=== PATIENT | female | born 1950 | race Caucasian/White ===

== ENCOUNTER 2018-05-22 14:01 | Inpatient (IN) | payer OTHER ==
--- NOTE | 2018-05-22 12:12 | R.PREADM ---
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 ACUTE WELDING MANAGER/DC CAPACITY MANAGER Yolanda Khan REFERRING PHYSICIAN Todd Grant REHAB FACILITY [facility] CLINICAL LIAISON Karen Kerr PHYSICIAN REVIEWER Dr. Leland Monroe M.D. MR# [id number] NAME JYOTI COFFMAN ADDRESS [address] [place] [address] PHONE ZIP [phone] DATE OF 1950 AGE 67 SSN# [id number] GENDER female MARITAL STATUS RACE white ADMIT FROM 02 - [facility] PRE-HOSPITAL LIVING SETTING 01 - Home (private home/apt. board/care, assisted living, half-way, transitional living) HOME TYPE AND DETAILS Type of home: single family house # of levels in the residence: 1 # of steps within the residence: 0 # of steps to enter the residence: 0 PRE-HOSPITAL LIVING WITH Family/Relatives FAMILY SUPPORT Yes PRIMARY FAMILY CONTACT NAME Robert Coffman PRIMARY FAMILY CONTACT PHONE PRIMARY FAMILY CONTACT RELATIONSHIP Spouse PHONE PRIMARY FAMILY CONTACT ON ADM.? no IS PRIMARY FAMILY CONTACT AUTH. REP.? no 1ST EMERGENCY CONTACT Robert Coffman 1ST CONTACT PHONE 1ST CONTACT RELATIONSHIP Spouse PHONE 1ST CONTACT ON ADM. no IS 1ST CONTACT AUTH. REP.? no PHONE 2ND CONTACT ON ADM.? no PATIENT EMPLOYMENT STATUS Retired (for age) PATIENT EMPLOYER No Employer PAYOR INFORMATION: 1ST PAYOR NAME MEDICARE 1ST PAYOR PHONE [phone] 1ST PAYOR INJURY/ILLNESS DUE TO ACCIDENT? No ANOTHER REPUBLICAN RESPONSIBLE? No PRIMARY REHAB/ACUTE DIAGNOSIS: CAD ONSET DATE 04/27/2018 REHAB IMPAIRMENT CATEGORY (VENUS): 14 Cardiac does NOT meet 60% rule PRIMARY DIAGNOSIS-RELATED SURGERIES: ARTERIAL CORONARY BYPASS ON 05/01/2018 COMORBID REHAB/ACUTE DIAGNOSES: - Tier 3 Type 2 diabetes mellitus with diabetic neuropathy, unspecified (E11.40) - N/A ARRHYTHMIA ARTHRITIS ASTHMA ATRIAL FIBRILLATION THYROID CANCER CHF CORONARY ARTERY DISEASE HYPERTENSION INTERVENTIONS: - Arrhythmia Managing VS O2 sats Pacer evaluation - Asthma ABG's Inhalers Medications Nebulizers Respiratory therapy X-Rays - Atrial Fibrillation Anticoagulation Medications VS - Hypertension Fluid management Medications VS RISK FOR COMPLICATIONS: - Arrhythmia Bradycardia CHF Cardiac Arrest Tachycardia - Asthma Hypoxia Metabolic acidosis Worsening of asthma - Atrial Fibrillation CVA Heart failure Limb embolus - Hypertension CVA Hypotension NE TIA SUMMARY OF ACUTE HOSPITALIZATION: Pt. is a 67 yo Right-handed white female. On 04/27/2018 she was admitted to [facility] with diagnosis CAD. Her impairment category is Cardiac 09 - Cardiac Disorders (09). Pre-morbidly, Pt. was independent/mod-I in Communication, Social Cognition, Self-Care, Locomotion, Sp hincter Control, and Transfers Control; and she had good Sphincter Control. Currently, she has deficits of Balance, Locomotion, Endurance, Safety Awareness, Transfers Control, a nd Self-Care. Pt. is now referred to [facility] for acute in-patient rehabilitation in order to maximize patient's functional independence in activities of daily living, strength, ROM, and mobi lity. Patient has realistic goal of being discharged at assistance level 6-Gordo to reside at Home with Fam iris/Relatives. Jyoti Coffman is a 67 year old female that lives in a one ben home. She walks without assistance and independe nt with ADLs. On 04/27/2018, she had Coronary Artery Disease and was admitted to [facility] and treated. She is now medically stable but in need of 24-hour nursing, doctor supervision and oversite participate in 3hours of therapy a day/15 hours per week and receive care with an intensive interdisciplinary approach. PAST MEDICAL HISTORY ARRHYTHMIA ARTHRITIS ASTHMA ATRIAL FIBRILLATION CHF CORONARY ARTERY DISEASE HYPERTENSION THYROID CANCER Type 2 diabetes mellitus with diabetic neuropathy, unspecified (E11.40) PAST SURGICAL HISTORY: BACK SURGERY CARDIAC SURGERY (PACEMAKER IMPLANT) CAESAREAN SECTION GALLBLADDER SURGERY HYSTERECTOMY NECK SURGERY TONSILLECTOMY MEDICATION ALLERGIES: Demerol Iodine and Iodide containing products ENVIRONMENTAL ALLERGIES: Shrimp - Substance Allergies None Known - Other Allergies None Known CODE STATUS: Full code WEIGHT/HEIGHT/BMI: WEIGHT 190 lbs HEIGHT 5' 6" BMI 30.7 DIET: - Diet Type Regular - Diet - Solid Texture Regular - Diet - Liquid Texture Regular - Tube Feed N/A SKIN DIAGRAM: Incision on Right breast; extent - small; stage - NS(Not Stageable). Treatment - Per Physician's Orde rs. REVIEW OF SYSTEMS: - Gen Alert and awake Lying in bed No apparent distress Oriented to: person, time, and place - Vital Signs Temperature: 98.3 F SBP/DBP: 111/57 Pulse: 81 Resp: 18 Vital signs stable, afebrile - CVS RRR VITAL SIGNS Temperature: 98.3 F SBP/DBP: 111/57 Pulse: 81 Resp: 18 Vital signs stable, afebrile CURRENT SPHINCTER CONTROL: Pre-hospital bladder status: continent # of bladder accidents in the last 7 days prior to screenin Pre-hospital bowel status: continent # of bowel accidents in the last 7 days prior to screenin Last Bowel Movement Date: DETAILED CURRENT FUNCTIONAL STATUS: - Bladder accident frequency: Ind - No accidents in the past 7 days - Bowel accident frequency: Ind - No accidents in the past 7 days - Walking score based on distance walked: 3(>=150ft) - Wheelchair score based on distance traveled: 0(N/A) FUNCTIONAL STATUS: - Self-Care A. Eating Ind Ind B. Grooming Ind Ind C. Bathing Ind Martita D. Dressing - Upper Ind Martita E. Dressing - Lower Ind Martita F. Toileting Ind Martita - Sphincter Control G: Bladder control Ind Ind H: Bowel control Ind Ind - Transfers Control I. Bed/Chair/Wheelchair Ind modA J. Toilet Ind modA K. Tub/Shower Ind ADNO - Locomotion L. Walk/Wheelchair (C) Ind Martita L. Walk/Wheelchair (W) Ind Martita M. Stairs Ind ADNO - Communication N. Comprehension (B) Ind Ind O. Expression (B) Ind Ind - Social Cognition P. Social Interaction Ind Ind Q. Problem Solving Ind Ind R. Memory Ind Ind - Endurance Fair - Balance Fair - Safety Awareness Fair CURRENT FUNC. DEFICITS: Balance, Locomotion, Endurance, Safety Awareness, Transfers Control, and Self-Care THERAPY NOTES FROM ACUTE CARE: Attached. SPECIAL NEEDS: - Safety Concerns Skin breakdown precautions needed due to skin breakdown risk PATIENT NEEDS ACTIVE AND ONGOING THERAPEUTIC INTERVENTION OF MULTIPLE THERAPY DISCIPLINES, INCLUDING: - Occupational Therapy Evaluate and Treat. - Physical Therapy Evaluate and Treat. PATIENT NEEDS CLOSE MEDICAL SUPERVISION BY A REHABILITATION PHYSICIAN FOR: Bowel and Bladder Management Coordination of Treatment Team Diabetes Management Medical and Co-Morbidity Management Wound Care DVT Management Pain Management PATIENT REQUIRES 24X7 REHAB NURSING FOR MEDICAL AND FUNCTIONAL MGT. OF THE FOLLOWING DEFICITS: ADL's Ambulation Bowel and Bladder Management Communication Disease Management Medication Management Patient/Family Education Providing Safe Environment Skin Integrity Transfers Pain Management PATIENT REQUIRES INTENSIVE, COORDINATED INTERDISCIPLINARY APPROACH TO REHAB: Arranging Home Equipment/Services Discharge Planning Family Intervention/Training Accounting Policy Consultant/Case Management PATIENT REHAB POTENTIAL: Expected level of measurable improvement will be of a practical value to patient's functional capacit y or adaptations to impairments Has a viable Discharge Plan Medically appropriate; condition is sufficiently stable to participate in intensive rehab program Patient is able and expected to receive 3 hours of individualized therapy daily on at least 5 of ever y 7 days Patient's prognosis for significant practical improvement within a reasonable period of time appears Good DISCHARGE PLAN: - Estimated Length of Stay (days) 10. - Consensus on plan Discharge plan has been discussed with primary caregiver. Patient/Family is in agreement with the gibran n. Primary caregiver is in agreement with the plan. - Patient/Family Goals Return home with assistance. - Potential barriers to discharge Home, to live with Family/Relatives. RECOMMENDED CARE LEVEL: IRF RECOMMENDATION DETAILS: Recommended Admission to Comprehensive Rehabilitation Program to Increase Functional Walker SCREENER'S COMPLETENESS CONFIRMATION: - Screening Confirmation The patient data collection on this preadmission screening form is finished PHYSICIANS REVIEW AND ADMISSION DETERMINATION Admit - Based on my review of the Pre-Admission Screening results, in my medical judgment and experie nce, I concur with the findings and recommend admission to [facility], as this patient requires an IRF level of care. SIGNATURE PANEL: Clinical Liaison - [electronically] signed by Karen Kerr on 05/22/2018 at 11:16 (SCHOOL BUS OPERATOR) Physician Reviewer - [electronically] signed by Dr. Leland Monroe M.D. on 05/22/2018 at 12:11 (SCHOOL BUS OPERATOR )
--- OUTSIDE RECORDS SUMMARY | 2018-05-22 16:03 | XMS REPORT | Clinical Summary ---
:1950 Author Organization [facility] [employer] Address [address] [place] [address] Care Team Providers Name Role Phone Arash Samuel MD Primary Care Provider Allergies Active Allergy Reactions Severity Noted Date Comments Adhesive Rash Low 06/09/2017 Meperidine GI Intolerance 06/09/2017 Iodine Anaphylaxis High 06/09/2017 Shrimp Anaphylaxis High 06/09/2017 Medications Medication Sig Dispensed Refills Start Date End Date Status dapagliflozin-metform Take 1 tablet 0 Active in (XIGDUO XR) by mouth daily. 5-1,000 mg tablet, IR & ER, biphasic 24hr lisinopril Take 5 mg by 0 Active (PRINIVIL,ZESTRIL) 5 mouth daily. mg tablet metoprolol succinate Take 100 mg by 0 Active XL (TOPROL-XL) 100 mg mouth daily. 24 hr tablet ERGOCALCIFEROL, Take by mouth. 0 Active VITAMIN D2, ORAL isosorbide Take 120 mg by 0 Active mononitrate (IMDUR) mouth daily. 120 MG 24 hr tablet MECOBAL/LEVOMEFOLAT Take by mouth. 0 Active CA/B6 PHOS (METANX ORAL) levothyroxine Take 175 mcg by 0 Active (SYNTHROID, LEVOXYL) mouth nightly. 175 mcg tablet ALENDRONATE SODIUM Take by mouth. 0 Active (ALENDRONATE ORAL) methocarbamol Take 1 tablet 40 tablet 3 06/12/2017 Active (ROBAXIN-750) 750 MG every 6 hours tablet as needed for spasms docusate sodium Take 1 capsule 30 capsule 0 06/12/2017 06/27/2017 (COLACE) 100 MG (100 mg total) capsule by mouth 2 (two) times a day for 30 doses. Active Problems Problem Noted Date Pacemaker Irregular heart rate Wears glasses Dental crowns present Never exercises Immunizations up to date Encounters Date Type Specialty Care Team Description 06/12/2017 Anesthesia Event General Surgery Connie Rey, HOME CARE ASSISTANT 06/12/2017 Surgery General Surgery Qamar Lui OF MD Shaheen INTRATHECAL PAIN PUMP 06/12/2017 Hospital Encounter General Surgery Qamar Lui Chronic pain MD Shaheen associated with significant psychosocial dysfunction 06/09/2017 Pre-Admit Testing Pre-Admission Qamar Lui Preop testing Appointment Testing MD Shaheen (Primary Dx) after 05/21/2017 Family History Medical History Relation Name Comments Cancer Brother Heart disease Brother Cancer Father Diabetes Father Emphysema Mother Heart disease Mother Diabetes Sister Relation Name Status Comments Brother Father Mother Sister Alive Social History Tobacco Use Types Packs/Day Years Used Date Never Smoker Smokeless Tobacco: Never Used Alcohol Use Drinks/Week oz/Week Comments Yes occasional Sex Assigned at Date Recorded Not on file Job Start Date Occupation Industry Not on file Not on file Not on file Travel History Travel Start Travel End No recent travel history available. Last Filed Vital Signs Vital Sign Reading Time Taken Blood Pressure 112/65 06/12/2017 12:15 PM TEST CONSULTANT Pulse 60 06/12/2017 12:15 PM TEST CONSULTANT Temperature 36.1 C (96.9 F) 06/12/2017 11:23 AM TEST CONSULTANT Respiratory Rate 14 06/12/2017 12:15 PM TEST CONSULTANT Oxygen Saturation 99% 06/12/2017 12:15 PM TEST CONSULTANT Inhaled Oxygen Concentration - - Weight 68 kg (150 lb) 06/12/2017 7:22 AM TEST CONSULTANT Height 157.5 cm (5' 2") 06/09/2017 3:42 PM TEST CONSULTANT Body Mass Index 27.44 06/12/2017 7:22 AM TEST CONSULTANT Plan of Treatment Health Maintenance Due Date Last Done Comments BREAST CANCER SCREENING 2000 COLON CANCER SCREENING 2000 SHINGLES VACCINES (1 of 2) 2000 PNEUMOCOCCAL POLYSACCHARIDE VACCINE AGE 65 AND OVER 12/22/2015 PNEUMOCOCCAL-13 12/22/2015 INFLUENZA VACCINE 12/27/2017 Procedures Procedure Name Priority Date/Time Associated Comments Diagnosis SURGICAL PATHOLOGY Routine 06/12/2017 11:19 Results for this REQUEST AM TEST CONSULTANT procedure are in the results section. POC GLUCOSE Routine 06/12/2017 10:22 Results for this AM TEST CONSULTANT procedure are in the results section. MT AN ELECTIVE Routine 06/12/2017 9:02 SUPRAGLOTTIC AIRWAY AM TEST CONSULTANT Procedure Note - Ruben Puetne CRNA - 06/12/2017 9:02 AM TEST CONSULTANT Airway Date/Time: 06/12/2017 8:49 AM Performed by: RUBEN PUENTE Authorized by: BONNIE FLETCHER Location: OR Urgency: Elective Difficult Airway: No Anesthesiologist: BONNIE FLETCHER Resident/SCHOOL SUPERVISOR/AA: RUBEN PUENTE Performed by: resident/SCHOOL SUPERVISOR/AA Preoxygenated with 100% O2: Yes C-spine Precautions Maintained Throughout: Yes Mask Ventilation: Not attempted Final Airway Type: Supraglottic airway Final LMA: Classic LMA Size: 3 Number of Attempts at Approach: 1 POC GLUCOSE Routine 06/12/2017 7:32 AM Results for this TEST CONSULTANT procedure are in the results section. MANUAL DIFFERENTIAL Routine 06/09/2017 4:02 PM Results for this TEST CONSULTANT procedure are in the results section. ZZESTIMATED GFR Routine 06/09/2017 4:02 PM Results for this TEST CONSULTANT procedure are in the results section. BASIC METABOLIC PANEL Routine 06/09/2017 4:02 PM Preop testing Results for this TEST CONSULTANT procedure are in the results section. CBC WITH PLATELET AND Routine 06/09/2017 4:02 PM Preop testing Results for this DIFFERENTIAL TEST CONSULTANT procedure are in the results section. after 05/21/2017 Results Surgical pathology request (06/12/2017 11:19 AM TEST CONSULTANT) [facility] DEPARTMENT OF PATHOLOGY AND GENOMIC MEDICINE Surgical pathology report See link below for PDF [facility] DEPARTMENT OF Lab Report PATHOLOGY AND GENOMIC MEDICINE Result status This is Final Report to [facility] DEPARTMENT OF [id number] PATHOLOGY AND GENOMIC MEDICINE Performing Organization Address City/[facility]/Zipcode Phone Number [facility] DEPARTMENT OF PATHOLOGY [id number] [place] [address]. [place] [address] AND GENOMIC MEDICINE POC glucose (06/12/2017 10:22 AM TEST CONSULTANT)Only the most recent of2 resultswithin the time period is included. POC glucose 106 (H) 65 - 99 mg/dL [facility] DEPARTMENT OF PATHOLOGY AND Comment: GENOMIC MEDICINE RN Notified Meter ID: [id number] Tobacco Cutter: Berhane Powers Performing Organization Address City/[facility]/Zipcode Phone Number [facility] DEPARTMENT OF PATHOLOGY [address] [place] [address] AND [place] Estimated GFR (06/09/2017 4:02 PM TEST CONSULTANT) GFR Non Af Amer 63 mL/min/1.73 m2 [facility] DEPARTMENT OF PATHOLOGY AND GENOMIC MEDICINE GFR Af Amer 76 mL/min/1.73 m2 [facility] DEPARTMENT OF Comment: PATHOLOGY AND GENOMIC Chronic kidney disease: <60 mL/min/1.73m2 MEDICINE Kidney failure: <15 mL/min/1.73m2 The estimated GFR is calculated from the IDMS-traceable Modification of Diet in Renal Disease Equation. The accuracy of the calculation is poor when the creatinine is normal. Calculated values >90 mL/min/1.73m2 are not reported. This equation has not been validated in children (<18 years), women, the elderly (>70 years), or ethnic groups other than Caucasians and Americans. Specimen Plasma specimen Performing Organization Address City/[facility] Phone Number [facility] DEPARTMENT OF PATHOLOGY [address] [place] [address] AND [facility] Manual differential (06/09/2017 4:02 PM TEST CONSULTANT) Manual differential PERFORMED [facility] DEPARTMENT OF PATHOLOGY AND GENOMIC MEDICINE Neutrophils 49.0 39.0 - 69.0 % [facility] DEPARTMENT OF PATHOLOGY AND GENOMIC MEDICINE Lymphocytes 44.0 25.0 - 45.0 % [facility] DEPARTMENT OF PATHOLOGY AND GENOMIC MEDICINE Monocytes 5.0 0.0 - 10.0 % [facility] DEPARTMENT OF PATHOLOGY AND GENOMIC MEDICINE Eosinophils 0.0 0.0 - 5.0 % [facility] DEPARTMENT OF PATHOLOGY AND GENOMIC MEDICINE Basophils 2.0 (H) 0.0 - 1.0 % [facility] DEPARTMENT OF PATHOLOGY AND GENOMIC MEDICINE Platelet slide review Charity adequate [facility] DEPARTMENT OF PATHOLOGY AND GENOMIC MEDICINE Performing Organization Address City/State/Zipcode Phone Number [facility] DEPARTMENT PATHOLOGY [address] [place] [address] CBC with platelet and differential (06/09/2017 4:02 PM TEST CONSULTANT) WBC 7.0 4.5 - 11.0 k/uL [facility] DEPARTMENT OF PATHOLOGY AND GENOMIC MEDICINE RBC 3.88 (L) 4.20 - 5.50 m/uL [facility] DEPARTMENT OF PATHOLOGY AND GENOMIC MEDICINE HGB 11.9 (L) 12.0 - 16.0 g/dL [facility] DEPARTMENT OF PATHOLOGY AND GENOMIC MEDICINE HCT 35.6 (L) 37.0 - 47.0 % [facility] DEPARTMENT OF PATHOLOGY AND GENOMIC MEDICINE MCV 91.8 82.0 - 100.0 fL [facility] DEPARTMENT OF PATHOLOGY AND GENOMIC MEDICINE MCH 30.7 27.0 - 34.0 pg [facility] DEPARTMENT OF PATHOLOGY AND GENOMIC MEDICINE MCHC 33.4 31.0 - 37.0 g/dL [facility] DEPARTMENT OF PATHOLOGY AND GENOMIC MEDICINE RDW - SD 41.6 37.0 - 55.0 fL [facility] DEPARTMENT OF PATHOLOGY AND GENOMIC MEDICINE MPV 8.4 6.9 - 11.0 fL [facility] DEPARTMENT OF PATHOLOGY AND GENOMIC MEDICINE Platelet count 302 150 - 400 K/uL [facility] DEPARTMENT OF PATHOLOGY AND GENOMIC MEDICINE Nucleated RBC 0.00 /100 WBC [facility] DEPARTMENT OF PATHOLOGY AND GENOMIC MEDICINE Neutrophils 49.0 39.0 - 69.0 % [facility] DEPARTMENT OF PATHOLOGY AND GENOMIC MEDICINE Lymphocytes 44.0 25.0 - 45.0 % [facility] DEPARTMENT OF PATHOLOGY AND GENOMIC MEDICINE Monocytes 5.0 0.0 - 10.0 % [facility] DEPARTMENT OF PATHOLOGY AND GENOMIC MEDICINE Eosinophils 0.0 0.0 - 5.0 % [facility] DEPARTMENT OF PATHOLOGY AND GENOMIC MEDICINE Basophils 2.0 (H) 0.0 - 1.0 % [facility] DEPARTMENT OF PATHOLOGY AND GENOMIC MEDICINE Specimen Blood Performing Organization Address City/State/Zipcode Phone Number [facility] DEPARTMENT OF PATHOLOGY [address] [place] [address] AND [facility] Basic metabolic panel (06/09/2017 4:02 PM TEST CONSULTANT) Sodium 135 135 - 148 mEq/L [facility] DEPARTMENT OF PATHOLOGY AND GENOMIC MEDICINE Potassium 4.4 3.5 - 5.0 mEq/L [facility] DEPARTMENT OF PATHOLOGY AND GENOMIC MEDICINE Chloride 93 (L) 98 - 112 mEq/L [facility] DEPARTMENT OF PATHOLOGY AND GENOMIC MEDICINE CO2 30 24 - 31 mEq/L [facility] DEPARTMENT OF PATHOLOGY AND GENOMIC MEDICINE Anion gap 12 7 - 15 mEq/L [facility] DEPARTMENT OF Comment: PATHOLOGY AND GENOMIC Starting from August , anion gap calculation MEDICINE no longer incorporates potassium. Please note the change. BUN 17 8 - 23 mg/dL [facility] DEPARTMENT OF PATHOLOGY AND GENOMIC MEDICINE Creatinine 0.9 0.5 - 0.9 mg/dL [facility] DEPARTMENT OF PATHOLOGY AND GENOMIC MEDICINE Glucose 103 (H) 65 - 99 mg/dL [facility] DEPARTMENT OF PATHOLOGY AND GENOMIC MEDICINE Calcium 10.2 8.8 - 10.2 mg/dL [facility] DEPARTMENT OF PATHOLOGY AND GENOMIC MEDICINE Specimen Plasma specimen Performing Organization Address City/State/Zipcode Phone Number [facility] DEPARTMENT OF PATHOLOGY [address] [place] [address] AND GENOMIC MEDICINE after 05/21/2017 Insurance Payer Benefit Plan / Group Subscriber ID Type Phone Address MEDICARE MEDICARE PART A AND B xxxxxxxxxx Medicare [place], [place] [employer] xxxxxxxx Commercial FOR LIFE xxxxxxxxxxx Advance Directives Patient has advance care planning documents on file. For more information, please contact:Chema [id number] [place] [address]
--- OUTSIDE RECORDS SUMMARY | 2018-05-22 16:08 | XMS REPORT ---
:1950 [facility] Address [address] [place], [place] [address]eliazar Moreno [address] [place] [address] Care Team Providers Name Role Phone DELROY RAYA Unavailable Unavailable Problems This patient has no known problems. Allergies, Adverse Reactions, Alerts This patient has no known allergies or adverse reactions. Medications This patient has no known medications. Results Test Description Test Time Test Comments Text Results Atomic Results Result Comments POCT-GLUCOSE METER 2018-05-22 12:48:00 Test Item Value Reference Range Comments POC-GLUCOSE METER (BEAKER) (test 256 mg/dL 70-[address] [facility] [address] [place] [address] ufon=3802) [facility] [address] POCT-GLUCOSE [id number] 08:46:00 Test Item Value Reference Range Comments POC-GLUCOSE METER (BEAKER) 159 mg/dL 70-110 TESTED AT [address] (test kipv=7962) [facility] [address] BASIC METABOLIC [id number] 06:49:00 Test Item Value Reference Range Comments SODIUM (BEAKER) (test 135 meq/L 136-145 tepw=682) POTASSIUM (BEAKER) (test 3.9 meq/L 3.5-5.1 thqt=537) CHLORIDE (BEAKER) (test 94 meq/L 98-107 amiv=773) CO2 (BEAKER) (test 35 meq/L 22-29 bmfc=501) BLOOD UREA NITROGEN 23 mg/dL 7-21 (BEAKER) (test jqzr=812) CREATININE (BEAKER) (test 0.94 mg/dL 0.57-1.25 gadk=129) GLUCOSE RANDOM (BEAKER) 158 mg/dL 70-105 (test azob=726) CALCIUM (BEAKER) (test 9.3 mg/dL 8.4-10.2 aulp=565) EGFR (BEAKER) (test 59 mL/min/1.73 sq m ESTIMATED GFR IS NOT lqjq=6298) ACCURATE CREATININE CLEARANCE IN PREDICTING GLOMERULAR FILTRATION RATE. ESTIMATED GFR IS NOT APPLICABLE FOR DIALYSIS PATIENTS. POCT-GLUCOSE [id number] 21:22:00 Test Item Value Reference Range Comments POC-GLUCOSE METER (BEAKER) 253 mg/dL 70-110 TESTED AT [address] (test lyou=7917) [place] [id number] POCT-GLUCOSE [id number] 16:25:00 Test Item Value Reference Range Comments POC-GLUCOSE METER (BEAKER) 125 mg/dL 70-110 TESTED AT [address] (test gmxz=0721) [place] [address] POCT-GLUCOSE [id number] 12:37:00 Test Item Value Reference Range Comments POC-GLUCOSE METER (BEAKER) 295 mg/dL 70-110 TESTED AT [address] (test mkds=7030) [place] [address] POCT-GLUCOSE [id number] 07:45:00 Test Item Value Reference Range Comments POC-GLUCOSE METER (BEAKER) 169 mg/dL 70-110 TESTED AT [address] (test egzp=4128) [place] [address] BASIC METABOLIC [id number] 05:48:00 Test Item Value Reference Range Comments SODIUM (BEAKER) (test 136 meq/L 136-145 vjgg=317) POTASSIUM (BEAKER) (test 3.8 meq/L 3.5-5.1 bckl=063) CHLORIDE (BEAKER) (test 94 meq/L 98-107 tfga=597) CO2 (BEAKER) (test 32 meq/L 22-29 eagk=910) BLOOD UREA NITROGEN 22 mg/dL 7-21 (BEAKER) (test rfcf=676) CREATININE (BEAKER) (test 0.98 mg/dL 0.57-1.25 lypw=535) GLUCOSE RANDOM (BEAKER) 151 mg/dL 70-105 (test mgqa=438) CALCIUM (BEAKER) (test 9.1 mg/dL 8.4-10.2 mgkb=653) EGFR (BEAKER) (test 57 mL/min/1.73 sq m ESTIMATED GFR IS NOT rrta=6336) ACCURATE CREATININE CLEARANCE IN PREDICTING GLOMERULAR FILTRATION RATE. ESTIMATED GFR IS NOT APPLICABLE FOR DIALYSIS PATIENTS. POCT-GLUCOSE [id number] 21:20:00 Test Item Value Reference Range Comments POC-GLUCOSE METER (BEAKER) 213 mg/dL 70-110 TESTED AT [address] (test fyih=1495) [facility] [address] POCT-GLUCOSE [id number] 17:47:00 Test Item Value Reference Range Comments POC-GLUCOSE METER (BEAKER) 120 mg/dL 70-110 TESTED AT [address] (test qstj=2740) [facility] [address] POCT-GLUCOSE [id number] 11:35:00 Test Item Value Reference Range Comments POC-GLUCOSE METER (BEAKER) 361 mg/dL 70-110 Notified NATALIE MARTINEZ/TESTED AT [facility] (test pcdq=2594) [address] [place] [address] POCT-GLUCOSE [id number] 08:05:00 Test Item Value Reference Range Comments POC-GLUCOSE METER (BEAKER) 280 mg/dL 70-110 TESTED AT [address] (test gstn=2923) [facility] [address] POCT-GLUCOSE [id number] 21:01:00 Test Item Value Reference Range Comments POC-GLUCOSE METER (BEAKER) 273 mg/dL 70-110 TESTED AT [address] (test xpjm=4970) [place] [address] POCT-GLUCOSE [id number] 17:21:00 Test Item Value Reference Range Comments POC-GLUCOSE METER (BEAKER) 248 mg/dL 70-110 TESTED AT [address] (test gwgn=1376) [facility] [address] RAD, CHEST, 1 VIEW, NON [id number] 14:52:00Reason for exam:->previously doneShould this be performed at the bedside?->YesFINAL REPORT HISTORY : previously done. Comparison: 05/18/2018 Comment: Single portable view of the chest was obtained. The cardiac silhouette size is enlarged. There are findings of pulmonary venous congestion. Interstitial prominence may represent interstitial edema. No lyticor blastic abnormalities are seen. There is a tjuyd-bvakfoxo-lcgjb right-sided and small left-sided pleural effusion with some adjacent consolidation that may represent atelectasis. Pneumonitis or aspiration cannot be excluded. The patient is status post sternotomy. Signed: Sarna, Achal MDReport Verified Date/Time: 05/19 14:52:31 Reading Location: [facility] C0[facility] Reading Room POCT-GLUCOSE [id number] 12:28:00 Test Item Value Reference Range Comments POC-GLUCOSE METER (BEAKER) 314 mg/dL 70-[address] [facility] [address] [facility] (test qeqq=3330) [facility] [address] POCT-GLUCOSE [id number] 09:11:00 Test Item Value Reference Range Comments POC-GLUCOSE METER (BEAKER) 267 mg/dL 70-110 TESTED AT [address] (test wmwz=6967) [facility] [address] BASIC METABOLIC [id number] 06:41:00 Test Item Value Reference Range Comments SODIUM (BEAKER) (test 136 meq/L 136-145 cmfv=779) POTASSIUM (BEAKER) (test 4.0 meq/L 3.5-5.1 hprl=668) CHLORIDE (BEAKER) (test 93 meq/L 98-107 xwiv=892) CO2 (BEAKER) (test 31 meq/L 22-29 acix=682) BLOOD UREA NITROGEN 15 mg/dL 7-21 (BEAKER) (test gpfz=402) CREATININE (BEAKER) (test 0.86 mg/dL 0.57-1.25 vhix=552) GLUCOSE RANDOM (BEAKER) 208 mg/dL 70-105 (test pgdh=914) CALCIUM (BEAKER) (test 9.4 mg/dL 8.4-10.2 eljf=394) EGFR (BEAKER) (test 66 mL/min/1.73 sq m ESTIMATED GFR IS NOT rmvs=1288) ACCURATE CREATININE CLEARANCE IN PREDICTING GLOMERULAR FILTRATION RATE. ESTIMATED GFR IS NOT APPLICABLE FOR DIALYSIS PATIENTS. CBC (HEMOGRAM ONLY)2018-05-19 04:33:00 Test Item Value Reference Range Comments WHITE BLOOD CELL COUNT (BEAKER) (test tfqa=095) 7.6 K/ L 3.5-10.5 RED BLOOD CELL COUNT (BEAKER) (test rdqi=212) 3.72 M/ L 3.93-5.22 HEMOGLOBIN (BEAKER) (test pxjc=550) 10.1 GM/DL 11.2-15.7 HEMATOCRIT (BEAKER) (test wpxv=992) 32.5 % 34.1-44.9 MEAN CORPUSCULAR VOLUME (BEAKER) (test zwqm=263) 87.4 fL 79.4-94.8 MEAN CORPUSCULAR HEMOGLOBIN (BEAKER) (test 27.2 pg 25.6-32.2 kxaz=192) MEAN CORPUSCULAR HEMOGLOBIN CONC (BEAKER) (test 31.1 GM/DL 32.2-35.5 aujj=858) RED CELL DISTRIBUTION WIDTH (BEAKER) (test 14.0 % 11.7-14.4 tjze=852) PLATELET COUNT (BEAKER) (test jesz=515) 510 K/CU MM 150-450 MEAN PLATELET VOLUME (BEAKER) (test uhbo=814) 8.4 fL 9.4-12.3 NUCLEATED RED BLOOD CELLS (BEAKER) (test 0 /100 WBC 0-0 tzip=286) POCT-GLUCOSE [id number] 21:31:00 Test Item Value Reference Range Comments POC-GLUCOSE METER (BEAKER) 252 mg/dL 70-110 TESTED AT [address] (test ekgb=6916) [place] [address] POCT-GLUCOSE [id number] 18:44:00 Test Item Value Reference Range Comments POC-GLUCOSE METER (BEAKER) 196 mg/dL 70-110 TESTED AT [address] (test gpdc=6449) [place] [address] POCT-GLUCOSE [id number] 13:26:00 Test Item Value Reference Range Comments POC-GLUCOSE METER (BEAKER) 200 mg/dL 70-110 TESTED AT [address] (test ghmb=0339) [place] [address] POCT-GLUCOSE [id number] 09:32:00 Test Item Value Reference Range Comments POC-GLUCOSE METER (BEAKER) 236 mg/dL 70-110 TESTED AT [address] (test ghsh=5035) [place] [address] RAD, CHEST, 1 VIEW, NON [id number] 09:17:00Reason for exam:->pulmonary congestionShould this be performed at the bedside?->YesFINAL REPORT Portable chest. CLINICAL HISTORY: pulmonary congestion. COMPARISON STUDY: Chest x-ray from yesterday. FINDINGS: The cardiac silhouette is enlarged. The patient is status post sternotomy. The pulmonary parenchyma demonstrates atelectasis or consolidation adjacent to a small right pleural effusion, similar to previous. Some opacity is also seen in the left lung base.. The support lines and tubes are unchanged. No pneumothorax is seen. Degenerative changes are noted.IMPRESSION: No significant change. Signed: Johnie Perez MDReport Verified Date/Time: 05/18/2018 09:17:59 Reading Location: [facility] C013X Ortho Consult Reading Room BASIC METABOLIC [id number] 06: 43:00 Test Item Value Reference Range Comments SODIUM (BEAKER) (test 131 meq/L 136-145 sbuz=305) POTASSIUM (BEAKER) (test 3.9 meq/L 3.5-5.1 cvli=768) CHLORIDE (BEAKER) (test 91 meq/L 98-107 kewy=628) CO2 (BEAKER) (test 33 meq/L 22-29 etdo=242) BLOOD UREA NITROGEN 16 mg/dL 7-21 (BEAKER) (test byfj=361) CREATININE (BEAKER) (test 0.90 mg/dL 0.57-1.25 czsr=385) GLUCOSE RANDOM (BEAKER) 220 mg/dL 70-105 (test zrwi=452) CALCIUM (BEAKER) (test 9.1 mg/dL 8.4-10.2 lqqd=576) EGFR (BEAKER) (test 62 mL/min/1.73 sq m ESTIMATED GFR IS NOT yfqk=0677) ACCURATE CREATININE CLEARANCE IN PREDICTING GLOMERULAR FILTRATION RATE. ESTIMATED GFR IS NOT APPLICABLE FOR DIALYSIS PATIENTS. PROTHROMBIN [id number] 06:40:00 Test Item Value Reference Range Comments PROTIME (BEAKER) (test kpqg=415) 16.1 seconds 11.7-14.7 INR (BEAKER) (test jlxi=691) 1.3 <=5.9 RECOMMENDED COUMADIN/WARFARIN INR THERAPY RANGESSTANDARD DOSE: 2.0 - 3.0 Includes: PROPHYLAXIS forvenous thrombosis, systemic embolization; TREATMENT for venous thrombosis and/or pulmonary embolus.HIGH RISK: Target INR is 2.5-3.5 for patients with mechanical heart valves.CBC (HEMOGRAM ONLY)2018-05-18 06:28:00 Test Item Value Reference Range Comments WHITE BLOOD CELL COUNT (BEAKER) (test bsqh=915) 7.9 K/ L 3.5-10.5 RED BLOOD CELL COUNT (BEAKER) (test xxsg=702) 3.11 M/ L 3.93-5.22 HEMOGLOBIN (BEAKER) (test vcnj=710) 8.4 GM/DL 11.2-15.7 HEMATOCRIT (BEAKER) (test fcbw=266) 27.0 % 34.1-44.9 MEAN CORPUSCULAR VOLUME (BEAKER) (test vnnv=421) 86.8 fL 79.4-94.8 MEAN CORPUSCULAR HEMOGLOBIN (BEAKER) (test 27.0 pg 25.6-32.2 honl=651) MEAN CORPUSCULAR HEMOGLOBIN CONC (BEAKER) (test 31.1 GM/DL 32.2-35.5 gpfl=179) RED CELL DISTRIBUTION WIDTH (BEAKER) (test 14.1 % 11.7-14.4 ecmr=628) PLATELET COUNT (BEAKER) (test imgd=752) 446 K/CU MM 150-450 MEAN PLATELET VOLUME (BEAKER) (test tbdy=266) 8.2 fL 9.4-12.3 NUCLEATED RED BLOOD CELLS (BEAKER) (test 0 /100 WBC 0-0 nrwm=777) POCT-GLUCOSE [id number] 23:23:00 Test Item Value Reference Range Comments POC-GLUCOSE METER (BEAKER) 192 mg/dL 70-110 TESTED AT [address] (test giem=7560) [place] [address] POCT-GLUCOSE [id number] 19:54:00 Test Item Value Reference Range Comments POC-GLUCOSE METER (BEAKER) 290 mg/dL 70-110 TESTED AT [address] (test rgev=7809) [place] [address] POCT-GLUCOSE [id number] 17:32:00 Test Item Value Reference Range Comments POC-GLUCOSE METER (BEAKER) 419 mg/dL 70-110 TESTED AT [address] (test ohuo=6748) [place] [address] POCT-GLUCOSE [id number] 12:25:00 Test Item Value Reference Range Comments POC-GLUCOSE METER (BEAKER) 243 mg/dL 70-110 TESTED AT [place] [id number] [facility] (test qini=7736) [place] [address] RAD, CHEST, 1 VIEW, NON [id number] 10:14:00Reason for exam:->pulmonary congestionShould this be performed at the bedside?->YesFINAL REPORT TECHNIQUE: Frontal chest radiograph dated 05/17/2018. CLINICAL HISTORY: Pulmonary congestion COMPARISON STUDY: Chest radiograph dated 2017 Impression:Left-sided pacemaker is unchanged. There are stable bilateral pleural effusions with associated atelectasis, unchanged. No pneumothorax. Cardiomediastinal silhouette is stable in size. No pulmonary edema. Degenerative changes are seen in the spine. Signed: Lawanda Arriaga MDReport Verified Date/Time: 05/17/2018 10:14:32 Reading Location: [facility] Radiology Reading Room Electronically signed by: LAWANDA ARRIAGA MD on 2017 10:14 AMPOCT-GLUCOSE [id number] 08:19:00 Test Item Value Reference Range Comments POC-GLUCOSE METER (BEAKER) 258 mg/dL 70-110 TESTED AT [address] (test kkqn=4462) [place] [address] BASIC METABOLIC [id number] 06:07:00 Test Item Value Reference Range Comments SODIUM (BEAKER) (test 135 meq/L 136-145 plyh=091) POTASSIUM (BEAKER) (test 3.8 meq/L 3.5-5.1 dhpj=938) CHLORIDE (BEAKER) (test 94 meq/L 98-107 rten=937) CO2 (BEAKER) (test 33 meq/L 22-29 vtug=717) BLOOD UREA NITROGEN 16 mg/dL 7-21 (BEAKER) (test nxhf=761) CREATININE (BEAKER) (test 0.95 mg/dL 0.57-1.25 hxcn=552) GLUCOSE RANDOM (BEAKER) 223 mg/dL 70-105 (test ghca=266) CALCIUM (BEAKER) (test 9.5 mg/dL 8.4-10.2 vdcl=961) EGFR (BEAKER) (test 59 mL/min/1.73 sq m ESTIMATED GFR IS NOT amks=9018) ACCURATE CREATININE CLEARANCE IN PREDICTING GLOMERULAR FILTRATION RATE. ESTIMATED GFR IS NOT APPLICABLE FOR DIALYSIS PATIENTS. PT/[id number] 05:56:00 Test Item Value Reference Range Comments PROTIME (BEAKER) (test wgun=560) 22.7 seconds 11.7-14.7 INR (BEAKER) (test odqf=836) 2.0 <=5.9 PARTIAL THROMBOPLASTIN TIME (BEAKER) (test 37.9 seconds 22.5-36.0 suqi=307) RECOMMENDED COUMADIN/WARFARIN INR THERAPY RANGESSTANDARD DOSE: 2.0 - 3.0 Includes: PROPHYLAXIS forvenous thrombosis, systemic embolization; TREATMENT for venous thrombosis and/or pulmonary embolus.HIGH RISK: Target INR is 2.5-3.5 for patients with mechanical heart valves.CBC (HEMOGRAM ONLY)2018-05-17 05:34:00 Test Item Value Reference Range Comments WHITE BLOOD CELL COUNT (BEAKER) (test eyeo=673) 7.5 K/ L 3.5-10.5 RED BLOOD CELL COUNT (BEAKER) (test bcso=082) 3.33 M/ L 3.93-5.22 HEMOGLOBIN (BEAKER) (test oukq=404) 9.0 GM/DL 11.2-15.7 HEMATOCRIT (BEAKER) (test oxcj=166) 29.0 % 34.1-44.9 MEAN CORPUSCULAR VOLUME (BEAKER) (test srap=312) 87.1 fL 79.4-94.8 MEAN CORPUSCULAR HEMOGLOBIN (BEAKER) (test 27.0 pg 25.6-32.2 hbua=907) MEAN CORPUSCULAR HEMOGLOBIN CONC (BEAKER) (test 31.0 GM/DL 32.2-35.5 tdle=341) RED CELL DISTRIBUTION WIDTH (BEAKER) (test 14.1 % 11.7-14.4 ngel=819) PLATELET COUNT (BEAKER) (test usdh=608) 473 K/CU MM 150-450 MEAN PLATELET VOLUME (BEAKER) (test czll=159) 8.3 fL 9.4-12.3 NUCLEATED RED BLOOD CELLS (BEAKER) (test 0 /100 WBC 0-0 jmos=822) POCT-GLUCOSE [id number] 21:29:00 Test Item Value Reference Range Comments POC-GLUCOSE METER (BEAKER) 219 mg/dL 70-110 TESTED AT [place] [id number] [facility] (test pysw=5263) [facility] [address] POCT-GLUCOSE [id number] 17:56:00 Test Item Value Reference Range Comments POC-GLUCOSE METER (BEAKER) 294 mg/dL 70-110 TESTED AT [address] (test vlry=9247) [facility] [address] POCT-GLUCOSE [id number] 11:37:00 Test Item Value Reference Range Comments POC-GLUCOSE METER (BEAKER) 234 mg/dL 70-110 TESTED AT [address] (test fgje=3942) [facility] [address] POCT-GLUCOSE [id number] 08:56:00 Test Item Value Reference Range Comments POC-GLUCOSE METER (BEAKER) 223 mg/dL 70-110 TESTED AT [address] (test nteo=4210) [facility] [address] RAD, CHEST, 1 VIEW, NON [id number] 07:30:00Reason for exam:->pulmonary congestionShould this be performed at the bedside?->YesFINAL REPORT Portable chest. CLINICAL HISTORY: pulmonary congestion. COMPARISON STUDY: Chest x-ray from yesterday. FINDINGS: The cardiac silhouette is enlarged. Sternotomy wires are seen. The pulmonary parenchyma demonstrates interstitial markings with bibasilar airspace opacities and a small right-sided pleural effusion, similar previous. The support lines and tubes are unchanged. No pneumothorax is seen. Degenerative changes are noted. IMPRESSION: No significant change. Signed: Johnie Perezramona Verified Date/Time: 2017 07:30:05 Reading Location: [facility] [place], operated [facility] Reading Room BASIC METABOLIC [id number] 05:56:00 Test Item Value Reference Range Comments SODIUM (BEAKER) (test 135 meq/L 136-145 qavm=381) POTASSIUM (BEAKER) (test 4.0 meq/L 3.5-5.1 smzx=429) CHLORIDE (BEAKER) (test 94 meq/L 98-107 wbxb=498) CO2 (BEAKER) (test 32 meq/L 22-29 kkjy=764) BLOOD UREA NITROGEN 15 mg/dL 7-21 (BEAKER) (test tswy=742) CREATININE (BEAKER) (test 0.83 mg/dL 0.57-1.25 cqeb=058) GLUCOSE RANDOM (BEAKER) 187 mg/dL 70-105 (test igin=105) CALCIUM (BEAKER) (test 9.4 mg/dL 8.4-10.2 cfok=613) EGFR (BEAKER) (test 69 mL/min/1.73 sq m ESTIMATED GFR IS NOT swxw=2865) ACCURATE CREATININE CLEARANCE IN PREDICTING GLOMERULAR FILTRATION RATE. ESTIMATED GFR IS NOT APPLICABLE FOR DIALYSIS PATIENTS. CBC (HEMOGRAM ONLY)2018-05-16 05:27:00 Test Item Value Reference Range Comments WHITE BLOOD CELL COUNT (BEAKER) (test zomv=748) 7.9 K/ L 3.5-10.5 RED BLOOD CELL COUNT (BEAKER) (test dcgh=855) 3.23 M/ L 3.93-5.22 HEMOGLOBIN (BEAKER) (test dibd=994) 8.8 GM/DL 11.2-15.7 HEMATOCRIT (BEAKER) (test nnky=717) 28.4 % 34.1-44.9 MEAN CORPUSCULAR VOLUME (BEAKER) (test pzgl=991) 87.9 fL 79.4-94.8 MEAN CORPUSCULAR HEMOGLOBIN (BEAKER) (test 27.2 pg 25.6-32.2 eszy=920) MEAN CORPUSCULAR HEMOGLOBIN CONC (BEAKER) (test 31.0 GM/DL 32.2-35.5 jtoz=011) RED CELL DISTRIBUTION WIDTH (BEAKER) (test 14.2 % 11.7-14.4 qkbc=439) PLATELET COUNT (BEAKER) (test hikd=037) 482 K/CU MM 150-450 MEAN PLATELET VOLUME (BEAKER) (test ivyz=966) 8.5 fL 9.4-12.3 NUCLEATED RED BLOOD CELLS (BEAKER) (test 0 /100 WBC 0-0 fvuk=477) POCT-GLUCOSE [id number] 22:23:00 Test Item Value Reference Range Comments POC-GLUCOSE METER (BEAKER) 268 mg/dL 70-110 TESTED AT [address] (test ymdf=2970) [facility] [address] U/S, [id number] 21:30:00Reason for exam:->please quantify size of effusions bilaterallyShould this be performed at the bedside?->YesFINAL REPORT EXAM: U/S, CHEST CLINICAL INDICATION: Quantify bilateral pleural effusions. COMPARISON: None FINDINGS/IMPRESSION: Ultrasound of the chest was obtained. Evaluation of the left chest is limited due to patient's inability to be adequately positioned. There are bilateral pleural effusions, large on the right and moderate on the left with associated compressive atelectasis. Signed: Bhavana Kennedyeport Verified Date/Time: 21:30:25 Reading Location: [facility] C013Y CT Body Reading Room POCT- GLUCOSE [id number] 18:37:00 Test Item Value Reference Range Comments POC-GLUCOSE METER (BEAKER) 232 mg/dL 70-110 TESTED AT [address] (test tpuj=2359) [place] [id number] POCT-GLUCOSE [id number] 12:42:00 Test Item Value Reference Range Comments POC-GLUCOSE METER (BEAKER) 290 mg/dL 70-110 TESTED AT [address] (test qfue=9167) [place] [address] POCT-GLUCOSE [id number] 08:18:00 Test Item Value Reference Range Comments POC-GLUCOSE METER (BEAKER) 266 mg/dL 70-110 TESTED AT [address] (test amee=7230) [facility] [address] RAD, CHEST, 1 VIEW, NON [id number] 07:35:00Reason for exam:->pulmonary congestionShould this be performed at the bedside?->YesFINAL REPORT RAD, CHEST, 1 VIEW, NON DEPT INDICATION: pulmonary congestion COMPARISON: Prior day's exam FINDINGS: Portable frontal view of the chest. IMPRESSION: Support Lines: Stable. Lungs and pleura: Unchanged bilateral layering pleural effusions with airspace opacities inbilateral lower lungs favored to be related to passive atelectasis. No pneumothorax.Heart and mediastinum: Stable contours. Stable surgical changes.Additional findings: None. Signed: Darya Turner Verified Date/Time: 05/15/2018 07:35 :40 Reading Location: [facility] Radiology ReadingRoom [id number] 06:21:00 Test Item Value Reference Range Comments MAGNESIUM (BEAKER) (test 1.5 mg/dL 1.6-2.6 Specimen slightly hemolyzed xqdz=310) BASIC METABOLIC [id number] 06:21:00 Test Item Value Reference Range Comments SODIUM (BEAKER) (test 134 meq/L 136-145 delm=934) POTASSIUM (BEAKER) (test 4.3 meq/L 3.5-5.1 Specimen slightly mwgp=406) hemolyzed CHLORIDE (BEAKER) (test 94 meq/L 98-107 gsxi=032) CO2 (BEAKER) (test 32 meq/L 22-29 uuni=152) BLOOD UREA NITROGEN 17 mg/dL 7-21 (BEAKER) (test brjt=276) CREATININE (BEAKER) (test 0.85 mg/dL 0.57-1.25 Specimen slightly heoi=778) hemolyzed GLUCOSE RANDOM (BEAKER) 259 mg/dL 70-105 (test asno=639) CALCIUM (BEAKER) (test 9.0 mg/dL 8.4-10.2 jpfh=120) EGFR (BEAKER) (test 67 mL/min/1.73 sq m ESTIMATED GFR IS NOT qhpx=6064) ACCURATE CREATININE CLEARANCE IN PREDICTING GLOMERULAR FILTRATION RATE. ESTIMATED GFR IS NOT APPLICABLE FOR DIALYSIS PATIENTS. CBC (HEMOGRAM ONLY)2018-05-15 05:51:00 Test Item Value Reference Range Comments WHITE BLOOD CELL COUNT (BEAKER) (test thmq=880) 8.2 K/ L 3.5-10.5 RED BLOOD CELL COUNT (BEAKER) (test mfzn=055) 3.00 M/ L 3.93-5.22 HEMOGLOBIN (BEAKER) (test gfru=275) 8.2 GM/DL 11.2-15.7 HEMATOCRIT (BEAKER) (test ojts=133) 26.4 % 34.1-44.9 MEAN CORPUSCULAR VOLUME (BEAKER) (test nnse=936) 88.0 fL 79.4-94.8 MEAN CORPUSCULAR HEMOGLOBIN (BEAKER) (test 27.3 pg 25.6-32.2 zdmo=931) MEAN CORPUSCULAR HEMOGLOBIN CONC (BEAKER) (test 31.1 GM/DL 32.2-35.5 ugwl=461) RED CELL DISTRIBUTION WIDTH (BEAKER) (test 14.4 % 11.7-14.4 uaqt=328) PLATELET COUNT (BEAKER) (test xkix=339) 422 K/CU MM 150-450 MEAN PLATELET VOLUME (BEAKER) (test ldej=613) 8.9 fL 9.4-12.3 NUCLEATED RED BLOOD CELLS (BEAKER) (test 0 /100 WBC 0-0 lojj=876) POCT-GLUCOSE [id number] 21:09:00 Test Item Value Reference Range Comments POC-GLUCOSE METER (BEAKER) 236 mg/dL 70-110 TESTED AT [address] (test hfem=7453) [facility] [address] POCT-GLUCOSE [id number] 17:26:00 Test Item Value Reference Range Comments POC-GLUCOSE METER (BEAKER) 342 mg/dL 70-110 Notified NATALIE MARTINEZ/TESTED AT [facility] (test avzo=9147) [address] [place] [id number] POCT-GLUCOSE [id number] 12:43:00 Test Item Value Reference Range Comments POC-GLUCOSE METER (BEAKER) 261 mg/dL 70-110 TESTED AT [address] (test zhhe=1139) [facility] [address] RAD, CHEST, 1 VIEW, NON [id number] 09:14:00Reason for exam:->pulmonary congestionShould this be performed at the bedside?->YesFINAL REPORT INDICATION: pulmonary congestion COMPARISON:May 13 at 9:45 PM TECHNIQUE: Chest radiograph, single view, portable technique. FINDINGS / IMPRESSION: Patient is status post recent coronary artery bypass surgery and atrial appendage closure. Bilateral layering pleural effusions with bibasilar opacities most likely representing related atelectasis. There is no pulmonary venous congestion and the cardiac and mediastinal contours are stable. There is no pneumothorax. 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 Signed: Bent[place], [place] MDReport Verified Date/Time: 05/14/2018 09:14:23 Reading Location: [facility] [id number] Ortho Consult Reading Room POCT-GLUCOSE [id number] 07:47:00 Test Item Value Reference Range Comments POC-GLUCOSE METER (BEAKER) 241 mg/dL 70-[address] [facility] [address] [facility] (test uled=3907) [facility] [address] [id number] 06:01:00 Test Item Value Reference Range Comments MAGNESIUM (BEAKER) (test cgqa=433) 1.4 mg/dL 1.6-2.6 BASIC METABOLIC [id number] 06:01:00 Test Item Value Reference Range Comments SODIUM (BEAKER) (test 134 meq/L 136-145 hdab=594) POTASSIUM (BEAKER) (test 4.1 meq/L 3.5-5.1 azqf=628) CHLORIDE (BEAKER) (test 94 meq/L 98-107 hxfc=636) CO2 (BEAKER) (test 33 meq/L 22-29 ngjz=482) BLOOD UREA NITROGEN 16 mg/dL 7-21 (BEAKER) (test tkvj=847) CREATININE (BEAKER) (test 0.80 mg/dL 0.57-1.25 wosw=900) GLUCOSE RANDOM (BEAKER) 194 mg/dL 70-105 (test qejm=735) CALCIUM (BEAKER) (test 9.3 mg/dL 8.4-10.2 obhc=924) EGFR (BEAKER) (test 72 mL/min/1.73 sq m ESTIMATED GFR IS NOT muaq=1737) ACCURATE CREATININE CLEARANCE IN PREDICTING GLOMERULAR FILTRATION RATE. ESTIMATED GFR IS NOT APPLICABLE FOR DIALYSIS PATIENTS. CBC (HEMOGRAM ONLY)2018-05-14 05:47:00 Test Item Value Reference Range Comments WHITE BLOOD CELL COUNT (BEAKER) (test vgji=674) 10.5 K/ L 3.5-10.5 RED BLOOD CELL COUNT (BEAKER) (test swit=992) 3.32 M/ L 3.93-5.22 HEMOGLOBIN (BEAKER) (test fkel=857) 9.0 GM/DL 11.2-15.7 HEMATOCRIT (BEAKER) (test rjqm=239) 29.2 % 34.1-44.9 MEAN CORPUSCULAR VOLUME (BEAKER) (test umbv=119) 88.0 fL 79.4-94.8 MEAN CORPUSCULAR HEMOGLOBIN (BEAKER) (test 27.1 pg 25.6-32.2 wphc=669) MEAN CORPUSCULAR HEMOGLOBIN CONC (BEAKER) (test 30.8 GM/DL 32.2-35.5 cuqe=408) RED CELL DISTRIBUTION WIDTH (BEAKER) (test 14.1 % 11.7-14.4 gkvc=426) PLATELET COUNT (BEAKER) (test lxpv=556) 408 K/CU MM 150-450 MEAN PLATELET VOLUME (BEAKER) (test clex=318) 8.6 fL 9.4-12.3 NUCLEATED RED BLOOD CELLS (BEAKER) (test 0 /100 WBC 0-0 krme=260) RAD, CHEST, 1 VIEW, NON [id number] 22:25:00Reason for exam:->SOBShould this be performed at the bedside?->YesFINAL REPORT Comparison exam: 05/13/2018 time 7:47 AM Bilateral lower lobe atelectasis and pleural effusions, unchanged. No pneumothorax. Stable cardiomediastinal contours. Signed: Mustapha Stokes Verified Date/Time: 05/13/2018 22:25: 06 Reading Location: [address] Reading Room POCT-GLUCOSE [id number] 21:27:00 Test Item Value Reference Range Comments POC-GLUCOSE METER (BEAKER) 264 mg/dL 70-110 TESTED AT [address] (test adly=3615) [facility] [address] POCT-GLUCOSE [id number] 17:21:00 Test Item Value Reference Range Comments POC-GLUCOSE METER (BEAKER) 307 mg/dL 70-110 TESTED AT [place] [id number] [facility] (test wurx=1225) [facility] [address] POCT-GLUCOSE [id number] 12:11:00 Test Item Value Reference Range Comments POC-GLUCOSE METER (BEAKER) 221 mg/dL 70-110 TESTED AT [address] (test aabl=8815) [facility] [address] RAD, CHEST, 1 VIEW, NON [id number] 09:11:00Reason for exam:->pulmonary congestionShould this be performed at the bedside?->YesFINAL REPORT Chest one view. Clinical history: pulmonary congestion Comparison: 05/12/2018 Discussion: A frontal chest is provided. Cardiomediastinal contours are unchanged. Lines and tubes are in stable position. Hazy opacities in both lower lungs likely reflect a combination of layering effusion and atelectasis/consolidation, without significant interval change. No pneumothorax. Signed: Eliazar Quintanilla Verified Date/Time: 2017 09:11:20 Reading Location: [address] Neuro Reading Room POCT-GLUCOSE [id number] 08:02:00 Test Item Value Reference Range Comments POC-GLUCOSE METER (BEAKER) 186 mg/dL 70-110 TESTED AT [address] (test rnup=0680) [place] [id number] 05:52:00 Test Item Value Reference Range Comments MAGNESIUM (BEAKER) (test ghke=637) 1.7 mg/dL 1.6-2.6 BASIC METABOLIC [id number] 05:52:00 Test Item Value Reference Range Comments SODIUM (BEAKER) (test 133 meq/L 136-145 pbic=467) POTASSIUM (BEAKER) (test 4.2 meq/L 3.5-5.1 okzh=323) CHLORIDE (BEAKER) (test 95 meq/L 98-107 qeuo=935) CO2 (BEAKER) (test 30 meq/L 22-29 zxrl=224) BLOOD UREA NITROGEN 14 mg/dL 7-21 (BEAKER) (test azue=671) CREATININE (BEAKER) (test 0.83 mg/dL 0.57-1.25 ajkx=365) GLUCOSE RANDOM (BEAKER) 151 mg/dL 70-105 (test sjcx=079) CALCIUM (BEAKER) (test 8.9 mg/dL 8.4-10.2 sztr=855) EGFR (BEAKER) (test 69 mL/min/1.73 sq m ESTIMATED GFR IS NOT hnux=7831) ACCURATE CREATININE CLEARANCE IN PREDICTING GLOMERULAR FILTRATION RATE. ESTIMATED GFR IS NOT APPLICABLE FOR DIALYSIS PATIENTS. CBC (HEMOGRAM ONLY)2018-05-13 05:13:00 Test Item Value Reference Range Comments WHITE BLOOD CELL COUNT (BEAKER) (test lfgy=567) 9.7 K/ L 3.5-10.5 RED BLOOD CELL COUNT (BEAKER) (test lemb=242) 3.27 M/ L 3.93-5.22 HEMOGLOBIN (BEAKER) (test wfww=687) 8.8 GM/DL 11.2-15.7 HEMATOCRIT (BEAKER) (test mjmf=075) 28.5 % 34.1-44.9 MEAN CORPUSCULAR VOLUME (BEAKER) (test wiek=884) 87.2 fL 79.4-94.8 MEAN CORPUSCULAR HEMOGLOBIN (BEAKER) (test 26.9 pg 25.6-32.2 ukpv=921) MEAN CORPUSCULAR HEMOGLOBIN CONC (BEAKER) (test 30.9 GM/DL 32.2-35.5 nhej=217) RED CELL DISTRIBUTION WIDTH (BEAKER) (test 14.3 % 11.7-14.4 xaph=835) PLATELET COUNT (BEAKER) (test tnby=421) 318 K/CU MM 150-450 MEAN PLATELET VOLUME (BEAKER) (test yvqr=888) 9.0 fL 9.4-12.3 NUCLEATED RED BLOOD CELLS (BEAKER) (test 0 /100 WBC 0-0 rija=731) POCT-GLUCOSE [id number] 21:50:00 Test Item Value Reference Range Comments POC-GLUCOSE METER (BEAKER) 161 mg/dL 70-110 TESTED AT [address] (test snba=9347) [facility] [address] POCT-GLUCOSE [id number] 17:13:00 Test Item Value Reference Range Comments POC-GLUCOSE METER (BEAKER) 233 mg/dL 70-110 TESTED AT [address] (test uucg=2465) [facility] [address] POCT-GLUCOSE [id number] 12:24:00 Test Item Value Reference Range Comments POC-GLUCOSE METER (BEAKER) 259 mg/dL 70-110 TESTED AT [address] (test lhmw=8910) [facility] [address] RAD, CHEST, 1 VIEW, NON [id number] 10:42:00Reason for exam:->pulmonary congestionShould this be performed at the bedside?->YesFINAL REPORT CHEST ONE VIEW HISTORY: Pulmonary congestion COMPARISON: 2017 FINDINGS: Single portable AP examination of the chest was performed. Small right and minimal left pleural effusions are present, similar to the prior study. Left lung base airspace consolidation has slightly improved, suggestive of improving atelectasis or pneumonia. Since the prior study, the right jugular catheter was removed. No pneumothorax is visualized. Cardiac shadow partially obscured. Left subclavian transvenous cardiac pacing hardware remains in place. Signed: Luciano Valiente MDReport Verified Date/Time: 05/12/2018 10:42:03 Reading Location: [address] Transitional Reading Room POCT-GLUCOSE [id number] 08:24:00 Test Item Value Reference Range Comments POC-GLUCOSE METER (BEAKER) 225 mg/dL 70-110 TESTED AT [address] (test qyyc=8577) [facility] [address] [id number] 05:24:00 Test Item Value Reference Range Comments MAGNESIUM (BEAKER) (test knnb=921) 1.7 mg/dL 1.6-2.6 BASIC METABOLIC [id number] 05:24:00 Test Item Value Reference Range Comments SODIUM (BEAKER) (test 131 meq/L 136-145 yuuv=343) POTASSIUM (BEAKER) (test 4.1 meq/L 3.5-5.1 mdmi=168) CHLORIDE (BEAKER) (test 94 meq/L 98-107 lnic=348) CO2 (BEAKER) (test 30 meq/L 22-29 bvoz=906) BLOOD UREA NITROGEN 14 mg/dL 7-21 (BEAKER) (test ulhs=321) CREATININE (BEAKER) (test 0.76 mg/dL 0.57-1.25 unvo=924) GLUCOSE RANDOM (BEAKER) 191 mg/dL 70-105 (test edif=381) CALCIUM (BEAKER) (test 8.6 mg/dL 8.4-10.2 sryh=061) EGFR (BEAKER) (test 76 mL/min/1.73 sq m ESTIMATED GFR IS NOT vloa=8927) ACCURATE CREATININE CLEARANCE IN PREDICTING GLOMERULAR FILTRATION RATE. ESTIMATED GFR IS NOT APPLICABLE FOR DIALYSIS PATIENTS. CBC (HEMOGRAM ONLY)2018-05-12 04:55:00 Test Item Value Reference Range Comments WHITE BLOOD CELL COUNT (BEAKER) (test vwbs=521) 9.9 K/ L 3.5-10.5 RED BLOOD CELL COUNT (BEAKER) (test xzxd=771) 3.23 M/ L 3.93-5.22 HEMOGLOBIN (BEAKER) (test leys=480) 9.0 GM/DL 11.2-15.7 HEMATOCRIT (BEAKER) (test ijng=903) 28.3 % 34.1-44.9 MEAN CORPUSCULAR VOLUME (BEAKER) (test afgs=581) 87.6 fL 79.4-94.8 MEAN CORPUSCULAR HEMOGLOBIN (BEAKER) (test 27.9 pg 25.6-32.2 njiw=656) MEAN CORPUSCULAR HEMOGLOBIN CONC (BEAKER) (test 31.8 GM/DL 32.2-35.5 malp=636) RED CELL DISTRIBUTION WIDTH (BEAKER) (test 14.1 % 11.7-14.4 finr=771) PLATELET COUNT (BEAKER) (test lqys=411) 276 K/CU MM 150-450 MEAN PLATELET VOLUME (BEAKER) (test obde=621) 9.1 fL 9.4-12.3 NUCLEATED RED BLOOD CELLS (BEAKER) (test 0 /100 WBC 0-0 myrk=000) POCT-GLUCOSE [id number] 22:04:00 Test Item Value Reference Range Comments POC-GLUCOSE METER (BEAKER) 250 mg/dL 70-110 TESTED AT [address] (test rsnm=2434) [facility] [address] POCT-GLUCOSE [id number] 16:56:00 Test Item Value Reference Range Comments POC-GLUCOSE METER (BEAKER) 200 mg/dL 70-110 TESTED AT [address] (test dcag=2592) [facility] [address] [id number] 15:42:00 Test Item Value Reference Range Comments MAGNESIUM (BEAKER) (test sshq=383) 2.0 mg/dL 1.6-2.6 BASIC METABOLIC [id number] 15:42:00 Test Item Value Reference Range Comments SODIUM (BEAKER) (test 133 meq/L 136-145 mjzo=365) POTASSIUM (BEAKER) (test 4.0 meq/L 3.5-5.1 mvoy=519) CHLORIDE (BEAKER) (test 95 meq/L 98-107 zyec=861) CO2 (BEAKER) (test 32 meq/L 22-29 aodg=562) BLOOD UREA NITROGEN 13 mg/dL 7-21 (BEAKER) (test ldeh=491) CREATININE (BEAKER) (test 0.74 mg/dL 0.57-1.25 hemn=789) GLUCOSE RANDOM (BEAKER) 169 mg/dL 70-105 (test qbdh=883) CALCIUM (BEAKER) (test 8.7 mg/dL 8.4-10.2 phwy=284) EGFR (BEAKER) (test 78 mL/min/1.73 sq m ESTIMATED GFR IS NOT pezx=3714) ACCURATE CREATININE CLEARANCE IN PREDICTING GLOMERULAR FILTRATION RATE. ESTIMATED GFR IS NOT APPLICABLE FOR DIALYSIS PATIENTS. POCT-GLUCOSE [id number] 12:10:00 Test Item Value Reference Range Comments POC-GLUCOSE METER (BEAKER) 217 mg/dL 70-[address] [facility] [address] [facility] (test pmra=2785) [facility] [address] POCT-GLUCOSE [id number] 08:10:00 Test Item Value Reference Range Comments POC-GLUCOSE METER (BEAKER) 195 mg/dL 70-[address] [facility] [address] [facility] (test xmmq=4702) [facility] [address] RAD, CHEST, 1 VIEW, NON [id number] 06:58:00Reason for exam:->pulmonary congestionShould this be performed at the bedside?->YesFINAL REPORT RAD, CHEST, 1 VIEW, NON DEPT INDICATION: pulmonary congestion COMPARISON: Prior day's exam FINDINGS: Portable frontal view of the chest. IMPRESSION: Support Lines: Stable. Lungs and pleura: Appearance of the interstitium and airspaces unchanged over multiple prior exams. No pneumothorax.Heart and mediastinum: Stable contours. Stable surgical changes.Additional findings: None. Signed: JR Nasra, Yocasta RANGELeport Verified Date/Time: 05/11/2018 06:58:12 Reading Location: [facility] Radiology Reading Room Electronically signed by: YOCASTA HAMMONDS on 06:58 AMCALCIUM, [id number] 05:03:00 Test Item Value Reference Range Comments CALCIUM IONIZED (BEAKER) (test ihac=252) 1.11 mmol/L 1.12-1.27 PH, BLOOD (BEAKER) (test oots=8823) 7.42 Check serum Ionized Calcium level after 4 hours after IV Calcium replacement.OXYGEN SATURATION, [id number] 05:02:00 Test Item Value Reference Range Comments O2 SATURATION (MEASURED) (BEAKER) (test ftwu=3180) 67.0 % [id number] 04:32:00 Test Item Value Reference Range Comments MAGNESIUM (BEAKER) (test mnwq=570) 1.7 mg/dL 1.6-2.6 BASIC METABOLIC [id number] 04:32:00 Test Item Value Reference Range Comments SODIUM (BEAKER) (test 132 meq/L 136-145 hqhc=654) POTASSIUM (BEAKER) (test 4.1 meq/L 3.5-5.1 qnar=025) CHLORIDE (BEAKER) (test 95 meq/L 98-107 ghju=142) CO2 (BEAKER) (test 29 meq/L 22-29 rjlb=149) BLOOD UREA NITROGEN 13 mg/dL 7-21 (BEAKER) (test tynn=347) CREATININE (BEAKER) (test 0.71 mg/dL 0.57-1.25 mhwb=736) GLUCOSE RANDOM (BEAKER) 179 mg/dL 70-105 (test chxx=949) CALCIUM (BEAKER) (test 8.5 mg/dL 8.4-10.2 leds=691) EGFR (BEAKER) (test 82 mL/min/1.73 sq m ESTIMATED GFR IS NOT yajs=1572) ACCURATE CREATININE CLEARANCE IN PREDICTING GLOMERULAR FILTRATION RATE. ESTIMATED GFR IS NOT APPLICABLE FOR DIALYSIS PATIENTS. CBC (HEMOGRAM ONLY)2018-05-11 04:09:00 Test Item Value Reference Range Comments WHITE BLOOD CELL COUNT (BEAKER) (test itsu=079) 9.9 K/ L 3.5-10.5 RED BLOOD CELL COUNT (BEAKER) (test prsr=054) 3.19 M/ L 3.93-5.22 HEMOGLOBIN (BEAKER) (test vrow=041) 8.8 GM/DL 11.2-15.7 HEMATOCRIT (BEAKER) (test ctdx=019) 27.3 % 34.1-44.9 MEAN CORPUSCULAR VOLUME (BEAKER) (test zqcr=007) 85.6 fL 79.4-94.8 MEAN CORPUSCULAR HEMOGLOBIN (BEAKER) (test 27.6 pg 25.6-32.2 msou=083) MEAN CORPUSCULAR HEMOGLOBIN CONC (BEAKER) (test 32.2 GM/DL 32.2-35.5 rtle=464) RED CELL DISTRIBUTION WIDTH (BEAKER) (test 13.9 % 11.7-14.4 iqwl=088) PLATELET COUNT (BEAKER) (test fhnr=200) 195 K/CU MM 150-450 MEAN PLATELET VOLUME (BEAKER) (test bmnq=272) 9.1 fL 9.4-12.3 NUCLEATED RED BLOOD CELLS (BEAKER) (test 0 /100 WBC 0-0 edja=065) POCT-GLUCOSE [id number] 22:41:00 Test Item Value Reference Range Comments POC-GLUCOSE METER (BEAKER) 222 mg/dL 70-110 TESTED AT [address] (test pzjx=8159) [place] [id number] POCT-GLUCOSE [id number] 18:29:00 Test Item Value Reference Range Comments POC-GLUCOSE METER (BEAKER) 230 mg/dL 70-110 TESTED AT [address] (test bxsw=2913) [place] [address] [id number] 13:26:00 Test Item Value Reference Range Comments MAGNESIUM (BEAKER) (test ipzy=174) 1.9 mg/dL 1.6-2.6 BASIC METABOLIC [id number] 13:26:00 Test Item Value Reference Range Comments SODIUM (BEAKER) (test 131 meq/L 136-145 rvln=625) POTASSIUM (BEAKER) (test 4.2 meq/L 3.5-5.1 cugg=431) CHLORIDE (BEAKER) (test 96 meq/L 98-107 ljsg=077) CO2 (BEAKER) (test 29 meq/L 22-29 bjns=062) BLOOD UREA NITROGEN 13 mg/dL 7-21 (BEAKER) (test qets=877) CREATININE (BEAKER) (test 0.70 mg/dL 0.57-1.25 sroa=539) GLUCOSE RANDOM (BEAKER) 155 mg/dL 70-105 (test tkvl=854) CALCIUM (BEAKER) (test 8.7 mg/dL 8.4-10.2 mdfz=476) EGFR (BEAKER) (test 83 mL/min/1.73 sq m ESTIMATED GFR IS NOT pkqa=5229) ACCURATE CREATININE CLEARANCE IN PREDICTING GLOMERULAR FILTRATION RATE. ESTIMATED GFR IS NOT APPLICABLE FOR DIALYSIS PATIENTS. POCT-GLUCOSE [id number] 12:13:00 Test Item Value Reference Range Comments POC-GLUCOSE METER (BEAKER) 158 mg/dL 70-110 TESTED AT [address] (test xrgu=3228) [place] [address] [id number] 07:50:00 Test Item Value Reference Range Comments PARTIAL THROMBOPLASTIN TIME (BEAKER) (test 91.0 seconds 22.5-36.0 zeoc=437) POCT-GLUCOSE [id number] 07:41:00 Test Item Value Reference Range Comments POC-GLUCOSE METER (BEAKER) 194 mg/dL 70-110 TESTED AT [address] (test mdtx=1768) [place] [id number] RAD, CHEST, 1 VIEW, NON [id number] 07:30:00Reason for exam:->pulmonary congestionShould this be performed at the bedside?->YesFINAL REPORT RAD, CHEST, 1 VIEW, NON DEPT INDICATION: pulmonary congestion COMPARISON: Prior day's exam FINDINGS: Portable frontal view of the chest. IMPRESSION: Support Lines: Right IJ central venous catheter terminates over the superior vena cava. Lungs and pleura: Unchanged airspace and pleural opacities. No pneumothorax.Heart and mediastinum: Stable contours. Stable surgical changes.Additional findings: None. Signed: JR Hammonds Robert MDReport Verified Date/Time: 05/10/2018 07:30:07 Reading Location: [facility] Radiology Reading Room Electronically signedby: YOCASTA HAMMONDS on 05/10/2018 07:30 [id number] 06:41:00 Test Item Value Reference Range Comments MAGNESIUM (BEAKER) (test ecnd=187) 1.7 mg/dL 1.6-2.6 BASIC METABOLIC [id number] 06:41:00 Test Item Value Reference Range Comments SODIUM (BEAKER) (test 130 meq/L 136-145 zyxp=673) POTASSIUM (BEAKER) (test 4.2 meq/L 3.5-5.1 gifi=144) CHLORIDE (BEAKER) (test 94 meq/L 98-107 pymp=136) CO2 (BEAKER) (test 27 meq/L 22-29 vozi=637) BLOOD UREA NITROGEN 14 mg/dL 7-21 (BEAKER) (test vysw=795) CREATININE (BEAKER) (test 0.74 mg/dL 0.57-1.25 qmhs=755) GLUCOSE RANDOM (BEAKER) 175 mg/dL 70-105 (test oghm=973) CALCIUM (BEAKER) (test 8.6 mg/dL 8.4-10.2 fxbk=778) EGFR (BEAKER) (test 78 mL/min/1.73 sq m ESTIMATED GFR IS NOT nbvt=8749) ACCURATE CREATININE CLEARANCE IN PREDICTING GLOMERULAR FILTRATION RATE. ESTIMATED GFR IS NOT APPLICABLE FOR DIALYSIS PATIENTS. OXYGEN SATURATION, [id number] 06:02:00 Test Item Value Reference Range Comments O2 SATURATION (MEASURED) (BEAKER) (test mlxb=7719) 60.4 % CBC (HEMOGRAM ONLY)2018-05-10 05:32:00 Test Item Value Reference Range Comments WHITE BLOOD CELL COUNT (BEAKER) (test hlln=983) 10.2 K/ L 3.5-10.5 RED BLOOD CELL COUNT (BEAKER) (test iodv=396) 3.47 M/ L 3.93-5.22 HEMOGLOBIN (BEAKER) (test sypd=222) 9.7 GM/DL 11.2-15.7 HEMATOCRIT (BEAKER) (test rmoo=268) 29.7 % 34.1-44.9 MEAN CORPUSCULAR VOLUME (BEAKER) (test iyza=845) 85.6 fL 79.4-94.8 MEAN CORPUSCULAR HEMOGLOBIN (BEAKER) (test 28.0 pg 25.6-32.2 kluh=529) MEAN CORPUSCULAR HEMOGLOBIN CONC (BEAKER) (test 32.7 GM/DL 32.2-35.5 czrn=585) RED CELL DISTRIBUTION WIDTH (BEAKER) (test 13.9 % 11.7-14.4 ccke=142) PLATELET COUNT (BEAKER) (test araw=437) 174 K/CU MM 150-450 MEAN PLATELET VOLUME (BEAKER) (test zcux=622) 9.4 fL 9.4-12.3 NUCLEATED RED BLOOD CELLS (BEAKER) (test 0 /100 WBC 0-0 tbxc=076) [id number] 00:01:00 Test Item Value Reference Range Comments PARTIAL THROMBOPLASTIN TIME (BEAKER) (test 77.1 seconds 22.5-36.0 bqpd=136) [id number] 23:47:00 Test Item Value Reference Range Comments POTASSIUM (BEAKER) (test iejh=728) 4.1 meq/L 3.5-5.1 Every 8 hours PRN for Creatinine greater than or equal to 2 mg/dL.CALCIUM, [id number] 23:29:00 Test Item Value Reference Range Comments CALCIUM IONIZED (BEAKER) (test mavb=785) 1.02 mmol/L 1.12-1.27 PH, BLOOD (BEAKER) (test qrzp=6015) 7.44 Check serum Ionized Calcium level after 4 hours after IV Calcium replacement.BLOOD [id number] 23:01:00 Test Item Value Reference Range Comments CULTURE (BEAKER) (test qrxx=7951) No growth in 5 days BLOOD [id number] 23:01:00 Test Item Value Reference Range Comments CULTURE (BEAKER) (test cxgf=2935) No growth in 5 days POCT-GLUCOSE [id number] 22:22:00 Test Item Value Reference Range Comments POC-GLUCOSE METER (BEAKER) 223 mg/dL 70-110 TESTED AT [address] (test jcfa=2436) [facility] [address] POCT-GLUCOSE [id number] 18:07:00 Test Item Value Reference Range Comments POC-GLUCOSE METER (BEAKER) 204 mg/dL 70-110 TESTED AT [address] (test igzg=0849) [facility] [address] BASIC METABOLIC [id number] 15:48:00 Test Item Value Reference Range Comments SODIUM (BEAKER) (test 127 meq/L 136-145 ttmy=767) POTASSIUM (BEAKER) (test 4.2 meq/L 3.5-5.1 xyfh=085) CHLORIDE (BEAKER) (test 94 meq/L 98-107 kiqx=214) CO2 (BEAKER) (test 26 meq/L 22-29 lycl=658) BLOOD UREA NITROGEN 15 mg/dL 7-21 (BEAKER) (test mgsj=434) CREATININE (BEAKER) (test 0.74 mg/dL 0.57-1.25 petu=229) GLUCOSE RANDOM (BEAKER) 192 mg/dL 70-105 (test vpxh=042) CALCIUM (BEAKER) (test 8.2 mg/dL 8.4-10.2 urcy=467) EGFR (BEAKER) (test 78 mL/min/1.73 sq m ESTIMATED GFR IS NOT eawi=0442) ACCURATE CREATININE CLEARANCE IN PREDICTING GLOMERULAR FILTRATION RATE. ESTIMATED GFR IS NOT APPLICABLE FOR DIALYSIS PATIENTS. [id number] 15:40:00 Test Item Value Reference Range Comments PARTIAL THROMBOPLASTIN TIME (BEAKER) (test 79.6 seconds 22.5-36.0 kolh=041) OXYGEN SATURATION, [id number] 15:21:00 Test Item Value Reference Range Comments O2 SATURATION (MEASURED) (BEAKER) (test lqfi=2249) 57.6 % [id number] 12:32:00 Test Item Value Reference Range Comments POTASSIUM (BEAKER) (test pecu=952) 3.9 meq/L 3.5-5.1 Every 8 hours PRN for Creatinine greater than or equal to 2 mg/dL.[id number] 12:32:00 Test Item Value Reference Range Comments MAGNESIUM (BEAKER) (test yzwj=964) 2.0 mg/dL 1.6-2.6 Every 8 hours PRN for Creatinine greater than or equal to 2 mg/dL.POCT-GLUCOSE [id number] 11:48:00 Test Item Value Reference Range Comments POC-GLUCOSE METER (BEAKER) 270 mg/dL 70-[address] [facility] [address] [facility] (test bhvb=0504) [facility] [address] [id number] 08:30:00 Test Item Value Reference Range Comments PARTIAL THROMBOPLASTIN TIME (BEAKER) (test 96.1 seconds 22.5-36.0 rmjl=678) POCT-GLUCOSE [id number] 08:05:00 Test Item Value Reference Range Comments POC-GLUCOSE METER (BEAKER) 236 mg/dL 70-[address] [facility] [address] [facility] (test dwyg=0866) [facility] [address] OXYGEN SATURATION, [id number] 06:26:00 Test Item Value Reference Range Comments O2 SATURATION (MEASURED) (BEAKER) (test lliv=6210) 74.1 % BASIC METABOLIC [id number] 05:40:00 Test Item Value Reference Range Comments SODIUM (BEAKER) (test 127 meq/L 136-145 bewi=860) POTASSIUM (BEAKER) (test 3.8 meq/L 3.5-5.1 ecev=634) CHLORIDE (BEAKER) (test 95 meq/L 98-107 lpcu=001) CO2 (BEAKER) (test 27 meq/L 22-29 xrnw=358) BLOOD UREA NITROGEN 16 mg/dL 7-21 (BEAKER) (test jxle=593) CREATININE (BEAKER) (test 0.74 mg/dL 0.57-1.25 xmjn=468) GLUCOSE RANDOM (BEAKER) 231 mg/dL 70-105 (test qtfz=975) CALCIUM (BEAKER) (test 7.6 mg/dL 8.4-10.2 omgs=247) EGFR (BEAKER) (test 78 mL/min/1.73 sq m ESTIMATED GFR IS NOT ztte=4402) ACCURATE CREATININE CLEARANCE IN PREDICTING GLOMERULAR FILTRATION RATE. ESTIMATED GFR IS NOT APPLICABLE FOR DIALYSIS PATIENTS. [id number] 05:39:00 Test Item Value Reference Range Comments MAGNESIUM (BEAKER) (test ywsx=264) 1.6 mg/dL 1.6-2.6 CBC (HEMOGRAM ONLY)2018-05-09 05:14:00 Test Item Value Reference Range Comments WHITE BLOOD CELL COUNT (BEAKER) (test ppol=474) 9.9 K/ L 3.5-10.5 RED BLOOD CELL COUNT (BEAKER) (test cpql=928) 3.08 M/ L 3.93-5.22 HEMOGLOBIN (BEAKER) (test gvbh=168) 8.5 GM/DL 11.2-15.7 HEMATOCRIT (BEAKER) (test flkx=980) 25.9 % 34.1-44.9 MEAN CORPUSCULAR VOLUME (BEAKER) (test kxko=307) 84.1 fL 79.4-94.8 MEAN CORPUSCULAR HEMOGLOBIN (BEAKER) (test 27.6 pg 25.6-32.2 jzxb=761) MEAN CORPUSCULAR HEMOGLOBIN CONC (BEAKER) (test 32.8 GM/DL 32.2-35.5 xyxi=302) RED CELL DISTRIBUTION WIDTH (BEAKER) (test 13.7 % 11.7-14.4 leig=095) PLATELET COUNT (BEAKER) (test eajg=549) 155 K/CU MM 150-450 MEAN PLATELET VOLUME (BEAKER) (test sejb=040) 9.0 fL 9.4-12.3 NUCLEATED RED BLOOD CELLS (BEAKER) (test 0 /100 WBC 0-0 fgsn=139) RAD, CHEST, 1 VIEW, NON [id number] 04:19:00Reason for exam:->pulmonary congestionShould this be performed at the bedside?->YesFINAL REPORT CLINICAL INDICATION: Pulmonary congestion Comparison: 2017The cardiomediastinal contours are stable. Central pulmonary vascular congestion and bilateral parenchymal and pleural opacities are similar within variation of acquisition technique. There is no pneumothorax. A PA catheter has been retracted or exchanged. The right IJ CVC tip now overlies the SVC. Signed: Jorge Wright MDRepputnam [facility] Verified Date/Time: 05/09/2018 04:19:19 Reading Location : [address] Reading Room [id number] 01:15:00 Test Item Value Reference Range Comments POTASSIUM (BEAKER) (test rema=507) 3.5 meq/L 3.5-5.1 Every 8 hours PRN for Creatinine greater than or equal to 2 mg/dL.[id number] 01:10:00 Test Item Value Reference Range Comments PARTIAL THROMBOPLASTIN TIME (BEAKER) (test 75.0 seconds 22.5-36.0 eaef=886) POCT-GLUCOSE [id number] 21:41:00 Test Item Value Reference Range Comments POC-GLUCOSE METER (BEAKER) 274 mg/dL 70-[address] [facility] [address] [facility] (test blyc=0964) [facility] [address] [id number] 18:19:00 Test Item Value Reference Range Comments PARTIAL THROMBOPLASTIN TIME (BEAKER) (test 59.6 seconds 22.5-36.0 xkpp=466) POCT-GLUCOSE [id number] 18:06:00 Test Item Value Reference Range Comments POC-GLUCOSE METER (BEAKER) 288 mg/dL 70-110 TESTED AT [address] (test tcnb=7200) [facility] [address] OXYGEN SATURATION, [id number] 17:58:00 Test Item Value Reference Range Comments O2 SATURATION (MEASURED) (BEAKER) (test ykcg=1359) 72.5 % [id number] 14:49:00 Test Item Value Reference Range Comments MAGNESIUM (BEAKER) (test 2.2 mg/dL 1.6-2.6 Specimen slightly hemolyzed tytv=934) [id number] 14:49:00 Test Item Value Reference Range Comments POTASSIUM (BEAKER) (test 4.1 meq/L 3.5-5.1 Specimen slightly hemolyzed kpbm=164) BASIC METABOLIC [id number] 14:49:00 Test Item Value Reference Range Comments SODIUM (BEAKER) (test 129 meq/L 136-145 ocnt=346) POTASSIUM (BEAKER) (test 4.1 meq/L 3.5-5.1 Specimen slightly ppvz=799) hemolyzed CHLORIDE (BEAKER) (test 95 meq/L 98-107 nxto=276) CO2 (BEAKER) (test 27 meq/L 22-29 nuyw=278) BLOOD UREA NITROGEN 16 mg/dL 7-21 (BEAKER) (test nzsw=105) CREATININE (BEAKER) (test 0.81 mg/dL 0.57-1.25 Specimen slightly ehkp=264) hemolyzed GLUCOSE RANDOM (BEAKER) 275 mg/dL 70-105 (test oqxf=324) CALCIUM (BEAKER) (test 8.0 mg/dL 8.4-10.2 cmsa=079) EGFR (BEAKER) (test 71 mL/min/1.73 sq m ESTIMATED GFR IS NOT uutt=5070) ACCURATE CREATININE CLEARANCE IN PREDICTING GLOMERULAR FILTRATION RATE. ESTIMATED GFR IS NOT APPLICABLE FOR DIALYSIS PATIENTS. CBC (HEMOGRAM ONLY)2018-05-08 14:28:00 Test Item Value Reference Range Comments WHITE BLOOD CELL COUNT (BEAKER) (test weep=265) 13.4 K/ L 3.5-10.5 RED BLOOD CELL COUNT (BEAKER) (test qbey=602) 3.34 M/ L 3.93-5.22 HEMOGLOBIN (BEAKER) (test focw=722) 9.4 GM/DL 11.2-15.7 HEMATOCRIT (BEAKER) (test dipn=039) 28.9 % 34.1-44.9 MEAN CORPUSCULAR VOLUME (BEAKER) (test akpg=211) 86.5 fL 79.4-94.8 MEAN CORPUSCULAR HEMOGLOBIN (BEAKER) (test 28.1 pg 25.6-32.2 teil=128) MEAN CORPUSCULAR HEMOGLOBIN CONC (BEAKER) (test 32.5 GM/DL 32.2-35.5 tkgu=570) RED CELL DISTRIBUTION WIDTH (BEAKER) (test 14.0 % 11.7-14.4 rfnc=961) PLATELET COUNT (BEAKER) (test agsy=673) 214 K/CU MM 150-450 MEAN PLATELET VOLUME (BEAKER) (test jzyr=284) 9.3 fL 9.4-12.3 NUCLEATED RED BLOOD CELLS (BEAKER) (test 0 /100 WBC 0-0 bnss=484) OXYGEN SATURATION, [id number] 14:18:00 Test Item Value Reference Range Comments O2 SATURATION (MEASURED) (BEAKER) (test osgi=3578) 66.1 % POCT-GLUCOSE [id number] 12:08:00 Test Item Value Reference Range Comments POC-GLUCOSE METER (BEAKER) 268 mg/dL 70-[address] [facility] [address] [facility] (test pyrc=8275) [facility] [address] [id number] 11:29:00 Test Item Value Reference Range Comments PARTIAL THROMBOPLASTIN TIME (BEAKER) (test 46.8 seconds 22.5-36.0 fnxd=856) [id number] 09:37:00 Test Item Value Reference Range Comments POTASSIUM (BEAKER) (test jwfq=243) 3.7 meq/L 3.5-5.1 [id number] 09:37:00 Test Item Value Reference Range Comments MAGNESIUM (BEAKER) (test gnvi=182) 1.9 mg/dL 1.6-2.6 POCT-GLUCOSE [id number] 07:58:00 Test Item Value Reference Range Comments POC-GLUCOSE METER (BEAKER) 186 mg/dL 70-[address] [facility] [address] [facility] (test tdis=8619) [facility] [address] OXYGEN SATURATION, [id number] 04:53:00 Test Item Value Reference Range Comments O2 SATURATION (MEASURED) (BEAKER) (test tglc=7563) 72.4 % BASIC METABOLIC [id number] 04:51:00 Test Item Value Reference Range Comments SODIUM (BEAKER) (test 129 meq/L 136-145 ipqk=857) POTASSIUM (BEAKER) (test 4.0 meq/L 3.5-5.1 wqqy=191) CHLORIDE (BEAKER) (test 97 meq/L 98-107 fnwt=382) CO2 (BEAKER) (test 28 meq/L 22-29 fizt=973) BLOOD UREA NITROGEN 18 mg/dL 7-21 (BEAKER) (test zhse=701) CREATININE (BEAKER) (test 0.76 mg/dL 0.57-1.25 tptj=964) GLUCOSE RANDOM (BEAKER) 169 mg/dL 70-105 (test dwab=442) CALCIUM (BEAKER) (test 7.9 mg/dL 8.4-10.2 mfxv=776) EGFR (BEAKER) (test 76 mL/min/1.73 sq m ESTIMATED GFR IS NOT nmwo=5639) ACCURATE CREATININE CLEARANCE IN PREDICTING GLOMERULAR FILTRATION RATE. ESTIMATED GFR IS NOT APPLICABLE FOR DIALYSIS PATIENTS. [id number] 04:34:00 Test Item Value Reference Range Comments PARTIAL THROMBOPLASTIN TIME (BEAKER) (test 51.1 seconds 22.5-36.0 mfck=391) CBC (HEMOGRAM ONLY)2018-05-08 04:26:00 Test Item Value Reference Range Comments WHITE BLOOD CELL COUNT (BEAKER) (test opfr=346) 11.0 K/ L 3.5-10.5 RED BLOOD CELL COUNT (BEAKER) (test ggxq=997) 2.73 M/ L 3.93-5.22 HEMOGLOBIN (BEAKER) (test avqd=023) 7.4 GM/DL 11.2-15.7 HEMATOCRIT (BEAKER) (test yspp=320) 23.3 % 34.1-44.9 MEAN CORPUSCULAR VOLUME (BEAKER) (test pkyt=048) 85.3 fL 79.4-94.8 MEAN CORPUSCULAR HEMOGLOBIN (BEAKER) (test 27.1 pg 25.6-32.2 prea=831) MEAN CORPUSCULAR HEMOGLOBIN CONC (BEAKER) (test 31.8 GM/DL 32.2-35.5 bsta=098) RED CELL DISTRIBUTION WIDTH (BEAKER) (test 13.7 % 11.7-14.4 oyxk=694) PLATELET COUNT (BEAKER) (test txxc=872) 216 K/CU MM 150-450 MEAN PLATELET VOLUME (BEAKER) (test duqh=615) 9.5 fL 9.4-12.3 NUCLEATED RED BLOOD CELLS (BEAKER) (test 0 /100 WBC 0-0 erxc=308) [id number] 00:34:00 Test Item Value Reference Range Comments POTASSIUM (BEAKER) (test euct=905) 3.3 meq/L 3.5-5.1 [id number] 00:34:00 Test Item Value Reference Range Comments MAGNESIUM (BEAKER) (test wrpl=677) 2.0 mg/dL 1.6-2.6 POCT-GLUCOSE [id number] 21:27:00 Test Item Value Reference Range Comments POC-GLUCOSE METER (BEAKER) 230 mg/dL 70-110 TESTED AT [address] (test jupp=2266) [facility] [address] POCT-GLUCOSE [id number] 21:20:00 Test Item Value Reference Range Comments POC-GLUCOSE METER (BEAKER) 215 mg/dL 70-110 TESTED AT [address] (test kebz=9500) [facility] [address] [id number] 19:38:00 Test Item Value Reference Range Comments PARTIAL THROMBOPLASTIN TIME (BEAKER) (test 32.3 seconds 22.5-36.0 iiej=428) Prior to initiating heparinPLATELET [id number] 19:18:00 Test Item Value Reference Range Comments PLATELET COUNT (BEAKER) (test ejvg=076) 248 K/CU MM 150-450 POCT-GLUCOSE [id number] 19:00:00 Test Item Value Reference Range Comments POC-GLUCOSE METER (BEAKER) 215 mg/dL 70-110 TESTED AT [address] (test agpf=6384) [facility] [address] [id number] 17:13:00 Test Item Value Reference Range Comments MAGNESIUM (BEAKER) (test ujqi=919) 1.7 mg/dL 1.6-2.6 BASIC METABOLIC [id number] 16:16:00 Test Item Value Reference Range Comments SODIUM (BEAKER) (test 131 meq/L 136-145 cqoh=030) POTASSIUM (BEAKER) (test 3.8 meq/L 3.5-5.1 boba=945) CHLORIDE (BEAKER) (test 98 meq/L 98-107 seeq=228) CO2 (BEAKER) (test 25 meq/L 22-29 mkxr=254) BLOOD UREA NITROGEN 21 mg/dL 7-21 (BEAKER) (test wnnj=921) CREATININE (BEAKER) (test 0.85 mg/dL 0.57-1.25 kyym=038) GLUCOSE RANDOM (BEAKER) 217 mg/dL 70-105 (test inor=174) CALCIUM (BEAKER) (test 8.1 mg/dL 8.4-10.2 qoad=173) EGFR (BEAKER) (test 67 mL/min/1.73 sq m ESTIMATED GFR IS NOT nxdy=5401) ACCURATE CREATININE CLEARANCE IN PREDICTING GLOMERULAR FILTRATION RATE. ESTIMATED GFR IS NOT APPLICABLE FOR DIALYSIS PATIENTS. CALCIUM, [id number] 15:46:00 Test Item Value Reference Range Comments CALCIUM IONIZED (BEAKER) (test nciz=234) 1.07 mmol/L 1.12-1.27 PH, BLOOD (BEAKER) (test usrd=3741) 7.43 Check serum Ionized Calcium level after 4 hours after IV Calcium replacement.POCT-GLUCOSE [id number] 12:30:00 Test Item Value Reference Range Comments POC-GLUCOSE METER (BEAKER) 226 mg/dL 70-110 TESTED AT [address] (test elkr=4173) [facility] [address] OXYGEN SATURATION, [id number] 12:07:00 Test Item Value Reference Range Comments O2 SATURATION (MEASURED) (BEAKER) (test tont=5640) 79.0 % CBC W/PLT COUNT & AUTO [id number] 12:07:00 Test Item Value Reference Range Comments WHITE BLOOD CELL COUNT (BEAKER) (test sbzr=127) 11.6 K/ L 3.5-10.5 RED BLOOD CELL COUNT (BEAKER) (test xirk=284) 2.88 M/ L 3.93-5.22 HEMOGLOBIN (BEAKER) (test ltwk=953) 8.0 GM/DL 11.2-15.7 HEMATOCRIT (BEAKER) (test yucx=302) 24.4 % 34.1-44.9 MEAN CORPUSCULAR VOLUME (BEAKER) (test oujv=140) 84.7 fL 79.4-94.8 MEAN CORPUSCULAR HEMOGLOBIN (BEAKER) (test 27.8 pg 25.6-32.2 brix=780) MEAN CORPUSCULAR HEMOGLOBIN CONC (BEAKER) (test 32.8 GM/DL 32.2-35.5 ajel=467) RED CELL DISTRIBUTION WIDTH (BEAKER) (test 13.6 % 11.7-14.4 hbur=851) PLATELET COUNT (BEAKER) (test lefu=129) 210 K/CU MM 150-450 MEAN PLATELET VOLUME (BEAKER) (test qbfn=814) 9.3 fL 9.4-12.3 NUCLEATED RED BLOOD CELLS (BEAKER) (test 0 /100 WBC 0-0 olmu=024) NEUTROPHILS RELATIVE PERCENT (BEAKER) (test 75 % qnhe=984) LYMPHOCYTES RELATIVE PERCENT (BEAKER) (test 7 % tocb=505) MONOCYTES RELATIVE PERCENT (BEAKER) (test 11 % xzfd=891) EOSINOPHILS RELATIVE PERCENT (BEAKER) (test 3 % tmgg=017) BASOPHILS RELATIVE PERCENT (BEAKER) (test 0 % cbkv=879) NEUTROPHILS ABSOLUTE COUNT (BEAKER) (test 8.65 K/ L 1.56-6.13 jeln=604) LYMPHOCYTES ABSOLUTE COUNT (BEAKER) (test 0.84 K/ L 1.18-3.74 sotk=179) MONOCYTES ABSOLUTE COUNT (BEAKER) (test 1.30 K/ L 0.24-0.36 hsyn=175) EOSINOPHILS ABSOLUTE COUNT (BEAKER) (test 0.35 K/ L 0.04-0.36 pfxv=718) BASOPHILS ABSOLUTE COUNT (BEAKER) (test 0.03 K/ L 0.01-0.08 vfyi=237) IMMATURE GRANULOCYTES-RELATIVE PERCENT (BEAKER) 4 % 0-1 (test faom=3046) [id number] 09:36:00 Test Item Value Reference Range Comments POTASSIUM (BEAKER) (test bwrz=944) 4.0 meq/L 3.5-5.1 [id number] 09:36:00 Test Item Value Reference Range Comments MAGNESIUM (BEAKER) (test uujf=003) 2.1 mg/dL 1.6-2.6 POCT-GLUCOSE [id number] 07:42:00 Test Item Value Reference Range Comments POC-GLUCOSE METER (BEAKER) 173 mg/dL 70-[address] [facility] [address] [facility] (test eadu=2282) [facility] [address] BASIC METABOLIC [id number] 05:27:00 Test Item Value Reference Range Comments SODIUM (BEAKER) (test 129 meq/L 136-145 ikom=089) POTASSIUM (BEAKER) (test 4.3 meq/L 3.5-5.1 rvzq=159) CHLORIDE (BEAKER) (test 100 meq/L 98-107 kgid=103) CO2 (BEAKER) (test 23 meq/L 22-29 wlrc=043) BLOOD UREA NITROGEN 24 mg/dL 7-21 (BEAKER) (test tcki=074) CREATININE (BEAKER) (test 0.81 mg/dL 0.57-1.25 cbjr=220) GLUCOSE RANDOM (BEAKER) 177 mg/dL 70-105 (test vmgh=104) CALCIUM (BEAKER) (test 7.8 mg/dL 8.4-10.2 thgt=334) EGFR (BEAKER) (test 71 mL/min/1.73 sq m ESTIMATED GFR IS NOT uagi=8382) ACCURATE CREATININE CLEARANCE IN PREDICTING GLOMERULAR FILTRATION RATE. ESTIMATED GFR IS NOT APPLICABLE FOR DIALYSIS PATIENTS. [id number] 05:24:00 Test Item Value Reference Range Comments MAGNESIUM (BEAKER) (test jhvv=065) 2.4 mg/dL 1.6-2.6 BLOOD GAS, [id number] 05:22:00 Test Item Value Reference Range Comments PH ARTERIAL (BEAKER) (test wczc=057) 7.43 7.35-7.45 PCO2 ARTERIAL (BEAKER) (test yoim=549) 37 mmHg 35-45 PO2 ARTERIAL (BEAKER) (test chig=722) 134 mmHg 80-90 O2 SATURATION ARTERIAL (BEAKER) (test khem=412) 98.7 % 96.0-97.0 HCO3 ARTERIAL (BEAKER) (test qcyb=058) 24 mmol/L 21-29 BASE EXCESS ARTERIAL (BEAKER) (test osiz=663) 0.1 mmol/L -2.0-3.0 PATIENT TEMPERATURE (BEAKER) (test aomt=1999) 37.4 C FIO2 (BEAKER) (test kkra=7511) 44.0 % CALCIUM, [id number] 05:22:00 Test Item Value Reference Range Comments CALCIUM IONIZED (BEAKER) (test nvqi=129) 1.07 mmol/L 1.12-1.27 PH, BLOOD (BEAKER) (test ahlg=6868) 7.44 LACTIC ACID, ARTERIAL, WHOLE [id number] 05:08:00 Test Item Value Reference Range Comments LACTATE BLOOD ARTERIAL (2) (BEAKER) (test 0.6 mmol/L 0.5-2.2 qint=9034) [id number] 01:42:00 Test Item Value Reference Range Comments POTASSIUM (BEAKER) (test anso=250) 3.8 meq/L 3.5-5.1 [id number] 01:42:00 Test Item Value Reference Range Comments MAGNESIUM (BEAKER) (test bxav=510) 1.9 mg/dL 1.6-2.6 CALCIUM, [id number] 01:12:00 Test Item Value Reference Range Comments CALCIUM IONIZED (BEAKER) (test mvxn=709) 1.04 mmol/L 1.12-1.27 PH, BLOOD (BEAKER) (test enqo=1542) 7.45 Check serum Ionized Calcium level after 4 hours after IV Calcium replacement.POCT-GLUCOSE [id number] 21:54:00 Test Item Value Reference Range Comments POC-GLUCOSE METER (BEAKER) 218 mg/dL 70-110 TESTED AT [address] (test ftkr=7608) [place] [address] OXYGEN SATURATION, [id number] 18:05:00 Test Item Value Reference Range Comments O2 SATURATION (MEASURED) (BEAKER) (test lwfj=9309) 51.1 % CALCIUM, [id number] 16:40:00 Test Item Value Reference Range Comments CALCIUM IONIZED (BEAKER) (test jrzo=492) 1.06 mmol/L 1.12-1.27 PH, BLOOD (BEAKER) (test ikod=3611) 7.47 POCT-GLUCOSE [id number] 16:23:00 Test Item Value Reference Range Comments POC-GLUCOSE METER (BEAKER) 159 mg/dL 70-110 TESTED AT [address] (test wwoz=9584) [place] [address] BASIC METABOLIC [id number] 16:22:00 Test Item Value Reference Range Comments SODIUM (BEAKER) (test 131 meq/L 136-145 wnqq=814) POTASSIUM (BEAKER) (test 3.9 meq/L 3.5-5.1 acvw=897) CHLORIDE (BEAKER) (test 100 meq/L 98-107 mwbp=996) CO2 (BEAKER) (test 24 meq/L 22-29 wgvd=814) BLOOD UREA NITROGEN 28 mg/dL 7-21 (BEAKER) (test arav=668) CREATININE (BEAKER) (test 0.88 mg/dL 0.57-1.25 oaal=064) GLUCOSE RANDOM (BEAKER) 161 mg/dL 70-105 (test zzhy=877) CALCIUM (BEAKER) (test 7.9 mg/dL 8.4-10.2 cfex=293) EGFR (BEAKER) (test 64 mL/min/1.73 sq m ESTIMATED GFR IS NOT wodb=4143) ACCURATE CREATININE CLEARANCE IN PREDICTING GLOMERULAR FILTRATION RATE. ESTIMATED GFR IS NOT APPLICABLE FOR DIALYSIS PATIENTS. [id number] 16:20:00 Test Item Value Reference Range Comments MAGNESIUM (BEAKER) (test ievo=470) 2.1 mg/dL 1.6-2.6 POCT-GLUCOSE [id number] 12:04:00 Test Item Value Reference Range Comments POC-GLUCOSE METER (BEAKER) 165 mg/dL 70-110 TESTED AT [address] (test muvy=1594) [place] [address] [id number] 08:53:00 Test Item Value Reference Range Comments POTASSIUM (BEAKER) (test trrp=469) 3.6 meq/L 3.5-5.1 [id number] 08:53:00 Test Item Value Reference Range Comments MAGNESIUM (BEAKER) (test iuwx=260) 1.9 mg/dL 1.6-2.6 OXYGEN SATURATION, [id number] 08:28:00 Test Item Value Reference Range Comments O2 SATURATION (MEASURED) (BEAKER) (test qpzs=0921) 64.5 % For occult hypoperfusionPOCT-GLUCOSE [id number] 08:15:00 Test Item Value Reference Range Comments POC-GLUCOSE METER (BEAKER) 154 mg/dL 70-[address] [facility] [address] [facility] (test hgcd=5176) [facility] [address] CALCIUM, [id number] 05:03:00 Test Item Value Reference Range Comments CALCIUM IONIZED (BEAKER) (test bgto=355) 1.08 mmol/L 1.12-1.27 PH, BLOOD (BEAKER) (test busj=1364) 7.38 BASIC METABOLIC [id number] 04:53:00 Test Item Value Reference Range Comments SODIUM (BEAKER) (test 131 meq/L 136-145 yxmx=188) POTASSIUM (BEAKER) (test 4.2 meq/L 3.5-5.1 gzln=960) CHLORIDE (BEAKER) (test 100 meq/L 98-107 olyd=105) CO2 (BEAKER) (test 24 meq/L 22-29 gwdk=550) BLOOD UREA NITROGEN 31 mg/dL 7-21 (BEAKER) (test yyut=355) CREATININE (BEAKER) (test 0.87 mg/dL 0.57-1.25 qszr=708) GLUCOSE RANDOM (BEAKER) 113 mg/dL 70-105 (test fmdk=973) CALCIUM (BEAKER) (test 8.3 mg/dL 8.4-10.2 suwm=525) EGFR (BEAKER) (test 65 mL/min/1.73 sq m ESTIMATED GFR IS NOT quzz=4988) ACCURATE CREATININE CLEARANCE IN PREDICTING GLOMERULAR FILTRATION RATE. ESTIMATED GFR IS NOT APPLICABLE FOR DIALYSIS PATIENTS. CBC (HEMOGRAM ONLY)2018-05-06 04:10:00 Test Item Value Reference Range Comments WHITE BLOOD CELL COUNT (BEAKER) (test qbvj=344) 10.8 K/ L 3.5-10.5 RED BLOOD CELL COUNT (BEAKER) (test oqpn=297) 3.03 M/ L 3.93-5.22 HEMOGLOBIN (BEAKER) (test hxbv=751) 8.3 GM/DL 11.2-15.7 HEMATOCRIT (BEAKER) (test khhi=327) 26.2 % 34.1-44.9 MEAN CORPUSCULAR VOLUME (BEAKER) (test ktjl=169) 86.5 fL 79.4-94.8 MEAN CORPUSCULAR HEMOGLOBIN (BEAKER) (test 27.4 pg 25.6-32.2 lmcg=388) MEAN CORPUSCULAR HEMOGLOBIN CONC (BEAKER) (test 31.7 GM/DL 32.2-35.5 qyfx=584) RED CELL DISTRIBUTION WIDTH (BEAKER) (test 13.9 % 11.7-14.4 jgna=796) PLATELET COUNT (BEAKER) (test xkwy=650) 190 K/CU MM 150-450 MEAN PLATELET VOLUME (BEAKER) (test izyr=212) 9.7 fL 9.4-12.3 NUCLEATED RED BLOOD CELLS (BEAKER) (test 0 /100 WBC 0-0 upbd=455) [id number] 23:47:00 Test Item Value Reference Range Comments POTASSIUM (BEAKER) (test taaj=517) 3.9 meq/L 3.5-5.1 [id number] 23:47:00 Test Item Value Reference Range Comments MAGNESIUM (BEAKER) (test vpkb=345) 1.9 mg/dL 1.6-2.6 POCT-GLUCOSE [id number] 23:43:00 Test Item Value Reference Range Comments POC-GLUCOSE METER (BEAKER) 215 mg/dL 70-110 TESTED AT [address] (test xllz=4057) [facility] [address] POCT-GLUCOSE [id number] 17:23:00 Test Item Value Reference Range Comments POC-GLUCOSE METER (BEAKER) 200 mg/dL 70-110 TESTED AT [address] (test hmfa=5334) [facility] [address] [id number] 15:30:00 Test Item Value Reference Range Comments MAGNESIUM (BEAKER) (test rdat=912) 1.5 mg/dL 1.6-2.6 BASIC METABOLIC [id number] 15:30:00 Test Item Value Reference Range Comments SODIUM (BEAKER) (test 130 meq/L 136-145 jyoi=605) POTASSIUM (BEAKER) (test 4.1 meq/L 3.5-5.1 bpgo=826) CHLORIDE (BEAKER) (test 101 meq/L 98-107 jlin=498) CO2 (BEAKER) (test 22 meq/L 22-29 msgt=715) BLOOD UREA NITROGEN 34 mg/dL 7-21 (BEAKER) (test mssa=815) CREATININE (BEAKER) (test 0.95 mg/dL 0.57-1.25 pqjv=141) GLUCOSE RANDOM (BEAKER) 208 mg/dL 70-105 (test zlsz=595) CALCIUM (BEAKER) (test 8.1 mg/dL 8.4-10.2 qmdy=288) EGFR (BEAKER) (test 59 mL/min/1.73 sq m ESTIMATED GFR IS NOT panv=7670) ACCURATE CREATININE CLEARANCE IN PREDICTING GLOMERULAR FILTRATION RATE. ESTIMATED GFR IS NOT APPLICABLE FOR DIALYSIS PATIENTS. OXYGEN SATURATION, [id number] 15:29:00 Test Item Value Reference Range Comments O2 SATURATION (MEASURED) (BEAKER) (test gyrf=5929) 59.0 % BLOOD GAS, [id number] 15:27:00 Test Item Value Reference Range Comments PH ARTERIAL (BEAKER) (test fkbw=216) 7.48 7.35-7.45 PCO2 ARTERIAL (BEAKER) (test mzec=818) 34 mmHg 35-45 PO2 ARTERIAL (BEAKER) (test pvff=060) 123 mmHg 80-90 O2 SATURATION ARTERIAL (BEAKER) (test uxaq=161) 98.7 % 96.0-97.0 HCO3 ARTERIAL (BEAKER) (test hhou=262) 25 mmol/L 21-29 BASE EXCESS ARTERIAL (BEAKER) (test gdsb=205) 1.4 mmol/L -2.0-3.0 PATIENT TEMPERATURE (BEAKER) (test cfta=8249) 37.0 C FIO2 (BEAKER) (test ozwt=9335) 100.0 % POCT-GLUCOSE [id number] 11:41:00 Test Item Value Reference Range Comments POC-GLUCOSE METER (BEAKER) 151 mg/dL 70-[address] [facility] [address] [facility] (test dauf=6149) [facility] [address] POCT-GLUCOSE [id number] 08:48:00 Test Item Value Reference Range Comments POC-GLUCOSE METER (BEAKER) 143 mg/dL 70-[address] [facility] [address] [facility] (test ujbi=3245) [facility] [address] CALCIUM, [id number] 04:57:00 Test Item Value Reference Range Comments CALCIUM IONIZED (BEAKER) (test mnvr=489) 1.12 mmol/L 1.12-1.27 PH, BLOOD (BEAKER) (test bwmd=8227) 7.46 OXYGEN SATURATION, [id number] 04:47:00 Test Item Value Reference Range Comments O2 SATURATION (MEASURED) (BEAKER) (test luah=9636) 53.0 % BASIC METABOLIC [id number] 04:21:00 Test Item Value Reference Range Comments SODIUM (BEAKER) (test 132 meq/L 136-145 iyfx=976) POTASSIUM (BEAKER) (test 4.3 meq/L 3.5-5.1 txti=230) CHLORIDE (BEAKER) (test 102 meq/L 98-107 yuwt=938) CO2 (BEAKER) (test 23 meq/L 22-29 lxkp=503) BLOOD UREA NITROGEN 34 mg/dL 7-21 (BEAKER) (test nokv=849) CREATININE (BEAKER) (test 0.86 mg/dL 0.57-1.25 eaae=574) GLUCOSE RANDOM (BEAKER) 127 mg/dL 70-105 (test jewq=527) CALCIUM (BEAKER) (test 8.7 mg/dL 8.4-10.2 dyzc=678) EGFR (BEAKER) (test 66 mL/min/1.73 sq m ESTIMATED GFR IS NOT rxhq=2125) ACCURATE CREATININE CLEARANCE IN PREDICTING GLOMERULAR FILTRATION RATE. ESTIMATED GFR IS NOT APPLICABLE FOR DIALYSIS PATIENTS. BLOOD GAS, [id number] 04:14:00 Test Item Value Reference Range Comments PH ARTERIAL (BEAKER) (test swnf=048) 7.46 7.35-7.45 PCO2 ARTERIAL (BEAKER) (test ltwd=222) 34 mmHg 35-45 PO2 ARTERIAL (BEAKER) (test cosu=826) 115 mmHg 80-90 O2 SATURATION ARTERIAL (BEAKER) (test hcal=850) 98.4 % 96.0-97.0 HCO3 ARTERIAL (BEAKER) (test csii=837) 23 mmol/L 21-29 BASE EXCESS ARTERIAL (BEAKER) (test erlp=045) -0.2 mmol/L -2.0-3.0 PATIENT TEMPERATURE (BEAKER) (test xjcw=5330) 37.2 C FIO2 (BEAKER) (test toxd=4258) 36.0 % CBC (HEMOGRAM ONLY)2018-05-05 03:50:00 Test Item Value Reference Range Comments WHITE BLOOD CELL COUNT (BEAKER) (test bgqv=012) 12.7 K/ L 3.5-10.5 RED BLOOD CELL COUNT (BEAKER) (test neqh=484) 3.11 M/ L 3.93-5.22 HEMOGLOBIN (BEAKER) (test baqg=021) 8.3 GM/DL 11.2-15.7 HEMATOCRIT (BEAKER) (test mffz=985) 26.8 % 34.1-44.9 MEAN CORPUSCULAR VOLUME (BEAKER) (test wyhy=931) 86.2 fL 79.4-94.8 MEAN CORPUSCULAR HEMOGLOBIN (BEAKER) (test 26.7 pg 25.6-32.2 rjyx=258) MEAN CORPUSCULAR HEMOGLOBIN CONC (BEAKER) (test 31.0 GM/DL 32.2-35.5 ewmv=671) RED CELL DISTRIBUTION WIDTH (BEAKER) (test 14.5 % 11.7-14.4 ccim=560) PLATELET COUNT (BEAKER) (test zhyl=334) 151 K/CU MM 150-450 MEAN PLATELET VOLUME (BEAKER) (test onor=821) 9.7 fL 9.4-12.3 NUCLEATED RED BLOOD CELLS (BEAKER) (test 0 /100 WBC 0-0 zbfg=304) POCT-GLUCOSE [id number] 03:44:00 Test Item Value Reference Range Comments POC-GLUCOSE METER (BEAKER) 135 mg/dL 70-[address] [facility] [address] [facility] (test iqzt=0006) [place] [address] RAD, CHEST, 1 VIEW, NON [id number] 03:39:00Reason for exam:->s/p CABGs/p chest tube removal Should this be performed at the bedside?->YesFINAL REPORT CLINICAL INDICATION: Postop Comparison: 05/04/2018 The cardiomediastinal contours are stable. Central pulmonary vascular prominence and bilateral parenchymal and pleural opacities are similar to previous. There is no pneumothorax. Mediastinal drains and a left chesttube have been removed. A right IJ PA catheter remains in place. Signed: Jorge Wright MDReport Verified Date/Time: 05/05/2018 03:39:51 Reading Location: [address] Reading Room Electronically signed by: JORGE WRIGHT M.D. on 03:39 AMPOCT-GLUCOSE [id number] 00:10:00 Test Item Value Reference Range Comments POC-GLUCOSE METER (BEAKER) 194 mg/dL 70-110 TESTED AT [address] (test mzkq=0041) [place] [id number] POCT-GLUCOSE [id number] 22:51:00 Test Item Value Reference Range Comments POC-GLUCOSE METER (BEAKER) 74 mg/dL 70-110 TESTED AT [address] (test pplj=2998) [place] [id number] POCT-GLUCOSE [id number] 19:40:00 Test Item Value Reference Range Comments POC-GLUCOSE METER (BEAKER) 140 mg/dL 70-110 TESTED AT [address] (test cgaj=0557) [place] [address] LACTIC ACID, ARTERIAL, WHOLE [id number] 18:17:00 Test Item Value Reference Range Comments LACTATE BLOOD ARTERIAL (2) (BEAKER) (test 0.8 mmol/L 0.5-2.2 lvql=2186) BLOOD GAS, [id number] 17:57:00 Test Item Value Reference Range Comments PH ARTERIAL (BEAKER) (test fhpk=762) 7.49 7.35-7.45 PCO2 ARTERIAL (BEAKER) (test foqq=417) 33 mmHg 35-45 PO2 ARTERIAL (BEAKER) (test jcym=571) 143 mmHg 80-90 O2 SATURATION ARTERIAL (BEAKER) (test ncqm=978) 99.0 % 96.0-97.0 HCO3 ARTERIAL (BEAKER) (test zsjg=282) 25 mmol/L 21-29 BASE EXCESS ARTERIAL (BEAKER) (test cwqj=542) 1.6 mmol/L -2.0-3.0 PATIENT TEMPERATURE (BEAKER) (test skkl=1676) 36.8 C FIO2 (BEAKER) (test nglg=7156) 30.0 % POCT-GLUCOSE [id number] 16:56:00 Test Item Value Reference Range Comments POC-GLUCOSE METER (BEAKER) 107 mg/dL 70-110 TESTED AT [address] (test xgbp=2891) [place] [id number] POCT-GLUCOSE [id number] 16:49:00 Test Item Value Reference Range Comments POC-GLUCOSE METER (BEAKER) 155 mg/dL 70-110 TESTED AT [address] (test hynn=7719) [place] [id number] POCT-GLUCOSE [id number] 15:45:00 Test Item Value Reference Range Comments POC-GLUCOSE METER (BEAKER) 106 mg/dL 70-110 TESTED AT [address] (test ssne=2703) [facility] [address] OXYGEN SATURATION, [id number] 14:29:00 Test Item Value Reference Range Comments O2 SATURATION (MEASURED) (BEAKER) (test yeaf=3136) 67.3 % URINALYSIS W/ REFLEX URINE [id number] 13:50:00 Test Item Value Reference Range Comments COLOR (BEAKER) (test dras=662) Yellow CLARITY (BEAKER) (test siow=899) Clear SPECIFIC GRAVITY UA (BEAKER) (test qvbs=267) 1.012 1.001-1.035 PH UA (BEAKER) (test txpz=053) 5.0 5.0-8.0 PROTEIN UA (BEAKER) (test jftj=712) Negative Negative GLUCOSE UA (BEAKER) (test rxid=829) Negative Negative KETONES UA (BEAKER) (test vuhq=509) Negative Negative BILIRUBIN UA (BEAKER) (test ybwq=551) Negative Negative BLOOD UA (BEAKER) (test ysoh=499) Negative Negative NITRITE UA (BEAKER) (test lztt=234) Negative Negative LEUKOCYTE ESTERASE UA (BEAKER) (test ruav=164) Negative Negative UROBILINOGEN UA (BEAKER) (test xgfv=789) 0.2 mg/dL 0.2-1.0 RBC UA (BEAKER) (test szxd=033) < /HPF WBC UA (BEAKER) (test lnjg=360) 2 /HPF BACTERIA (BEAKER) (test seid=851) Rare MUCUS (BEAKER) (test ptnb=0343) Rare SQUAMOUS EPITHELIAL (BEAKER) (test svjp=575) 1 /HPF HYALINE CASTS (BEAKER) (test audp=142) 99 /LPF SOURCE(BEAKER) (test umav=2474) POCT-GLUCOSE [id number] 12:23:00 Test Item Value Reference Range Comments POC-GLUCOSE METER (BEAKER) 100 mg/dL 70-110 TESTED AT [address] (test xina=6026) [place] [address] POCT-GLUCOSE [id number] 09:31:00 Test Item Value Reference Range Comments POC-GLUCOSE METER (BEAKER) 111 mg/dL 70-110 TESTED AT [address] (test avpy=2007) [place] [address] HEMOGLOBIN AND [id number] 08:27:00 Test Item Value Reference Range Comments HEMOGLOBIN (BEAKER) (test sfcd=644) 8.7 GM/DL 11.2-15.7 HEMATOCRIT (BEAKER) (test ckci=340) 27.3 % 34.1-44.9 Post transfusionPOCT-GLUCOSE [id number] 08:24:00 Test Item Value Reference Range Comments POC-GLUCOSE METER (BEAKER) 109 mg/dL 70-110 TESTED AT [address] (test ieht=1344) [place] [id number] POCT-GLUCOSE [id number] 07:14:00 Test Item Value Reference Range Comments POC-GLUCOSE METER (BEAKER) 115 mg/dL 70-110 TESTED AT [address] (test yncv=5625) [place] [address] POCT-GLUCOSE [id number] 04:06:00 Test Item Value Reference Range Comments POC-GLUCOSE METER (BEAKER) 189 mg/dL 70-110 TESTED AT [address] (test bxji=6854) [place] [address] RAD, CHEST, 1 VIEW, NON [id number] 03:07:00Reason for exam:->post opShould this be performed at the bedside?->YesFINAL REPORT RAD, CHEST, 1 VIEW, NON DEPT INDICATION: post op COMPARISON: Prior day' s exam FINDINGS: Portable frontal view of the chest. IMPRESSION: Support Lines: The intra-aortic balloon pump is no longer identified on the current examination. Otherwise unchanged support apparatus. Lungs and pleura: Increased heterogeneous airspace opacity in the bilateral bases favored torepresent atelectasis however superimposed pneumonia cannot be excluded in the proper clinical setting. No large pleural effusion. No pneumothorax.Heart and mediastinum: Stable contours. Stable surgical changes.Additional findings: None. Signed: Darya Turner MDReport Verified Date/Time: 05/04/2018 03:07 :12 Reading Location: [address] Transitional Reading Room BASIC METABOLIC [id number] 03:02:00 Test Item Value Reference Range Comments SODIUM (BEAKER) (test 136 meq/L 136-145 smjp=183) POTASSIUM (BEAKER) (test 4.7 meq/L 3.5-5.1 ugxv=741) CHLORIDE (BEAKER) (test 104 meq/L 98-107 svrw=566) CO2 (BEAKER) (test 24 meq/L 22-29 lafh=645) BLOOD UREA NITROGEN 35 mg/dL 7-21 (BEAKER) (test mamj=209) CREATININE (BEAKER) (test 0.84 mg/dL 0.57-1.25 fuww=950) GLUCOSE RANDOM (BEAKER) 150 mg/dL 70-105 (test btnw=762) CALCIUM (BEAKER) (test 9.3 mg/dL 8.4-10.2 euiu=634) EGFR (BEAKER) (test 68 mL/min/1.73 sq m ESTIMATED GFR IS NOT tqzl=7880) ACCURATE CREATININE CLEARANCE IN PREDICTING GLOMERULAR FILTRATION RATE. ESTIMATED GFR IS NOT APPLICABLE FOR DIALYSIS PATIENTS. [id number] 03:02:00 Test Item Value Reference Range Comments MAGNESIUM (BEAKER) (test silh=788) 1.9 mg/dL 1.6-2.6 BLOOD GAS, [id number] 02:51:00 Test Item Value Reference Range Comments PH ARTERIAL (BEAKER) (test ommj=014) 7.50 7.35-7.45 PCO2 ARTERIAL (BEAKER) (test ylfv=774) 34 mmHg 35-45 PO2 ARTERIAL (BEAKER) (test sady=800) 151 mmHg 80-90 O2 SATURATION ARTERIAL (BEAKER) (test cvwg=150) 99.1 % 96.0-97.0 HCO3 ARTERIAL (BEAKER) (test ohkf=609) 26 mmol/L 21-29 BASE EXCESS ARTERIAL (BEAKER) (test ivlb=186) 2.8 mmol/L -2.0-3.0 PATIENT TEMPERATURE (BEAKER) (test cntj=0132) 37.3 C FIO2 (BEAKER) (test fdil=3064) 36.0 % CALCIUM, [id number] 02:51:00 Test Item Value Reference Range Comments CALCIUM IONIZED (BEAKER) (test iwdu=468) 1.18 mmol/L 1.12-1.27 PH, BLOOD (BEAKER) (test kqkl=0136) 7.50 CBC (HEMOGRAM ONLY)2018-05-04 02:48:00 Test Item Value Reference Range Comments WHITE BLOOD CELL COUNT (BEAKER) (test fanj=532) 17.1 K/ L 3.5-10.5 RED BLOOD CELL COUNT (BEAKER) (test gfbe=576) 2.65 M/ L 3.93-5.22 HEMOGLOBIN (BEAKER) (test ovcy=082) 7.3 GM/DL 11.2-15.7 HEMATOCRIT (BEAKER) (test dacs=116) 22.9 % 34.1-44.9 MEAN CORPUSCULAR VOLUME (BEAKER) (test awpo=236) 86.4 fL 79.4-94.8 MEAN CORPUSCULAR HEMOGLOBIN (BEAKER) (test 27.5 pg 25.6-32.2 bqad=023) MEAN CORPUSCULAR HEMOGLOBIN CONC (BEAKER) (test 31.9 GM/DL 32.2-35.5 ltnn=039) RED CELL DISTRIBUTION WIDTH (BEAKER) (test 14.8 % 11.7-14.4 uyju=202) PLATELET COUNT (BEAKER) (test astg=622) 139 K/CU MM 150-450 MEAN PLATELET VOLUME (BEAKER) (test nxnf=355) 9.7 fL 9.4-12.3 NUCLEATED RED BLOOD CELLS (BEAKER) (test 0 /100 WBC 0-0 koso=619) OXYGEN SATURATION, [id number] 02:47:00 Test Item Value Reference Range Comments O2 SATURATION (MEASURED) (BEAKER) (test bwut=1362) 59.0 % POCT-GLUCOSE [id number] 02:40:00 Test Item Value Reference Range Comments POC-GLUCOSE METER (BEAKER) 165 mg/dL 70-110 TESTED AT [address] (test hyfj=7946) [facility] [address] POCT-GLUCOSE [id number] 01:56:00 Test Item Value Reference Range Comments POC-GLUCOSE METER (BEAKER) 96 mg/dL 70-110 TESTED AT [address] (test kwqw=6237) [facility] [address] POCT-GLUCOSE [id number] 23:07:00 Test Item Value Reference Range Comments POC-GLUCOSE METER (BEAKER) 137 mg/dL 70-110 TESTED AT [address] (test kkdz=9042) [facility] [address] POCT-GLUCOSE [id number] 22:07:00 Test Item Value Reference Range Comments POC-GLUCOSE METER (BEAKER) 140 mg/dL 70-110 TESTED AT [address] (test vhlp=9049) [facility] [address] LACTIC ACID, ARTERIAL, WHOLE [id number] 20:23:00 Test Item Value Reference Range Comments LACTATE BLOOD ARTERIAL (2) (BEAKER) (test 1.3 mmol/L 0.5-2.2 bjzy=3883) PROTHROMBIN [id number] 20:22:00 Test Item Value Reference Range Comments PROTIME (BEAKER) (test aeio=197) 15.4 seconds 11.7-14.7 INR (BEAKER) (test lpvi=296) 1.2 <=5.9 RECOMMENDED COUMADIN/WARFARIN INR THERAPY RANGESSTANDARD DOSE: 2.0 - 3.0 Includes: PROPHYLAXIS forvenous thrombosis, systemic embolization; TREATMENT for venous thrombosis and/or pulmonary embolus.HIGH RISK: Target INR is 2.5-3.5 for patients with mechanical heart valves.[id number] 20:22:00 Test Item Value Reference Range Comments FIBRINOGEN LEVEL (BEAKER) (test nbue=419) 576 mg/dl 225-434 [id number] 20:22:00 Test Item Value Reference Range Comments PARTIAL THROMBOPLASTIN TIME (BEAKER) (test 27.8 seconds 22.5-36.0 qvbr=925) [id number] 20:22:00 Test Item Value Reference Range Comments MAGNESIUM (BEAKER) (test bvqg=525) 1.9 mg/dL 1.6-2.6 PLATELET [id number] 20:14:00 Test Item Value Reference Range Comments PLATELET COUNT (BEAKER) (test lyml=338) 177 K/CU MM 150-450 CALCIUM, [id number] 19:59:00 Test Item Value Reference Range Comments CALCIUM IONIZED (BEAKER) (test hhuq=874) 1.20 mmol/L 1.12-1.27 PH, BLOOD (BEAKER) (test pdbo=8816) 7.51 BLOOD GAS, [id number] 19:59:00 Test Item Value Reference Range Comments PH ARTERIAL (BEAKER) (test srvx=073) 7.50 7.35-7.45 PCO2 ARTERIAL (BEAKER) (test wttf=266) 35 mmHg 35-45 PO2 ARTERIAL (BEAKER) (test dauj=332) 143 mmHg 80-90 O2 SATURATION ARTERIAL (BEAKER) (test gemu=310) 99.0 % 96.0-97.0 HCO3 ARTERIAL (BEAKER) (test xxjs=534) 27 mmol/L 21-29 BASE EXCESS ARTERIAL (BEAKER) (test vwmu=695) 3.7 mmol/L -2.0-3.0 PATIENT TEMPERATURE (BEAKER) (test bumh=2758) 37.6 C FIO2 (BEAKER) (test awjv=0101) 36.0 % GLUCOSE-STAT [id number] 19:59:00 Test Item Value Reference Range Comments GLUCOSE RANDOM (BEAKER) (test kohq=529) 126 mg/dL 70-110 SODIUM NA-STAT [id number] 19:59:00 Test Item Value Reference Range Comments SODIUM (BEAKER) (test fols=068) 134 meq/L 135-148 HGB/HCT (H&H) - STAT [id number] 19:59:00 Test Item Value Reference Range Comments HEMOGLOBIN (BEAKER) (test bxtq=012) 8.1 g/dL 12.0-15.0 HEMATOCRIT (BEAKER) (test jwby=210) 24.0 % 36.0-45.0 POTASSIUM-STAT [id number] 19:58:00 Test Item Value Reference Range Comments POTASSIUM (BEAKER) (test dawg=439) 4.2 meq/L 3.6-5.5 POCT-GLUCOSE [id number] 18:22:00 Test Item Value Reference Range Comments POC-GLUCOSE METER (BEAKER) 163 mg/dL 70-110 TESTED AT [address] (test aotw=0619) [facility] [address] POCT-GLUCOSE [id number] 17:57:00 Test Item Value Reference Range Comments POC-GLUCOSE METER (BEAKER) 158 mg/dL 70-110 TESTED AT [address] (test cdcq=2283) [place] [id number] LACTIC ACID, ARTERIAL, WHOLE [id number] 17:41:00 Test Item Value Reference Range Comments LACTATE BLOOD ARTERIAL (2) 1.0 mmol/L 0.5-2.2 Specimen slightly hemolyzed (BEAKER) (test rcfq=9463) OXYGEN SATURATION, [id number] 17:34:00 Test Item Value Reference Range Comments O2 SATURATION (MEASURED) (BEAKER) (test hawe=7304) 65.3 % BLOOD GAS, [id number] 17:29:00 Test Item Value Reference Range Comments PH ARTERIAL (BEAKER) (test cpie=792) 7.50 7.35-7.45 PCO2 ARTERIAL (BEAKER) (test qprf=534) 38 mmHg 35-45 PO2 ARTERIAL (BEAKER) (test idoo=205) 171 mmHg 80-90 O2 SATURATION ARTERIAL (BEAKER) (test rdci=945) 99.3 % 96.0-97.0 HCO3 ARTERIAL (BEAKER) (test upxu=266) 28 mmol/L 21-29 BASE EXCESS ARTERIAL (BEAKER) (test hwzg=213) 4.9 mmol/L -2.0-3.0 PATIENT TEMPERATURE (BEAKER) (test yadb=6831) 37.8 C FIO2 (BEAKER) (test ewyh=0038) 36.0 % POCT-GLUCOSE [id number] 16:55:00 Test Item Value Reference Range Comments POC-GLUCOSE METER (BEAKER) 172 mg/dL 70-110 TESTED AT [address] (test xsgd=7092) [facility] [address] POCT-GLUCOSE [id number] 15:47:00 Test Item Value Reference Range Comments POC-GLUCOSE METER (BEAKER) 197 mg/dL 70-110 TESTED AT [address] (test uxdt=4646) [facility] [address] POCT-GLUCOSE [id number] 12:59:00 Test Item Value Reference Range Comments POC-GLUCOSE METER (BEAKER) 103 mg/dL 70-110 TESTED AT [address] (test xwbc=9854) [facility] [address] HEMOGLOBIN AND [id number] 11:57:00 Test Item Value Reference Range Comments HEMOGLOBIN (BEAKER) (test vmcp=961) 8.0 GM/DL 11.2-15.7 HEMATOCRIT (BEAKER) (test hsmv=124) 25.6 % 34.1-44.9 OXYGEN SATURATION, [id number] 11:16:00 Test Item Value Reference Range Comments O2 SATURATION (MEASURED) (BEAKER) (test jwra=4918) 61.2 % BLOOD GAS, [id number] 11:15:00 Test Item Value Reference Range Comments PH ARTERIAL (BEAKER) (test cqmy=296) 7.49 7.35-7.45 PCO2 ARTERIAL (BEAKER) (test yajh=566) 35 mmHg 35-45 PO2 ARTERIAL (BEAKER) (test gala=829) 116 mmHg 80-90 O2 SATURATION ARTERIAL (BEAKER) (test ecbp=552) 98.5 % 96.0-97.0 HCO3 ARTERIAL (BEAKER) (test lfca=322) 26 mmol/L 21-29 BASE EXCESS ARTERIAL (BEAKER) (test uabi=595) 2.7 mmol/L -2.0-3.0 PATIENT TEMPERATURE (BEAKER) (test jpre=8466) 37.5 C FIO2 (BEAKER) (test bztn=3956) 32.0 % POCT-GLUCOSE [id number] 08:12:00 Test Item Value Reference Range Comments POC-GLUCOSE METER (BEAKER) 157 mg/dL 70-110 TESTED AT [address] (test ivwj=0945) [facility] [address] POCT-GLUCOSE [id number] 06:49:00 Test Item Value Reference Range Comments POC-GLUCOSE METER (BEAKER) 182 mg/dL 70-110 TESTED AT [place] [id number] [facility] (test xkwr=8910) [facility] [address] POCT-GLUCOSE [id number] 04:35:00 Test Item Value Reference Range Comments POC-GLUCOSE METER (BEAKER) 206 mg/dL 70-110 TESTED AT [address] (test nroa=8638) [facility] [address] POCT-GLUCOSE [id number] 04:35:00 Test Item Value Reference Range Comments POC-GLUCOSE METER (BEAKER) 241 mg/dL 70-110 TESTED AT [address] (test twlv=3275) [facility] [address] BLOOD GAS, [id number] 04:05:00 Test Item Value Reference Range Comments PH ARTERIAL (BEAKER) (test cfzm=299) 7.44 7.35-7.45 PCO2 ARTERIAL (BEAKER) (test nvxa=088) 38 mmHg 35-45 PO2 ARTERIAL (BEAKER) (test siih=154) 151 mmHg 80-90 O2 SATURATION ARTERIAL (BEAKER) (test olix=624) 99.0 % 96.0-97.0 HCO3 ARTERIAL (BEAKER) (test rxik=842) 25 mmol/L 21-29 BASE EXCESS ARTERIAL (BEAKER) (test lgdc=574) 1.1 mmol/L -2.0-3.0 PATIENT TEMPERATURE (BEAKER) (test xadc=2956) 36.9 C FIO2 (BEAKER) (test xwpj=2944) 35.0 % [id number] 04:05:00 Test Item Value Reference Range Comments PHOSPHORUS (BEAKER) (test dila=529) 4.9 mg/dL 2.3-4.7 [id number] 04:05:00 Test Item Value Reference Range Comments MAGNESIUM (BEAKER) (test zkeo=099) 1.9 mg/dL 1.6-2.6 BASIC METABOLIC [id number] 04:05:00 Test Item Value Reference Range Comments SODIUM (BEAKER) (test 141 meq/L 136-145 bsiy=574) POTASSIUM (BEAKER) (test 4.2 meq/L 3.5-5.1 sdjl=372) CHLORIDE (BEAKER) (test 107 meq/L 98-107 cjzv=408) CO2 (BEAKER) (test 25 meq/L 22-29 pfgz=336) BLOOD UREA NITROGEN 37 mg/dL 7-21 (BEAKER) (test mnlp=644) CREATININE (BEAKER) (test 1.17 mg/dL 0.57-1.25 ilvs=781) GLUCOSE RANDOM (BEAKER) 215 mg/dL 70-105 (test vjbj=428) CALCIUM (BEAKER) (test 9.8 mg/dL 8.4-10.2 dktv=754) EGFR (BEAKER) (test 46 mL/min/1.73 sq m ESTIMATED GFR IS NOT pawu=2153) ACCURATE CREATININE CLEARANCE IN PREDICTING GLOMERULAR FILTRATION RATE. ESTIMATED GFR IS NOT APPLICABLE FOR DIALYSIS PATIENTS. OXYGEN SATURATION, [id number] 04:04:00 Test Item Value Reference Range Comments O2 SATURATION (MEASURED) (BEAKER) (test iahh=2776) 67.8 % CBC (HEMOGRAM ONLY)2018-05-03 03:44:00 Test Item Value Reference Range Comments WHITE BLOOD CELL COUNT (BEAKER) (test kgwy=277) 14.7 K/ L 3.5-10.5 RED BLOOD CELL COUNT (BEAKER) (test etej=721) 2.89 M/ L 3.93-5.22 HEMOGLOBIN (BEAKER) (test knqu=063) 8.1 GM/DL 11.2-15.7 HEMATOCRIT (BEAKER) (test znpw=953) 24.9 % 34.1-44.9 MEAN CORPUSCULAR VOLUME (BEAKER) (test rddg=758) 86.2 fL 79.4-94.8 MEAN CORPUSCULAR HEMOGLOBIN (BEAKER) (test 28.0 pg 25.6-32.2 ivuu=830) MEAN CORPUSCULAR HEMOGLOBIN CONC (BEAKER) (test 32.5 GM/DL 32.2-35.5 wlci=178) RED CELL DISTRIBUTION WIDTH (BEAKER) (test 14.5 % 11.7-14.4 pcdu=543) PLATELET COUNT (BEAKER) (test ajfj=367) 167 K/CU MM 150-450 MEAN PLATELET VOLUME (BEAKER) (test timc=350) 9.7 fL 9.4-12.3 NUCLEATED RED BLOOD CELLS (BEAKER) (test 0 /100 WBC 0-0 nkap=844) RAD, CHEST, 1 VIEW, NON [id number] 03:36:00Reason for exam:->post opShould this be performed at the bedside?->YesFINAL REPORT RAD, CHEST, 1 VIEW, NON DEPT INDICATION: post op COMPARISON: Prior day' s exam FINDINGS: Portable frontal view of the chest. IMPRESSION: Support Lines: Intra-articular balloon pump superior marker terminates approximately 4 mm below the superior aspect of the aortic knob. Interval extubation and removal of the previously seen enteric tube. Otherwise unchanged support apparatus. Lungs and pleura: Unchanged airspace and pleural opacities. No pneumothorax.Heart andmediastinum: Stable contours. Stable surgical changes.Additional findings: None. Signed: Darya Turner Verified Date/Time: 05/03/2018 03:36:23 Reading Location: [address] Reading Room POCT-GLUCOSE [id number] 02:35:00 Test Item Value Reference Range Comments POC-GLUCOSE METER (BEAKER) 253 mg/dL 70-110 TESTED AT [address] (test wcqr=9163) [facility] [address] POCT-GLUCOSE [id number] 02:08:00 Test Item Value Reference Range Comments POC-GLUCOSE METER (BEAKER) 295 mg/dL 70-110 TESTED AT [address] (test runw=8952) [facility] [address] POCT-GLUCOSE [id number] 00:41:00 Test Item Value Reference Range Comments POC-GLUCOSE METER (BEAKER) 276 mg/dL 70-110 TESTED AT [address] (test ccrl=8901) [facility] [address] POCT-GLUCOSE [id number] 00:41:00 Test Item Value Reference Range Comments POC-GLUCOSE METER (BEAKER) 293 mg/dL 70-110 TESTED AT [address] (test eint=1593) [facility] [address] POCT-GLUCOSE [id number] 00:41:00 Test Item Value Reference Range Comments POC-GLUCOSE METER (BEAKER) 308 mg/dL 70-110 TESTED AT [address] (test nfwz=1587) [facility] [address] POCT-GLUCOSE [id number] 18:02:00 Test Item Value Reference Range Comments POC-GLUCOSE METER (BEAKER) 77 mg/dL 70-110 TESTED AT [address] (test gsoz=5757) [facility] [address] POCT-GLUCOSE [id number] 16:42:00 Test Item Value Reference Range Comments POC-GLUCOSE METER (BEAKER) 144 mg/dL 70-110 TESTED AT [address] (test sqqu=4910) [facility] [address] BASIC METABOLIC [id number] 16:14:00 Test Item Value Reference Range Comments SODIUM (BEAKER) (test 141 meq/L 136-145 bsel=819) POTASSIUM (BEAKER) (test 4.1 meq/L 3.5-5.1 jgum=929) CHLORIDE (BEAKER) (test 108 meq/L 98-107 qskx=466) CO2 (BEAKER) (test 25 meq/L 22-29 aedu=715) BLOOD UREA NITROGEN 34 mg/dL 7-21 (BEAKER) (test lnoj=683) CREATININE (BEAKER) (test 1.18 mg/dL 0.57-1.25 yqwo=980) GLUCOSE RANDOM (BEAKER) 96 mg/dL 70-105 (test ptpr=224) CALCIUM (BEAKER) (test 10.3 mg/dL 8.4-10.2 wgcs=729) EGFR (BEAKER) (test 46 mL/min/1.73 sq m ESTIMATED GFR IS NOT rlrv=7720) ACCURATE CREATININE CLEARANCE IN PREDICTING GLOMERULAR FILTRATION RATE. ESTIMATED GFR IS NOT APPLICABLE FOR DIALYSIS PATIENTS. OXYGEN SATURATION, [id number] 15:55:00 Test Item Value Reference Range Comments O2 SATURATION (MEASURED) (BEAKER) (test qgvv=2378) 65.7 % GLUCOSE-STAT [id number] 15:53:00 Test Item Value Reference Range Comments GLUCOSE RANDOM (BEAKER) (test ieqa=907) 98 mg/dL 70-110 BLOOD GAS, [id number] 15:53:00 Test Item Value Reference Range Comments PH ARTERIAL (BEAKER) (test hlog=039) 7.47 7.35-7.45 PCO2 ARTERIAL (BEAKER) (test fbsa=159) 35 mmHg 35-45 PO2 ARTERIAL (BEAKER) (test hfke=667) 134 mmHg 80-90 O2 SATURATION ARTERIAL (BEAKER) (test iazk=572) 98.8 % 96.0-97.0 HCO3 ARTERIAL (BEAKER) (test fygt=148) 25 mmol/L 21-29 BASE EXCESS ARTERIAL (BEAKER) (test vdjg=773) 1.4 mmol/L -2.0-3.0 PATIENT TEMPERATURE (BEAKER) (test dpdk=8734) 37.5 C FIO2 (BEAKER) (test vicf=2126) 32.0 % POCT-GLUCOSE [id number] 11:43:00 Test Item Value Reference Range Comments POC-GLUCOSE METER (BEAKER) 164 mg/dL 70-[address] [facility] [address] [facility] (test kusy=3988) [facility] [address] [id number] 11:14:00 Test Item Value Reference Range Comments POTASSIUM (BEAKER) (test kuga=012) 4.2 meq/L 3.5-5.1 [id number] 11:14:00 Test Item Value Reference Range Comments MAGNESIUM (BEAKER) (test zgyc=025) 2.3 mg/dL 1.6-2.6 [id number] 11:14:00 Test Item Value Reference Range Comments PHOSPHORUS (BEAKER) (test nvpf=129) 2.9 mg/dL 2.3-4.7 BLOOD GAS, [id number] 09:31:00 Test Item Value Reference Range Comments PH ARTERIAL (BEAKER) (test hvqd=338) 7.43 7.35-7.45 PCO2 ARTERIAL (BEAKER) (test iafu=950) 36 mmHg 35-45 PO2 ARTERIAL (BEAKER) (test rkmx=058) 121 mmHg 80-90 O2 SATURATION ARTERIAL (BEAKER) (test nldf=680) 98.4 % 96.0-97.0 HCO3 ARTERIAL (BEAKER) (test zxsp=912) 23 mmol/L 21-29 BASE EXCESS ARTERIAL (BEAKER) (test tita=613) -1.0 mmol/L -2.0-3.0 PATIENT TEMPERATURE (BEAKER) (test wjqc=2821) 37.5 C FIO2 (BEAKER) (test unnb=7859) 60.0 % CALCIUM, [id number] 09:31:00 Test Item Value Reference Range Comments CALCIUM IONIZED (BEAKER) (test zwrz=203) 1.27 mmol/L 1.12-1.27 PH, BLOOD (BEAKER) (test zctw=2183) 7.43 POCT-GLUCOSE [id number] 08:47:00 Test Item Value Reference Range Comments POC-GLUCOSE METER (BEAKER) 190 mg/dL 70-110 TESTED AT [address] (test eqpw=2455) [place] [address] [id number] 07:05:00 Test Item Value Reference Range Comments MAGNESIUM (BEAKER) (test 2.6 mg/dL 1.6-2.6 Specimen slightly hemolyzed pgjd=193) Every 8 hours PRN for Creatinine greater than or equal to 2 mg/dL.[id number] 07:05:00 Test Item Value Reference Range Comments POTASSIUM (BEAKER) (test 4.2 meq/L 3.5-5.1 Specimen slightly hemolyzed rbpg=110) Every 8 hours PRN for Creatinine greater than or equal to 2 mg/dL.POCT-GLUCOSE [id number] 06:50:00 Test Item Value Reference Range Comments POC-GLUCOSE METER (BEAKER) 200 mg/dL 70-110 TESTED AT [address] (test erog=1945) [place] [address] POCT-GLUCOSE [id number] 06:50:00 Test Item Value Reference Range Comments POC-GLUCOSE METER (BEAKER) 200 mg/dL 70-110 TESTED AT [address] (test aizq=3883) [place] [address] OXYGEN SATURATION, [id number] 05:07:00 Test Item Value Reference Range Comments O2 SATURATION (MEASURED) (BEAKER) (test qbpl=6361) 65.2 % [id number] 04:57:00 Test Item Value Reference Range Comments PHOSPHORUS (BEAKER) (test < mg/dL 2.3-4.7 Specimen slightly hemolyzed wlyk=531) BLOOD GAS, [id number] 04:51:00 Test Item Value Reference Range Comments PH ARTERIAL (BEAKER) (test iamq=221) 7.46 7.35-7.45 PCO2 ARTERIAL (BEAKER) (test ibai=666) 34 mmHg 35-45 PO2 ARTERIAL (BEAKER) (test vfmh=695) 102 mmHg 80-90 O2 SATURATION ARTERIAL (BEAKER) (test auaq=400) 98.0 % 96.0-97.0 HCO3 ARTERIAL (BEAKER) (test aotm=079) 24 mmol/L 21-29 BASE EXCESS ARTERIAL (BEAKER) (test cwpw=000) 0.0 mmol/L -2.0-3.0 PATIENT TEMPERATURE (BEAKER) (test zdlm=7441) 36.6 C FIO2 (BEAKER) (test diwi=1159) 40.0 % [id number] 04:47:00 Test Item Value Reference Range Comments MAGNESIUM (BEAKER) (test 1.9 mg/dL 1.6-2.6 Specimen slightly hemolyzed kzgc=038) BASIC METABOLIC [id number] 04:47:00 Test Item Value Reference Range Comments SODIUM (BEAKER) (test 138 meq/L 136-145 ntec=639) POTASSIUM (BEAKER) (test 3.8 meq/L 3.5-5.1 Specimen slightly mbgz=198) hemolyzed CHLORIDE (BEAKER) (test 106 meq/L 98-107 ctlf=484) CO2 (BEAKER) (test 21 meq/L 22-29 msde=615) BLOOD UREA NITROGEN 31 mg/dL 7-21 (BEAKER) (test vwos=448) CREATININE (BEAKER) (test 1.14 mg/dL 0.57-1.25 Specimen slightly isxx=875) hemolyzed GLUCOSE RANDOM (BEAKER) 174 mg/dL 70-105 (test fyvy=549) CALCIUM (BEAKER) (test 10.5 mg/dL 8.4-10.2 qkjt=626) EGFR (BEAKER) (test 48 mL/min/1.73 sq m ESTIMATED GFR IS NOT ljzj=3121) ACCURATE CREATININE CLEARANCE IN PREDICTING GLOMERULAR FILTRATION RATE. ESTIMATED GFR IS NOT APPLICABLE FOR DIALYSIS PATIENTS. CBC (HEMOGRAM ONLY)2018-05-02 04:27:00 Test Item Value Reference Range Comments WHITE BLOOD CELL COUNT (BEAKER) (test qryw=529) 13.7 K/ L 3.5-10.5 RED BLOOD CELL COUNT (BEAKER) (test yinf=833) 3.16 M/ L 3.93-5.22 HEMOGLOBIN (BEAKER) (test wksr=269) 8.6 GM/DL 11.2-15.7 HEMATOCRIT (BEAKER) (test lceq=337) 26.8 % 34.1-44.9 MEAN CORPUSCULAR VOLUME (BEAKER) (test wtfr=939) 84.8 fL 79.4-94.8 MEAN CORPUSCULAR HEMOGLOBIN (BEAKER) (test 27.2 pg 25.6-32.2 cnyn=023) MEAN CORPUSCULAR HEMOGLOBIN CONC (BEAKER) (test 32.1 GM/DL 32.2-35.5 jywe=491) RED CELL DISTRIBUTION WIDTH (BEAKER) (test 13.5 % 11.7-14.4 lmff=875) PLATELET COUNT (BEAKER) (test fxgy=720) 214 K/CU MM 150-450 MEAN PLATELET VOLUME (BEAKER) (test smxr=736) 9.3 fL 9.4-12.3 NUCLEATED RED BLOOD CELLS (BEAKER) (test 0 /100 WBC 0-0 tksv=660) RAD, CHEST, 1 VIEW, NON [id number] 04:07:00Reason for exam:->post opShould this be performed at the bedside?->YesFINAL REPORT RAD, CHEST, 1 VIEW, NON DEPT INDICATION: post op COMPARISON: Prior day' s exam FINDINGS: Portable frontal view of the chest. IMPRESSION: Support Lines: Intrinsic balloon pump superior marker lies approximately 1.3 cm above the level of the shilpa. Interval advancement of the enteric tube with tip overlying the gastric fundus and proximal sidehole at the GE junction, recommend advancing. Otherwise unchanged support apparatus. Lungs and pleura: Unchanged airspace and pleural opacities. No pneumothorax.Heart and mediastinum : Stable contours. Stable surgical changes.Additional findings: None. Signed: Darya Turner Verified Date/Time: 05/02/2018 04:07:23 Reading Location: [facility] Neuro Reading Room [id number] 03:12:00 Test Item Value Reference Range Comments PHOSPHORUS (BEAKER) (test < mg/dL 2.3-4.7 Specimen slightly hemolyzed mpyv=198) HGB/HCT (H&H) - STAT [id number] 02:16:00 Test Item Value Reference Range Comments HEMOGLOBIN (BEAKER) (test ebbd=808) 9.5 g/dL 12.0-15.0 HEMATOCRIT (BEAKER) (test vqda=723) 28.0 % 36.0-45.0 [id number] 01:17:00 Test Item Value Reference Range Comments PHOSPHORUS (BEAKER) (test 0.9 mg/dL 2.3-4.7 Specimen slightly hemolyzed vvzx=870) [id number] 01:00:00 Test Item Value Reference Range Comments MAGNESIUM (BEAKER) (test 1.3 mg/dL 1.6-2.6 Specimen slightly hemolyzed lhyh=981) BASIC METABOLIC [id number] 01:00:00 Test Item Value Reference Range Comments SODIUM (BEAKER) (test 140 meq/L 136-145 xqcf=708) POTASSIUM (BEAKER) (test 3.1 meq/L 3.5-5.1 Specimen slightly owve=167) hemolyzed CHLORIDE (BEAKER) (test 106 meq/L 98-107 ltao=597) CO2 (BEAKER) (test 24 meq/L 22-29 dgei=462) BLOOD UREA NITROGEN 30 mg/dL 7-21 (BEAKER) (test lvvt=253) CREATININE (BEAKER) (test 1.01 mg/dL 0.57-1.25 Specimen slightly zwhf=282) hemolyzed GLUCOSE RANDOM (BEAKER) 144 mg/dL 70-105 (test yoeh=429) CALCIUM (BEAKER) (test 10.6 mg/dL 8.4-10.2 xorx=362) EGFR (BEAKER) (test 55 mL/min/1.73 sq m ESTIMATED GFR IS NOT mttm=7945) ACCURATE CREATININE CLEARANCE IN PREDICTING GLOMERULAR FILTRATION RATE. ESTIMATED GFR IS NOT APPLICABLE FOR DIALYSIS PATIENTS. LACTIC ACID, ARTERIAL, WHOLE [id number] 00:52:00 Test Item Value Reference Range Comments LACTATE BLOOD ARTERIAL (2) 5.3 mmol/L 0.5-2.2 Specimen slightly hemolyzed (BEAKER) (test apka=7349) [id number] 00:51:00 Test Item Value Reference Range Comments FIBRINOGEN LEVEL (BEAKER) (test bpqm=118) 320 mg/dl 225-434 [id number] 00:51:00 Test Item Value Reference Range Comments PARTIAL THROMBOPLASTIN TIME (BEAKER) (test 35.0 seconds 22.5-36.0 jhhs=092) PROTHROMBIN [id number] 00:50:00 Test Item Value Reference Range Comments PROTIME (BEAKER) (test obxa=207) 16.7 seconds 11.7-14.7 INR (BEAKER) (test tycf=971) 1.4 <=5.9 RECOMMENDED COUMADIN/WARFARIN INR THERAPY RANGESSTANDARD DOSE: 2.0 - 3.0 Includes: PROPHYLAXIS forvenous thrombosis, systemic embolization; TREATMENT for venous thrombosis and/or pulmonary embolus.HIGH RISK: Target INR is 2.5-3.5 for patients with mechanical heart valves.RAD, CHEST, 1 VIEW, NON [id number] 00:38:00Reason for exam:->post opShould this be performed at the bedside?- >YesFINAL REPORT EXAMINATION: AP PORTABLE CHEST RADIOGRAPH CLINICAL INDICATION: Intubation, central line placement. IMPRESSION: Compared with 04/30/2018. The patient is status post interval cardiothoracic surgery with midline sternotomy and chest tube placement. The tip of the endotracheal tube projects approximately 2.5 cm superior to the shilpa. The tip of the nasogastric tube is likely in the distal esophagus although the distal tip is poorly visualized. The tip of the Sarepta-Ganzcatheter projects along the expected course of the pulmonary trunk. The radiopaque marker for the balloon pump projects near the level the aortic arch. The heart is enlarged as before. Subtle streaky opacities are noted in the perihilar regions and along the heart borders. Atelectasis is favored. Sequela from small volume aspiration cannot be excluded. No definite evidence of pulmonary edema. Query a small left-sided pleural effusion. Subtle crescentic radiolucency is noted along the left hilar region which may reflect partially aerated lung, small volume pneumomediastinum or a small pneumothorax. Short-term imaging surveillance recommended. An appropriately positioned gastric band projects overthe left upper abdomen. Note : A dedicated abdominal radiograph could be performed for further characterization of the nasogastric tube tip location. Signed: Jeremiah Rutledge MDReport Verified Date/Time: 05/02/2018 00:38:45 Reading Location: [address] Reading Room HEMOGLOBIN AND [id number] 00:34:00 Test Item Value Reference Range Comments HEMOGLOBIN (BEAKER) (test ztby=696) 9.2 GM/DL 11.2-15.7 HEMATOCRIT (BEAKER) (test ywzp=979) 28.5 % 34.1-44.9 PLATELET [id number] 00:34:00 Test Item Value Reference Range Comments PLATELET COUNT (BEAKER) (test bygb=518) 190 K/CU MM 150-450 THROMBOELASTOGRAPH (TEG)2018-05-02 00:30:00 Test Item Value Reference Range Comments TEG ACTIVATED CLOTTING TIME (BEAKER) (test 4.8 minutes 4.0-7.0 jwxa=9602) TEG FIBRINOGEN ACTIVITY (BEAKER) (test 73.9 degrees 61.0-73.0 hmqy=0382) TEG PLT. AGGREGATION (BEAKER) (test mdbx=8802) 50.8 MM 55.0-65.0 TEG FIBRINOLYSIS (BEAKER) (test mytw=6898) 32.2 % 0.0-5.0 TGH ACTIVATED CLOTTING TIME (BEAKER) (test 4.5 minutes 4.0-7.0 plgf=6688) TGH FIBRINOGEN ACTIVITY (BEAKER) (test 76.8 degrees 61.0-73.0 mtmq=8380) TGH PLT. AGGREGATION (BEAKER) (test rupe=2454) 62.2 MM 55.0-65.0 TGH FIBRINOLYSIS (BEAKER) (test wwta=7610) 0.4 % 0.0-5.0 PROTHROMBIN TIME/[id number] 23:56:00 Test Item Value Reference Range Comments PROTIME (BEAKER) (test gddg=175) 17.5 seconds 11.7-14.7 INR (BEAKER) (test zywz=637) 1.4 <=5.9 RECOMMENDED COUMADIN/WARFARIN INR THERAPY RANGESSTANDARD DOSE: 2.0 - 3.0 Includes: PROPHYLAXIS forvenous thrombosis, systemic embolization; TREATMENT for venous thrombosis and/or pulmonary embolus.HIGH RISK: Target INR is 2.5-3.5 for patients with mechanical heart valves.[id number] 23:56:00 Test Item Value Reference Range Comments FIBRINOGEN LEVEL (BEAKER) (test yqdj=871) 301 mg/dl 225-434 [id number] 23:56:00 Test Item Value Reference Range Comments PARTIAL THROMBOPLASTIN TIME (BEAKER) (test 32.7 seconds 22.5-36.0 gwlk=985) CBC W/PLT COUNT & AUTO [id number] 23:50:00 Test Item Value Reference Range Comments WHITE BLOOD CELL COUNT (BEAKER) (test wcau=396) 12.8 K/ L 3.5-10.5 RED BLOOD CELL COUNT (BEAKER) (test xkzf=369) 3.33 M/ L 3.93-5.22 HEMOGLOBIN (BEAKER) (test netb=890) 9.1 GM/DL 11.2-15.7 HEMATOCRIT (BEAKER) (test pojr=966) 28.7 % 34.1-44.9 MEAN CORPUSCULAR VOLUME (BEAKER) (test mtjy=754) 86.2 fL 79.4-94.8 MEAN CORPUSCULAR HEMOGLOBIN (BEAKER) (test 27.3 pg 25.6-32.2 bxmg=450) MEAN CORPUSCULAR HEMOGLOBIN CONC (BEAKER) (test 31.7 GM/DL 32.2-35.5 ctpj=364) RED CELL DISTRIBUTION WIDTH (BEAKER) (test 13.7 % 11.7-14.4 wmjw=580) PLATELET COUNT (BEAKER) (test hnxh=740) 207 K/CU MM 150-450 MEAN PLATELET VOLUME (BEAKER) (test zybr=717) 8.9 fL 9.4-12.3 NUCLEATED RED BLOOD CELLS (BEAKER) (test 0 /100 WBC 0-0 swiy=533) NEUTROPHILS RELATIVE PERCENT (BEAKER) (test 83 % vewz=046) LYMPHOCYTES RELATIVE PERCENT (BEAKER) (test 7 % kltk=444) MONOCYTES RELATIVE PERCENT (BEAKER) (test 9 % agcm=390) EOSINOPHILS RELATIVE PERCENT (BEAKER) (test 0 % ydmw=381) BASOPHILS RELATIVE PERCENT (BEAKER) (test 0 % rrmj=540) NEUTROPHILS ABSOLUTE COUNT (BEAKER) (test 10.62 K/ L 1.56-6.13 avbh=277) LYMPHOCYTES ABSOLUTE COUNT (BEAKER) (test 0.92 K/ L 1.18-3.74 mjkm=339) MONOCYTES ABSOLUTE COUNT (BEAKER) (test 1.14 K/ L 0.24-0.36 eqzk=880) EOSINOPHILS ABSOLUTE COUNT (BEAKER) (test 0.02 K/ L 0.04-0.36 vrlz=907) BASOPHILS ABSOLUTE COUNT (BEAKER) (test 0.01 K/ L 0.01-0.08 mqat=962) IMMATURE GRANULOCYTES-RELATIVE PERCENT (BEAKER) 1 % 0-1 (test ronq=6946) HGB/HCT (H&H) - STAT [id number] 23:44:00 Test Item Value Reference Range Comments HEMOGLOBIN (BEAKER) (test twdd=572) 9.2 g/dL 12.0-15.0 HEMATOCRIT (BEAKER) (test mqae=298) 27.0 % 36.0-45.0 POTASSIUM-STAT [id number] 23:44:00 Test Item Value Reference Range Comments POTASSIUM (BEAKER) (test ltcq=726) 3.2 meq/L 3.6-5.5 BLOOD GAS, [id number] 23:44:00 Test Item Value Reference Range Comments PH ARTERIAL (BEAKER) (test pwna=945) 7.42 7.35-7.45 PCO2 ARTERIAL (BEAKER) (test fmee=228) 38 mmHg 35-45 PO2 ARTERIAL (BEAKER) (test qwmo=322) 230 mmHg 80-90 O2 SATURATION ARTERIAL (BEAKER) (test aytz=578) 99.5 % 96.0-97.0 HCO3 ARTERIAL (BEAKER) (test syuo=332) 24 mmol/L 21-29 BASE EXCESS ARTERIAL (BEAKER) (test ttaf=617) -0.6 mmol/L -2.0-3.0 PATIENT TEMPERATURE (BEAKER) (test dahe=8424) 36.1 C FIO2 (BEAKER) (test yzyk=1431) 60.0 % CALCIUM, [id number] 23:43:00 Test Item Value Reference Range Comments CALCIUM IONIZED (BEAKER) (test ovxz=724) 1.20 mmol/L 1.12-1.27 PH, BLOOD (BEAKER) (test shfg=9319) 7.40 OXYGEN SATURATION, [id number] 23:40:00 Test Item Value Reference Range Comments [facility] (test ehap=1458) 75.1 % [id number] 22:23:00 Test Item Value Reference Range Comments ACTIVATED CLOTTING TIME 103 sec TESTED AT [address] [facility] (test akvz=088) [place] [id number] 22:23:00 Test Item Value Reference Range Comments ACTIVATED CLOTTING TIME 483 sec TESTED AT [address] [facility] (test djor=972) [place] [id number] 22:23:00 Test Item Value Reference Range Comments ACTIVATED CLOTTING TIME 466 sec TESTED AT [address] [facility] (test igss=345) [place] [address] [id number] 22:23:00 Test Item Value Reference Range Comments ACTIVATED CLOTTING TIME 422 sec TESTED AT [address] [facility] (test giov=594) [place] [id number] 22:23:00 Test Item Value Reference Range Comments ACTIVATED CLOTTING TIME 516 sec TESTED AT [address] [facility] (test qsag=784) [place] [id number] 22:23:00 Test Item Value Reference Range Comments ACTIVATED CLOTTING TIME 510 sec TESTED AT [address] [facility] (test zbkp=025) [place] [address] [id number] 22:23:00 Test Item Value Reference Range Comments ACTIVATED CLOTTING TIME 455 sec TESTED AT [address] ([facility] (test qgjp=136) [place] [id number] 22:23:00 Test Item Value Reference Range Comments ACTIVATED CLOTTING TIME 532 sec TESTED AT [address] [facility] (test wylh=649) [place] [id number] 22:23:00 Test Item Value Reference Range Comments ACTIVATED CLOTTING TIME 538 sec TESTED AT [address] [facility] (test ovfc=775) [place] [address] [id number] 22:23:00 Test Item Value Reference Range Comments ACTIVATED CLOTTING TIME [address] [facility] [address] (BEAKER) (test msha=368) [place] [id number] 22:23:00 Test Item Value Reference Range Comments ACTIVATED CLOTTING TIME [address] [facility] [address] (BEAKER) (test fcut=152) [place] [address] [id number] 22:23:00 Test Item Value Reference Range Comments ACTIVATED CLOTTING TIME 378 sec TESTED AT [place] [address] [address] (BEAKER) (test bobq=243) [place] [address] SODIUM NA-STAT [id number] 22:20:00 Test Item Value Reference Range Comments SODIUM (BEAKER) (test qqhp=812) 136 meq/L 135-148 CALCIUM, [id number] 22:20:00 Test Item Value Reference Range Comments CALCIUM IONIZED (BEAKER) (test kqxl=035) 1.07 mmol/L 1.12-1.27 PH, BLOOD (BEAKER) (test olol=0733) 7.40 BLOOD GAS, [id number] 22:20:00 Test Item Value Reference Range Comments PH ARTERIAL (BEAKER) (test maoe=115) 7.42 7.35-7.45 PCO2 ARTERIAL (BEAKER) (test aqyt=607) 42 mmHg 35-45 PO2 ARTERIAL (BEAKER) (test rmlm=507) 370 mmHg 80-90 O2 SATURATION ARTERIAL (BEAKER) (test wqmm=829) 99.8 % 96.0-97.0 HCO3 ARTERIAL (BEAKER) (test ektw=160) 27 mmol/L 21-29 BASE EXCESS ARTERIAL (BEAKER) (test xzyb=709) 1.5 mmol/L -2.0-3.0 PATIENT TEMPERATURE (BEAKER) (test cjyl=2833) 36.0 C FIO2 (BEAKER) (test vlrh=9083) 100.0 % POTASSIUM-STAT [id number] 22:20:00 Test Item Value Reference Range Comments POTASSIUM (BEAKER) (test zqzl=598) 2.8 meq/L 3.6-5.5 GLUCOSE-STAT [id number] 22:20:00 Test Item Value Reference Range Comments GLUCOSE RANDOM (BEAKER) (test cmuc=811) 173 mg/dL 70-110 HGB/HCT (H&H) - STAT [id number] 22:20:00 Test Item Value Reference Range Comments HEMOGLOBIN (BEAKER) (test dkfw=569) 8.3 g/dL 12.0-15.0 HEMATOCRIT (BEAKER) (test dray=953) 24.0 % 36.0-45.0 THROMBOELASTOGRAPH (TEG)[id number] 22:16:00 Test Item Value Reference Range Comments TEG ACTIVATED CLOTTING TIME (BEAKER) (test 3.8 minutes 4.0-7.0 bdoi=1590) TEG FIBRINOGEN ACTIVITY (BEAKER) (test 73.4 degrees 61.0-73.0 jalk=4183) TEG PLT. AGGREGATION (BEAKER) (test sefl=0001) 49.9 MM 55.0-65.0 TGH ACTIVATED CLOTTING TIME (BEAKER) (test 4.0 minutes 4.0-7.0 jxwf=6379) TGH FIBRINOGEN ACTIVITY (BEAKER) (test 71.3 degrees 61.0-73.0 yhyp=9107) TGH PLT. AGGREGATION (BEAKER) (test ikui=7729) 53.0 MM 55.0-65.0 [id number] 21:54:00 Test Item Value Reference Range Comments PARTIAL THROMBOPLASTIN TIME (BEAKER) (test 37.7 seconds 22.5-36.0 lofo=862) PROTHROMBIN [id number] 21:53:00 Test Item Value Reference Range Comments PROTIME (BEAKER) (test lrrn=685) 23.4 seconds 11.7-14.7 INR (BEAKER) (test ynuj=226) 2.1 <=5.9 RECOMMENDED COUMADIN/WARFARIN INR THERAPY RANGESSTANDARD DOSE: 2.0 - 3.0 Includes: PROPHYLAXIS forvenous thrombosis, systemic embolization; TREATMENT for venous thrombosis and/or pulmonary embolus.HIGH RISK: Target INR is 2.5-3.5 for patients with mechanical heart valves.[id number] 21:53:00 Test Item Value Reference Range Comments FIBRINOGEN LEVEL (BEAKER) (test knzm=146) 218 mg/dl 225-434 PLATELET [id number] 21:48:00 Test Item Value Reference Range Comments PLATELET COUNT (BEAKER) (test 141 K/CU MM 150-450 No clot. No clump jsga=378) CALCIUM, [id number] 21:46:00 Test Item Value Reference Range Comments CALCIUM IONIZED (BEAKER) (test ddjc=558) 1.38 mmol/L 1.12-1.27 PH, BLOOD (BEAKER) (test rucj=2361) 7.43 BLOOD GAS, [id number] 21:46:00 Test Item Value Reference Range Comments PH ARTERIAL (BEAKER) (test sqjd=380) 7.43 7.35-7.45 PCO2 ARTERIAL (BEAKER) (test wnkj=861) 41 mmHg 35-45 PO2 ARTERIAL (BEAKER) (test wyid=964) 415 mmHg 80-90 O2 SATURATION ARTERIAL (BEAKER) (test jocj=617) 99.8 % 96.0-97.0 HCO3 ARTERIAL (BEAKER) (test ckfo=017) 26 mmol/L 21-29 BASE EXCESS ARTERIAL (BEAKER) (test rpto=824) 1.4 mmol/L -2.0-3.0 PATIENT TEMPERATURE (BEAKER) (test aafy=9891) 36.1 C FIO2 (BEAKER) (test uvjt=8640) 100.0 % SODIUM NA-STAT [id number] 21:46:00 Test Item Value Reference Range Comments SODIUM (BEAKER) (test lrbw=199) 134 meq/L 135-148 POTASSIUM-STAT [id number] 21:46:00 Test Item Value Reference Range Comments POTASSIUM (BEAKER) (test iptt=539) 3.1 meq/L 3.6-5.5 GLUCOSE-STAT [id number] 21:46:00 Test Item Value Reference Range Comments GLUCOSE RANDOM (BEAKER) (test gouv=288) 196 mg/dL 70-110 HGB/HCT (H&H) - STAT [id number] 21:46:00 Test Item Value Reference Range Comments HEMOGLOBIN (BEAKER) (test vxrd=304) 8.7 g/dL 12.0-15.0 HEMATOCRIT (BEAKER) (test tcfl=475) 26.0 % 36.0-45.0 BLOOD GAS, [id number] 21:16:00 Test Item Value Reference Range Comments PH ARTERIAL (BEAKER) (test afmj=644) 7.43 7.35-7.45 PCO2 ARTERIAL (BEAKER) (test uaju=529) 42 mmHg 35-45 PO2 ARTERIAL (BEAKER) (test rzsl=480) 316 mmHg 80-90 O2 SATURATION ARTERIAL (BEAKER) (test houd=957) 99.7 % 96.0-97.0 HCO3 ARTERIAL (BEAKER) (test zxvu=307) 27 mmol/L 21-29 BASE EXCESS ARTERIAL (BEAKER) (test lvkf=565) 2.4 mmol/L -2.0-3.0 PATIENT TEMPERATURE (BEAKER) (test dojm=7647) 36.4 C FIO2 (BEAKER) (test guod=3656) 75.0 % POTASSIUM-STAT [id number] 21:16:00 Test Item Value Reference Range Comments POTASSIUM (BEAKER) (test zxxy=777) 3.4 meq/L 3.6-5.5 GLUCOSE-STAT [id number] 21:16:00 Test Item Value Reference Range Comments GLUCOSE RANDOM (BEAKER) (test mxfq=249) 228 mg/dL 70-110 HGB/HCT (H&H) - STAT [id number] 21:16:00 Test Item Value Reference Range Comments HEMOGLOBIN (BEAKER) (test zaux=138) 8.8 g/dL 12.0-15.0 HEMATOCRIT (BEAKER) (test ujyp=822) 26.0 % 36.0-45.0 SODIUM NA-STAT [id number] 21:08:00 Test Item Value Reference Range Comments SODIUM (BEAKER) (test jfdu=936) 135 meq/L 135-148 BLOOD GAS, [id number] 20:40:00 Test Item Value Reference Range Comments PH ARTERIAL (BEAKER) (test snca=237) 7.41 7.35-7.45 PCO2 ARTERIAL (BEAKER) (test iebo=378) 45 mmHg 35-45 PO2 ARTERIAL (BEAKER) (test jfkf=369) 323 mmHg 80-90 O2 SATURATION ARTERIAL (BEAKER) (test xgli=501) 99.7 % 96.0-97.0 HCO3 ARTERIAL (BEAKER) (test mjod=031) 28 mmol/L 21-29 BASE EXCESS ARTERIAL (BEAKER) (test avcg=329) 2.5 mmol/L -2.0-3.0 PATIENT TEMPERATURE (BEAKER) (test znkp=3426) 37.0 C FIO2 (BEAKER) (test ogob=8342) 75.0 % SODIUM NA-STAT [id number] 20:40:00 Test Item Value Reference Range Comments SODIUM (BEAKER) (test ktut=973) 132 meq/L 135-148 GLUCOSE-STAT [id number] 20:40:00 Test Item Value Reference Range Comments GLUCOSE RANDOM (BEAKER) (test auod=737) 246 mg/dL 70-110 HGB/HCT (H&H) - STAT [id number] 20:40:00 Test Item Value Reference Range Comments HEMOGLOBIN (BEAKER) (test qbbh=554) 8.6 g/dL 12.0-15.0 HEMATOCRIT (BEAKER) (test natq=666) 25.0 % 36.0-45.0 POTASSIUM-STAT [id number] 20:39:00 Test Item Value Reference Range Comments POTASSIUM (BEAKER) (test krcj=369) 3.6 meq/L 3.6-5.5 POTASSIUM-STAT [id number] 20:03:00 Test Item Value Reference Range Comments POTASSIUM (BEAKER) (test toer=872) 4.2 meq/L 3.6-5.5 BLOOD GAS, [id number] 20:03:00 Test Item Value Reference Range Comments PH ARTERIAL (BEAKER) (test sxrh=713) 7.38 7.35-7.45 PCO2 ARTERIAL (BEAKER) (test vtrj=854) 50 mmHg 35-45 PO2 ARTERIAL (BEAKER) (test bwyy=112) 295 mmHg 80-90 O2 SATURATION ARTERIAL (BEAKER) (test fxxh=152) 99.7 % 96.0-97.0 HCO3 ARTERIAL (BEAKER) (test ddtr=522) 29 mmol/L 21-29 BASE EXCESS ARTERIAL (BEAKER) (test pxky=688) 2.7 mmol/L -2.0-3.0 PATIENT TEMPERATURE (BEAKER) (test pkgy=9602) 36.6 C FIO2 (BEAKER) (test ttvi=8674) 70.0 % SODIUM NA-STAT [id number] 20:03:00 Test Item Value Reference Range Comments SODIUM (BEAKER) (test vxhs=570) 133 meq/L 135-148 GLUCOSE-STAT [id number] 20:03:00 Test Item Value Reference Range Comments GLUCOSE RANDOM (BEAKER) (test lzxr=660) 290 mg/dL 70-110 HGB/HCT (H&H) - STAT [id number] 20:03:00 Test Item Value Reference Range Comments HEMOGLOBIN (BEAKER) (test bqkl=212) 8.5 g/dL 12.0-15.0 HEMATOCRIT (BEAKER) (test kpbj=906) 25.0 % 36.0-45.0 BLOOD GAS, [id number] 19:39:00 Test Item Value Reference Range Comments PH ARTERIAL (BEAKER) (test xwto=333) 7.48 7.35-7.45 PCO2 ARTERIAL (BEAKER) (test osnm=288) 37 mmHg 35-45 PO2 ARTERIAL (BEAKER) (test ettg=230) 358 mmHg 80-90 O2 SATURATION ARTERIAL (BEAKER) (test cefp=839) 99.8 % 96.0-97.0 HCO3 ARTERIAL (BEAKER) (test wybi=086) 28 mmol/L 21-29 BASE EXCESS ARTERIAL (BEAKER) (test cauu=194) 3.1 mmol/L -2.0-3.0 PATIENT TEMPERATURE (BEAKER) (test xesc=2401) 31.5 C FIO2 (BEAKER) (test brvw=6205) 70.0 % SODIUM NA-STAT [id number] 19:39:00 Test Item Value Reference Range Comments SODIUM (BEAKER) (test rbpg=944) 133 meq/L 135-148 GLUCOSE-STAT [id number] 19:39:00 Test Item Value Reference Range Comments GLUCOSE RANDOM (BEAKER) (test adjz=410) 286 mg/dL 70-110 HGB/HCT (H&H) - STAT [id number] 19:39:00 Test Item Value Reference Range Comments HEMOGLOBIN (BEAKER) (test wfxb=005) 8.2 g/dL 12.0-15.0 HEMATOCRIT (BEAKER) (test soxx=596) 24.0 % 36.0-45.0 POTASSIUM-STAT [id number] 19:37:00 Test Item Value Reference Range Comments POTASSIUM (BEAKER) (test fvad=715) 3.8 meq/L 3.6-5.5 BLOOD GAS, [id number] 19:06:00 Test Item Value Reference Range Comments PH ARTERIAL (BEAKER) (test jchk=674) 7.38 7.35-7.45 PCO2 ARTERIAL (BEAKER) (test aqem=915) 48 mmHg 35-45 PO2 ARTERIAL (BEAKER) (test sbsg=296) 328 mmHg 80-90 O2 SATURATION ARTERIAL (BEAKER) (test irsr=301) 99.7 % 96.0-97.0 HCO3 ARTERIAL (BEAKER) (test jdrg=455) 30 mmol/L 21-29 BASE EXCESS ARTERIAL (BEAKER) (test kifu=059) 2.5 mmol/L -2.0-3.0 PATIENT TEMPERATURE (BEAKER) (test czhp=5913) 30.0 C FIO2 (BEAKER) (test hzag=3623) 60.0 % SODIUM NA-STAT [id number] 19:06:00 Test Item Value Reference Range Comments SODIUM (BEAKER) (test awmd=269) 134 meq/L 135-148 GLUCOSE-STAT [id number] 19:06:00 Test Item Value Reference Range Comments GLUCOSE RANDOM (BEAKER) (test evtv=819) 299 mg/dL 70-110 HGB/HCT (H&H) - STAT [id number] 19:06:00 Test Item Value Reference Range Comments HEMOGLOBIN (BEAKER) (test nafx=459) 8.2 g/dL 12.0-15.0 HEMATOCRIT (BEAKER) (test lcui=694) 24.0 % 36.0-45.0 POTASSIUM-STAT [id number] 19:05:00 Test Item Value Reference Range Comments POTASSIUM (BEAKER) (test ivrx=975) 3.6 meq/L 3.6-5.5 BLOOD GAS, [id number] 18:35:00 Test Item Value Reference Range Comments PH ARTERIAL (BEAKER) (test qxfi=639) 7.43 7.35-7.45 PCO2 ARTERIAL (BEAKER) (test uiqe=686) 42 mmHg 35-45 PO2 ARTERIAL (BEAKER) (test pmvc=684) 390 mmHg 80-90 O2 SATURATION ARTERIAL (BEAKER) (test vgjj=281) 99.8 % 96.0-97.0 HCO3 ARTERIAL (BEAKER) (test frvi=459) 30 mmol/L 21-29 BASE EXCESS ARTERIAL (BEAKER) (test vnjz=190) 3.4 mmol/L -2.0-3.0 PATIENT TEMPERATURE (BEAKER) (test bngz=1017) 29.9 C FIO2 (BEAKER) (test tlmp=7406) 65.0 % SODIUM NA-STAT [id number] 18:35:00 Test Item Value Reference Range Comments SODIUM (BEAKER) (test ltpq=619) 134 meq/L 135-148 GLUCOSE-STAT [id number] 18:35:00 Test Item Value Reference Range Comments GLUCOSE RANDOM (BEAKER) (test wfcj=612) 313 mg/dL 70-110 HGB/HCT (H&H) - STAT [id number] 18:35:00 Test Item Value Reference Range Comments HEMOGLOBIN (BEAKER) (test yfso=249) 7.5 g/dL 12.0-15.0 HEMATOCRIT (BEAKER) (test kdaf=962) 22.0 % 36.0-45.0 POTASSIUM-STAT [id number] 18:34:00 Test Item Value Reference Range Comments POTASSIUM (BEAKER) (test gxlv=207) 3.8 meq/L 3.6-5.5 POTASSIUM-STAT [id number] 18:09:00 Test Item Value Reference Range Comments POTASSIUM (BEAKER) (test getu=963) 4.1 meq/L 3.6-5.5 BLOOD GAS, [id number] 18:09:00 Test Item Value Reference Range Comments PH ARTERIAL (BEAKER) (test agij=675) 7.40 7.35-7.45 PCO2 ARTERIAL (BEAKER) (test skdv=269) 46 mmHg 35-45 PO2 ARTERIAL (BEAKER) (test igip=646) 323 mmHg 80-90 O2 SATURATION ARTERIAL (BEAKER) (test zwuy=672) 99.7 % 96.0-97.0 HCO3 ARTERIAL (BEAKER) (test izdu=783) 30 mmol/L 21-29 BASE EXCESS ARTERIAL (BEAKER) (test sfgp=975) 2.7 mmol/L -2.0-3.0 PATIENT TEMPERATURE (BEAKER) (test uxvc=8808) 30.2 C FIO2 (BEAKER) (test cira=7052) 65.0 % SODIUM NA-STAT [id number] 18:09:00 Test Item Value Reference Range Comments SODIUM (BEAKER) (test cqvx=420) 134 meq/L 135-148 GLUCOSE-STAT [id number] 18:09:00 Test Item Value Reference Range Comments GLUCOSE RANDOM (BEAKER) (test uchw=908) 305 mg/dL 70-110 HGB/HCT (H&H) - STAT [id number] 18:09:00 Test Item Value Reference Range Comments HEMOGLOBIN (BEAKER) (test efew=875) 7.5 g/dL 12.0-15.0 HEMATOCRIT (BEAKER) (test deoc=651) 22.0 % 36.0-45.0 BLOOD GAS, [id number] 17:37:00 Test Item Value Reference Range Comments PH ARTERIAL (BEAKER) (test obeo=191) 7.43 7.35-7.45 PCO2 ARTERIAL (BEAKER) (test xcfh=319) 39 mmHg 35-45 PO2 ARTERIAL (BEAKER) (test lpkx=626) 302 mmHg 80-90 O2 SATURATION ARTERIAL (BEAKER) (test aiin=820) 99.7 % 96.0-97.0 HCO3 ARTERIAL (BEAKER) (test vsqx=133) 27 mmol/L 21-29 BASE EXCESS ARTERIAL (BEAKER) (test rsxp=627) 1.1 mmol/L -2.0-3.0 PATIENT TEMPERATURE (BEAKER) (test oekn=1538) 29.9 C FIO2 (BEAKER) (test havj=8384) 60.0 % SODIUM NA-STAT [id number] 17:37:00 Test Item Value Reference Range Comments SODIUM (BEAKER) (test aheb=497) 134 meq/L 135-148 GLUCOSE-STAT [id number] 17:37:00 Test Item Value Reference Range Comments GLUCOSE RANDOM (BEAKER) (test jvvr=166) 282 mg/dL 70-110 HGB/HCT (H&H) - STAT [id number] 17:37:00 Test Item Value Reference Range Comments HEMOGLOBIN (BEAKER) (test czhn=958) 7.0 g/dL 12.0-15.0 HEMATOCRIT (BEAKER) (test iafz=892) 21.0 % 36.0-45.0 POTASSIUM-STAT [id number] 17:36:00 Test Item Value Reference Range Comments POTASSIUM (BEAKER) (test wdza=104) 3.8 meq/L 3.6-5.5 SODIUM NA-STAT [id number] 17:04:00 Test Item Value Reference Range Comments SODIUM (BEAKER) (test drdh=035) 135 meq/L 135-148 POTASSIUM-STAT [id number] 17:04:00 Test Item Value Reference Range Comments POTASSIUM (BEAKER) (test uxpr=011) 4.0 meq/L 3.6-5.5 BLOOD GAS, [id number] 17:04:00 Test Item Value Reference Range Comments PH ARTERIAL (BEAKER) (test iajj=212) 7.47 7.35-7.45 PCO2 ARTERIAL (BEAKER) (test wmxz=864) 37 mmHg 35-45 PO2 ARTERIAL (BEAKER) (test aapu=146) 315 mmHg 80-90 O2 SATURATION ARTERIAL (BEAKER) (test zouk=133) 99.7 % 96.0-97.0 HCO3 ARTERIAL (BEAKER) (test dwtc=181) 28 mmol/L 21-29 BASE EXCESS ARTERIAL (BEAKER) (test pmqq=817) 2.3 mmol/L -2.0-3.0 PATIENT TEMPERATURE (BEAKER) (test gtzh=7959) 30.3 C FIO2 (BEAKER) (test xgxl=2421) 60.0 % GLUCOSE-STAT [id number] 17:04:00 Test Item Value Reference Range Comments GLUCOSE RANDOM (BEAKER) (test atiu=206) 282 mg/dL 70-110 HGB/HCT (H&H) - STAT [id number] 17:04:00 Test Item Value Reference Range Comments HEMOGLOBIN (BEAKER) (test uynu=192) 7.8 g/dL 12.0-15.0 HEMATOCRIT (BEAKER) (test zaqj=640) 23.0 % 36.0-45.0 BLOOD GAS, [id number] 16:38:00 Test Item Value Reference Range Comments PH ARTERIAL (BEAKER) (test yegx=291) 7.47 7.35-7.45 PCO2 ARTERIAL (BEAKER) (test gspc=190) 36 mmHg 35-45 PO2 ARTERIAL (BEAKER) (test bwms=894) 420 mmHg 80-90 O2 SATURATION ARTERIAL (BEAKER) (test cdyq=561) 99.9 % 96.0-97.0 HCO3 ARTERIAL (BEAKER) (test qncp=606) 26 mmol/L 21-29 BASE EXCESS ARTERIAL (BEAKER) (test nejx=468) 1.9 mmol/L -2.0-3.0 PATIENT TEMPERATURE (BEAKER) (test yfez=4468) 35.3 C FIO2 (BEAKER) (test dmic=9081) 80.0 % SODIUM NA-STAT [id number] 16:38:00 Test Item Value Reference Range Comments SODIUM (BEAKER) (test fdwo=924) 134 meq/L 135-148 POTASSIUM-STAT [id number] 16:38:00 Test Item Value Reference Range Comments POTASSIUM (BEAKER) (test vrzc=812) 3.1 meq/L 3.6-5.5 GLUCOSE-STAT [id number] 16:38:00 Test Item Value Reference Range Comments GLUCOSE RANDOM (BEAKER) (test tlwr=405) 225 mg/dL 70-110 HGB/HCT (H&H) - STAT [id number] 16:38:00 Test Item Value Reference Range Comments HEMOGLOBIN (BEAKER) (test kkwf=669) 8.5 g/dL 12.0-15.0 HEMATOCRIT (BEAKER) (test rryb=711) 25.0 % 36.0-45.0 [id number] 15:56:00 Test Item Value Reference Range Comments ACTIVATED CLOTTING TIME [address] [facility] [address] [facility] (BEAKER) (test rqau=771) [facility] [address] BLOOD GAS, [id number] 15:05:00 Test Item Value Reference Range Comments PH ARTERIAL (BEAKER) (test sjuq=752) 7.52 7.35-7.45 PCO2 ARTERIAL (BEAKER) (test ggyg=117) 35 mmHg 35-45 PO2 ARTERIAL (BEAKER) (test zxws=959) 348 mmHg 80-90 O2 SATURATION ARTERIAL (BEAKER) (test qjna=111) 99.8 % 96.0-97.0 HCO3 ARTERIAL (BEAKER) (test dmwu=262) 28 mmol/L 21-29 BASE EXCESS ARTERIAL (BEAKER) (test leij=857) 4.6 mmol/L -2.0-3.0 PATIENT TEMPERATURE (BEAKER) (test kaxv=9094) 36.1 C FIO2 (BEAKER) (test ifxt=0506) 100.0 % HGB/HCT (H&H) - STAT [id number] 14:43:00 Test Item Value Reference Range Comments HEMOGLOBIN (BEAKER) (test orvf=001) 10.7 g/dL 12.0-15.0 HEMATOCRIT (BEAKER) (test cjmw=045) 31.0 % 36.0-45.0 SODIUM NA-STAT [id number] 14:42:00 Test Item Value Reference Range Comments SODIUM (BEAKER) (test ogae=960) 135 meq/L 135-148 POTASSIUM-STAT [id number] 14:42:00 Test Item Value Reference Range Comments POTASSIUM (BEAKER) (test xbbj=862) 3.5 meq/L 3.6-5.5 BLOOD GAS, [id number] 14:42:00 Test Item Value Reference Range Comments PH ARTERIAL (BEAKER) (test zjrf=630) 7.51 7.35-7.45 PCO2 ARTERIAL (BEAKER) (test gmis=791) 34 mmHg 35-45 PO2 ARTERIAL (BEAKER) (test gyqi=669) 344 mmHg 80-90 O2 SATURATION ARTERIAL (BEAKER) (test fxwx=930) 99.8 % 96.0-97.0 HCO3 ARTERIAL (BEAKER) (test sozy=838) 27 mmol/L 21-29 BASE EXCESS ARTERIAL (BEAKER) (test axpf=509) 3.6 mmol/L -2.0-3.0 PATIENT TEMPERATURE (BEAKER) (test tarm=9908) 35.5 C FIO2 (BEAKER) (test xkzz=0470) 100.0 % GLUCOSE-STAT [id number] 14:42:00 Test Item Value Reference Range Comments GLUCOSE RANDOM (BEAKER) (test rytx=185) 158 mg/dL 70-110 PLATELET AGGREGATION: FUNCTION [id number] 09:37:00 Test Item Value Reference Range Comments WEAK ADP RESULT(BEAKER) (test 89 % 60-91 lzps=6099) PLATELET FUNCTION SCREEN 60-100% indicates normal INTERP (BEAKER) (test platelet function wbxd=3697) [id number] (BEAKER) Sofia Muñiz MD (test pnje=1022) (electronic signature) PLATELET COUNT AGG (BEAKER) 407 K/CU MM 150-450 (test okif=0933) Platelet Function Screen results may be falsely low with platelet counts<100, 000/cu mm.[id number] 06:25:00 Test Item Value Reference Range Comments PARTIAL THROMBOPLASTIN TIME (BEAKER) (test 98.4 seconds 22.5-36.0 bery=662) BASIC METABOLIC [id number] 06:23:00 Test Item Value Reference Range Comments SODIUM (BEAKER) (test 138 meq/L 136-145 fscf=644) POTASSIUM (BEAKER) (test 3.9 meq/L 3.5-5.1 ardh=132) CHLORIDE (BEAKER) (test 99 meq/L 98-107 nlyj=092) CO2 (BEAKER) (test 30 meq/L 22-29 winm=232) BLOOD UREA NITROGEN 33 mg/dL 7-21 (BEAKER) (test uvrk=983) CREATININE (BEAKER) (test 1.22 mg/dL 0.57-1.25 dqms=819) GLUCOSE RANDOM (BEAKER) 191 mg/dL 70-105 (test qstc=331) CALCIUM (BEAKER) (test 10.1 mg/dL 8.4-10.2 sssl=155) EGFR (BEAKER) (test 44 mL/min/1.73 sq m ESTIMATED GFR IS NOT gvip=3620) ACCURATE CREATININE CLEARANCE IN PREDICTING GLOMERULAR FILTRATION RATE. ESTIMATED GFR IS NOT APPLICABLE FOR DIALYSIS PATIENTS. CBC W/PLT COUNT & AUTO [id number] 05:44:00 Test Item Value Reference Range Comments WHITE BLOOD CELL COUNT (BEAKER) (test aekf=001) 6.6 K/ L 3.5-10.5 RED BLOOD CELL COUNT (BEAKER) (test jctu=272) 4.18 M/ L 3.93-5.22 HEMOGLOBIN (BEAKER) (test fusl=010) 11.0 GM/DL 11.2-15.7 HEMATOCRIT (BEAKER) (test mlri=663) 36.0 % 34.1-44.9 MEAN CORPUSCULAR VOLUME (BEAKER) (test aozp=716) 86.1 fL 79.4-94.8 MEAN CORPUSCULAR HEMOGLOBIN (BEAKER) (test 26.3 pg 25.6-32.2 ylrd=486) MEAN CORPUSCULAR HEMOGLOBIN CONC (BEAKER) (test 30.6 GM/DL 32.2-35.5 pulr=264) RED CELL DISTRIBUTION WIDTH (BEAKER) (test 14.1 % 11.7-14.4 lvfc=620) PLATELET COUNT (BEAKER) (test rdqd=484) 389 K/CU MM 150-450 MEAN PLATELET VOLUME (BEAKER) (test mwte=342) 8.9 fL 9.4-12.3 NUCLEATED RED BLOOD CELLS (BEAKER) (test 0 /100 WBC 0-0 ftyh=433) NEUTROPHILS RELATIVE PERCENT (BEAKER) (test 48 % eszw=205) LYMPHOCYTES RELATIVE PERCENT (BEAKER) (test 34 % ivwz=314) MONOCYTES RELATIVE PERCENT (BEAKER) (test 12 % jscr=481) EOSINOPHILS RELATIVE PERCENT (BEAKER) (test 5 % yjdo=747) BASOPHILS RELATIVE PERCENT (BEAKER) (test 1 % feyo=209) NEUTROPHILS ABSOLUTE COUNT (BEAKER) (test 3.14 K/ L 1.56-6.13 yfib=939) LYMPHOCYTES ABSOLUTE COUNT (BEAKER) (test 2.21 K/ L 1.18-3.74 ratx=905) MONOCYTES ABSOLUTE COUNT (BEAKER) (test 0.77 K/ L 0.24-0.36 tumn=088) EOSINOPHILS ABSOLUTE COUNT (BEAKER) (test 0.32 K/ L 0.04-0.36 fmcn=267) BASOPHILS ABSOLUTE COUNT (BEAKER) (test 0.04 K/ L 0.01-0.08 bkqy=147) IMMATURE GRANULOCYTES-RELATIVE PERCENT (BEAKER) 1 % 0-1 (test wfac=6170) [id number] 23:10:00 Test Item Value Reference Range Comments PARTIAL THROMBOPLASTIN TIME (BEAKER) (test 81.8 seconds 22.5-36.0 nstn=036) POCT-GLUCOSE [id number] 19:46:00 Test Item Value Reference Range Comments POC-GLUCOSE METER (BEAKER) 280 mg/dL 70-110 TESTED AT [address] (test zktx=2590) [facility] [address] POCT-GLUCOSE [id number] 18:43:00 Test Item Value Reference Range Comments POC-GLUCOSE METER (BEAKER) 200 mg/dL 70-110 TESTED AT [address] (test euna=0744) [facility] [address] PLATELET AGGREGATION: FUNCTION [id number] 18:12:00 Test Item Value Reference Range Comments WEAK ADP RESULT(BEAKER) (test 56 % 60-91 khpk=5379) PLATELET FUNCTION SCREEN 50-59% indicates mild platelet INTERP (BEAKER) (test dysfunction tyiu=3255) [id number] Sofia Muñiz MD (BEAKER) (test jdvy=9383) (electronic signature) PLATELET COUNT AGG (BEAKER) 324 K/CU MM 150-450 (test eglr=2053) Platelet Function Screen results may be falsely low with platelet counts<100, 000/cu mm.RAD, CHEST, 1 VIEW, NON [id number] 16:59:00Reason for exam:-> preop screenShould this be performed at the bedside?->YesFINAL REPORT TECHNIQUE: Single view of the chest. COMPARISON: None FINDINGS:The cardiac silhouette is within normal limits. Left-sided pacing device noted. Lungs are clear. No acute skeletal abnormality. Soft tissues appear unremarkable. IMPRESSION: No acute cardiopulmonary disease. Signed: Fredrick Alarcon MDReport Verified Date/Time: 04/30/2018 16:59:09 Reading Location: [facility] Radiology Reading Room [id number] 15:14:00 Test Item Value Reference Range Comments PARTIAL THROMBOPLASTIN TIME (BEAKER) (test 61.5 seconds 22.5-36.0 oucs=652) PROTHROMBIN TIME/[id number] 15:13:00 Test Item Value Reference Range Comments PROTIME (BEAKER) (test ueho=144) 14.9 seconds 11.7-14.7 INR (BEAKER) (test enpx=964) 1.2 <=5.9 RECOMMENDED COUMADIN/WARFARIN INR THERAPY RANGESSTANDARD DOSE: 2.0 - 3.0 Includes: PROPHYLAXIS forvenous thrombosis, systemic embolization; TREATMENT for venous thrombosis and/or pulmonary embolus.HIGH RISK: Target INR is 2.5-3.5 for patients with mechanical heart valves.POCT-GLUCOSE [id number] 12:27:00 Test Item Value Reference Range Comments POC-GLUCOSE METER (BEAKER) 162 mg/dL 70-[address] [facility] [address] [facility] (test hift=0727) [facility] [address] [id number] 08:34:00 Test Item Value Reference Range Comments PARTIAL THROMBOPLASTIN TIME (BEAKER) (test 63.8 seconds 22.5-36.0 doxy=268) POCT-GLUCOSE [id number] 08:04:00 Test Item Value Reference Range Comments POC-GLUCOSE METER (BEAKER) 189 mg/dL 70-[address] [facility] [address] [facility] (test ywlc=2360) [facility] [address] [id number] 06:34:00 Test Item Value Reference Range Comments PARTIAL THROMBOPLASTIN TIME (BEAKER) (test 122.6 seconds 22.5-36.0 jxjm=879) BASIC METABOLIC [id number] 06:23:00 Test Item Value Reference Range Comments SODIUM (BEAKER) (test 136 meq/L 136-145 wlbz=995) POTASSIUM (BEAKER) (test 4.0 meq/L 3.5-5.1 zffd=248) CHLORIDE (BEAKER) (test 101 meq/L 98-107 fmkj=831) CO2 (BEAKER) (test 28 meq/L 22-29 hzbp=465) BLOOD UREA NITROGEN 30 mg/dL 7-21 (BEAKER) (test zwns=104) CREATININE (BEAKER) (test 1.14 mg/dL 0.57-1.25 zakk=267) GLUCOSE RANDOM (BEAKER) 166 mg/dL 70-105 (test yfca=096) CALCIUM (BEAKER) (test 9.4 mg/dL 8.4-10.2 jgfu=912) EGFR (BEAKER) (test 48 mL/min/1.73 sq m ESTIMATED GFR IS NOT ryir=7990) ACCURATE CREATININE CLEARANCE IN PREDICTING GLOMERULAR FILTRATION RATE. ESTIMATED GFR IS NOT APPLICABLE FOR DIALYSIS PATIENTS. CBC W/PLT COUNT & AUTO [id number] 05:53:00 Test Item Value Reference Range Comments WHITE BLOOD CELL COUNT (BEAKER) (test uokg=542) 6.9 K/ L 3.5-10.5 RED BLOOD CELL COUNT (BEAKER) (test jbet=820) 4.30 M/ L 3.93-5.22 HEMOGLOBIN (BEAKER) (test gqqx=477) 11.4 GM/DL 11.2-15.7 HEMATOCRIT (BEAKER) (test byzx=168) 37.3 % 34.1-44.9 MEAN CORPUSCULAR VOLUME (BEAKER) (test dpqd=864) 86.7 fL 79.4-94.8 MEAN CORPUSCULAR HEMOGLOBIN (BEAKER) (test 26.5 pg 25.6-32.2 jpaw=876) MEAN CORPUSCULAR HEMOGLOBIN CONC (BEAKER) (test 30.6 GM/DL 32.2-35.5 bftq=658) RED CELL DISTRIBUTION WIDTH (BEAKER) (test 14.1 % 11.7-14.4 pqqs=330) PLATELET COUNT (BEAKER) (test szcy=691) 339 K/CU MM 150-450 MEAN PLATELET VOLUME (BEAKER) (test qrxs=306) 9.5 fL 9.4-12.3 NUCLEATED RED BLOOD CELLS (BEAKER) (test 0 /100 WBC 0-0 augp=264) NEUTROPHILS RELATIVE PERCENT (BEAKER) (test 50 % syvc=321) LYMPHOCYTES RELATIVE PERCENT (BEAKER) (test 31 % tuzg=213) MONOCYTES RELATIVE PERCENT (BEAKER) (test 12 % lroi=113) EOSINOPHILS RELATIVE PERCENT (BEAKER) (test 5 % daet=505) BASOPHILS RELATIVE PERCENT (BEAKER) (test 1 % ngvg=173) NEUTROPHILS ABSOLUTE COUNT (BEAKER) (test 3.42 K/ L 1.56-6.13 sazs=372) LYMPHOCYTES ABSOLUTE COUNT (BEAKER) (test 2.16 K/ L 1.18-3.74 foeb=931) MONOCYTES ABSOLUTE COUNT (BEAKER) (test 0.84 K/ L 0.24-0.36 gsnu=009) EOSINOPHILS ABSOLUTE COUNT (BEAKER) (test 0.34 K/ L 0.04-0.36 nnwe=611) BASOPHILS ABSOLUTE COUNT (BEAKER) (test 0.06 K/ L 0.01-0.08 ourz=890) IMMATURE GRANULOCYTES-RELATIVE PERCENT (BEAKER) 1 % 0-1 (test tozt=9456) [id number] 23:41:00 Test Item Value Reference Range Comments PARTIAL THROMBOPLASTIN TIME (BEAKER) (test 51.6 seconds 22.5-36.0 qhql=827) POCT-GLUCOSE [id number] 20:36:00 Test Item Value Reference Range Comments POC-GLUCOSE METER (BEAKER) 249 mg/dL 70-110 TESTED AT [address] (test mwef=5518) [facility] [address] POCT-GLUCOSE [id number] 17:48:00 Test Item Value Reference Range Comments POC-GLUCOSE METER (BEAKER) 120 mg/dL 70-110 TESTED AT [address] (test rcxw=5956) [place] [address] [id number] 14:56:00 Test Item Value Reference Range Comments PARTIAL THROMBOPLASTIN TIME (BEAKER) (test 71.5 seconds 22.5-36.0 wlrc=420) POCT-GLUCOSE [id number] 12:43:00 Test Item Value Reference Range Comments POC-GLUCOSE METER (BEAKER) 247 mg/dL 70-110 TESTED AT [address] (test xeoi=9014) [place] [id number] POCT-GLUCOSE [id number] 08:02:00 Test Item Value Reference Range Comments POC-GLUCOSE METER (BEAKER) 132 mg/dL 70-110 TESTED AT [address] (test tomj=5565) [place] [address] [id number] 08:00:00 Test Item Value Reference Range Comments PARTIAL THROMBOPLASTIN TIME (BEAKER) (test 94.1 seconds 22.5-36.0 hykl=119) BASIC METABOLIC [id number] 07:11:00 Test Item Value Reference Range Comments SODIUM (BEAKER) (test 133 meq/L 136-145 yjyg=782) POTASSIUM (BEAKER) (test 5.0 meq/L 3.5-5.1 cnhl=636) CHLORIDE (BEAKER) (test 100 meq/L 98-107 oynl=580) CO2 (BEAKER) (test 25 meq/L 22-29 zbln=801) BLOOD UREA NITROGEN 39 mg/dL 7-21 (BEAKER) (test lqnk=085) CREATININE (BEAKER) (test 1.31 mg/dL 0.57-1.25 ntzt=053) GLUCOSE RANDOM (BEAKER) 195 mg/dL 70-105 (test wcgc=324) CALCIUM (BEAKER) (test 9.1 mg/dL 8.4-10.2 xaht=440) EGFR (BEAKER) (test 40 mL/min/1.73 sq m ESTIMATED GFR IS NOT kgww=0354) ACCURATE CREATININE CLEARANCE IN PREDICTING GLOMERULAR FILTRATION RATE. ESTIMATED GFR IS NOT APPLICABLE FOR DIALYSIS PATIENTS. [id number] 05:51:00 Test Item Value Reference Range Comments PARTIAL THROMBOPLASTIN TIME (BEAKER) (test 136.1 seconds 22.5-36.0 bltk=907) CBC W/PLT COUNT & AUTO [id number] 05:23:00 Test Item Value Reference Range Comments WHITE BLOOD CELL COUNT (BEAKER) (test chjs=005) 7.5 K/ L 3.5-10.5 RED BLOOD CELL COUNT (BEAKER) (test cbse=151) 4.01 M/ L 3.93-5.22 HEMOGLOBIN (BEAKER) (test mnqt=217) 10.7 GM/DL 11.2-15.7 HEMATOCRIT (BEAKER) (test yqzi=708) 34.7 % 34.1-44.9 MEAN CORPUSCULAR VOLUME (BEAKER) (test dwaq=461) 86.5 fL 79.4-94.8 MEAN CORPUSCULAR HEMOGLOBIN (BEAKER) (test 26.7 pg 25.6-32.2 sowd=678) MEAN CORPUSCULAR HEMOGLOBIN CONC (BEAKER) (test 30.8 GM/DL 32.2-35.5 rlna=825) RED CELL DISTRIBUTION WIDTH (BEAKER) (test 13.9 % 11.7-14.4 bbad=887) PLATELET COUNT (BEAKER) (test zdmk=338) 338 K/CU MM 150-450 MEAN PLATELET VOLUME (BEAKER) (test doaq=483) 9.1 fL 9.4-12.3 NUCLEATED RED BLOOD CELLS (BEAKER) (test 0 /100 WBC 0-0 huud=776) NEUTROPHILS RELATIVE PERCENT (BEAKER) (test 49 % xxgl=279) LYMPHOCYTES RELATIVE PERCENT (BEAKER) (test 37 % wxoh=408) MONOCYTES RELATIVE PERCENT (BEAKER) (test 10 % vgoa=253) EOSINOPHILS RELATIVE PERCENT (BEAKER) (test 4 % gdcv=735) BASOPHILS RELATIVE PERCENT (BEAKER) (test 1 % rmnw=854) NEUTROPHILS ABSOLUTE COUNT (BEAKER) (test 3.68 K/ L 1.56-6.13 vvcm=526) LYMPHOCYTES ABSOLUTE COUNT (BEAKER) (test 2.75 K/ L 1.18-3.74 wyrz=404) MONOCYTES ABSOLUTE COUNT (BEAKER) (test 0.73 K/ L 0.24-0.36 tevb=689) EOSINOPHILS ABSOLUTE COUNT (BEAKER) (test 0.28 K/ L 0.04-0.36 ekog=547) BASOPHILS ABSOLUTE COUNT (BEAKER) (test 0.06 K/ L 0.01-0.08 bzey=767) IMMATURE GRANULOCYTES-RELATIVE PERCENT (BEAKER) 1 % 0-1 (test mhea=2013) POCT-GLUCOSE [id number] 22:28:00 Test Item Value Reference Range Comments POC-GLUCOSE METER (BEAKER) 365 mg/dL 70-110 TESTED AT [address] (test xefa=1902) [place] [address] [id number] 22:13:00 Test Item Value Reference Range Comments PARTIAL THROMBOPLASTIN TIME (BEAKER) (test 103.5 seconds 22.5-36.0 anbq=009) POCT-GLUCOSE [id number] 18:21:00 Test Item Value Reference Range Comments POC-GLUCOSE METER (BEAKER) 220 mg/dL 70-110 TESTED AT [address] (test oubw=6995) [place] [address] [id number] 15:44:00 Test Item Value Reference Range Comments PARTIAL THROMBOPLASTIN TIME (BEAKER) (test 88.2 seconds 22.5-36.0 ejjs=681) POCT-GLUCOSE [id number] 12:24:00 Test Item Value Reference Range Comments POC-GLUCOSE METER (BEAKER) 268 mg/dL 70-110 TESTED AT [address] (test iwro=2159) [place] [address] [id number] 09:04:00 Test Item Value Reference Range Comments PARTIAL THROMBOPLASTIN TIME (BEAKER) (test 54.0 seconds 22.5-36.0 zylw=136) HEMOGLOBIN [id number] 08:56:00 Test Item Value Reference Range Comments HEMOGLOBIN A1C (BEAKER) (test ztlk=248) 9.6 % 4.3-6.1 LIPID [id number] 08:38:00 Test Item Value Reference Range Comments TRIGLYCERIDES (BEAKER) (test cxhq=162) 121 mg/dL CHOLESTEROL (BEAKER) (test gckb=146) 154 mg/dL HDL CHOLESTEROL (BEAKER) (test mgpf=488) 46 mg/dL LDL CHOLESTEROL CALCULATED (BEAKER) (test 84 mg/dL czar=263) Triglyceride Reference Range: Low Risk <150 Borderline 150- 199 High Risk 200-499 Very High Risk >=500Cholesterol Reference Range: Low Risk <200 Borderline 200-239 High Risk > 240HDL Cholesterol Reference Range: Low Risk >=60 High Risk <40LDL Cholesterol Reference Range: Optimal <100 Near Optimal 100-129 Borderline 130-159 High 160-189 Very High >=190BASIC METABOLIC [id number] 08:38:00 Test Item Value Reference Range Comments SODIUM (BEAKER) (test 132 meq/L 136-145 zsbd=233) POTASSIUM (BEAKER) (test 4.9 meq/L 3.5-5.1 myxy=026) CHLORIDE (BEAKER) (test 97 meq/L 98-107 zlxt=892) CO2 (BEAKER) (test 22 meq/L 22-29 rsol=910) BLOOD UREA NITROGEN 37 mg/dL 7-21 (BEAKER) (test tyvr=006) CREATININE (BEAKER) (test 1.42 mg/dL 0.57-1.25 jaqz=174) GLUCOSE RANDOM (BEAKER) 294 mg/dL 70-105 (test kvht=881) CALCIUM (BEAKER) (test 9.7 mg/dL 8.4-10.2 wnxl=811) EGFR (BEAKER) (test 37 mL/min/1.73 sq m ESTIMATED GFR IS NOT pnbf=4625) ACCURATE CREATININE CLEARANCE IN PREDICTING GLOMERULAR FILTRATION RATE. ESTIMATED GFR IS NOT APPLICABLE FOR DIALYSIS PATIENTS. POCT-GLUCOSE [id number] 08:01:00 Test Item Value Reference Range Comments POC-GLUCOSE METER (BEAKER) 262 mg/dL 70-[address] [facility] [address] [facility] (test yywz=1011) [facility] [address] TSH/FREE T4 IF [id number] 02:08:00 Test Item Value Reference Range Comments THYROID STIMULATING HORMONE (BEAKER) (test 0.36 uIU/mL 0.35-4.94 pxwg=503) [id number] 01:24:00 Test Item Value Reference Range Comments PARTIAL THROMBOPLASTIN TIME (BEAKER) (test 44.0 seconds 22.5-36.0 pzdk=330) CBC W/PLT COUNT & AUTO [id number] 01:14:00 Test Item Value Reference Range Comments WHITE BLOOD CELL COUNT (BEAKER) (test rdtk=715) 8.0 K/ L 3.5-10.5 RED BLOOD CELL COUNT (BEAKER) (test mase=280) 4.14 M/ L 3.93-5.22 HEMOGLOBIN (BEAKER) (test bkxa=944) 11.4 GM/DL 11.2-15.7 HEMATOCRIT (BEAKER) (test pbdj=083) 36.2 % 34.1-44.9 MEAN CORPUSCULAR VOLUME (BEAKER) (test lokn=056) 87.4 fL 79.4-94.8 MEAN CORPUSCULAR HEMOGLOBIN (BEAKER) (test 27.5 pg 25.6-32.2 hwfw=630) MEAN CORPUSCULAR HEMOGLOBIN CONC (BEAKER) (test 31.5 GM/DL 32.2-35.5 wvyh=041) RED CELL DISTRIBUTION WIDTH (BEAKER) (test 13.8 % 11.7-14.4 psdv=377) PLATELET COUNT (BEAKER) (test tlbk=932) 389 K/CU MM 150-450 MEAN PLATELET VOLUME (BEAKER) (test sxcg=085) 9.2 fL 9.4-12.3 NUCLEATED RED BLOOD CELLS (BEAKER) (test 0 /100 WBC 0-0 uhjy=241) NEUTROPHILS RELATIVE PERCENT (BEAKER) (test 71 % osww=371) LYMPHOCYTES RELATIVE PERCENT (BEAKER) (test 19 % bzfn=369) MONOCYTES RELATIVE PERCENT (BEAKER) (test 8 % ohxq=840) EOSINOPHILS RELATIVE PERCENT (BEAKER) (test 0 % cppl=177) BASOPHILS RELATIVE PERCENT (BEAKER) (test 0 % xjcp=811) NEUTROPHILS ABSOLUTE COUNT (BEAKER) (test 5.66 K/ L 1.56-6.13 odxa=934) LYMPHOCYTES ABSOLUTE COUNT (BEAKER) (test 1.54 K/ L 1.18-3.74 oikp=810) MONOCYTES ABSOLUTE COUNT (BEAKER) (test 0.64 K/ L 0.24-0.36 jwao=465) EOSINOPHILS ABSOLUTE COUNT (BEAKER) (test 0.02 K/ L 0.04-0.36 jaqz=893) BASOPHILS ABSOLUTE COUNT (BEAKER) (test 0.03 K/ L 0.01-0.08 kgki=566) IMMATURE GRANULOCYTES-RELATIVE PERCENT (BEAKER) 1 % 0-1 (test trrz=3904) POCT-GLUCOSE [id number] 21:10:00 Test Item Value Reference Range Comments POC-GLUCOSE METER (BEAKER) 349 mg/dL 70-110 TESTED AT [place] [address] [address] (test boit=8673) [facility] [address] [id number] 18:34:00 Test Item Value Reference Range Comments PROTIME (BEAKER) (test qysc=764) 15.1 seconds 11.7-14.7 INR (BEAKER) (test llat=818) 1.2 <=5.9 PARTIAL THROMBOPLASTIN TIME (BEAKER) (test 28.9 seconds 22.5-36.0 lyww=291) RECOMMENDED COUMADIN/WARFARIN INR THERAPY RANGESSTANDARD DOSE: 2.0 - 3.0 Includes: PROPHYLAXIS forvenous thrombosis, systemic embolization; TREATMENT for venous thrombosis and/or pulmonary embolus.HIGH RISK: Target INR is 2.5-3.5 for patients with mechanical heart valves.POCT-GLUCOSE [id number] 18:23:00 Test Item Value Reference Range Comments POC-GLUCOSE METER (BEAKER) 360 mg/dL 70-110 Notified NATALIE MARTINEZ/TESTED AT [facility] (test oqok=2744) [address] [facility] [address] TROPONIN [id number] 17:30:00 Test Item Value Reference Range Comments TROPONIN I (BEAKER) (test alff=110) 0.05 ng/mL 0.00-0.03 BASIC METABOLIC [id number] 17:24:00 Test Item Value Reference Range Comments SODIUM (BEAKER) (test 133 meq/L 136-145 utre=697) POTASSIUM (BEAKER) (test 5.1 meq/L 3.5-5.1 Specimen slightly okmy=298) hemolyzed CHLORIDE (BEAKER) (test 98 meq/L 98-107 kjdr=167) CO2 (BEAKER) (test 22 meq/L 22-29 igce=149) BLOOD UREA NITROGEN 36 mg/dL 7-21 (BEAKER) (test quxj=784) CREATININE (BEAKER) (test 1.40 mg/dL 0.57-1.25 Specimen slightly lyzr=444) hemolyzed GLUCOSE RANDOM (BEAKER) 386 mg/dL 70-105 (test shak=067) CALCIUM (BEAKER) (test 10.1 mg/dL 8.4-10.2 djqo=119) EGFR (BEAKER) (test 38 mL/min/1.73 sq m ESTIMATED GFR IS NOT fdad=2925) ACCURATE CREATININE CLEARANCE IN PREDICTING GLOMERULAR FILTRATION RATE. ESTIMATED GFR IS NOT APPLICABLE FOR DIALYSIS PATIENTS. HEPATIC FUNCTION [id number] 17:24:00 Test Item Value Reference Range Comments TOTAL PROTEIN (BEAKER) (test 7.9 gm/dL 6.0-8.3 Specimen slightly hemolyzed ndfi=814) ALBUMIN (BEAKER) (test 4.6 g/dL 3.5-5.0 Specimen slightly hemolyzed mkgj=5547) BILIRUBIN TOTAL (BEAKER) (test 1.1 mg/dL 0.2-1.2 Specimen slightly hemolyzed szup=549) BILIRUBIN DIRECT (BEAKER) (test 0.4 mg/dL 0.1-0.5 Specimen slightly hemolyzed xzmy=843) ALKALINE PHOSPHATASE (BEAKER) 92 U/L 40-150 (test chpw=223) AST (SGOT) (BEAKER) (test 51 U/L 5-34 Specimen slightly hemolyzed qena=243) ALT (SGPT) (BEAKER) (test 45 U/L 6-55 Specimen slightly hemolyzed iqts=575) CBC W/PLT COUNT & AUTO [id number] 17:12:00 Test Item Value Reference Range Comments WHITE BLOOD CELL COUNT (BEAKER) (test phqc=418) 6.2 K/ L 3.5-10.5 RED BLOOD CELL COUNT (BEAKER) (test fcno=737) 4.88 M/ L 3.93-5.22 HEMOGLOBIN (BEAKER) (test tkzr=316) 12.9 GM/DL 11.2-15.7 HEMATOCRIT (BEAKER) (test yqfp=462) 42.5 % 34.1-44.9 MEAN CORPUSCULAR VOLUME (BEAKER) (test esbn=818) 87.1 fL 79.4-94.8 MEAN CORPUSCULAR HEMOGLOBIN (BEAKER) (test 26.4 pg 25.6-32.2 mzeh=479) MEAN CORPUSCULAR HEMOGLOBIN CONC (BEAKER) (test 30.4 GM/DL 32.2-35.5 yevf=942) RED CELL DISTRIBUTION WIDTH (BEAKER) (test 13.7 % 11.7-14.4 skzy=064) PLATELET COUNT (BEAKER) (test fmcb=409) 398 K/CU MM 150-450 MEAN PLATELET VOLUME (BEAKER) (test zmhl=587) 9.2 fL 9.4-12.3 NUCLEATED RED BLOOD CELLS (BEAKER) (test 0 /100 WBC 0-0 yvfp=108) NEUTROPHILS RELATIVE PERCENT (BEAKER) (test 83 % homo=454) LYMPHOCYTES RELATIVE PERCENT (BEAKER) (test 14 % bcjf=162) MONOCYTES RELATIVE PERCENT (BEAKER) (test 2 % vheh=892) EOSINOPHILS RELATIVE PERCENT (BEAKER) (test 0 % lrkn=461) BASOPHILS RELATIVE PERCENT (BEAKER) (test 0 % frhf=752) NEUTROPHILS ABSOLUTE COUNT (BEAKER) (test 5.07 K/ L 1.56-6.13 lmwp=257) LYMPHOCYTES ABSOLUTE COUNT (BEAKER) (test 0.88 K/ L 1.18-3.74 xjgl=548) MONOCYTES ABSOLUTE COUNT (BEAKER) (test 0.11 K/ L 0.24-0.36 jfhk=198) EOSINOPHILS ABSOLUTE COUNT (BEAKER) (test 0.02 K/ L 0.04-0.36 midr=488) BASOPHILS ABSOLUTE COUNT (BEAKER) (test 0.02 K/ L 0.01-0.08 qesz=362) IMMATURE GRANULOCYTES-RELATIVE PERCENT (BEAKER) 1 % 0-1 (test owbi=7965)
[2018-05-22] MEDS ORDERED: POLYETHYL GLY 3350 17 GM/DOSE PO PRN (16:28)
[2018-05-22] MEDS ORDERED: ROPINIROLE HCL 0.25 MG TAB PO PRN (16:28)
[2018-05-22] MEDS ORDERED: D50W 25 GM/50 ML SYRINGE IV PRN (16:28)
[2018-05-22] MEDS ORDERED: GLUCAGON 1 MG/VIAL IM PRN (16:28)
[2018-05-22] MEDS: INSULIN -REGULAR HUMAN 50 UNIT/0.5 ML ML SQ SCH ×2 (17:00→20:21)
[2018-05-22] MEDS: IPRATROPIUM BROM 0.5MG/2.5ML NEB SCH (20:00)
[2018-05-22 20:10] LABS: Urine Appearance HAZY; Urine Color YELLOW
[2018-05-22 20:11] LABS: Urine Bacteria <20 /HPF (<20); Urine Bilirubin NEGATIVE (NEG); Urine Blood TRACE (NEG); Urine Culture Reflex Order REFLEXED; Urine Glucose NEGATIVE (NEG); Urine Protein NEGATIVE (NEG); Urine RBC <5 /HPF (NONE SEEN); Urine pH 7.5 (5.0-7.0)
[2018-05-22] MEDS: MONTELUKAST 10 MG TAB PO SCH (20:31)
[2018-05-22] MEDS: GABAPENTIN 100 MG CAP PO SCH (20:31)
[2018-05-22] MEDS: INSULIN GLARGINE 100 UNITS/ML SQ SCH (20:31)
[2018-05-22 20:34] VITALS: BMI 29.0
[2018-05-22] MEDS: ATORVASTATIN 40 MG TAB PO SCH (20:35)
[2018-05-22] MEDS: LOSARTAN POTASSIUM 50 MG TABLET PO SCH (20:35)
[2018-05-22] MEDS: LORAZEPAM 0.5 MG TABLET PO PRN (20:45)
[2018-05-22] MEDS ORDERED: ROPINIROLE HCL 0.25 MG TAB PO SCH (21:00)
[2018-05-22] MEDS ORDERED: SENOSIDES 8.6 MG TAB PO SCH (21:00)
[2018-05-22] MEDS ORDERED: DOCUSATE NA/SENNA CONC 1 TAB PO SCH (21:00)
[2018-05-22] MEDS: RIVAROXABAN 15 MG TABLET PO SCH (21:06)
[2018-05-22] MEDS: TORSEMIDE 20 MG TAB PO SCH (21:06)
[2018-05-22] MEDS: ZOLPIDEM TARTRATE 10 MG TABLET PO SCH (22:04)
[2018-05-23] MEDS: IPRATROPIUM BROM 0.5MG/2.5ML NEB SCH ×4 (02:00→20:14)
--- NOTE | 2018-05-23 02:03 | FAST ---
SHIFT START DATE/TIME: 05/22/2018 19:00 (CORRECTIONAL SUPERVISING COOK) SHIFT END DATE/TIME: 05/23/2018 07:00 (CORRECTIONAL SUPERVISING COOK) NAME JYOTI COFFMAN DATE OF : 1950 DATE OF ADMISSION: 05/22/2018 16:02 (CORRECTIONAL SUPERVISING COOK) PHONE: AGE: 67 SSN# [id number] GENDER: Female ENCOUNTER PHYSICIAN: Dr. Leland Monroe M.D. ADMISSION DIAGNOSIS: - Cardiac 09 - Cardiac Disorders () CAD. EATING: Activity did not occur on this shift EATING - SCORE: 0-UNK GROOMING: Activity did not occur on this shift GROOMING - SCORE: 0-UNK BATHING: Activity did not occur on this shift BATHING - SCORE: 0-UNK DRESSING - UPPER BODY: Patient is not dressing in public clothing ARTICLES SCORE Total number of steps: 0 DRESSING - UPPER BODY - SCORE: 0-UNK DRESSING - LOWER BODY: Patient is not dressing in public clothing ARTICLES SCORE Total number of steps: 0 DRESSING - LOWER BODY - SCORE: 0-UNK TOILETING: TOILETING - STEP 1: Does the patient require the assistance of a person or device, or need extra time with toileting? Yes . TOILETING - STEP 2: Does the patient require the assistance of a helper? Yes. TOILETING - STEP 3: How much assistance does the patient require from the helper? Hands-on assistance from the helper TOILETING - STEP 4: Of the 3 tasks: 1) Adjusting clothing prior to use, 2) Cleansing of perineal area, 3) Adjusting clot michaela after use; How many tasks does the patient perform WITHOUT assistance of the helper? Two tasks TOILETING - SCORE: 3-MOD BLADDER MANAGEMENT: BLADDER MANAGEMENT - STEP 1: Does the patient control the bladder completely and intentionally without equipment or devices or med ications, and is always continent? No. BLADDER MANAGEMENT - STEP 2: Does the patient require the assistance of a helper? Yes. BLADDER MANAGEMENT - STEP 3: How much assistance does the patient require from the helper? Only supervision, stand-by, cuing, or c oaxing BLADDER MANAGEMENT - SCORE: 5-SUP BOWEL MANAGEMENT: Activity did not occur on this shift BOWEL MANAGEMENT - SCORE: 7-IND TRANSFERS: BED, CHAIR, WHEELCHAIR: TRANSFERS: BED, CHAIR, WHEELCHAIR - STEP 1: Does the patient require assistance of a person or device, or need extra time with bed, chair, or whe elchair transfers? Yes. TRANSFERS: BED, CHAIR, WHEELCHAIR - STEP 2: Does the patient require the assistance of a helper? Yes. TRANSFERS: BED, CHAIR, WHEELCHAIR - STEP 3: How much assistance does the patient require from the helper? Lifting of the legs TRANSFERS: BED, CHAIR, WHEELCHAIR - STEP 4: How many legs does the patient require the helper to lift? both legs TRANSFERS: BED, CHAIR, WHEELCHAIR - SCORE: 3-MOD TRANSFERS: TOILET: TRANSFERS: TOILET - STEP 1: Does the patient require the assistance of a person or device, or need extra time with toilet transfe rs? Yes. TRANSFERS: TOILET - STEP 2: Does the patient require the assistance of a helper? Yes. TRANSFERS: TOILET - STEP 3: How much assistance does the patient require from the helper? Patient performs half or more of the tr ansferring tasks TRANSFERS: TOILET - STEP 4: Does the patient need only incidental help such as contact guard or steadying during toilet transfer? Yes. TRANSFERS: TOILET - SCORE: 4-MIN TRANSFERS: SHOWER: Activity did not occur on this shift TRANSFERS: SHOWER - SCORE: 0-UNK TRANSFERS: TUB: Activity did not occur on this shift TRANSFERS: TUB - SCORE: 0-UNK LOCOMOTION: WALK: Activity did not occur on this shift LOCOMOTION: WALK - SCORE: 0-UNK LOCOMOTION: WHEELCHAIR: Activity did not occur on this shift LOCOMOTION: WHEELCHAIR - SCORE: 0-UNK COMPREHENSION: COMPREHENSION: TYPE: Both COMPREHENSION - STEP 1: Does the patient require help from a person or device, or need extra time to understand complex and a bstract ideas (such as current events, finances, discharge planning, medical issues, relationships, e tc)? No. COMPREHENSION - STEP 2: Does the patient need extra time, require an assistive device (such as glasses for visual comprehensi on or a hearing aid for auditory comprehension) or does s/he have mild difficulty understanding compl ex and abstract information? Yes. COMPREHENSION - SCORE: 6-HARDY EXPRESSION EXPRESSION: TYPE: Both EXPRESSION - STEP 1: Does the patient require help from a person or device, or need extra time expressing complex and abst ract ideas (such as current events, finances, discharge planning, medical issues, relationships, etc) ? No. EXPRESSION - STEP 2: Does the patient need extra time, require an assistive device (such as augmentive communication syste m or a communication board), OR does s/he have mild difficulty expressing complex and abstract ideas (including mild dysarthria or mild word-find problems)? No. EXPRESSION - SCORE: 7-IND SOCIAL INTERACTION: SOCIAL INTERACTION - STEP 1: Does the patient require a helper to interact with others in social and therapeutic situations? No. SOCIAL INTERACTION - STEP 2: Does the patient need extra time in social situations, OR does s/he interact with staff, other patien ts, and family members ONLY in structured environments, OR does s/he require medication for social in teraction? Yes, patient requires medication for social interaction SOCIAL INTERACTION - SCORE: 6-HARDY PROBLEM SOLVING: PROBLEM SOLVING - STEP 1: Does the patient need help from a person or device, or need extra time to solve complex problems such as managing a checking account or confronting interpersonal problems? Yes. PROBLEM SOLVING - STEP 2: Does the patient solve basic routine problems half or more of the time? Yes. PROBLEM SOLVING - STEP 3: How often does the patient need help to solve basic routine problems? 10%-24% of the time PROBLEM SOLVING - SCORE: 4-MIN MEMORY: MEMORY - STEP 1: Does the patient need help from a person or device, or need extra time to remember frequently encount ered people, daily routines, and executing requests? No. MEMORY - STEP 2: Does the patient have slight difficulty recognizing frequently encountered people, daily routines, or executing requests without the need for repetition or using self-initiated or environmental cues to remember? Yes. MEMORY - SCORE: 6-HARDY SIGNATURE PANEL: The following modified sections: Eating - Score, Grooming - Score, Dressing - Upper Body - Score, Mario ssing - Lower Body - Score, Toileting - Score, Bladder Management - Score, Bowel Management - Score, Transfers: Bed, Chair, Wheelchair - Score, Transfers: Toilet - Score, Transfers: Shower - Score, Kent sfers: Tub - Score, Locomotion: Walk - Score, Locomotion: Wheelchair - Score, Comprehension - Score, Expression - Score, Social Interaction - Score, Problem Solving - Score, Memory - Score were [electro nically] signed by Andreea Snell CNA on MonMay 23 2018 01:47:54 GMT-0600 (Central Standard Time)
[2018-05-23 06:54] LABS: Absolute Lymphocytes (CBC) 1.8 K/uL (0.7-4.9); Absolute Monocytes 0.9 K/uL (0.1-1.3); Absolute Neutrophil 3.4 K/uL (1.8-8.0); Basophils % 1.2 % (0-1.3); Eosinophils % 15.3 % (0-4.4); Hematocrit 28.1 % (36.0-45.0); MPV 6.1 fL (7.6-11.3); Monocytes % 12.1 % (3.3-12.3); RBC Red Blood Cell Count 3.42 M/uL (3.86-4.86)
[2018-05-23] MEDS: TRAMADOL HCL 50 MG TAB PO PRN (07:09)
[2018-05-23 07:10] LABS: Albumin 3.1 g/dL (3.4-5.0); Magnesium 1.7 mg/dL (1.8-2.4); Potassium 4.6 mmol/L (3.5-5.1); Prealbumin 15.1 mg/dL (20-40)
[2018-05-23] MEDS: INSULIN -REGULAR HUMAN 50 UNIT/0.5 ML ML SQ SCH ×4 (07:30→20:26)
[2018-05-23] MEDS ORDERED: HOME MED 1 EA UNK PO SCH (08:00)
[2018-05-23 08:14] LABS: Blood Morphology Comment NOT SEEN (NOT SEEN); Platelet Estimate ADEQ
[2018-05-23] MEDS: TORSEMIDE 20 MG TAB PO SCH ×2 (08:29→16:53)
[2018-05-23] MEDS: LEVOTHYROXINE SOD 0.1 MG TAB PO SCH (08:29)
[2018-05-23] MEDS: AMIODARONE HCL 200 MG TAB PO SCH (08:30)
[2018-05-23] MEDS: RIVAROXABAN 15 MG TABLET PO SCH ×2 (08:30→19:19)
[2018-05-23] MEDS: METOPROLOL XL 25 MG TAB PO SCH (08:30)
[2018-05-23] MEDS: GABAPENTIN 100 MG CAP PO SCH ×2 (08:30→19:18)
[2018-05-23] MEDS: INSULIN GLARGINE 100 UNITS/ML SQ SCH ×2 (08:31→20:32)
--- NOTE | 2018-05-23 10:25 | P.RH.PN ---
Estimated Length of Stay: 14 Expected Discharge Date: 06/05/18 Discharge Disposition Plan: Home Family Support: Yes Half-Way Goal: Mobility, Transfers, Self Care Vital Signs: Last Vital Signs Temp 97 F 05/23/18 06:55 Pulse 77 05/23/18 08:30 Resp 16 05/23/18 06:55 BP 120/60 05/23/18 08:30 Pulse Ox 100 05/22/18 20:34 Laboratory: Laboratory Last Values WBC 7.3 K/uL (4.3-10.9) 05/23/18 06:27 RBC 3.42 M/uL (3.86-4.86) L 05/23/18 06:27 Hgb 9.4 g/dL (12.0-15.0) L 05/23/18 06:27 Hct 28.1 % (36.0-45.0) L 05/23/18 06:27 MCV 82.3 fL (80-100) 05/23/18 06:27 MCH 27.4 pg (27.0-35.0) 05/23/18 06:27 MCHC 33.2 g/dL (32.0-36.0) 05/23/18 06:27 RDW 15.0 % (12.1-15.2) 05/23/18 06:27 Plt Count 503 K/uL (152-406) H 05/23/18 06:27 MPV 6.1 fL (7.6-11.3) L 05/23/18 06:27 Neutrophils % 46.4 % (41.7-73.7) 05/23/18 06:27 Lymphocytes % 25.0 % (15.3-44.8) 05/23/18 06:27 Monocytes % 12.1 % (3.3-12.3) 05/23/18 06:27 Eosinophils % 15.3 % (0-4.4) H 05/23/18 06:27 Basophils % 1.2 % (0-1.3) 05/23/18 06:27 Absolute Neutrophils 3.4 K/uL (1.8-8.0) 05/23/18 06:27 Segmented Neutrophils 48 % (40-80) 05/23/18 06:27 Absolute Lymphocytes 1.8 K/uL (0.7-4.9) 05/23/18 06:27 Lymphocytes 26 % (15-42) 05/23/18 06: Monocytes 9 % (0-10) 05/23/18 06: Absolute Monocytes 0.9 K/uL (0.1-1.3) 05/23/18 06:27 Eosinophils 16 % (0-3) H 05/23/18 06: Absolute Eosinophils 1.1 K/uL (0-0.5) H 05/23/18 06: Absolute Basophils 0.1 K/uL (0-0.5) 05/23/18 06: Atypical Lymphocytes 1 05/23/18 06:27 Morphology Comment Not seen (NOT SEEN) 05/23/18 06: Sodium 138 mmol/L (136-145) 05/23/18 06: Potassium 4.6 mmol/L (3.5-5.1) 05/23/18 06: Chloride 99 mmol/L (98-107) 05/23/18 06: Carbon Dioxide 34 mmol/L (21-32) H 05/23/18 06:27 BUN 21 mg/dL (7-18) H 05/23/18 06:27 Creatinine 1.00 mg/dL (0.55-1.3) 05/23/18 06:27 Estimated GFR 55 mL/min (=/>90) L 05/23/18 06:27 Glucose 98 mg/dL (74-106) 05/23/18 06:27 POC Glucose 93 mg/dl (65-120) 05/23/18 07:07 Calcium 9.2 mg/dL (8.5-10.1) 05/23/18 06: Magnesium 1.7 mg/dL (1.8-2.4) L 05/23/18 06:27 Albumin 3.1 g/dL (3.4-5.0) L 05/23/18 06:27 Prealbumin 15.1 mg/dL (20-40) L 05/23/18 06:27 Urine Color Yellow 05/22/18 17:50 Urine Appearance Hazy 05/22/18 17:50 Urine pH 7.5 (5.0-7.0) H 05/22/18 17:50 Ur Specific [place] 1.010 (1.005-1.030) 05/22/18 17:50 Urine Ketones Negative (NEG) 05/22/18 17:50 Urine Blood Trace (NEG) H 05/22/18 17:50 Urine Nitrite Negative (NEG) 05/22/18 17:50 Urine Bilirubin Negative (NEG) 05/22/18 17:50 Urine Urobilinogen 1.0 mg/dL (0.2-1.0) 05/22/18 17:50 Ur Leukocyte Esterase 1+ (NEG) H 05/22/18 17:50 Urine RBC <5 /HPF (NONE SEEN) 05/22/18 17:50 Urine WBC 5-10 /HPF (<5) H 05/22/18 17:50 Ur Squamous Epith Cells 5-10 /HPF (NONE SEEN) H 05/22/18 17:50 Urine Bacteria <20 /HPF (<20) 05/22/18 17:50 Urine Culture Reflexed Reflexed 05/22/18 17:50 Urine Glucose Negative (NEG) 05/22/18 17:50 Urine Total Protein Negative (NEG) 05/22/18 17:50 Weight: 158 lb 7 oz Wound Present: Yes Closed Surgical Incision Present: Yes Negative Pressure Wound Therapy Present: No Physician Update: Labs have been reviewed. Her Mg is low at 1.7 she is on mag oxide. Her Hgb is low at 10. She is on hemocyte plus. She has life vest following 3-vessel bypass and respiratory failure with now resolving fluid in the chest cavity. She did well with occupational therapy but is debilitated due to prolonged hospitalization. She requires moderate assistance. She walked 170' to 250' with contact guard assistance. She fatigues easily but has poor upper body strength. She has good family support. 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 Please see the Rehabilitation Signature page for all necessary signatures.
--- NOTE | 2018-05-23 10:28 | FAST ---
SHIFT START DATE/TIME: 05/23/2018 07:00 (TONAL REGULATOR) SHIFT END DATE/TIME: 05/23/2018 19:00 (TONAL REGULATOR) NAME JYOTI COFFMAN DATE OF : 1950 DATE OF ADMISSION: 05/22/2018 16:02 (TONAL REGULATOR) PHONE: AGE: 67 SSN# [id number] GENDER: Female ENCOUNTER PHYSICIAN: Dr. Leland Monroe M.D. ADMISSION DIAGNOSIS: - Cardiac 09 - Cardiac Disorders () CAD. EATING: EATING - STEP 1: Does the patient require the assistance of a person or device, or need extra time when eating? Yes. EATING - STEP 2: Does the patient require the assistance of a helper? Yes. EATING - STEP 3: Does the patient perform half or more of the eating tasks? Yes. EATING - STEP 4: Does the patient need only supervision, cuing, coaxing OR help to apply an orthosis OR help to cut fo od, open containers, pour liquids, or butter bread? Yes. EATING - SCORE: 5-SUP GROOMING: Activity did not occur on this shift GROOMING - SCORE: 0-UNK GROOMING - COMMENTS: Up to shower with therapist BATHING: Activity did not occur on this shift BATHING - SCORE: 0-UNK DRESSING - UPPER BODY: Activity did not occur on this shift ARTICLES SCORE Total number of steps: 0 DRESSING - UPPER BODY - SCORE: 0-UNK DRESSING - UPPER BODY - COMMENTS: Up to shower with therapist DRESSING - LOWER BODY: Activity did not occur on this shift ARTICLES SCORE Total number of steps: 0 DRESSING - LOWER BODY - SCORE: 0-UNK DRESSING - LOWER BODY - COMMENTS: Up to shower with therapist TOILETING: TOILETING - STEP 1: Does the patient require the assistance of a person or device, or need extra time with toileting? Yes . TOILETING - STEP 2: Does the patient require the assistance of a helper? Yes. TOILETING - STEP 3: How much assistance does the patient require from the helper? Only supervision TOILETING - SCORE: 5-SUP BLADDER MANAGEMENT: BLADDER MANAGEMENT - STEP 1: Does the patient control the bladder completely and intentionally without equipment or devices or med ications, and is always continent? No. BLADDER MANAGEMENT - STEP 2: Does the patient require the assistance of a helper? Yes. BLADDER MANAGEMENT - STEP 3: How much assistance does the patient require from the helper? Only supervision, stand-by, cuing, or c oaxing BLADDER MANAGEMENT - SCORE: 5-SUP BLADDER MANAGEMENT - FREQUENCY OF ACCIDENTS: BLADDER MANAGEMENT(FA) - STEP 1: How many accidents has the patient had during the current shift? 0 BOWEL MANAGEMENT: Activity did not occur on this shift BOWEL MANAGEMENT - SCORE: 7-IND BOWEL MANAGEMENT - FREQUENCY OF ACCIDENTS: BOWEL MANAGEMENT(FA) - STEP 1: How many accidents has the patient had during the current shift? 0 TRANSFERS: BED, CHAIR, WHEELCHAIR: TRANSFERS: BED, CHAIR, WHEELCHAIR - STEP 1: Does the patient require assistance of a person or device, or need extra time with bed, chair, or whe elchair transfers? Yes. TRANSFERS: BED, CHAIR, WHEELCHAIR - STEP 2: Does the patient require the assistance of a helper? Yes. TRANSFERS: BED, CHAIR, WHEELCHAIR - STEP 3: How much assistance does the patient require from the helper? Lifting of the legs TRANSFERS: BED, CHAIR, WHEELCHAIR - STEP 4: How many legs does the patient require the helper to lift? both legs TRANSFERS: BED, CHAIR, WHEELCHAIR - SCORE: 3-MOD TRANSFERS: TOILET: TRANSFERS: TOILET - STEP 1: Does the patient require the assistance of a person or device, or need extra time with toilet transfe rs? Yes. TRANSFERS: TOILET - STEP 2: Does the patient require the assistance of a helper? No. Patient only requires an assistive device guzman ch as a grab bar or special seat, OR s/he takes more than reasonable time to perform toilet transfers , OR there is a safety concern when s/he performs toilet transfers. TRANSFERS: TOILET - SCORE: 6-HARDY TRANSFERS: SHOWER: Activity did not occur on this shift TRANSFERS: SHOWER - SCORE: 0-UNK TRANSFERS: TUB: Activity did not occur on this shift TRANSFERS: TUB - SCORE: 0-UNK LOCOMOTION: WALK: Activity did not occur on this shift LOCOMOTION: WALK - SCORE: 0-UNK LOCOMOTION: WHEELCHAIR: Activity did not occur on this shift LOCOMOTION: WHEELCHAIR - SCORE: 0-UNK COMPREHENSION: COMPREHENSION: TYPE: Both COMPREHENSION - STEP 1: Does the patient require help from a person or device, or need extra time to understand complex and a bstract ideas (such as current events, finances, discharge planning, medical issues, relationships, e tc)? No. COMPREHENSION - STEP 2: Does the patient need extra time, require an assistive device (such as glasses for visual comprehensi on or a hearing aid for auditory comprehension) or does s/he have mild difficulty understanding compl ex and abstract information? Yes. COMPREHENSION - SCORE: 6-HARDY EXPRESSION EXPRESSION: TYPE: Both EXPRESSION - STEP 1: Does the patient require help from a person or device, or need extra time expressing complex and abst ract ideas (such as current events, finances, discharge planning, medical issues, relationships, etc) ? Yes. EXPRESSION - STEP 2: Does the patient require help to express basic necessities or ideas (such as hunger, thirst, sleep, s afety, daily schedule, room location, or discomfort) half or more of the time? No. EXPRESSION - STEP 3: How often does the patient need help to express directions and conversation about basic needs? Less t caicedo 10% of the time EXPRESSION - SCORE: 5-SUP SOCIAL INTERACTION: SOCIAL INTERACTION - STEP 1: Does the patient require a helper to interact with others in social and therapeutic situations? No. SOCIAL INTERACTION - STEP 2: Does the patient need extra time in social situations, OR does s/he interact with staff, other patien ts, and family members ONLY in structured environments, OR does s/he require medication for social in teraction? Yes, patient needs extra time SOCIAL INTERACTION - SCORE: 6-HARDY PROBLEM SOLVING: PROBLEM SOLVING - STEP 1: Does the patient need help from a person or device, or need extra time to solve complex problems such as managing a checking account or confronting interpersonal problems? No. PROBLEM SOLVING - STEP 2: Does the patient require extra time to make decisions or solve problems, OR does s/he have slight dif ficulty reading, initiating, or self-correcting in unfamiliar situations? Yes, patient needs extra ti me. PROBLEM SOLVING - SCORE: 6-HARDY MEMORY: MEMORY - STEP 1: Does the patient need help from a person or device, or need extra time to remember frequently encount ered people, daily routines, and executing requests? No. MEMORY - STEP 2: Does the patient have slight difficulty recognizing frequently encountered people, daily routines, or executing requests without the need for repetition or using self-initiated or environmental cues to remember? Yes. MEMORY - SCORE: 6-HARDY SIGNATURE PANEL: The following modified sections: Eating - Score, Grooming - Score, Grooming - Comments:, Bathing - Sc ore, Dressing - Upper Body - Score, Dressing - Upper Body - Comments:, Dressing - Lower Body - Score, Dressing - Lower Body - Comments:, Toileting - Score, Bladder Management - Score, Bowel Management - Score, Transfers: Bed, Chair, Wheelchair - Score, Transfers: Toilet - Score, Transfers: Shower - Sco re, Transfers: Tub - Score, Locomotion: Walk - Score, Locomotion: Wheelchair - Score, Comprehension - Score, Expression - Score, Social Interaction - Score, Problem Solving - Score, Memory - Score were [electronically] signed by Carlee Chavez C.N.A. on MonMay 23 2018 10:28:08 [facility]-0600 (Central Standar d Time)
--- NOTE | 2018-05-23 15:03 | RAD REPORT ---
EXAM DESCRIPTION: RAD - Chest Single View - 05/23/2018 2:56 pm CLINICAL HISTORY: Pleural effusion Chest pain. COMPARISON: No comparisons FINDINGS: Portable technique limits examination quality. Bilateral pleural effusions are present, small to moderate in size and mildly larger on the right. Pichardo zy opacities in both lung bases likely represent atelectasis. The heart is mildly enlarged in size wi th changes of a prior CABG noted. Dual lead pacer device is also noted. No displaced fractures.
--- NOTE | 2018-05-23 16:38 | FAST ---
ENCOUNTER DATE AND TIME: 05/23/2018 08:00 (SPIRAL RUNNER) NAME JYOTI COFFMAN DATE OF : 1950 DATE OF ADMISSION: 05/22/2018 16:02 (SPIRAL RUNNER) PHONE: AGE: 67 SSN# [id number] GENDER: Female ENCOUNTER PHYSICIAN: Dr. Leland Monroe M.D. ADMISSION DIAGNOSIS: - Cardiac 09 - Cardiac Disorders (09) CAD. EATING: Activity did not occur on this shift EATING - SCORE: 0-UNK GROOMING: Activity did not occur on this shift GROOMING - SCORE: 0-UNK BATHING: Activity did not occur on this shift BATHING - SCORE: 0-UNK DRESSING - UPPER BODY: Activity did not occur on this shift Patient is not dressing in public clothing ARTICLES SCORE Total number of steps: 0 DRESSING - UPPER BODY - SCORE: 0-UNK DRESSING - LOWER BODY: Activity did not occur on this shift Patient is not dressing in public clothing ARTICLES SCORE Total number of steps: 0 DRESSING - LOWER BODY - SCORE: 0-UNK TOILETING: Activity did not occur on this shift TOILETING - SCORE: 0-UNK BLADDER MANAGEMENT: Activity did not occur on this shift BLADDER MANAGEMENT - SCORE: 7-IND BOWEL MANAGEMENT: Activity did not occur on this shift BOWEL MANAGEMENT - SCORE: 7-IND TRANSFERS: BED, CHAIR, WHEELCHAIR: TRANSFERS: BED, CHAIR, WHEELCHAIR - STEP 1: Does the patient require assistance of a person or device, or need extra time with bed, chair, or whe elchair transfers? Yes. TRANSFERS: BED, CHAIR, WHEELCHAIR - STEP 2: Does the patient require the assistance of a helper? Yes. TRANSFERS: BED, CHAIR, WHEELCHAIR - STEP 3: How much assistance does the patient require from the helper? Lifting of the patient TRANSFERS: BED, CHAIR, WHEELCHAIR - STEP 4: Does the helper lift the patient ONLY up? ONLY down? Up AND Down? Up AND Down. TRANSFERS: BED, CHAIR, WHEELCHAIR - SCORE: 2-MAX TRANSFERS: TOILET: Activity did not occur on this shift TRANSFERS: TOILET - SCORE: 0-UNK TRANSFERS: SHOWER: Activity did not occur on this shift TRANSFERS: SHOWER - SCORE: 0-UNK TRANSFERS: TUB: Activity did not occur on this shift TRANSFERS: TUB - SCORE: 0-UNK LOCOMOTION: WALK: LOCOMOTION: WALK - STEP 1: Does the patient need help from a person or device, or need extra time to walk 150 feet? Yes. LOCOMOTION: WALK - STEP 2: How much assistance does the patient require to walk a minimum of 150 feet? Only incidental help such as contact guarding or steadying LOCOMOTION: WALK - SCORE: 4-MIN LOCOMOTION: WHEELCHAIR: Activity did not occur on this shift LOCOMOTION: WHEELCHAIR - SCORE: 0-UNK LOCOMOTION: STAIRS: Activity did not occur on this shift LOCOMOTION: STAIRS - SCORE: 0-UNK COMPREHENSION: COMPREHENSION - SCORE: 0-UNK EXPRESSION EXPRESSION - SCORE: 0-UNK SOCIAL INTERACTION: SOCIAL INTERACTION - SCORE: 0-UNK PROBLEM SOLVING: PROBLEM SOLVING - SCORE: 0-UNK MEMORY: MEMORY - SCORE: 0-UNK SIGNATURE PANEL: The following modified sections: Transfers: Bed, Chair, Wheelchair - Score, Transfers: Toilet - Score , Locomotion: Walk - Score, Locomotion: Wheelchair - Score, Locomotion: Stairs - Score were [electron cynthia] signed by Rhett Serrano PT on MonMay 23 2018 16:37:56 T-0600 (Central Standard Time)
[2018-05-23] MEDS: ROPINIROLE HCL 0.25 MG TAB PO SCH (16:53)
--- NOTE | 2018-05-23 17:07 | R.HP ---
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 board/care, assisted living, long-term, transitional living) PRE-HOSPITAL LIVING WITH Family/Relatives ENCOUNTER PHYSICIAN: Dr. Leland Monroe M.D. REFERRING DOCTOR: mag Grant DATE OF ADMISSION: 05/22/2018 16:02 (SOFTWARE IMPLEMENTATION SPECIALIST) REFERRING FACILITY [facility] HOME TYPE AND DETAILS: Type of home: single family house # of levels in the residence: 1 # of steps within the residence: 0 # of steps to enter the residence: 0 ADMISSION DIAGNOSIS: CAD ONSET DATE: 04/27/2018 PRIMARY DIAGNOSIS-RELATED SURGERIES: ARTERIAL CORONARY BYPASS ON 05/01/2018 SECONDARY/COMORBID DIAGNOSES (TIERED): - Non-Tiered Type 2 diabetes mellitus with diabetic neuropathy, unspecified (E11.40) - N/A ARRHYTHMIA ARTHRITIS ASTHMA ATRIAL FIBRILLATION THYROID CANCER CHF CORONARY ARTERY DISEASE HYPERTENSION HISTORY OF PRESENT ILLNESS (HPI): Pt. is a 67 yo Right-handed white female. On 04/27/2018 she was admitted to [facility] with diagnosis CAD. Her impairment category is Cardiac 09 - Cardiac Disorders (09). Pre-morbidly, Pt. was independent/mod-I in Communication, Social Cognition, Self-Care, Locomotion, Sp hincter Control, and Transfers Control; and she had good Sphincter Control. Currently, she has deficits of Balance, Locomotion, Endurance, Safety Awareness, Transfers Control, a nd Self-Care. Pt. is now referred to [facility] for acute in-patient rehabilitation in order to maximize patient's functional independence in activities of daily living, strength, ROM, and mobi lity. Patient has realistic goal of being discharged at assistance level 6-Gordo to reside at Home with Fam iris/Relatives. Jyoti Vaughn is a 67 year old female that lives in a one ben home. She walks without assistance and independe nt with ADLs. On 04/27/2018, she had Coronary Artery Disease and was admitted to [facility] and treated. She is now medically stable but in need of 24-hour nursing, doctor supervision and oversite participate in 3hours of therapy a day/15 hours per week and receive care with an intensive interdisciplinary approach. MEDICATION ALLERGIES: Demerol Iodine and Iodide containing products ENVIRONMENTAL ALLERGIES: Shrimp - Substance Allergies None Known - Other Allergies None Known PAST MEDICAL HISTORY: ARRHYTHMIA ARTHRITIS ASTHMA ATRIAL FIBRILLATION CHF CORONARY ARTERY DISEASE HYPERTENSION THYROID CANCER Type 2 diabetes mellitus with diabetic neuropathy, unspecified (E11.40) PAST SURGICAL HISTORY: BACK SURGERY CARDIAC SURGERY (PACEMAKER IMPLANT) CAESAREAN SECTION GALLBLADDER SURGERY HYSTERECTOMY NECK SURGERY TONSILLECTOMY FAMILY HISTORY: Family history is not contributory. SOCIAL HISTORY: - Home Living Family/Relatives REVIEW OF SYSTEMS: - Gen No Chills Fatigue No Fever - Eyes No Double Vision No itchiness - ENMT No Difficulty Swallowing - CVS Chest Discomfort No Chest Pain Fatigue No Weight Gain - Resp No Cough No Shortness of Breath - GI Continent No Abdominal Pain No Constipation No Diarrhea - Continent No Kidney Pain No Painful Urination No Urinary Urgency - MSK No Joint Pain Muscle Cramps Stiffness - Skin No Itching No Rash No Suspicious Lesions - Neuro No Coordination Difficulty No Difficulty with Concentration No Memory Loss No Seizures Weakness - Psych No Anxiety No Depression No HIV Exposure No Persistent Infections No Seasonal Allergies - Endo No Cold/Heat Intolerance No Excessive Hunger No Excessive Thirst No Excessive Urination PHYSICAL EXAM - Gen Alert and awake Lying in bed No apparent distress Oriented to: person, time, and place - Skin No breakdown No abnormalities - Eyes No abnormalities - ENMT No abnormalities - Neck No abnormalities - CVS RRR - Chest Mildly decreased breath sounds bilaterally. - Resp Bilateral congestion. - Abd +bowel sounds - GI Soft Deferred - No abnormalities - Ext Mild to moderate edema in both lower extremities. - MSK 4+/5 weakness in both lower extremities. - Neuro No focal deficits - Psych No abnormalities VITAL SIGNS Temperature: 98.3 F SBP/DBP: 111/57 Pulse: 81 Resp: 18 STUDIES / LAB RESULTS: - Chest X-ray Bilateral pleural effusions present status post CABG. Incentive spirometry is being used. NURSING: - Shower allowing shower - Lab Results blood Sugar Check ACHS ACTIVITIES OOB only with supervision FUNCTIONAL STATUS: - Self-Care A. Eating Ind Ind B. Grooming Ind Ind C. Bathing Ind Martita D. Dressing - Upper Ind Martita E. Dressing - Lower Ind Martita F. Toileting Ind Martita - Sphincter Control G: Bladder control Ind Ind H: Bowel control Ind Ind - Transfers Control I. Bed/Chair/Wheelchair Ind modA J. Toilet Ind modA K. Tub/Shower Ind ADNO - Locomotion L. Walk/Wheelchair (C) Ind Martita L. Walk/Wheelchair (W) Ind Martita M. Stairs Ind ADNO - Communication N. Comprehension (B) Ind Ind O. Expression (B) Ind Ind - Social Cognition P. Social Interaction Ind Ind Q. Problem Solving Ind Ind R. Memory Ind Ind - Endurance Fair - Balance Fair - Safety Awareness Fair CURRENT FUNC. DEFICITS: Balance, Locomotion, Endurance, Safety Awareness, Transfers Control, and Self-Care ASSESSMENT: Pt. is a 67 yo Right-handed white female.On 04/27/2018 she was admitted to [facility] with diagnosis CAD.Her impairment category is Cardiac 09 - Cardiac Disorders (09).Pre-morbidly, Pt. was independent/mod-I in Communication, Social Cognition, Self-Care, Locomotion, Sphincter Contro l, and Transfers Control; and she had good Sphincter Control.Currently, she has deficits of Balance, Locomotion, Endurance, Safety Awareness, Transfers Control, and Self-Care.Pt. is now referred to [facility] for acute in-patient rehabilitation in order to maximize patient's func tional independence in activities of daily living, strength, ROM, and mobility.- Rehab Goal Patient has realistic goal of being discharged at assistance level 6-Gordo to reside at Home with Fam iris/Relatives. Jyoti Vaughn is a 67 year old female that lives in a one ben home. She walks without assistance and independe nt with ADLs. On 04/27/2018, she had Coronary Artery Disease and was admitted to [facility] and treated. She is now medically stable but in need of 24-hour nursing, doctor supervision and oversite participate in 3hours of therapy a day/15 hours per week and receive care with an intensive interdisciplinary approach.REHAB PLAN: - Physical Therapy Gait dysfunction - to improve, our physical therapists will perform initial evaluation of pt's status upon admission and devise an individualized program for Gait Training, and Wheel Chair mobility Inability to transfer - to improve, our physical therapists will perform initial evaluation of pt's s tatus upon admission and devise an individualized program for Bed mobility Need for home safety evaluation - to improve, our physical therapists will perform initial evaluation of pt's status upon admission and devise an individualized program for Home Evaluation Need in caregiver upon discharge - to improve, our physical therapists will perform initial evaluatio n of pt's status upon admission and devise an individualized program for Caregiver Training New precaution - to improve, our physical therapists will perform initial evaluation of pt's status u pedro admission and devise an individualized program for Patient precaution education Edema - to improve, our physical therapists will perform initial evaluation of pt's status upon admi ssion and devise an individualized program for Elevation Training, and Lymphedema Therapy Poor balance - to improve, our physical therapists will perform initial evaluation of pt's status upo n admission and devise an individualized program for Balance Training Poor endurance - to improve, our physical therapists will perform initial evaluation of pt's status u pedro admission and devise an individualized program for Endurance Training Weakness - to improve, our physical therapists will perform initial evaluation of pt's status upon ad mission and devise an individualized program for Aquatic Therapy, Neuromuscular Reeducation, and Stre ngthening Achieving independence - to improve, our physical therapists will perform initial evaluation of pt's status upon admission and devise an individualized program for Community Reintegration Activities - Occupational Therapy ADL deficits - to improve, our occupation therapists will perform initial evaluation of pt's status u pedro admission and devise an individualized program for Bathing, Bed mobility, Community Reintegration , Cooking, Dressing, Eating, Fine Motor Skills, Grooming, Homemaking, Kitchen Mobility, Laundry, Josselyn ent Education, Safety Awareness, Splinting - Positioning, Transfers(Toilet, Tub, Shower), and Wheel C hair Management Need for auto care center manager - to improve, our occupation therapists will perform initial evaluation of pt's s tatus upon admission and devise an individualized program for Caregiver Training Weakness - to improve, our occupation therapists will perform initial evaluation of pt's status upon admission and devise an individualized program for Aquatic Therapy, Balance, Endurance, UE ROM, and U E strengthening MEDICAL PLAN: - Diet Type Start Regular - Diet - Liquid Texture Start Regular - Tube Feed Start N/A - Lab Results blood Sugar Check ACHS - Diet - Solid Texture Regular - Shower shower DISCHARGE PLAN: - Estimated Length of Stay (days) 10. - Consensus on plan Discharge plan has been discussed with primary caregiver. Patient/Family is in agreement with the gibran n. Primary caregiver is in agreement with the plan. - Patient/Family Goals Return home with assistance. - Potential barriers to discharge Home, to live with Family/Relatives. 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
--- NOTE | 2018-05-23 17:08 | PAPE ---
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 Leland Monroe M.D. ADMISSION DIAGNOSIS: CAD ONSET DATE 04/27/2018 SECONDARY/COMORBID DIAGNOSES TIERED: - Non-Tiered Type 2 diabetes mellitus with diabetic neuropathy, unspecified (E11.40) - N/A ARRHYTHMIA ARTHRITIS ASTHMA ATRIAL FIBRILLATION THYROID CANCER CHF CORONARY ARTERY DISEASE HYPERTENSION POST-ADMISSION FUNCTIONAL/MEDICAL STATUS: - Bladder Same accident frequency: Ind - No accidents in the past 7 days - Bowel Same accident frequency: Ind - No accidents in the past 7 days - Walking Same score based on distance walked: 3(>=150ft) - Wheelchair Same score based on distance traveled: 0(N/A) STATUS CHANGE EVALUATION: No change in Functional or Medical Status is identified compared with Pre-Admission screening. PATIENT NEEDS CLOSE MEDICAL SUPERVISION BY A REHABILITATION PHYSICIAN FOR: Bowel and Bladder Management Coordination of Treatment Team Diabetes Management Medical and Co-Morbidity Management Wound Care DVT Management Pain Management PATIENT REQUIRES 24X7 REHAB NURSING FOR MEDICAL AND FUNCTIONAL MGT. OF THE FOLLOWING DEFICITS: ADL's Ambulation Bowel and Bladder Management Communication Disease Management Medication Management Patient/Family Education Providing Safe Environment Skin Integrity Transfers Pain Management PATIENT REQUIRES INTENSIVE, COORDINATED INTERDISCIPLINARY APPROACH TO REHAB: Arranging Home Equipment/Services Discharge Planning Family Intervention/Training Software Systems Analyst/Case Management LIST OF IDENTIFIED AND POTENTIAL PROBLEMS: Alteration in leisure activities Bladder, Incontinence Blood Pressure, Hypertension/hypotension Issues Bowel, Incontinence Diabetes, Hyperglycemia/hypoglycemia Issues Fluid volume overload related to Congestive Heart Failure (CHF) Infection, Actual or Potential Mobility Impaired Pain, Alteration in Comfort Self Care Deficit Skin Integrity, Actual or Potential Urinary Tract Infection (UTI), Actual or Potential RISK FOR COMPLICATIONS - Arrhythmia Bradycardia. CHF. Cardiac Arrest. Tachycardia. - Asthma Hypoxia. Metabolic acidosis. Worsening of asthma. - Atrial Fibrillation CVA. Heart failure. Limb embolus. - Hypertension CVA. Hypotension. ID. TIA. INTERVENTIONS - Arrhythmia Managing VS. O2 sats. Pacer evaluation. - Asthma ABG's. Inhalers. Medications. Nebulizers. Respiratory therapy. X-Rays. - Atrial Fibrillation Anticoagulation. Medications. VS. - Hypertension PATIENT COULD BE AT RISK FOR COMPLICATIONS FROM ADVERSE MEDICAL CONDITIONS DUE TO HIS/HER COMORBIDITI ES AND THE RIGORS OF THE INTENSIVE REHABILLITATION PROGRAM. METHODS OR INTERVENTIONS TO AVOID COMPLIC ATIONS INCLUDE: - Deep Vein Thrombosis (DVT) Prophylaxis therapy for prevention . Sequential Compression Device (SCD). TE D Hose. - Bleeding Assess lab values and manage abnormalities. Nursing to teach precautions for anti-coagulation therapy . Wound to be assessed every shift. - Infection Clinical staff to assess and manage the signs and symptoms of infection including fever, redness, war mth, etc. - Urinary Tract Infection - Falls Patient will be evaluated for Fall Precautions and will be placed on Fall Precautions as indicated pe r protocol. - Skin Breakdown Nursing will assess skin daily using assessment tool and will place on Skin Breakdown Precautions as indicated per protocol. - Pain Clinical staff may employ non-medication methods such as massage, distraction, decrease stimulus, etc . as needed. Clinical staff will assess patient's pain level every shift per protocol to assess and e nsure pain management effectiveness. Medications will be given and the pain level re-assessed. PRELIMINARY PLAN OF CARE: - Physical Therapy Patient needs Physical Therapy for a daily minimum of 1.5 hours at least 5 out of 7 days, to improve: Mobility, Strengthening, Transfers, Stretching, ROM, Endurance, Ability to manage stairs, Gait, and Balance. - Rehabilitation Nursing Patient requires 24x7 Rehabilitation Nursing for: Pain Issues, Identifying and preventing risk factor s, Monitoring and reporting current medical conditions, Assisting with ambulation and transfer, Kyle ting with all ADL-s, Teaching patients about disease process and medications, Family teaching, Provid ing safe environment, Bowel and Bladder Issues, Skin Integrity, and Medication Management. Patient needs Software Systems Analyst and/or Case Management for: Discharge Planning, Arranging Home Equipmen t or Services, and Family Interventions. - Dietary and Nutrition Services Patient needs Dietary and Nutrition Services for: Adequate Nutrition, Nutritional Supplements, and Nu tritional Education. - Occupational Therapy Patient needs Occupational Therapy for a daily minimum of 1.5 hours at least 5 out of 7 days, to impr ove Activities of Daily Living, including: Eating, Grooming, Bathing, Dressing, Toileting, Toilet Tra nsfers, Community Reintegration, Higher functional activities, Adaptive Equipment, Splinting, Househo ld Tasks, and Other activities as determined. POTENTIAL FUNCTIONAL GOALS FOR PATIENT TO ACHIEVE BY DISCHARGE: - Safety Precaution Patient will remain free from falls or injury at time of discharge. - Bed Mobility Patient will perform bed mobility at 4-Martita level of assistance. - Transfers Patient will complete transfers from bed to chair at 4-Martita level of assistance. - Mobility Patient will ambulate 150 ft with 4-Martita level of assistance with RW. PATIENT REHAB POTENTIAL Expected level of measurable improvement will be of a practical value to patient's functional capacit y or adaptations to impairments Has a viable Discharge Plan Medically appropriate; condition is sufficiently stable to participate in intensive rehab program Patient is able and expected to receive 3 hours of individualized therapy daily on at least 5 of ever y 7 days Patient's prognosis for significant practical improvement within a reasonable period of time appears Good DISCHARGE PLAN: - Estimated Length of Stay (days) 10. - Consensus on plan Discharge plan has been discussed with primary caregiver. Patient/Family is in agreement with the gibran n. Primary caregiver is in agreement with the plan. - Patient/Family Goals Return home with assistance. - Potential barriers to discharge Home, to live with Family/Relatives. CONCLUSION ON REHABILITATION NECESSITY: I have evaluated patient's pre-admission functional status and, comparing it to the patient's post-ad mission functional status now, I conclude that the pre-admission assessment was accurate. Patient's c ondition on admission supports the medical necessity of admission to IRF. It is safe to proceed with patient's therapy program. 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
[2018-05-23] MEDS: MAGNESIUM OXIDE 400 MG TAB PO SCH (19:18)
[2018-05-23] MEDS: DOCUSATE NA/SENNA CONC 1 TAB PO SCH (19:18)
[2018-05-23] MEDS: ZOLPIDEM TARTRATE 10 MG TABLET PO SCH (19:19)
[2018-05-23] MEDS: LOSARTAN POTASSIUM 50 MG TABLET PO SCH (20:12)
[2018-05-23] MEDS: GLUCERNA SHAKE 237 ML CAN PO SCH (20:25)
[2018-05-23] MEDS: MONTELUKAST 10 MG TAB PO SCH (20:26)
[2018-05-23] MEDS: ATORVASTATIN 40 MG TAB PO SCH (20:26)
[2018-05-23] MEDS: PROMOD 30 ML DOSE PO SCH (20:26)
[2018-05-23] MEDS: LORAZEPAM 0.5 MG TABLET PO PRN (22:10)
--- NOTE | 2018-05-24 01:05 | FAST ---
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 Leland Monroe M.D. ADMISSION DIAGNOSIS: - Cardiac 09 - Cardiac Disorders () CAD. EATING: Activity did not occur on this shift EATING - SCORE: 0-UNK GROOMING: Activity did not occur on this shift GROOMING - SCORE: 0-UNK BATHING: Activity did not occur on this shift BATHING - SCORE: 0-UNK DRESSING - UPPER BODY: Patient is not dressing in public clothing ARTICLES SCORE Total number of steps: 0 DRESSING - UPPER BODY - SCORE: 0-UNK DRESSING - LOWER BODY: Patient is not dressing in public clothing ARTICLES SCORE Total number of steps: 0 DRESSING - LOWER BODY - SCORE: 0-UNK TOILETING: TOILETING - STEP 1: Does the patient require the assistance of a person or device, or need extra time with toileting? Yes . TOILETING - STEP 2: Does the patient require the assistance of a helper? Yes. TOILETING - STEP 3: How much assistance does the patient require from the helper? Hands-on assistance from the helper TOILETING - STEP 4: Of the 3 tasks: 1) Adjusting clothing prior to use, 2) Cleansing of perineal area, 3) Adjusting clot michaela after use; How many tasks does the patient perform WITHOUT assistance of the helper? Three tasks with steadying assistance from the helper TOILETING - SCORE: 4-MIN BLADDER MANAGEMENT: BLADDER MANAGEMENT - STEP 1: Does the patient control the bladder completely and intentionally without equipment or devices or med ications, and is always continent? No. BLADDER MANAGEMENT - STEP 2: Does the patient require the assistance of a helper? Yes. BLADDER MANAGEMENT - STEP 3: How much assistance does the patient require from the helper? Only supervision, stand-by, cuing, or c oaxing BLADDER MANAGEMENT - SCORE: 5-SUP BOWEL MANAGEMENT: Activity did not occur on this shift BOWEL MANAGEMENT - SCORE: 7-IND TRANSFERS: BED, CHAIR, WHEELCHAIR: TRANSFERS: BED, CHAIR, WHEELCHAIR - STEP 1: Does the patient require assistance of a person or device, or need extra time with bed, chair, or whe elchair transfers? Yes. TRANSFERS: BED, CHAIR, WHEELCHAIR - STEP 2: Does the patient require the assistance of a helper? Yes. TRANSFERS: BED, CHAIR, WHEELCHAIR - STEP 3: How much assistance does the patient require from the helper? Steadying/guiding assistance TRANSFERS: BED, CHAIR, WHEELCHAIR - SCORE: 4-MIN TRANSFERS: TOILET: TRANSFERS: TOILET - STEP 1: Does the patient require the assistance of a person or device, or need extra time with toilet transfe rs? Yes. TRANSFERS: TOILET - STEP 2: Does the patient require the assistance of a helper? Yes. TRANSFERS: TOILET - STEP 3: How much assistance does the patient require from the helper? Only supervision, cuing, coaxing, OR he lp to set out transfer equipment or to lock brakes and/or lift foot rests TRANSFERS: TOILET - SCORE: 5-SUP TRANSFERS: SHOWER: Activity did not occur on this shift TRANSFERS: SHOWER - SCORE: 0-UNK TRANSFERS: TUB: Activity did not occur on this shift TRANSFERS: TUB - SCORE: 0-UNK LOCOMOTION: WALK: Activity did not occur on this shift LOCOMOTION: WALK - SCORE: 0-UNK LOCOMOTION: WHEELCHAIR: Activity did not occur on this shift LOCOMOTION: WHEELCHAIR - SCORE: 0-UNK COMPREHENSION: COMPREHENSION: TYPE: Both COMPREHENSION - STEP 1: Does the patient require help from a person or device, or need extra time to understand complex and a bstract ideas (such as current events, finances, discharge planning, medical issues, relationships, e tc)? No. COMPREHENSION - STEP 2: Does the patient need extra time, require an assistive device (such as glasses for visual comprehensi on or a hearing aid for auditory comprehension) or does s/he have mild difficulty understanding compl ex and abstract information? Yes. COMPREHENSION - SCORE: 6-HARDY EXPRESSION EXPRESSION: TYPE: Both EXPRESSION - STEP 1: Does the patient require help from a person or device, or need extra time expressing complex and abst ract ideas (such as current events, finances, discharge planning, medical issues, relationships, etc) ? No. EXPRESSION - STEP 2: Does the patient need extra time, require an assistive device (such as augmentive communication syste m or a communication board), OR does s/he have mild difficulty expressing complex and abstract ideas (including mild dysarthria or mild word-find problems)? No. EXPRESSION - SCORE: 7-IND SOCIAL INTERACTION: SOCIAL INTERACTION - STEP 1: Does the patient require a helper to interact with others in social and therapeutic situations? No. SOCIAL INTERACTION - STEP 2: Does the patient need extra time in social situations, OR does s/he interact with staff, other patien ts, and family members ONLY in structured environments, OR does s/he require medication for social in teraction? Yes, patient needs extra time SOCIAL INTERACTION - SCORE: 6-HARDY PROBLEM SOLVING: PROBLEM SOLVING - STEP 1: Does the patient need help from a person or device, or need extra time to solve complex problems such as managing a checking account or confronting interpersonal problems? No. PROBLEM SOLVING - STEP 2: Does the patient require extra time to make decisions or solve problems, OR does s/he have slight dif ficulty reading, initiating, or self-correcting in unfamiliar situations? Yes, patient needs extra ti me. PROBLEM SOLVING - SCORE: 6-HARDY MEMORY: MEMORY - STEP 1: Does the patient need help from a person or device, or need extra time to remember frequently encount ered people, daily routines, and executing requests? No. MEMORY - STEP 2: Does the patient have slight difficulty recognizing frequently encountered people, daily routines, or executing requests without the need for repetition or using self-initiated or environmental cues to remember? Yes. MEMORY - SCORE: 6-HARDY SIGNATURE PANEL: The following modified sections: Eating - Score, Grooming - Score, Dressing - Upper Body - Score, Mario ssing - Lower Body - Score, Toileting - Score, Bladder Management - Score, Bowel Management - Score, Transfers: Bed, Chair, Wheelchair - Score, Transfers: Toilet - Score, Transfers: Shower - Score, Kent sfers: Tub - Score, Locomotion: Walk - Score, Locomotion: Wheelchair - Score, Comprehension - Score, Expression - Score, Social Interaction - Score, Problem Solving - Score, Memory - Score were [electro nically] signed by Andreea Snell CNA on MonMay 24 2018 01:04:42 GMT-0600 (Central Standard Time)
[2018-05-24] MEDS: IPRATROPIUM BROM 0.5MG/2.5ML NEB SCH ×4 (02:37→19:39)
[2018-05-24] MEDS: PANTOPRAZOLE 40MG TABLET PO SCH (06:30)
[2018-05-24] MEDS: LEVOTHYROXINE SOD 0.1 MG TAB PO SCH (06:30)
[2018-05-24] MEDS: INSULIN -REGULAR HUMAN 50 UNIT/0.5 ML ML SQ SCH ×4 (06:46→20:27)
[2018-05-24] MEDS: MEDIHONEY 44 ML TOPICAL TUBE TOP SCH (07:11)
[2018-05-24] MEDS: TRADJENTA 5 MG PO SCH (07:12)
[2018-05-24] MEDS: RIVAROXABAN 15 MG TABLET PO SCH ×2 (07:30→19:09)
[2018-05-24] MEDS: METOPROLOL XL 25 MG TAB PO SCH (07:30)
[2018-05-24] MEDS: DOCUSATE NA/SENNA CONC 1 TAB PO SCH ×2 (07:30→19:10)
[2018-05-24] MEDS: FERROUS SULFATE 325 MG TAB PO SCH (07:30)
[2018-05-24] MEDS: FE SULF/FA/VIT B COMP & C TAB PO SCH (07:30)
[2018-05-24] MEDS: GABAPENTIN 100 MG CAP PO SCH ×2 (07:30→19:09)
[2018-05-24] MEDS: MAGNESIUM OXIDE 400 MG TAB PO SCH ×2 (07:30→19:10)
[2018-05-24] MEDS: PROMOD 30 ML DOSE PO SCH ×2 (07:31→19:09)
[2018-05-24] MEDS: GLUCERNA SHAKE 237 ML CAN PO SCH ×2 (07:32→19:09)
[2018-05-24] MEDS: AMIODARONE HCL 200 MG TAB PO SCH (07:32)
[2018-05-24] MEDS: INSULIN GLARGINE 100 UNITS/ML SQ SCH ×2 (07:33→20:14)
[2018-05-24] MEDS: HYDROCODONE/APAP 5/325 MG TAB PO PRN (07:56)
[2018-05-24] MEDS: TORSEMIDE 20 MG TAB PO SCH ×2 (09:00→17:00)
--- NOTE | 2018-05-24 11:53 | FAST ---
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 Leland Monroe M.D. ADMISSION DIAGNOSIS: - Cardiac 09 - Cardiac Disorders () CAD. EATING: EATING - STEP 1: Does the patient require the assistance of a person or device, or need extra time when eating? No. EATING - SCORE: 7-IND GROOMING: Comb/brush hair Oral care Wash, rinse, and dry face Wash, rinse, and dry hands GROOMING - STEP 1: Does the patient require the assistance of a person or device, or need extra time when grooming? No. GROOMING - SCORE: 7-IND BATHING: Abdomen Buttocks Chest Left arm Left lower leg and foot Left upper leg Perineal area Right arm Right lower leg and foot Right upper leg BATHING - STEP 1: Does the patient require the assistance of a person or device, or need extra time when bathing? Yes. BATHING - STEP 2: Does the patient require the assistance of a helper? Yes. BATHING - STEP 3: How much assistance does the patient require from the helper? More than just incidental help BATHING - STEP 4: What percent of the body parts did the patient bathe WITHOUT the helper? Half or more of the body par ts BATHING - SCORE: 3-MOD DRESSING - UPPER BODY: Bra (three steps) T-shirt/pullover shirt (four steps) ARTICLES SCORE Total number of steps: 7 DRESSING - UPPER BODY - STEP 1: Does the patient require help from a person or device, or need extra time when dressing above the tomas st? Yes. DRESSING - UPPER BODY - STEP 2: Does the patient require the assistance of a helper? Yes. DRESSING - UPPER BODY - STEP 3: Does the helper touch the patient while dressing? Yes. DRESSING - UPPER BODY - STEP 4: How many of the total steps does the patient complete on his/her own? 1 DRESSING - UPPER BODY - STEP 5: Does Patient require total assistance for dressing above the waist such as the helper holding clothin g and performing basically all the activities? No. DRESSING - UPPER BODY - SCORE: 2-MAX DRESSING - LOWER BODY: Elastic waist pants (three steps) Slip-on shoe - Left foot (one step) Slip-on shoe - Right foot (one step) Sock - Left foot (one step) Sock - Right foot (one step) Underwear (three steps) ARTICLES SCORE Total number of steps: 10 DRESSING - LOWER BODY - STEP 1: Does the patient require help from a person or device, or need extra time when dressing below the tomas st? Yes. DRESSING - LOWER BODY - STEP 2: Does the patient require the assistance of a helper? Yes. DRESSING - LOWER BODY - STEP 3: Does the helper touch the patient while dressing? Yes. DRESSING - LOWER BODY - STEP 4: How many of the total steps does the patient complete on his/her own? 0 DRESSING - LOWER BODY - STEP 5: Does patient require total assistance for dressing below the waist such as the helper holding clothin g and performing basically all the activities? Yes. DRESSING - LOWER BODY - SCORE: 1-DEP TOILETING: Activity did not occur on this shift TOILETING - SCORE: 0-UNK BLADDER MANAGEMENT: Activity did not occur on this shift BLADDER MANAGEMENT - SCORE: 7-IND BOWEL MANAGEMENT: Activity did not occur on this shift BOWEL MANAGEMENT - SCORE: 7-IND TRANSFERS: BED, CHAIR, WHEELCHAIR: Activity did not occur on this shift TRANSFERS: BED, CHAIR, WHEELCHAIR - SCORE: 0-UNK TRANSFERS: TOILET: Activity did not occur on this shift TRANSFERS: TOILET - SCORE: 0-UNK TRANSFERS: SHOWER: TRANSFERS: SHOWER - STEP 1: Does the patient require the assistance of a person or device, or need extra time with shower transfe rs? Yes. TRANSFERS: SHOWER - STEP 2: Does the patient require the assistance of a helper? Yes. TRANSFERS: SHOWER - STEP 3: How much assistance does the patient require from the helper? More than incidental help TRANSFERS: SHOWER - STEP 4: How much more help does the patient require from the helper? Lifting the patient up AND down from the wheelchair onto the shower chair TRANSFERS: SHOWER - SCORE: 2-MAX TRANSFERS: TUB: Activity did not occur on this shift TRANSFERS: TUB - SCORE: 0-UNK LOCOMOTION: WALK: Activity did not occur on this shift LOCOMOTION: WALK - SCORE: 0-UNK LOCOMOTION: WHEELCHAIR: Activity did not occur on this shift LOCOMOTION: WHEELCHAIR - SCORE: 0-UNK LOCOMOTION: STAIRS: Activity did not occur on this shift LOCOMOTION: STAIRS - SCORE: 0-UNK COMPREHENSION: COMPREHENSION: TYPE: Both COMPREHENSION - STEP 1: Does the patient require help from a person or device, or need extra time to understand complex and a bstract ideas (such as current events, finances, discharge planning, medical issues, relationships, e tc)? No. COMPREHENSION - STEP 2: Does the patient need extra time, require an assistive device (such as glasses for visual comprehensi on or a hearing aid for auditory comprehension) or does s/he have mild difficulty understanding compl ex and abstract information? No. COMPREHENSION - SCORE: 7-IND EXPRESSION EXPRESSION: TYPE: Both EXPRESSION - STEP 1: Does the patient require help from a person or device, or need extra time expressing complex and abst ract ideas (such as current events, finances, discharge planning, medical issues, relationships, etc) ? No. EXPRESSION - STEP 2: Does the patient need extra time, require an assistive device (such as augmentive communication syste m or a communication board), OR does s/he have mild difficulty expressing complex and abstract ideas (including mild dysarthria or mild word-find problems)? No. EXPRESSION - SCORE: 7-IND SOCIAL INTERACTION: SOCIAL INTERACTION - STEP 1: Does the patient require a helper to interact with others in social and therapeutic situations? No. SOCIAL INTERACTION - STEP 2: Does the patient need extra time in social situations, OR does s/he interact with staff, other patien ts, and family members ONLY in structured environments, OR does s/he require medication for social in teraction? No. SOCIAL INTERACTION - SCORE: 7-IND PROBLEM SOLVING: PROBLEM SOLVING - STEP 1: Does the patient need help from a person or device, or need extra time to solve complex problems such as managing a checking account or confronting interpersonal problems? No. PROBLEM SOLVING - STEP 2: Does the patient require extra time to make decisions or solve problems, OR does s/he have slight dif ficulty reading, initiating, or self-correcting in unfamiliar situations? No. PROBLEM SOLVING - SCORE: 7-IND MEMORY: MEMORY - STEP 1: Does the patient need help from a person or device, or need extra time to remember frequently encount ered people, daily routines, and executing requests? No. MEMORY - STEP 2: Does the patient have slight difficulty recognizing frequently encountered people, daily routines, or executing requests without the need for repetition or using self-initiated or environmental cues to remember? No. MEMORY - SCORE: 7-IND SIGNATURE PANEL: The following modified sections: Eating - Score, Grooming - Score, Bathing - Score, Dressing - Upper Body - Score, Dressing - Lower Body - Score, Toileting - Score, Transfers: Bed, Chair, Wheelchair - S core, Transfers: Toilet - Score, Transfers: Tub - Score, Transfers: Shower - Score, Comprehension - S core, Expression - Score, Social Interaction - Score, Problem Solving - Score, Memory - Score were [e lectronically] signed by Anna Mcgregor OT on MonMay 24 2018 11:52:07 T-0600 (Central Standard T marin)
--- NOTE | 2018-05-24 15:16 | FAST ---
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 eLland Monroe M.D. ADMISSION DIAGNOSIS: - Cardiac 09 - Cardiac Disorders () CAD. EATING: EATING - STEP 1: Does the patient require the assistance of a person or device, or need extra time when eating? Yes. EATING - STEP 2: Does the patient require the assistance of a helper? No, patient only requires an assistive device, O R s/he takes more than reasonable time to eat, OR there is a safety concern, OR s/he requires modifie d food consistency EATING - SCORE: 6-HARDY GROOMING: Comb/brush hair Wash, rinse, and dry face Wash, rinse, and dry hands GROOMING - STEP 1: Does the patient require the assistance of a person or device, or need extra time when grooming? Yes. GROOMING - STEP 2: Does the patient require the assistance of a helper? No. The patient only requires an assistive devic e, OR takes more than reasonable time to groom, OR there is a concern for safety as the patient groom s GROOMING - SCORE: 6-HARDY BATHING: Activity did not occur on this shift BATHING - SCORE: 0-UNK DRESSING - UPPER BODY: Activity did not occur on this shift ARTICLES SCORE Total number of steps: 0 DRESSING - UPPER BODY - SCORE: 0-UNK DRESSING - LOWER BODY: Activity did not occur on this shift ARTICLES SCORE Total number of steps: 0 DRESSING - LOWER BODY - SCORE: 0-UNK TOILETING: TOILETING - STEP 1: Does the patient require the assistance of a person or device, or need extra time with toileting? Yes . TOILETING - STEP 2: Does the patient require the assistance of a helper? Yes. TOILETING - STEP 3: How much assistance does the patient require from the helper? Only supervision TOILETING - SCORE: 5-SUP BLADDER MANAGEMENT: BLADDER MANAGEMENT - STEP 1: Does the patient control the bladder completely and intentionally without equipment or devices or med ications, and is always continent? Yes. BLADDER MANAGEMENT - SCORE: 7-IND BLADDER MANAGEMENT - FREQUENCY OF ACCIDENTS: BLADDER MANAGEMENT(FA) - STEP 1: How many accidents has the patient had during the current shift? 0 BOWEL MANAGEMENT: BOWEL MANAGEMENT - STEP 1: Does the patient control bowels completely and intentionally without equipment devices or medications AND is always continent? No. BOWEL MANAGEMENT - STEP 2: Does the patient require the assistance of a helper? No, patient requires medication for control such as stool softeners, suppositories, laxatives, enemas, or OTC medications BOWEL MANAGEMENT - SCORE: 6-HARDY BOWEL MANAGEMENT - FREQUENCY OF ACCIDENTS: BOWEL MANAGEMENT(FA) - STEP 1: How many accidents has the patient had during the current shift? 0 TRANSFERS: BED, CHAIR, WHEELCHAIR: TRANSFERS: BED, CHAIR, WHEELCHAIR - STEP 1: Does the patient require assistance of a person or device, or need extra time with bed, chair, or whe elchair transfers? Yes. TRANSFERS: BED, CHAIR, WHEELCHAIR - STEP 2: Does the patient require the assistance of a helper? Yes. TRANSFERS: BED, CHAIR, WHEELCHAIR - STEP 3: How much assistance does the patient require from the helper? Lifting of the legs TRANSFERS: BED, CHAIR, WHEELCHAIR - STEP 4: How many legs does the patient require the helper to lift? both legs TRANSFERS: BED, CHAIR, WHEELCHAIR - SCORE: 3-MOD TRANSFERS: TOILET: TRANSFERS: TOILET - STEP 1: Does the patient require the assistance of a person or device, or need extra time with toilet transfe rs? Yes. TRANSFERS: TOILET - STEP 2: Does the patient require the assistance of a helper? No. Patient only requires an assistive device guzman ch as a grab bar or special seat, OR s/he takes more than reasonable time to perform toilet transfers , OR there is a safety concern when s/he performs toilet transfers. TRANSFERS: TOILET - SCORE: 6-HARDY TRANSFERS: SHOWER: Activity did not occur on this shift TRANSFERS: SHOWER - SCORE: 0-UNK TRANSFERS: TUB: Activity did not occur on this shift TRANSFERS: TUB - SCORE: 0-UNK LOCOMOTION: WALK: Activity did not occur on this shift LOCOMOTION: WALK - SCORE: 0-UNK LOCOMOTION: WHEELCHAIR: Activity did not occur on this shift LOCOMOTION: WHEELCHAIR - SCORE: 0-UNK COMPREHENSION: COMPREHENSION: TYPE: Both COMPREHENSION - STEP 1: Does the patient require help from a person or device, or need extra time to understand complex and a bstract ideas (such as current events, finances, discharge planning, medical issues, relationships, e tc)? No. COMPREHENSION - STEP 2: Does the patient need extra time, require an assistive device (such as glasses for visual comprehensi on or a hearing aid for auditory comprehension) or does s/he have mild difficulty understanding compl ex and abstract information? Yes. COMPREHENSION - SCORE: 6-HARDY EXPRESSION EXPRESSION: TYPE: Both EXPRESSION - STEP 1: Does the patient require help from a person or device, or need extra time expressing complex and abst ract ideas (such as current events, finances, discharge planning, medical issues, relationships, etc) ? Yes. EXPRESSION - STEP 2: Does the patient require help to express basic necessities or ideas (such as hunger, thirst, sleep, s afety, daily schedule, room location, or discomfort) half or more of the time? No. EXPRESSION - STEP 3: How often does the patient need help to express directions and conversation about basic needs? Less t caicedo 10% of the time EXPRESSION - SCORE: 5-SUP SOCIAL INTERACTION: SOCIAL INTERACTION - STEP 1: Does the patient require a helper to interact with others in social and therapeutic situations? No. SOCIAL INTERACTION - STEP 2: Does the patient need extra time in social situations, OR does s/he interact with staff, other patien ts, and family members ONLY in structured environments, OR does s/he require medication for social in teraction? Yes, patient needs extra time SOCIAL INTERACTION - SCORE: 6-HARDY PROBLEM SOLVING: PROBLEM SOLVING - STEP 1: Does the patient need help from a person or device, or need extra time to solve complex problems such as managing a checking account or confronting interpersonal problems? No. PROBLEM SOLVING - STEP 2: Does the patient require extra time to make decisions or solve problems, OR does s/he have slight dif ficulty reading, initiating, or self-correcting in unfamiliar situations? Yes, patient needs extra ti me. PROBLEM SOLVING - SCORE: 6-HARDY MEMORY: MEMORY - STEP 1: Does the patient need help from a person or device, or need extra time to remember frequently encount ered people, daily routines, and executing requests? No. MEMORY - STEP 2: Does the patient have slight difficulty recognizing frequently encountered people, daily routines, or executing requests without the need for repetition or using self-initiated or environmental cues to remember? Yes. MEMORY - SCORE: 6-HARDY SIGNATURE PANEL: The following modified sections: Eating - Score, Grooming - Score, Bathing - Score, Dressing - Upper Body - Score, Dressing - Lower Body - Score, Toileting - Score, Bladder Management - Score, Bowel Man agement - Score, Transfers: Bed, Chair, Wheelchair - Score, Transfers: Toilet - Score, Transfers: Janine wer - Score, Transfers: Tub - Score, Locomotion: Walk - Score, Locomotion: Wheelchair - Score, Compre hension - Score, Expression - Score, Social Interaction - Score, Problem Solving - Score, Memory - Sc ore were [electronically] signed by Carlee Chavez C.N.A. on MonMay 24 2018 15:15:22 GMT-0600 (Centra l Standard Time)
--- NOTE | 2018-05-24 15:26 | FAST ---
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 Leland Monroe M.D. ADMISSION DIAGNOSIS: - Cardiac 09 - Cardiac Disorders (09) CAD. EATING: Activity did not occur on this shift EATING - SCORE: 0-UNK GROOMING: Activity did not occur on this shift GROOMING - SCORE: 0-UNK BATHING: Activity did not occur on this shift BATHING - SCORE: 0-UNK DRESSING - UPPER BODY: Activity did not occur on this shift Patient is not dressing in public clothing ARTICLES SCORE Total number of steps: 0 DRESSING - UPPER BODY - SCORE: 0-UNK DRESSING - LOWER BODY: Activity did not occur on this shift Patient is not dressing in public clothing ARTICLES SCORE Total number of steps: 0 DRESSING - LOWER BODY - SCORE: 0-UNK TOILETING: Activity did not occur on this shift TOILETING - SCORE: 0-UNK BLADDER MANAGEMENT: Activity did not occur on this shift BLADDER MANAGEMENT - SCORE: 7-IND BOWEL MANAGEMENT: Activity did not occur on this shift BOWEL MANAGEMENT - SCORE: 7-IND TRANSFERS: BED, CHAIR, WHEELCHAIR: TRANSFERS: BED, CHAIR, WHEELCHAIR - STEP 1: Does the patient require assistance of a person or device, or need extra time with bed, chair, or whe elchair transfers? Yes. TRANSFERS: BED, CHAIR, WHEELCHAIR - STEP 2: Does the patient require the assistance of a helper? Yes. TRANSFERS: BED, CHAIR, WHEELCHAIR - STEP 3: How much assistance does the patient require from the helper? Lifting of the patient TRANSFERS: BED, CHAIR, WHEELCHAIR - STEP 4: Does the helper lift the patient ONLY up? ONLY down? Up AND Down? ONLY up. TRANSFERS: BED, CHAIR, WHEELCHAIR - SCORE: 3-MOD TRANSFERS: TOILET: Activity did not occur on this shift TRANSFERS: TOILET - SCORE: 0-UNK TRANSFERS: SHOWER: Activity did not occur on this shift TRANSFERS: SHOWER - SCORE: 0-UNK TRANSFERS: TUB: Activity did not occur on this shift TRANSFERS: TUB - SCORE: 0-UNK LOCOMOTION: WALK: LOCOMOTION: WALK - STEP 1: Does the patient need help from a person or device, or need extra time to walk 150 feet? Yes. LOCOMOTION: WALK - STEP 2: How much assistance does the patient require to walk a minimum of 150 feet? Only incidental help such as contact guarding or steadying LOCOMOTION: WALK - SCORE: 4-MIN LOCOMOTION: WHEELCHAIR: Activity did not occur on this shift LOCOMOTION: WHEELCHAIR - SCORE: 0-UNK LOCOMOTION: STAIRS: LOCOMOTION: STAIRS - STEP 1: Does the patient need help to go up and down 12 to 14 stairs? Yes. LOCOMOTION: STAIRS - STEP 2: How much assistance does the patient need from the helper to go a minimum of 12 to 14 stairs? Only guzman pervision, cuing, or coaxing LOCOMOTION: STAIRS - SCORE: 5-SUP COMPREHENSION: COMPREHENSION - SCORE: 0-UNK EXPRESSION EXPRESSION - SCORE: 0-UNK SOCIAL INTERACTION: SOCIAL INTERACTION - SCORE: 0-UNK PROBLEM SOLVING: PROBLEM SOLVING - SCORE: 0-UNK MEMORY: MEMORY - SCORE: 0-UNK SIGNATURE PANEL: The following modified sections: Transfers: Bed, Chair, Wheelchair - Score, Transfers: Toilet - Score , Locomotion: Walk - Score, Locomotion: Wheelchair - Score, Locomotion: Stairs - Score were [electron cynthia] signed by Rhett Serrano PT on MonMay 24 2018 15:25:23 GMT-0600 (Central Standard Time)
[2018-05-24] MEDS: ROPINIROLE HCL 0.25 MG TAB PO SCH (17:06)
[2018-05-24] MEDS: ZOLPIDEM TARTRATE 10 MG TABLET PO SCH (19:10)
[2018-05-24] MEDS: ATORVASTATIN 40 MG TAB PO SCH (20:14)
[2018-05-24] MEDS: LORAZEPAM 0.5 MG TABLET PO PRN (20:14)
[2018-05-24] MEDS: MONTELUKAST 10 MG TAB PO SCH (20:14)
[2018-05-24] MEDS: LOSARTAN POTASSIUM 50 MG TABLET PO SCH (20:15)
[2018-05-25] MEDS: HYDROCODONE/APAP 5/325 MG TAB PO PRN ×2 (00:46→07:56)
--- NOTE | 2018-05-25 01:20 | FAST ---
SHIFT START DATE/TIME: 05/24/2018 19:00 (PRODUCTION SUPERINTENDENT) SHIFT END DATE/TIME: 05/25/2018 07:00 (PRODUCTION SUPERINTENDENT) NAME JYOTI COFFMAN DATE OF : 1950 DATE OF ADMISSION: 05/22/2018 16:02 (PRODUCTION SUPERINTENDENT) PHONE: AGE: 67 SSN# [id number] GENDER: Female ENCOUNTER PHYSICIAN: Dr. Leland Monroe M.D. ADMISSION DIAGNOSIS: - Cardiac 09 - Cardiac Disorders () CAD. EATING: Activity did not occur on this shift EATING - SCORE: 0-UNK GROOMING: Activity did not occur on this shift GROOMING - SCORE: 0-UNK BATHING: Activity did not occur on this shift BATHING - SCORE: 0-UNK DRESSING - UPPER BODY: Patient is not dressing in public clothing ARTICLES SCORE Total number of steps: 0 DRESSING - UPPER BODY - SCORE: 0-UNK DRESSING - LOWER BODY: Patient is not dressing in public clothing ARTICLES SCORE Total number of steps: 0 DRESSING - LOWER BODY - SCORE: 0-UNK TOILETING: TOILETING - STEP 1: Does the patient require the assistance of a person or device, or need extra time with toileting? Yes . TOILETING - STEP 2: Does the patient require the assistance of a helper? Yes. TOILETING - STEP 3: How much assistance does the patient require from the helper? Only supervision TOILETING - SCORE: 5-SUP BLADDER MANAGEMENT: BLADDER MANAGEMENT - STEP 1: Does the patient control the bladder completely and intentionally without equipment or devices or med ications, and is always continent? No. BLADDER MANAGEMENT - STEP 2: Does the patient require the assistance of a helper? No, patient only requires extra time BLADDER MANAGEMENT - SCORE: 6-HARDY BOWEL MANAGEMENT: Activity did not occur on this shift BOWEL MANAGEMENT - SCORE: 7-IND TRANSFERS: BED, CHAIR, WHEELCHAIR: TRANSFERS: BED, CHAIR, WHEELCHAIR - STEP 1: Does the patient require assistance of a person or device, or need extra time with bed, chair, or whe elchair transfers? Yes. TRANSFERS: BED, CHAIR, WHEELCHAIR - STEP 2: Does the patient require the assistance of a helper? Yes. TRANSFERS: BED, CHAIR, WHEELCHAIR - STEP 3: How much assistance does the patient require from the helper? Steadying/guiding assistance TRANSFERS: BED, CHAIR, WHEELCHAIR - SCORE: 4-MIN TRANSFERS: TOILET: TRANSFERS: TOILET - STEP 1: Does the patient require the assistance of a person or device, or need extra time with toilet transfe rs? Yes. TRANSFERS: TOILET - STEP 2: Does the patient require the assistance of a helper? Yes. TRANSFERS: TOILET - STEP 3: How much assistance does the patient require from the helper? Only supervision, cuing, coaxing, OR he lp to set out transfer equipment or to lock brakes and/or lift foot rests TRANSFERS: TOILET - SCORE: 5-SUP TRANSFERS: SHOWER: Activity did not occur on this shift TRANSFERS: SHOWER - SCORE: 0-UNK TRANSFERS: TUB: Activity did not occur on this shift TRANSFERS: TUB - SCORE: 0-UNK LOCOMOTION: WALK: Activity did not occur on this shift LOCOMOTION: WALK - SCORE: 0-UNK LOCOMOTION: WHEELCHAIR: Activity did not occur on this shift LOCOMOTION: WHEELCHAIR - SCORE: 0-UNK COMPREHENSION: COMPREHENSION: TYPE: Both COMPREHENSION - STEP 1: Does the patient require help from a person or device, or need extra time to understand complex and a bstract ideas (such as current events, finances, discharge planning, medical issues, relationships, e tc)? No. COMPREHENSION - STEP 2: Does the patient need extra time, require an assistive device (such as glasses for visual comprehensi on or a hearing aid for auditory comprehension) or does s/he have mild difficulty understanding compl ex and abstract information? Yes. COMPREHENSION - SCORE: 6-HARDY EXPRESSION EXPRESSION: TYPE: Both EXPRESSION - STEP 1: Does the patient require help from a person or device, or need extra time expressing complex and abst ract ideas (such as current events, finances, discharge planning, medical issues, relationships, etc) ? No. EXPRESSION - STEP 2: Does the patient need extra time, require an assistive device (such as augmentive communication syste m or a communication board), OR does s/he have mild difficulty expressing complex and abstract ideas (including mild dysarthria or mild word-find problems)? No. EXPRESSION - SCORE: 7-IND SOCIAL INTERACTION: SOCIAL INTERACTION - STEP 1: Does the patient require a helper to interact with others in social and therapeutic situations? No. SOCIAL INTERACTION - STEP 2: Does the patient need extra time in social situations, OR does s/he interact with staff, other patien ts, and family members ONLY in structured environments, OR does s/he require medication for social in teraction? Yes, patient needs extra time SOCIAL INTERACTION - SCORE: 6-HARDY PROBLEM SOLVING: PROBLEM SOLVING - STEP 1: Does the patient need help from a person or device, or need extra time to solve complex problems such as managing a checking account or confronting interpersonal problems? No. PROBLEM SOLVING - STEP 2: Does the patient require extra time to make decisions or solve problems, OR does s/he have slight dif ficulty reading, initiating, or self-correcting in unfamiliar situations? Yes, patient needs extra ti me. PROBLEM SOLVING - SCORE: 6-HARDY MEMORY: MEMORY - STEP 1: Does the patient need help from a person or device, or need extra time to remember frequently encount ered people, daily routines, and executing requests? No. MEMORY - STEP 2: Does the patient have slight difficulty recognizing frequently encountered people, daily routines, or executing requests without the need for repetition or using self-initiated or environmental cues to remember? Yes. MEMORY - SCORE: 6-HARDY SIGNATURE PANEL: The following modified sections: Eating - Score, Grooming - Score, Dressing - Upper Body - Score, Mario ssing - Lower Body - Score, Toileting - Score, Bladder Management - Score, Bowel Management - Score, Transfers: Bed, Chair, Wheelchair - Score, Transfers: Toilet - Score, Transfers: Shower - Score, Kent sfers: Tub - Score, Locomotion: Walk - Score, Locomotion: Wheelchair - Score, Comprehension - Score, Expression - Score, Social Interaction - Score, Problem Solving - Score, Memory - Score were [electro nically] signed by Andreea Snell CNA on MonMay 25 2018 01:12:21 GMT-0600 (Central Standard Time)
[2018-05-25] MEDS: IPRATROPIUM BROM 0.5MG/2.5ML NEB SCH ×4 (02:00→20:00)
[2018-05-25] MEDS: PANTOPRAZOLE 40MG TABLET PO SCH (06:45)
[2018-05-25] MEDS: LEVOTHYROXINE SOD 0.1 MG TAB PO SCH (06:46)
[2018-05-25] MEDS: INSULIN -REGULAR HUMAN 50 UNIT/0.5 ML ML SQ SCH ×4 (07:22→20:29)
[2018-05-25] MEDS: MEDIHONEY 44 ML TOPICAL TUBE TOP SCH (07:22)
[2018-05-25] MEDS: GABAPENTIN 100 MG CAP PO SCH ×2 (07:24→20:24)
[2018-05-25] MEDS: AMIODARONE HCL 200 MG TAB PO SCH (07:24)
[2018-05-25] MEDS: FE SULF/FA/VIT B COMP & C TAB PO SCH (07:24)
[2018-05-25] MEDS: RIVAROXABAN 15 MG TABLET PO SCH ×2 (07:24→20:25)
[2018-05-25] MEDS: MAGNESIUM OXIDE 400 MG TAB PO SCH ×2 (07:24→20:25)
[2018-05-25] MEDS: DOCUSATE NA/SENNA CONC 1 TAB PO SCH ×2 (07:24→20:24)
[2018-05-25] MEDS: FERROUS SULFATE 325 MG TAB PO SCH (07:24)
[2018-05-25] MEDS: INSULIN GLARGINE 100 UNITS/ML SQ SCH ×2 (07:25→20:25)
[2018-05-25] MEDS: TRADJENTA 5 MG PO SCH (07:25)
[2018-05-25] MEDS: PROMOD 30 ML DOSE PO SCH ×2 (07:26→20:28)
[2018-05-25] MEDS: METOPROLOL XL 25 MG TAB PO SCH (07:26)
[2018-05-25] MEDS: GLUCERNA SHAKE 237 ML CAN PO SCH ×2 (07:26→20:27)
[2018-05-25] MEDS: TORSEMIDE 20 MG TAB PO SCH ×2 (08:06→16:46)
[2018-05-25 10:30] LABS: Urine Appearance CLEAR; Urine Bilirubin NEGATIVE (NEG); Urine Blood NEGATIVE (NEG); Urine Color YELLOW; Urine Glucose NEGATIVE (NEG); Urine Protein NEGATIVE (NEG); Urine Urobilinogen 0.2 mg/dL (0.2-1.0)
[2018-05-25 11:17] LABS: Urine Microscopic Reflex ORDER UMIC
[2018-05-25 11:40] LABS: Urine Bacteria <20 /HPF (<20); Urine Culture Reflex Order NOT NEEDED; Urine RBC <5 /HPF (NONE SEEN)
--- NOTE | 2018-05-25 13:28 | FAST ---
SHIFT START DATE/TIME: 05/25/2018 07:00 (CERTIFIED FAMILY MEDIATOR) SHIFT END DATE/TIME: 05/25/2018 19:00 (CERTIFIED FAMILY MEDIATOR) NAME JYOTI COFFMAN DATE OF : 1950 DATE OF ADMISSION: 05/22/2018 16:02 (CERTIFIED FAMILY MEDIATOR) PHONE: AGE: 67 SSN# [id number] GENDER: Female ENCOUNTER PHYSICIAN: Dr. Leland Monroe M.D. ADMISSION DIAGNOSIS: - Cardiac 09 - Cardiac Disorders () CAD. EATING: EATING - STEP 1: Does the patient require the assistance of a person or device, or need extra time when eating? Yes. EATING - STEP 2: Does the patient require the assistance of a helper? No, patient only requires an assistive device, O R s/he takes more than reasonable time to eat, OR there is a safety concern, OR s/he requires modifie d food consistency EATING - SCORE: 6-HARDY GROOMING: Comb/brush hair Oral care Wash, rinse, and dry face Wash, rinse, and dry hands GROOMING - STEP 1: Does the patient require the assistance of a person or device, or need extra time when grooming? Yes. GROOMING - STEP 2: Does the patient require the assistance of a helper? No. The patient only requires an assistive devic e, OR takes more than reasonable time to groom, OR there is a concern for safety as the patient groom s GROOMING - SCORE: 6-HARDY BATHING: Activity did not occur on this shift BATHING - SCORE: 0-UNK DRESSING - UPPER BODY: T-shirt/pullover shirt (four steps) ARTICLES SCORE Total number of steps: 4 DRESSING - UPPER BODY - STEP 1: Does the patient require help from a person or device, or need extra time when dressing above the tomas st? Yes. DRESSING - UPPER BODY - STEP 2: Does the patient require the assistance of a helper? Yes. DRESSING - UPPER BODY - STEP 3: Does the helper touch the patient while dressing? No. DRESSING - UPPER BODY - SCORE: 5-SUP DRESSING - LOWER BODY: Elastic waist pants (three steps) Slip-on shoe - Left foot (one step) Slip-on shoe - Right foot (one step) Underwear (three steps) ARTICLES SCORE Total number of steps: 8 DRESSING - LOWER BODY - STEP 1: Does the patient require help from a person or device, or need extra time when dressing below the tomas st? Yes. DRESSING - LOWER BODY - STEP 2: Does the patient require the assistance of a helper? Yes. DRESSING - LOWER BODY - STEP 3: Does the helper touch the patient while dressing? No. DRESSING - LOWER BODY - SCORE: 5-SUP TOILETING: TOILETING - STEP 1: Does the patient require the assistance of a person or device, or need extra time with toileting? Yes . TOILETING - STEP 2: Does the patient require the assistance of a helper? Yes. TOILETING - STEP 3: How much assistance does the patient require from the helper? Only supervision TOILETING - SCORE: 5-SUP BLADDER MANAGEMENT: BLADDER MANAGEMENT - STEP 1: Does the patient control the bladder completely and intentionally without equipment or devices or med ications, and is always continent? Yes. BLADDER MANAGEMENT - SCORE: 7-IND BLADDER MANAGEMENT - FREQUENCY OF ACCIDENTS: BLADDER MANAGEMENT(FA) - STEP 1: How many accidents has the patient had during the current shift? 0 BOWEL MANAGEMENT: Activity did not occur on this shift BOWEL MANAGEMENT - SCORE: 7-IND BOWEL MANAGEMENT - FREQUENCY OF ACCIDENTS: BOWEL MANAGEMENT(FA) - STEP 1: How many accidents has the patient had during the current shift? 0 TRANSFERS: BED, CHAIR, WHEELCHAIR: TRANSFERS: BED, CHAIR, WHEELCHAIR - STEP 1: Does the patient require assistance of a person or device, or need extra time with bed, chair, or whe elchair transfers? Yes. TRANSFERS: BED, CHAIR, WHEELCHAIR - STEP 2: Does the patient require the assistance of a helper? Yes. TRANSFERS: BED, CHAIR, WHEELCHAIR - STEP 3: How much assistance does the patient require from the helper? Steadying/guiding assistance TRANSFERS: BED, CHAIR, WHEELCHAIR - SCORE: 4-MIN TRANSFERS: TOILET: TRANSFERS: TOILET - STEP 1: Does the patient require the assistance of a person or device, or need extra time with toilet transfe rs? Yes. TRANSFERS: TOILET - STEP 2: Does the patient require the assistance of a helper? No. Patient only requires an assistive device guzman ch as a grab bar or special seat, OR s/he takes more than reasonable time to perform toilet transfers , OR there is a safety concern when s/he performs toilet transfers. TRANSFERS: TOILET - SCORE: 6-HARDY TRANSFERS: SHOWER: Activity did not occur on this shift TRANSFERS: SHOWER - SCORE: 0-UNK TRANSFERS: TUB: Activity did not occur on this shift TRANSFERS: TUB - SCORE: 0-UNK LOCOMOTION: WALK: Activity did not occur on this shift LOCOMOTION: WALK - SCORE: 0-UNK LOCOMOTION: WHEELCHAIR: Activity did not occur on this shift LOCOMOTION: WHEELCHAIR - SCORE: 0-UNK COMPREHENSION: COMPREHENSION: TYPE: Both COMPREHENSION - STEP 1: Does the patient require help from a person or device, or need extra time to understand complex and a bstract ideas (such as current events, finances, discharge planning, medical issues, relationships, e tc)? No. COMPREHENSION - STEP 2: Does the patient need extra time, require an assistive device (such as glasses for visual comprehensi on or a hearing aid for auditory comprehension) or does s/he have mild difficulty understanding compl ex and abstract information? Yes. COMPREHENSION - SCORE: 6-HARDY EXPRESSION EXPRESSION: TYPE: Both EXPRESSION - STEP 1: Does the patient require help from a person or device, or need extra time expressing complex and abst ract ideas (such as current events, finances, discharge planning, medical issues, relationships, etc) ? Yes. EXPRESSION - STEP 2: Does the patient require help to express basic necessities or ideas (such as hunger, thirst, sleep, s afety, daily schedule, room location, or discomfort) half or more of the time? No. EXPRESSION - STEP 3: How often does the patient need help to express directions and conversation about basic needs? Less t caicedo 10% of the time EXPRESSION - SCORE: 5-SUP SOCIAL INTERACTION: SOCIAL INTERACTION - STEP 1: Does the patient require a helper to interact with others in social and therapeutic situations? No. SOCIAL INTERACTION - STEP 2: Does the patient need extra time in social situations, OR does s/he interact with staff, other patien ts, and family members ONLY in structured environments, OR does s/he require medication for social in teraction? Yes, patient needs extra time SOCIAL INTERACTION - SCORE: 6-HARDY PROBLEM SOLVING: PROBLEM SOLVING - STEP 1: Does the patient need help from a person or device, or need extra time to solve complex problems such as managing a checking account or confronting interpersonal problems? No. PROBLEM SOLVING - STEP 2: Does the patient require extra time to make decisions or solve problems, OR does s/he have slight dif ficulty reading, initiating, or self-correcting in unfamiliar situations? Yes, patient needs extra ti me. PROBLEM SOLVING - SCORE: 6-HARDY MEMORY: MEMORY - STEP 1: Does the patient need help from a person or device, or need extra time to remember frequently encount ered people, daily routines, and executing requests? No. MEMORY - STEP 2: Does the patient have slight difficulty recognizing frequently encountered people, daily routines, or executing requests without the need for repetition or using self-initiated or environmental cues to remember? Yes. MEMORY - SCORE: 6-HARDY SIGNATURE PANEL: The following modified sections: Eating - Score, Grooming - Score, Bathing - Score, Dressing - Upper Body - Score, Dressing - Lower Body - Score, Toileting - Score, Bladder Management - Score, Bowel Man agement - Score, Transfers: Bed, Chair, Wheelchair - Score, Transfers: Toilet - Score, Transfers: Janine wer - Score, Transfers: Tub - Score, Locomotion: Walk - Score, Locomotion: Wheelchair - Score, Compre hension - Score, Expression - Score, Social Interaction - Score, Problem Solving - Score, Memory - Sc ore were [electronically] signed by Carlee Chavez C.N.A. on MonMay 25 2018 13:27:06 GMT-0600 (Centra l Standard Time)
[2018-05-25] MEDS: ROPINIROLE HCL 0.25 MG TAB PO SCH (17:01)
--- NOTE | 2018-05-25 18:27 | R.PN ---
ENCOUNTER DATE AND TIME: 05/25/2018 18:23 (SALES COORDINATOR) NAME JYOTI COFFMAN DATE OF : 1950 DATE OF ADMISSION: 05/22/2018 16:02 (SALES COORDINATOR) CADCHI COMPLAINT: Cardiac debility SUBJECTIVE: Pt denied any Shortness of Breath. Pt denied any depression. Labs have been reviewed and are stable. Making good progress with physical and occupational therapy. She reports insomnia since her C-PAP was not reinstated post hospitalization. Will restart C-PAP for obstructive sleep apnea. VITAL SIGNS Temperature: 98.3 F SBP/DBP: 111/57 Pulse: 81 Resp: 18 MEDICATION ALLERGIES: Demerol Iodine and Iodide containing products ENVIRONMENTAL ALLERGIES: Shrimp - Substance Allergies None Known - Other Allergies None Known NURSING: - Shower allowing shower - Lab Results blood Sugar Check ACHS ACTIVITIES OOB only with supervision THERAPIES: - Occupational Therapy Evaluate and Treat. - Physical Therapy Evaluate and Treat. PHYSICAL EXAM - Gen Alert and awake Lying in bed No apparent distress Oriented to: person, time, and place - Skin No breakdown No abnormalities - Eyes No abnormalities - ENMT No abnormalities - Neck No abnormalities - CVS RRR - Chest Mildly decreased breath sounds bilaterally. - Resp Bilateral congestion. - Abd +bowel sounds - GI Soft Deferred - No abnormalities - Ext Mild to moderate edema in both lower extremities. - MSK 4+/5 weakness in both lower extremities. 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 Incentive spirometry is being used. ASSESSMENT: Pt. is a 67 yo Right-handed white female.On 04/27/2018 she was admitted to [facility] with diagnosis CAD.Her impairment category is Cardiac 09 - Cardiac Disorders (09).Pre-morbidly, Pt. was independent/mod-I in Communication, Social Cognition, Self-Care, Locomotion, Sphincter Contro l, and Transfers Control; and she had good Sphincter Control.Currently, she has deficits of Balance, Locomotion, Endurance, Safety Awareness, Transfers Control, and Self-Care.Pt. is now referred to [facility] for acute in-patient rehabilitation in order to maximize patient's func tional independence in activities of daily living, strength, ROM, and mobility.- Rehab Goal Patient has realistic goal of being discharged at assistance level 6-Gordo to reside at Home with Fam iris/Relatives. MDM/PLAN: - Physical Therapy Gait dysfunction - to improve, our physical therapists will perform initial evaluation of pt's statu s upon admission and devise an individualized program for Gait Training, and Wheel Chair mobility Inability to transfer - to improve, our physical therapists will perform initial evaluation of pt's status upon admission and devise an individualized program for Bed mobility Need for home safety evaluation - to improve, our physical therapists will perform initial evaluatio n of pt's status upon admission and devise an individualized program for Home Evaluation Need in caregiver upon discharge - to improve, our physical therapists will perform initial evaluati on of pt's status upon admission and devise an individualized program for Caregiver Training Edema - to improve, our physical therapists will perform initial evaluation of pt's status upon admis karli and devise an individualized program for Elevation Training, and Lymphedema Therapy New precaution - to improve, our physical therapists will perform initial evaluation of pt's status upon admission and devise an individualized program for Patient precaution education Poor balance - to improve, our physical therapists will perform initial evaluation of pt's status up on admission and devise an individualized program for Balance Training Poor endurance - to improve, our physical therapists will perform initial evaluation of pt's status upon admission and devise an individualized program for Endurance Training Weakness - to improve, our physical therapists will perform initial evaluation of pt's status upon a dmission and devise an individualized program for Aquatic Therapy, Neuromuscular Reeducation, and Str engthening Achieving independence - to improve, our physical therapists will perform initial evaluation of pt's status upon admission and devise an individualized program for Community Reintegration Activities - Occupational Therapy ADL deficits - to improve, our occupation therapists will perform initial evaluation of pt's status upon admission and devise an individualized program for Bathing, Bed mobility, Community Reintegratio n, Cooking, Dressing, Eating, Fine Motor Skills, Grooming, Homemaking, Kitchen Mobility, Laundry, Pat ient Education, Safety Awareness, Splinting - Positioning, Transfers(Toilet, Tub, Shower), and Wheel Chair Management Need for critical care physician assistant - to improve, our occupation therapists will perform initial evaluation of pt's status upon admission and devise an individualized program for Caregiver Training Weakness - to improve, our occupation therapists will perform initial evaluation of pt's status upon admission and devise an individualized program for Aquatic Therapy, Balance, Endurance, UE ROM, and UE strengthening - Diet Type Continue Regular - Diet - Liquid Texture Continue Regular - Tube Feed Continue N/A - Lab Results blood Sugar Check ACHS - Diet - Solid Texture Continue Regular - Shower allowing shower FUNCTIONAL STATUS: UPDATED AT WEEKLY TEAM CONFERENCE - Bladder Same accident frequency: 7-Ind - No accidents in the past 7 days - Bowel Same accident frequency: 7-Ind - No accidents in the past 7 days - Walking Same score based on distance walked: 3(>=150ft) - Wheelchair Same score based on distance traveled: 0(N/A) FUNCTIONAL STATUS: - Self-Care A. Eating Ind B. Grooming Ind C. Bathing Martita D. Dressing - Upper Martita E. Dressing - Lower Martita F. Toileting Martita - Sphincter Control G: Bladder control Ind H: Bowel control Ind - Transfers Control I. Bed/Chair/Wheelchair modA J. Toilet modA K. Tub/Shower ADNO - Locomotion L. Walk/Wheelchair (C) Martita L. Walk/Wheelchair (W) Martita M. Stairs ADNO - Communication N. Comprehension (B) Ind O. Expression (B) Ind - Social Cognition P. Social Interaction Ind Q. Problem Solving Ind R. Memory Ind - Endurance Fair - Balance Fair - Safety Awareness Fair CURRENT FUNC. DEFICITS: Balance, Locomotion, Endurance, Safety Awareness, Transfers Control, and Self-Care SIGNATURE PANEL: ([facility])
[2018-05-25] MEDS: MONTELUKAST 10 MG TAB PO SCH (20:24)
[2018-05-25] MEDS: CRANBERRY FRUIT EXTRACT 200 MG CAP PO SCH (20:24)
[2018-05-25] MEDS: ATORVASTATIN 40 MG TAB PO SCH (20:25)
[2018-05-25] MEDS: LOSARTAN POTASSIUM 50 MG TABLET PO SCH (20:25)
[2018-05-25] MEDS: ZOLPIDEM TARTRATE 10 MG TABLET PO SCH (20:29)
[2018-05-26] MEDS: IPRATROPIUM BROM 0.5MG/2.5ML NEB SCH ×4 (02:00→19:40)
[2018-05-26] MEDS: PANTOPRAZOLE 40MG TABLET PO SCH (05:07)
[2018-05-26] MEDS: LEVOTHYROXINE SOD 0.1 MG TAB PO SCH (05:08)
[2018-05-26] MEDS: INSULIN -REGULAR HUMAN 50 UNIT/0.5 ML ML SQ SCH ×4 (07:30→20:58)
[2018-05-26] MEDS: GLUCERNA SHAKE 237 ML CAN PO SCH ×2 (08:00→20:56)
[2018-05-26] MEDS: MEDIHONEY 44 ML TOPICAL TUBE TOP SCH (08:55)
[2018-05-26] MEDS: FE SULF/FA/VIT B COMP & C TAB PO SCH (08:56)
[2018-05-26] MEDS: GABAPENTIN 100 MG CAP PO SCH ×2 (08:56→20:58)
[2018-05-26] MEDS: FERROUS SULFATE 325 MG TAB PO SCH (08:56)
[2018-05-26] MEDS: TORSEMIDE 20 MG TAB PO SCH ×2 (08:56→17:12)
[2018-05-26] MEDS: MAGNESIUM OXIDE 400 MG TAB PO SCH ×2 (08:56→20:55)
[2018-05-26] MEDS: CRANBERRY FRUIT EXTRACT 200 MG CAP PO SCH ×2 (08:56→20:55)
[2018-05-26] MEDS: DOCUSATE NA/SENNA CONC 1 TAB PO SCH ×2 (08:56→20:56)
[2018-05-26] MEDS: AMIODARONE HCL 200 MG TAB PO SCH (08:57)
[2018-05-26] MEDS: RIVAROXABAN 15 MG TABLET PO SCH ×2 (08:57→20:55)
[2018-05-26] MEDS: TRADJENTA 5 MG PO SCH (09:01)
[2018-05-26] MEDS: INSULIN GLARGINE 100 UNITS/ML SQ SCH ×2 (09:02→20:57)
[2018-05-26] MEDS: PROMOD 30 ML DOSE PO SCH ×2 (09:03→20:00)
[2018-05-26] MEDS: METOPROLOL XL 25 MG TAB PO SCH (10:52)
--- NOTE | 2018-05-26 13:35 | FAST ---
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 Leland Monroe M.D. ADMISSION DIAGNOSIS: - Cardiac 09 - Cardiac Disorders () CAD. EATING: EATING - STEP 1: Does the patient require the assistance of a person or device, or need extra time when eating? Yes. EATING - STEP 2: Does the patient require the assistance of a helper? No, patient only requires an assistive device, O R s/he takes more than reasonable time to eat, OR there is a safety concern, OR s/he requires modifie d food consistency EATING - SCORE: 6-HARDY GROOMING: Comb/brush hair Oral care GROOMING - STEP 1: Does the patient require the assistance of a person or device, or need extra time when grooming? Yes. GROOMING - STEP 2: Does the patient require the assistance of a helper? No. The patient only requires an assistive devic e, OR takes more than reasonable time to groom, OR there is a concern for safety as the patient groom s GROOMING - SCORE: 6-HARDY BATHING: Activity did not occur on this shift BATHING - SCORE: 0-UNK DRESSING - UPPER BODY: Activity did not occur on this shift ARTICLES SCORE Total number of steps: 0 DRESSING - UPPER BODY - SCORE: 0-UNK DRESSING - LOWER BODY: Activity did not occur on this shift ARTICLES SCORE Total number of steps: 0 DRESSING - LOWER BODY - SCORE: 0-UNK TOILETING: TOILETING - STEP 1: Does the patient require the assistance of a person or device, or need extra time with toileting? Yes . TOILETING - STEP 2: Does the patient require the assistance of a helper? Yes. TOILETING - STEP 3: How much assistance does the patient require from the helper? Only supervision TOILETING - SCORE: 5-SUP BLADDER MANAGEMENT: BLADDER MANAGEMENT - STEP 1: Does the patient control the bladder completely and intentionally without equipment or devices or med ications, and is always continent? Yes. BLADDER MANAGEMENT - SCORE: 7-IND BOWEL MANAGEMENT: Activity did not occur on this shift BOWEL MANAGEMENT - SCORE: 7-IND TRANSFERS: BED, CHAIR, WHEELCHAIR: TRANSFERS: BED, CHAIR, WHEELCHAIR - STEP 1: Does the patient require assistance of a person or device, or need extra time with bed, chair, or whe elchair transfers? Yes. TRANSFERS: BED, CHAIR, WHEELCHAIR - STEP 2: Does the patient require the assistance of a helper? Yes. TRANSFERS: BED, CHAIR, WHEELCHAIR - STEP 3: How much assistance does the patient require from the helper? Only supervision TRANSFERS: BED, CHAIR, WHEELCHAIR - SCORE: 5-SUP TRANSFERS: TOILET: TRANSFERS: TOILET - STEP 1: Does the patient require the assistance of a person or device, or need extra time with toilet transfe rs? Yes. TRANSFERS: TOILET - STEP 2: Does the patient require the assistance of a helper? Yes. TRANSFERS: TOILET - STEP 3: How much assistance does the patient require from the helper? Only supervision, cuing, coaxing, OR he lp to set out transfer equipment or to lock brakes and/or lift foot rests TRANSFERS: TOILET - SCORE: 5-SUP TRANSFERS: SHOWER: Activity did not occur on this shift TRANSFERS: SHOWER - SCORE: 0-UNK TRANSFERS: TUB: Activity did not occur on this shift TRANSFERS: TUB - SCORE: 0-UNK LOCOMOTION: WALK: Activity did not occur on this shift LOCOMOTION: WALK - SCORE: 0-UNK LOCOMOTION: WHEELCHAIR: Activity did not occur on this shift LOCOMOTION: WHEELCHAIR - SCORE: 0-UNK COMPREHENSION: COMPREHENSION: TYPE: Both COMPREHENSION - STEP 1: Does the patient require help from a person or device, or need extra time to understand complex and a bstract ideas (such as current events, finances, discharge planning, medical issues, relationships, e tc)? No. COMPREHENSION - STEP 2: Does the patient need extra time, require an assistive device (such as glasses for visual comprehensi on or a hearing aid for auditory comprehension) or does s/he have mild difficulty understanding compl ex and abstract information? Yes. COMPREHENSION - SCORE: 6-HARDY EXPRESSION EXPRESSION: TYPE: Both EXPRESSION - STEP 1: Does the patient require help from a person or device, or need extra time expressing complex and abst ract ideas (such as current events, finances, discharge planning, medical issues, relationships, etc) ? No. EXPRESSION - STEP 2: Does the patient need extra time, require an assistive device (such as augmentive communication syste m or a communication board), OR does s/he have mild difficulty expressing complex and abstract ideas (including mild dysarthria or mild word-find problems)? Yes. EXPRESSION - SCORE: 6-HARDY SOCIAL INTERACTION: SOCIAL INTERACTION - STEP 1: Does the patient require a helper to interact with others in social and therapeutic situations? No. SOCIAL INTERACTION - STEP 2: Does the patient need extra time in social situations, OR does s/he interact with staff, other patien ts, and family members ONLY in structured environments, OR does s/he require medication for social in teraction? Yes, patient needs extra time SOCIAL INTERACTION - SCORE: 6-HARDY PROBLEM SOLVING: PROBLEM SOLVING - STEP 1: Does the patient need help from a person or device, or need extra time to solve complex problems such as managing a checking account or confronting interpersonal problems? No. PROBLEM SOLVING - STEP 2: Does the patient require extra time to make decisions or solve problems, OR does s/he have slight dif ficulty reading, initiating, or self-correcting in unfamiliar situations? Yes, patient needs extra ti me. PROBLEM SOLVING - SCORE: 6-HARDY MEMORY: MEMORY - STEP 1: Does the patient need help from a person or device, or need extra time to remember frequently encount ered people, daily routines, and executing requests? No. MEMORY - STEP 2: Does the patient have slight difficulty recognizing frequently encountered people, daily routines, or executing requests without the need for repetition or using self-initiated or environmental cues to remember? Yes. MEMORY - SCORE: 6-HARDY SIGNATURE PANEL: The following modified sections: Eating - Score, Grooming - Score, Bathing - Score, Dressing - Upper Body - Score, Dressing - Lower Body - Score, Toileting - Score, Bladder Management - Score, Bowel Man agement - Score, Transfers: Bed, Chair, Wheelchair - Score, Transfers: Toilet - Score, Transfers: Janine wer - Score, Transfers: Tub - Score, Locomotion: Walk - Score, Locomotion: Wheelchair - Score, Compre hension - Score, Expression - Score, Social Interaction - Score, Problem Solving - Score, Memory - Sc ore were [electronically] signed by Mohsen Perez on Sat May 26 2018 13:34:53 GMT-0600 (Central Standard Time)
--- NOTE | 2018-05-26 16:05 | FAST ---
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 Leland Monroe M.D. ADMISSION DIAGNOSIS: - Cardiac 09 - Cardiac Disorders () CAD. EATING: Activity did not occur on this shift EATING - SCORE: 0-UNK GROOMING: Comb/brush hair Wash, rinse, and dry hands GROOMING - STEP 1: Does the patient require the assistance of a person or device, or need extra time when grooming? No. GROOMING - SCORE: 7-IND BATHING: Activity did not occur on this shift BATHING - SCORE: 0-UNK DRESSING - UPPER BODY: T-shirt/pullover shirt (four steps) ARTICLES SCORE Total number of steps: 4 DRESSING - UPPER BODY - STEP 1: Does the patient require help from a person or device, or need extra time when dressing above the tomas st? Yes. DRESSING - UPPER BODY - STEP 2: Does the patient require the assistance of a helper? Yes. DRESSING - UPPER BODY - STEP 3: Does the helper touch the patient while dressing? Yes. DRESSING - UPPER BODY - STEP 4: How many of the total steps does the patient complete on his/her own? 3 DRESSING - UPPER BODY - SCORE: 4-MIN DRESSING - LOWER BODY: Elastic waist pants (three steps) Sock - Left foot (one step) Sock - Right foot (one step) ARTICLES SCORE Total number of steps: 5 DRESSING - LOWER BODY - STEP 1: Does the patient require help from a person or device, or need extra time when dressing below the tomas st? Yes. DRESSING - LOWER BODY - STEP 2: Does the patient require the assistance of a helper? Yes. DRESSING - LOWER BODY - STEP 3: Does the helper touch the patient while dressing? Yes. DRESSING - LOWER BODY - STEP 4: How many of the total steps does the patient complete on his/her own? 4 DRESSING - LOWER BODY - SCORE: 4-MIN TOILETING: TOILETING - STEP 1: Does the patient require the assistance of a person or device, or need extra time with toileting? Yes . TOILETING - STEP 2: Does the patient require the assistance of a helper? Yes. TOILETING - STEP 3: How much assistance does the patient require from the helper? Hands-on assistance from the helper TOILETING - STEP 4: Of the 3 tasks: 1) Adjusting clothing prior to use, 2) Cleansing of perineal area, 3) Adjusting clot michaela after use; How many tasks does the patient perform WITHOUT assistance of the helper? Two tasks TOILETING - SCORE: 3-MOD BLADDER MANAGEMENT: Activity did not occur on this shift BLADDER MANAGEMENT - SCORE: 7-IND BOWEL MANAGEMENT: Activity did not occur on this shift BOWEL MANAGEMENT - SCORE: 7-IND TRANSFERS: BED, CHAIR, WHEELCHAIR: Activity did not occur on this shift TRANSFERS: BED, CHAIR, WHEELCHAIR - SCORE: 0-UNK TRANSFERS: TOILET: TRANSFERS: TOILET - STEP 1: Does the patient require the assistance of a person or device, or need extra time with toilet transfe rs? Yes. TRANSFERS: TOILET - STEP 2: Does the patient require the assistance of a helper? Yes. TRANSFERS: TOILET - STEP 3: How much assistance does the patient require from the helper? Patient performs half or more of the tr ansferring tasks TRANSFERS: TOILET - STEP 4: Does the patient need only incidental help such as contact guard or steadying during toilet transfer? Yes. TRANSFERS: TOILET - SCORE: 4-MIN TRANSFERS: SHOWER: Activity did not occur on this shift TRANSFERS: SHOWER - SCORE: 0-UNK TRANSFERS: TUB: Activity did not occur on this shift TRANSFERS: TUB - SCORE: 0-UNK LOCOMOTION: WALK: Activity did not occur on this shift LOCOMOTION: WALK - SCORE: 0-UNK LOCOMOTION: WHEELCHAIR: Activity did not occur on this shift LOCOMOTION: WHEELCHAIR - SCORE: 0-UNK LOCOMOTION: STAIRS: Activity did not occur on this shift LOCOMOTION: STAIRS - SCORE: 0-UNK COMPREHENSION: COMPREHENSION: TYPE: Both COMPREHENSION - STEP 1: Does the patient require help from a person or device, or need extra time to understand complex and a bstract ideas (such as current events, finances, discharge planning, medical issues, relationships, e tc)? No. COMPREHENSION - STEP 2: Does the patient need extra time, require an assistive device (such as glasses for visual comprehensi on or a hearing aid for auditory comprehension) or does s/he have mild difficulty understanding compl ex and abstract information? Yes. COMPREHENSION - SCORE: 6-HARDY EXPRESSION EXPRESSION: TYPE: Vocal EXPRESSION - STEP 1: Does the patient require help from a person or device, or need extra time expressing complex and abst ract ideas (such as current events, finances, discharge planning, medical issues, relationships, etc) ? No. EXPRESSION - STEP 2: Does the patient need extra time, require an assistive device (such as augmentive communication syste m or a communication board), OR does s/he have mild difficulty expressing complex and abstract ideas (including mild dysarthria or mild word-find problems)? No. EXPRESSION - SCORE: 7-IND SOCIAL INTERACTION: SOCIAL INTERACTION - STEP 1: Does the patient require a helper to interact with others in social and therapeutic situations? No. SOCIAL INTERACTION - STEP 2: Does the patient need extra time in social situations, OR does s/he interact with staff, other patien ts, and family members ONLY in structured environments, OR does s/he require medication for social in teraction? No. SOCIAL INTERACTION - SCORE: 7-IND PROBLEM SOLVING: PROBLEM SOLVING - STEP 1: Does the patient need help from a person or device, or need extra time to solve complex problems such as managing a checking account or confronting interpersonal problems? No. PROBLEM SOLVING - STEP 2: Does the patient require extra time to make decisions or solve problems, OR does s/he have slight dif ficulty reading, initiating, or self-correcting in unfamiliar situations? No. PROBLEM SOLVING - SCORE: 7-IND MEMORY: MEMORY - STEP 1: Does the patient need help from a person or device, or need extra time to remember frequently encount ered people, daily routines, and executing requests? No. MEMORY - STEP 2: Does the patient have slight difficulty recognizing frequently encountered people, daily routines, or executing requests without the need for repetition or using self-initiated or environmental cues to remember? Yes. MEMORY - SCORE: 6-HARDY SIGNATURE PANEL: The following modified sections: Eating - Score, Grooming - Score, Bathing - Score, Dressing - Upper Body - Score, Dressing - Lower Body - Score, Toileting - Score, Transfers: Bed, Chair, Wheelchair - S core, Transfers: Toilet - Score, Transfers: Shower - Score, Transfers: Tub - Score, Comprehension - S core, Expression - Score, Social Interaction - Score, Problem Solving - Score, Memory - Score were [e lectronically] signed by Mary Gandhi OT on Sat May 26 2018 16:04:56 GMT-0600 ([place])
[2018-05-26] MEDS: ROPINIROLE HCL 0.25 MG TAB PO SCH (17:12)
[2018-05-26] MEDS: MONTELUKAST 10 MG TAB PO SCH (20:55)
[2018-05-26] MEDS: ATORVASTATIN 40 MG TAB PO SCH (20:55)
[2018-05-26] MEDS: ZOLPIDEM TARTRATE 10 MG TABLET PO SCH (20:56)
[2018-05-26] MEDS: LOSARTAN POTASSIUM 50 MG TABLET PO SCH (20:56)
[2018-05-27] MEDS: LORAZEPAM 0.5 MG TABLET PO PRN ×2 (01:40→22:52)
[2018-05-27] MEDS: IPRATROPIUM BROM 0.5MG/2.5ML NEB SCH ×4 (01:57→20:33)
[2018-05-27] MEDS: LEVOTHYROXINE SOD 0.1 MG TAB PO SCH (05:02)
[2018-05-27] MEDS: PANTOPRAZOLE 40MG TABLET PO SCH (05:02)
[2018-05-27] MEDS: INSULIN -REGULAR HUMAN 50 UNIT/0.5 ML ML SQ SCH ×4 (07:30→20:21)
[2018-05-27] MEDS: PROMOD 30 ML DOSE PO SCH ×2 (08:00→20:00)
[2018-05-27] MEDS: GLUCERNA SHAKE 237 ML CAN PO SCH ×2 (08:00→20:19)
[2018-05-27] MEDS: AMIODARONE HCL 200 MG TAB PO SCH (08:44)
[2018-05-27] MEDS: DOCUSATE NA/SENNA CONC 1 TAB PO SCH ×2 (08:44→20:18)
[2018-05-27] MEDS: FE SULF/FA/VIT B COMP & C TAB PO SCH (08:44)
[2018-05-27] MEDS: TRADJENTA 5 MG PO SCH (08:44)
[2018-05-27] MEDS: MAGNESIUM OXIDE 400 MG TAB PO SCH ×2 (08:45→20:18)
[2018-05-27] MEDS: FERROUS SULFATE 325 MG TAB PO SCH (08:45)
[2018-05-27] MEDS: TORSEMIDE 20 MG TAB PO SCH ×2 (08:45→16:39)
[2018-05-27] MEDS: RIVAROXABAN 15 MG TABLET PO SCH ×2 (08:45→20:19)
[2018-05-27] MEDS: CRANBERRY FRUIT EXTRACT 200 MG CAP PO SCH ×2 (08:45→20:18)
[2018-05-27] MEDS: GABAPENTIN 100 MG CAP PO SCH ×2 (08:45→20:18)
[2018-05-27] MEDS: METOPROLOL XL 25 MG TAB PO SCH (08:45)
[2018-05-27] MEDS: INSULIN GLARGINE 100 UNITS/ML SQ SCH ×2 (08:46→20:19)
[2018-05-27] MEDS: MEDIHONEY 44 ML TOPICAL TUBE TOP SCH (08:46)
--- NOTE | 2018-05-27 11:31 | FAST ---
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 Leland Monroe M.D. ADMISSION DIAGNOSIS: - Cardiac 09 - Cardiac Disorders () CAD. EATING: EATING - STEP 1: Does the patient require the assistance of a person or device, or need extra time when eating? Yes. EATING - STEP 2: Does the patient require the assistance of a helper? No, patient only requires an assistive device, O R s/he takes more than reasonable time to eat, OR there is a safety concern, OR s/he requires modifie d food consistency EATING - SCORE: 6-HARDY GROOMING: Comb/brush hair Oral care GROOMING - STEP 1: Does the patient require the assistance of a person or device, or need extra time when grooming? Yes. GROOMING - STEP 2: Does the patient require the assistance of a helper? No. The patient only requires an assistive devic e, OR takes more than reasonable time to groom, OR there is a concern for safety as the patient groom s GROOMING - SCORE: 6-HARDY BATHING: Activity did not occur on this shift BATHING - SCORE: 0-UNK DRESSING - UPPER BODY: Patient is not dressing in public clothing ARTICLES SCORE Total number of steps: 0 DRESSING - UPPER BODY - SCORE: 0-UNK DRESSING - LOWER BODY: Patient is not dressing in public clothing ARTICLES SCORE Total number of steps: 0 DRESSING - LOWER BODY - SCORE: 0-UNK TOILETING: TOILETING - STEP 1: Does the patient require the assistance of a person or device, or need extra time with toileting? Yes . TOILETING - STEP 2: Does the patient require the assistance of a helper? Yes. TOILETING - STEP 3: How much assistance does the patient require from the helper? Only supervision TOILETING - SCORE: 5-SUP BLADDER MANAGEMENT: BLADDER MANAGEMENT - STEP 1: Does the patient control the bladder completely and intentionally without equipment or devices or med ications, and is always continent? Yes. BLADDER MANAGEMENT - SCORE: 7-IND BOWEL MANAGEMENT: BOWEL MANAGEMENT - STEP 1: Does the patient control bowels completely and intentionally without equipment devices or medications AND is always continent? No. BOWEL MANAGEMENT - STEP 2: Does the patient require the assistance of a helper? No, patient requires medication for control such as stool softeners, suppositories, laxatives, enemas, or OTC medications BOWEL MANAGEMENT - SCORE: 6-HARDY TRANSFERS: BED, CHAIR, WHEELCHAIR: TRANSFERS: BED, CHAIR, WHEELCHAIR - STEP 1: Does the patient require assistance of a person or device, or need extra time with bed, chair, or whe elchair transfers? Yes. TRANSFERS: BED, CHAIR, WHEELCHAIR - STEP 2: Does the patient require the assistance of a helper? Yes. TRANSFERS: BED, CHAIR, WHEELCHAIR - STEP 3: How much assistance does the patient require from the helper? Steadying/guiding assistance TRANSFERS: BED, CHAIR, WHEELCHAIR - SCORE: 4-MIN TRANSFERS: TOILET: TRANSFERS: TOILET - STEP 1: Does the patient require the assistance of a person or device, or need extra time with toilet transfe rs? Yes. TRANSFERS: TOILET - STEP 2: Does the patient require the assistance of a helper? Yes. TRANSFERS: TOILET - STEP 3: How much assistance does the patient require from the helper? Patient performs half or more of the tr ansferring tasks TRANSFERS: TOILET - STEP 4: Does the patient need only incidental help such as contact guard or steadying during toilet transfer? Yes. TRANSFERS: TOILET - SCORE: 4-MIN TRANSFERS: SHOWER: Activity did not occur on this shift TRANSFERS: SHOWER - SCORE: 0-UNK TRANSFERS: TUB: Activity did not occur on this shift TRANSFERS: TUB - SCORE: 0-UNK LOCOMOTION: WALK: Activity did not occur on this shift LOCOMOTION: WALK - SCORE: 0-UNK LOCOMOTION: WHEELCHAIR: Activity did not occur on this shift LOCOMOTION: WHEELCHAIR - SCORE: 0-UNK COMPREHENSION: COMPREHENSION: TYPE: Both COMPREHENSION - STEP 1: Does the patient require help from a person or device, or need extra time to understand complex and a bstract ideas (such as current events, finances, discharge planning, medical issues, relationships, e tc)? No. COMPREHENSION - STEP 2: Does the patient need extra time, require an assistive device (such as glasses for visual comprehensi on or a hearing aid for auditory comprehension) or does s/he have mild difficulty understanding compl ex and abstract information? Yes. COMPREHENSION - SCORE: 6-HARDY EXPRESSION EXPRESSION: TYPE: Both EXPRESSION - STEP 1: Does the patient require help from a person or device, or need extra time expressing complex and abst ract ideas (such as current events, finances, discharge planning, medical issues, relationships, etc) ? No. EXPRESSION - STEP 2: Does the patient need extra time, require an assistive device (such as augmentive communication syste m or a communication board), OR does s/he have mild difficulty expressing complex and abstract ideas (including mild dysarthria or mild word-find problems)? Yes. EXPRESSION - SCORE: 6-HARDY SOCIAL INTERACTION: SOCIAL INTERACTION - STEP 1: Does the patient require a helper to interact with others in social and therapeutic situations? No. SOCIAL INTERACTION - STEP 2: Does the patient need extra time in social situations, OR does s/he interact with staff, other patien ts, and family members ONLY in structured environments, OR does s/he require medication for social in teraction? Yes, patient needs extra time SOCIAL INTERACTION - SCORE: 6-HARDY PROBLEM SOLVING: PROBLEM SOLVING - STEP 1: Does the patient need help from a person or device, or need extra time to solve complex problems such as managing a checking account or confronting interpersonal problems? No. PROBLEM SOLVING - STEP 2: Does the patient require extra time to make decisions or solve problems, OR does s/he have slight dif ficulty reading, initiating, or self-correcting in unfamiliar situations? Yes, patient needs extra ti me. PROBLEM SOLVING - SCORE: 6-HARDY MEMORY: MEMORY - STEP 1: Does the patient need help from a person or device, or need extra time to remember frequently encount ered people, daily routines, and executing requests? No. MEMORY - STEP 2: Does the patient have slight difficulty recognizing frequently encountered people, daily routines, or executing requests without the need for repetition or using self-initiated or environmental cues to remember? Yes. MEMORY - SCORE: 6-HARDY SIGNATURE PANEL: The following modified sections: Eating - Score, Grooming - Score, Bathing - Score, Dressing - Upper Body - Score, Dressing - Lower Body - Score, Toileting - Score, Bladder Management - Score, Bowel Man agement - Score, Transfers: Bed, Chair, Wheelchair - Score, Transfers: Toilet - Score, Transfers: Janine wer - Score, Transfers: Tub - Score, Locomotion: Walk - Score, Locomotion: Wheelchair - Score, Compre hension - Score, Expression - Score, Social Interaction - Score, Problem Solving - Score, Memory - Sc ore were [electronically] signed by Mohsen Perez on MonMay 27 2018 11:29:55 GMT-0600 (Central Standard Time)
[2018-05-27] MEDS ORDERED: D50W 25 GM/50 ML SYRINGE IV PRN (11:46)
[2018-05-27] MEDS ORDERED: GLUCAGON 1 MG/VIAL IM PRN (11:46)
[2018-05-27] MEDS: BENZONATATE 100 MG CAP PO PRN ×2 (16:38→23:25)
[2018-05-27] MEDS: ROPINIROLE HCL 0.25 MG TAB PO SCH (16:39)
[2018-05-27] MEDS: ZOLPIDEM TARTRATE 10 MG TABLET PO SCH (20:17)
[2018-05-27] MEDS: MONTELUKAST 10 MG TAB PO SCH (20:18)
[2018-05-27] MEDS: ATORVASTATIN 40 MG TAB PO SCH (20:19)
[2018-05-27] MEDS: LOSARTAN POTASSIUM 50 MG TABLET PO SCH (20:21)
[2018-05-28] MEDS: IPRATROPIUM BROM 0.5MG/2.5ML NEB SCH ×4 (02:00→19:15)
[2018-05-28 06:10] LABS: Absolute Lymphocytes (CBC) 2.1 K/uL (0.7-4.9); Absolute Monocytes 1.1 K/uL (0.1-1.3); Absolute Neutrophil 3.8 K/uL (1.8-8.0); Eosinophils % 10.5 % (0-4.4); Hematocrit 26.2 % (36.0-45.0); Lymphocytes % 27.2 % (15.3-44.8); MPV 6.4 fL (7.6-11.3); Monocytes % 13.3 % (3.3-12.3); RBC Red Blood Cell Count 3.19 M/uL (3.86-4.86)
[2018-05-28 06:25] LABS: Potassium 4.2 mmol/L (3.5-5.1)
[2018-05-28] MEDS: LEVOTHYROXINE SOD 0.1 MG TAB PO SCH (06:43)
[2018-05-28] MEDS: PANTOPRAZOLE 40MG TABLET PO SCH (06:43)
[2018-05-28] MEDS: INSULIN -REGULAR HUMAN 50 UNIT/0.5 ML ML SQ SCH ×4 (07:30→21:00)
[2018-05-28] MEDS: AMIODARONE HCL 200 MG TAB PO SCH (08:07)
[2018-05-28] MEDS: TRADJENTA 5 MG PO SCH (08:07)
[2018-05-28] MEDS: FE SULF/FA/VIT B COMP & C TAB PO SCH (08:08)
[2018-05-28] MEDS: GABAPENTIN 100 MG CAP PO SCH ×2 (08:09→20:19)
[2018-05-28] MEDS: TORSEMIDE 20 MG TAB PO SCH ×2 (08:09→16:57)
[2018-05-28] MEDS: DOCUSATE NA/SENNA CONC 1 TAB PO SCH ×2 (08:09→20:19)
[2018-05-28] MEDS: RIVAROXABAN 15 MG TABLET PO SCH ×2 (08:09→20:19)
[2018-05-28] MEDS: MAGNESIUM OXIDE 400 MG TAB PO SCH ×2 (08:11→20:19)
[2018-05-28] MEDS: MEDIHONEY 44 ML TOPICAL TUBE TOP SCH (08:11)
[2018-05-28] MEDS: CRANBERRY FRUIT EXTRACT 200 MG CAP PO SCH ×2 (08:11→20:19)
[2018-05-28] MEDS: INSULIN GLARGINE 100 UNITS/ML SQ SCH ×2 (08:40→21:00)
[2018-05-28] MEDS: PROMOD 30 ML DOSE PO SCH ×2 (08:41→20:00)
[2018-05-28] MEDS: TRAMADOL HCL 50 MG TAB PO PRN (08:47)
--- NOTE | 2018-05-28 09:00 | FAST ---
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 Leland Monroe M.D. ADMISSION DIAGNOSIS: - Cardiac 09 - Cardiac Disorders () CAD. EATING: EATING - STEP 1: Does the patient require the assistance of a person or device, or need extra time when eating? No. EATING - SCORE: 7-IND GROOMING: GROOMING - STEP 1: Does the patient require the assistance of a person or device, or need extra time when grooming? No. GROOMING - SCORE: 7-IND BATHING: Abdomen Buttocks Chest Left arm Left lower leg and foot Left upper leg Perineal area Right arm Right lower leg and foot Right upper leg BATHING - STEP 1: Does the patient require the assistance of a person or device, or need extra time when bathing? Yes. BATHING - STEP 2: Does the patient require the assistance of a helper? Yes. BATHING - STEP 3: How much assistance does the patient require from the helper? Only incidental help such as placement of a wash cloth in his/her hand a few times as s/he bathes OR help to bathe just one or two areas of the body BATHING - SCORE: 4-MIN DRESSING - UPPER BODY: T-shirt/pullover shirt (four steps) ARTICLES SCORE Total number of steps: 4 DRESSING - UPPER BODY - STEP 1: Does the patient require help from a person or device, or need extra time when dressing above the tomas st? Yes. DRESSING - UPPER BODY - STEP 2: Does the patient require the assistance of a helper? Yes. DRESSING - UPPER BODY - STEP 3: Does the helper touch the patient while dressing? No. DRESSING - UPPER BODY - SCORE: 5-SUP DRESSING - LOWER BODY: Elastic waist pants (three steps) Sock - Left foot (one step) Sock - Right foot (one step) Underwear (three steps) ARTICLES SCORE Total number of steps: 8 DRESSING - LOWER BODY - STEP 1: Does the patient require help from a person or device, or need extra time when dressing below the tomas st? Yes. DRESSING - LOWER BODY - STEP 2: Does the patient require the assistance of a helper? Yes. DRESSING - LOWER BODY - STEP 3: Does the helper touch the patient while dressing? Yes. DRESSING - LOWER BODY - STEP 4: How many of the total steps does the patient complete on his/her own? 8 DRESSING - LOWER BODY - SCORE: 4-MIN TOILETING: Activity did not occur on this shift TOILETING - SCORE: 0-UNK BLADDER MANAGEMENT: Activity did not occur on this shift BLADDER MANAGEMENT - SCORE: 7-IND BOWEL MANAGEMENT: Activity did not occur on this shift BOWEL MANAGEMENT - SCORE: 7-IND TRANSFERS: BED, CHAIR, WHEELCHAIR: Activity did not occur on this shift TRANSFERS: BED, CHAIR, WHEELCHAIR - SCORE: 0-UNK TRANSFERS: TOILET: Activity did not occur on this shift TRANSFERS: TOILET - SCORE: 0-UNK TRANSFERS: SHOWER: TRANSFERS: SHOWER - STEP 1: Does the patient require the assistance of a person or device, or need extra time with shower transfe rs? Yes. TRANSFERS: SHOWER - STEP 2: Does the patient require the assistance of a helper? Yes. TRANSFERS: SHOWER - STEP 3: How much assistance does the patient require from the helper? Only incidental help such as contact gu arding or steadying during shower transfers, or help to lift one leg into the shower TRANSFERS: SHOWER - SCORE: 4-MIN TRANSFERS: TUB: Activity did not occur on this shift TRANSFERS: TUB - SCORE: 0-UNK LOCOMOTION: WALK: Activity did not occur on this shift LOCOMOTION: WALK - SCORE: 0-UNK LOCOMOTION: WHEELCHAIR: Activity did not occur on this shift LOCOMOTION: WHEELCHAIR - SCORE: 0-UNK LOCOMOTION: STAIRS: Activity did not occur on this shift LOCOMOTION: STAIRS - SCORE: 0-UNK COMPREHENSION: COMPREHENSION: TYPE: Both COMPREHENSION - STEP 1: Does the patient require help from a person or device, or need extra time to understand complex and a bstract ideas (such as current events, finances, discharge planning, medical issues, relationships, e tc)? No. COMPREHENSION - STEP 2: Does the patient need extra time, require an assistive device (such as glasses for visual comprehensi on or a hearing aid for auditory comprehension) or does s/he have mild difficulty understanding compl ex and abstract information? No. COMPREHENSION - SCORE: 7-IND EXPRESSION EXPRESSION: TYPE: Both EXPRESSION - STEP 1: Does the patient require help from a person or device, or need extra time expressing complex and abst ract ideas (such as current events, finances, discharge planning, medical issues, relationships, etc) ? No. EXPRESSION - STEP 2: Does the patient need extra time, require an assistive device (such as augmentive communication syste m or a communication board), OR does s/he have mild difficulty expressing complex and abstract ideas (including mild dysarthria or mild word-find problems)? No. EXPRESSION - SCORE: 7-IND SOCIAL INTERACTION: SOCIAL INTERACTION - STEP 1: Does the patient require a helper to interact with others in social and therapeutic situations? No. SOCIAL INTERACTION - STEP 2: Does the patient need extra time in social situations, OR does s/he interact with staff, other patien ts, and family members ONLY in structured environments, OR does s/he require medication for social in teraction? No. SOCIAL INTERACTION - SCORE: 7-IND PROBLEM SOLVING: PROBLEM SOLVING - STEP 1: Does the patient need help from a person or device, or need extra time to solve complex problems such as managing a checking account or confronting interpersonal problems? No. PROBLEM SOLVING - STEP 2: Does the patient require extra time to make decisions or solve problems, OR does s/he have slight dif ficulty reading, initiating, or self-correcting in unfamiliar situations? No. PROBLEM SOLVING - SCORE: 7-IND MEMORY: MEMORY - STEP 1: Does the patient need help from a person or device, or need extra time to remember frequently encount ered people, daily routines, and executing requests? No. MEMORY - STEP 2: Does the patient have slight difficulty recognizing frequently encountered people, daily routines, or executing requests without the need for repetition or using self-initiated or environmental cues to remember? No. MEMORY - SCORE: 7-IND SIGNATURE PANEL: The following modified sections: Eating - Score, Grooming - Score, Bathing - Score, Dressing - Upper Body - Score, Dressing - Lower Body - Score, Toileting - Score, Transfers: Bed, Chair, Wheelchair - S core, Transfers: Toilet - Score, Transfers: Tub - Score, Transfers: Shower - Score, Comprehension - S core, Expression - Score, Social Interaction - Score, Problem Solving - Score, Memory - Score were [e lectronically] signed by Anna Mcgregor OT on MonMay 28 2018 08:52:07 GMT-0600 (Central Standard T marin)
[2018-05-28] MEDS: METOPROLOL XL 25 MG TAB PO SCH (10:37)
--- NOTE | 2018-05-28 10:41 | RAD REPORT ---
EXAM DESCRIPTION: RAD - Chest Single View - 05/28/2018 7:15 am CLINICAL HISTORY: sob Chest pain. COMPARISON: Chest Single View dated 05/23/2018 FINDINGS: Portable technique limits examination quality. Mild bilateral pleural and parenchymal opacities in the bases are again noted, unchanged. Mild inters titial pulmonary edema is again seen, stable. The heart is mildly enlarged in size with changes of pr ior CABG noted. Dual lead pacer device is present. No displaced fractures. IMPRESSION: Stable chest since 05/23/2018.
[2018-05-28] MEDS: BENZONATATE 100 MG CAP PO PRN ×2 (12:09→21:47)
[2018-05-28] MEDS: FERROUS SULFATE 325 MG TAB PO SCH (12:09)
[2018-05-28] MEDS: GLUCERNA SHAKE 237 ML CAN PO SCH ×2 (12:10→20:00)
--- NOTE | 2018-05-28 14:32 | FAST ---
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 Leland Monroe M.D. ADMISSION DIAGNOSIS: - Cardiac 09 - Cardiac Disorders (09) CAD. EATING: Activity did not occur on this shift EATING - SCORE: 0-UNK GROOMING: Activity did not occur on this shift GROOMING - SCORE: 0-UNK BATHING: Activity did not occur on this shift BATHING - SCORE: 0-UNK DRESSING - UPPER BODY: Activity did not occur on this shift Patient is not dressing in public clothing ARTICLES SCORE Total number of steps: 0 DRESSING - UPPER BODY - SCORE: 0-UNK DRESSING - LOWER BODY: Activity did not occur on this shift Patient is not dressing in public clothing ARTICLES SCORE Total number of steps: 0 DRESSING - LOWER BODY - SCORE: 0-UNK TOILETING: Activity did not occur on this shift TOILETING - SCORE: 0-UNK BLADDER MANAGEMENT: Activity did not occur on this shift BLADDER MANAGEMENT - SCORE: 7-IND BOWEL MANAGEMENT: Activity did not occur on this shift BOWEL MANAGEMENT - SCORE: 7-IND TRANSFERS: BED, CHAIR, WHEELCHAIR: TRANSFERS: BED, CHAIR, WHEELCHAIR - STEP 1: Does the patient require assistance of a person or device, or need extra time with bed, chair, or whe elchair transfers? Yes. TRANSFERS: BED, CHAIR, WHEELCHAIR - STEP 2: Does the patient require the assistance of a helper? Yes. TRANSFERS: BED, CHAIR, WHEELCHAIR - STEP 3: How much assistance does the patient require from the helper? Only supervision TRANSFERS: BED, CHAIR, WHEELCHAIR - SCORE: 5-SUP TRANSFERS: TOILET: Activity did not occur on this shift TRANSFERS: TOILET - SCORE: 0-UNK TRANSFERS: SHOWER: Activity did not occur on this shift TRANSFERS: SHOWER - SCORE: 0-UNK TRANSFERS: TUB: Activity did not occur on this shift TRANSFERS: TUB - SCORE: 0-UNK LOCOMOTION: WALK: LOCOMOTION: WALK - STEP 1: Does the patient need help from a person or device, or need extra time to walk 150 feet? Yes. LOCOMOTION: WALK - STEP 2: How much assistance does the patient require to walk a minimum of 150 feet? Only supervision, cuing, or coaxing LOCOMOTION: WALK - SCORE: 5-SUP LOCOMOTION: WHEELCHAIR: Activity did not occur on this shift LOCOMOTION: WHEELCHAIR - SCORE: 0-UNK LOCOMOTION: STAIRS: Activity did not occur on this shift LOCOMOTION: STAIRS - SCORE: 0-UNK COMPREHENSION: COMPREHENSION - SCORE: 0-UNK EXPRESSION EXPRESSION - SCORE: 0-UNK SOCIAL INTERACTION: SOCIAL INTERACTION - SCORE: 0-UNK PROBLEM SOLVING: PROBLEM SOLVING - SCORE: 0-UNK MEMORY: MEMORY - SCORE: 0-UNK SIGNATURE PANEL: The following modified sections: Transfers: Bed, Chair, Wheelchair - Score, Transfers: Toilet - Score , Locomotion: Walk - Score, Locomotion: Wheelchair - Score, Locomotion: Stairs - Score were [electron cynthia] signed by Rhett Serrano PT on MonMay 28 2018 14:32:26 GMT-0600 (Central Standard Time)
[2018-05-28] MEDS: ROPINIROLE HCL 0.25 MG TAB PO SCH (16:57)
[2018-05-28] MEDS: ATORVASTATIN 40 MG TAB PO SCH (20:19)
[2018-05-28] MEDS: MONTELUKAST 10 MG TAB PO SCH (20:19)
[2018-05-28] MEDS: ZOLPIDEM TARTRATE 10 MG TABLET PO SCH (20:20)
[2018-05-28] MEDS: LOSARTAN POTASSIUM 50 MG TABLET PO SCH (20:34)
[2018-05-28] MEDS: LORAZEPAM 0.5 MG TABLET PO PRN (23:52)
--- NOTE | 2018-05-29 01:06 | FAST ---
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 Leland Monroe M.D. ADMISSION DIAGNOSIS: - Cardiac 09 - Cardiac Disorders () CAD. EATING: Activity did not occur on this shift EATING - SCORE: 0-UNK GROOMING: Activity did not occur on this shift GROOMING - SCORE: 0-UNK BATHING: Activity did not occur on this shift BATHING - SCORE: 0-UNK DRESSING - UPPER BODY: Patient is not dressing in public clothing ARTICLES SCORE Total number of steps: 0 DRESSING - UPPER BODY - SCORE: 0-UNK DRESSING - LOWER BODY: Patient is not dressing in public clothing ARTICLES SCORE Total number of steps: 0 DRESSING - LOWER BODY - SCORE: 0-UNK TOILETING: TOILETING - STEP 1: Does the patient require the assistance of a person or device, or need extra time with toileting? Yes . TOILETING - STEP 2: Does the patient require the assistance of a helper? Yes. TOILETING - STEP 3: How much assistance does the patient require from the helper? Only supervision TOILETING - SCORE: 5-SUP BLADDER MANAGEMENT: BLADDER MANAGEMENT - STEP 1: Does the patient control the bladder completely and intentionally without equipment or devices or med ications, and is always continent? Yes. BLADDER MANAGEMENT - SCORE: 7-IND BOWEL MANAGEMENT: Activity did not occur on this shift BOWEL MANAGEMENT - SCORE: 7-IND TRANSFERS: BED, CHAIR, WHEELCHAIR: TRANSFERS: BED, CHAIR, WHEELCHAIR - STEP 1: Does the patient require assistance of a person or device, or need extra time with bed, chair, or whe elchair transfers? Yes. TRANSFERS: BED, CHAIR, WHEELCHAIR - STEP 2: Does the patient require the assistance of a helper? Yes. TRANSFERS: BED, CHAIR, WHEELCHAIR - STEP 3: How much assistance does the patient require from the helper? Steadying/guiding assistance TRANSFERS: BED, CHAIR, WHEELCHAIR - SCORE: 4-MIN TRANSFERS: TOILET: TRANSFERS: TOILET - STEP 1: Does the patient require the assistance of a person or device, or need extra time with toilet transfe rs? Yes. TRANSFERS: TOILET - STEP 2: Does the patient require the assistance of a helper? Yes. TRANSFERS: TOILET - STEP 3: How much assistance does the patient require from the helper? Only supervision, cuing, coaxing, OR he lp to set out transfer equipment or to lock brakes and/or lift foot rests TRANSFERS: TOILET - SCORE: 5-SUP TRANSFERS: SHOWER: Activity did not occur on this shift TRANSFERS: SHOWER - SCORE: 0-UNK TRANSFERS: TUB: Activity did not occur on this shift TRANSFERS: TUB - SCORE: 0-UNK LOCOMOTION: WALK: Activity did not occur on this shift LOCOMOTION: WALK - SCORE: 0-UNK LOCOMOTION: WHEELCHAIR: Activity did not occur on this shift LOCOMOTION: WHEELCHAIR - SCORE: 0-UNK COMPREHENSION: COMPREHENSION: TYPE: Both COMPREHENSION - STEP 1: Does the patient require help from a person or device, or need extra time to understand complex and a bstract ideas (such as current events, finances, discharge planning, medical issues, relationships, e tc)? No. COMPREHENSION - STEP 2: Does the patient need extra time, require an assistive device (such as glasses for visual comprehensi on or a hearing aid for auditory comprehension) or does s/he have mild difficulty understanding compl ex and abstract information? Yes. COMPREHENSION - SCORE: 6-HARDY EXPRESSION EXPRESSION: TYPE: Both EXPRESSION - STEP 1: Does the patient require help from a person or device, or need extra time expressing complex and abst ract ideas (such as current events, finances, discharge planning, medical issues, relationships, etc) ? No. EXPRESSION - STEP 2: Does the patient need extra time, require an assistive device (such as augmentive communication syste m or a communication board), OR does s/he have mild difficulty expressing complex and abstract ideas (including mild dysarthria or mild word-find problems)? No. EXPRESSION - SCORE: 7-IND SOCIAL INTERACTION: SOCIAL INTERACTION - STEP 1: Does the patient require a helper to interact with others in social and therapeutic situations? No. SOCIAL INTERACTION - STEP 2: Does the patient need extra time in social situations, OR does s/he interact with staff, other patien ts, and family members ONLY in structured environments, OR does s/he require medication for social in teraction? Yes, patient requires medication for social interaction SOCIAL INTERACTION - SCORE: 6-HARDY PROBLEM SOLVING: PROBLEM SOLVING - STEP 1: Does the patient need help from a person or device, or need extra time to solve complex problems such as managing a checking account or confronting interpersonal problems? No. PROBLEM SOLVING - STEP 2: Does the patient require extra time to make decisions or solve problems, OR does s/he have slight dif ficulty reading, initiating, or self-correcting in unfamiliar situations? Yes, patient needs extra ti me. PROBLEM SOLVING - SCORE: 6-HARDY MEMORY: MEMORY - STEP 1: Does the patient need help from a person or device, or need extra time to remember frequently encount ered people, daily routines, and executing requests? No. MEMORY - STEP 2: Does the patient have slight difficulty recognizing frequently encountered people, daily routines, or executing requests without the need for repetition or using self-initiated or environmental cues to remember? Yes. MEMORY - SCORE: 6-HARDY SIGNATURE PANEL: The following modified sections: Eating - Score, Grooming - Score, Dressing - Upper Body - Score, Mario ssing - Lower Body - Score, Toileting - Score, Bladder Management - Score, Bowel Management - Score, Transfers: Bed, Chair, Wheelchair - Score, Transfers: Toilet - Score, Transfers: Shower - Score, [place] sfers: Tub - Score, Locomotion: Walk - Score, Locomotion: Wheelchair - Score, Comprehension - Score, Expression - Score, Social Interaction - Score, Problem Solving - Score, Memory - Score were [electro nically] signed by Andreea Snell CNA on MonMay 29 2018 01:05:05 GMT-0600 (Central Standard Time)
[2018-05-29] MEDS: IPRATROPIUM BROM 0.5MG/2.5ML NEB SCH ×4 (02:00→19:09)
[2018-05-29] MEDS: HYDROCODONE/APAP 5/325 MG TAB PO PRN ×2 (03:36→12:12)
[2018-05-29] MEDS: PANTOPRAZOLE 40MG TABLET PO SCH (05:35)
[2018-05-29] MEDS: LEVOTHYROXINE SOD 0.1 MG TAB PO SCH (05:35)
[2018-05-29] MEDS: INSULIN -REGULAR HUMAN 50 UNIT/0.5 ML ML SQ SCH ×4 (07:30→20:15)
[2018-05-29] MEDS: PROMOD 30 ML DOSE PO SCH ×2 (08:00→20:00)
[2018-05-29] MEDS: TRADJENTA 5 MG PO SCH (08:10)
[2018-05-29] MEDS: CRANBERRY FRUIT EXTRACT 200 MG CAP PO SCH ×2 (08:11→20:12)
[2018-05-29] MEDS: DOCUSATE NA/SENNA CONC 1 TAB PO SCH ×2 (08:11→20:12)
[2018-05-29] MEDS: RIVAROXABAN 15 MG TABLET PO SCH ×2 (08:12→20:12)
[2018-05-29] MEDS: GABAPENTIN 100 MG CAP PO SCH ×2 (08:12→20:12)
[2018-05-29] MEDS: MAGNESIUM OXIDE 400 MG TAB PO SCH ×2 (08:12→20:12)
[2018-05-29] MEDS: TRAMADOL HCL 50 MG TAB PO PRN (08:13)
[2018-05-29] MEDS: INSULIN GLARGINE 100 UNITS/ML SQ SCH ×2 (08:16→20:14)
[2018-05-29] MEDS: TORSEMIDE 20 MG TAB PO SCH ×2 (09:30→17:06)
[2018-05-29] MEDS: BENZONATATE 100 MG CAP PO PRN ×2 (09:33→21:30)
[2018-05-29] MEDS ORDERED: ZOLPIDEM TARTRATE 10 MG TABLET PO PRN (10:20)
[2018-05-29] MEDS: METOPROLOL XL 25 MG TAB PO SCH (12:12)
[2018-05-29] MEDS: MEDIHONEY 44 ML TOPICAL TUBE TOP SCH (12:13)
[2018-05-29] MEDS: GLUCERNA SHAKE 237 ML CAN PO SCH ×2 (12:14→20:12)
[2018-05-29] MEDS: AMIODARONE HCL 200 MG TAB PO SCH (12:17)
[2018-05-29] MEDS: FE SULF/FA/VIT B COMP & C TAB PO SCH (12:17)
[2018-05-29] MEDS: FERROUS SULFATE 325 MG TAB PO SCH (12:17)
--- NOTE | 2018-05-29 14:37 | FAST ---
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 Leland Monroe M.D. ADMISSION DIAGNOSIS: - Cardiac 09 - Cardiac Disorders () CAD. EATING: EATING - STEP 1: Does the patient require the assistance of a person or device, or need extra time when eating? Yes. EATING - STEP 2: Does the patient require the assistance of a helper? No, patient only requires an assistive device, O R s/he takes more than reasonable time to eat, OR there is a safety concern, OR s/he requires modifie d food consistency EATING - SCORE: 6-HARDY GROOMING: Comb/brush hair Oral care Wash, rinse, and dry face Wash, rinse, and dry hands GROOMING - STEP 1: Does the patient require the assistance of a person or device, or need extra time when grooming? Yes. GROOMING - STEP 2: Does the patient require the assistance of a helper? No. The patient only requires an assistive devic e, OR takes more than reasonable time to groom, OR there is a concern for safety as the patient groom s GROOMING - SCORE: 6-HARDY BATHING: Activity did not occur on this shift BATHING - SCORE: 0-UNK DRESSING - UPPER BODY: T-shirt/pullover shirt (four steps) ARTICLES SCORE Total number of steps: 4 DRESSING - UPPER BODY - STEP 1: Does the patient require help from a person or device, or need extra time when dressing above the tomas st? Yes. DRESSING - UPPER BODY - STEP 2: Does the patient require the assistance of a helper? Yes. DRESSING - UPPER BODY - STEP 3: Does the helper touch the patient while dressing? No. DRESSING - UPPER BODY - SCORE: 5-SUP DRESSING - LOWER BODY: Elastic waist pants (three steps) Slip-on shoe - Left foot (one step) Slip-on shoe - Right foot (one step) ARTICLES SCORE Total number of steps: 5 DRESSING - LOWER BODY - STEP 1: Does the patient require help from a person or device, or need extra time when dressing below the tomas st? Yes. DRESSING - LOWER BODY - STEP 2: Does the patient require the assistance of a helper? Yes. DRESSING - LOWER BODY - STEP 3: Does the helper touch the patient while dressing? No. DRESSING - LOWER BODY - SCORE: 5-SUP TOILETING: TOILETING - STEP 1: Does the patient require the assistance of a person or device, or need extra time with toileting? Yes . TOILETING - STEP 2: Does the patient require the assistance of a helper? Yes. TOILETING - STEP 3: How much assistance does the patient require from the helper? Only supervision TOILETING - SCORE: 5-SUP BLADDER MANAGEMENT: BLADDER MANAGEMENT - STEP 1: Does the patient control the bladder completely and intentionally without equipment or devices or med ications, and is always continent? No. BLADDER MANAGEMENT - STEP 2: Does the patient require the assistance of a helper? Yes. BLADDER MANAGEMENT - STEP 3: How much assistance does the patient require from the helper? Only supervision, stand-by, cuing, or c oaxing BLADDER MANAGEMENT - SCORE: 5-SUP BLADDER MANAGEMENT - FREQUENCY OF ACCIDENTS: BLADDER MANAGEMENT(FA) - STEP 1: How many accidents has the patient had during the current shift? 0 BOWEL MANAGEMENT: Activity did not occur on this shift BOWEL MANAGEMENT - SCORE: 7-IND BOWEL MANAGEMENT - FREQUENCY OF ACCIDENTS: BOWEL MANAGEMENT(FA) - STEP 1: How many accidents has the patient had during the current shift? 0 TRANSFERS: BED, CHAIR, WHEELCHAIR: TRANSFERS: BED, CHAIR, WHEELCHAIR - STEP 1: Does the patient require assistance of a person or device, or need extra time with bed, chair, or whe elchair transfers? Yes. TRANSFERS: BED, CHAIR, WHEELCHAIR - STEP 2: Does the patient require the assistance of a helper? Yes. TRANSFERS: BED, CHAIR, WHEELCHAIR - STEP 3: How much assistance does the patient require from the helper? Steadying/guiding assistance TRANSFERS: BED, CHAIR, WHEELCHAIR - SCORE: 4-MIN TRANSFERS: TOILET: TRANSFERS: TOILET - STEP 1: Does the patient require the assistance of a person or device, or need extra time with toilet transfe rs? Yes. TRANSFERS: TOILET - STEP 2: Does the patient require the assistance of a helper? Yes. TRANSFERS: TOILET - STEP 3: How much assistance does the patient require from the helper? Only supervision, cuing, coaxing, OR he lp to set out transfer equipment or to lock brakes and/or lift foot rests TRANSFERS: TOILET - SCORE: 5-SUP TRANSFERS: SHOWER: Activity did not occur on this shift TRANSFERS: SHOWER - SCORE: 0-UNK TRANSFERS: TUB: Activity did not occur on this shift TRANSFERS: TUB - SCORE: 0-UNK LOCOMOTION: WALK: Activity did not occur on this shift LOCOMOTION: WALK - SCORE: 0-UNK LOCOMOTION: WHEELCHAIR: Activity did not occur on this shift LOCOMOTION: WHEELCHAIR - SCORE: 0-UNK COMPREHENSION: COMPREHENSION: TYPE: Both COMPREHENSION - STEP 1: Does the patient require help from a person or device, or need extra time to understand complex and a bstract ideas (such as current events, finances, discharge planning, medical issues, relationships, e tc)? No. COMPREHENSION - STEP 2: Does the patient need extra time, require an assistive device (such as glasses for visual comprehensi on or a hearing aid for auditory comprehension) or does s/he have mild difficulty understanding compl ex and abstract information? Yes. COMPREHENSION - SCORE: 6-HARDY EXPRESSION EXPRESSION: TYPE: Both EXPRESSION - STEP 1: Does the patient require help from a person or device, or need extra time expressing complex and abst ract ideas (such as current events, finances, discharge planning, medical issues, relationships, etc) ? No. EXPRESSION - STEP 2: Does the patient need extra time, require an assistive device (such as augmentive communication syste m or a communication board), OR does s/he have mild difficulty expressing complex and abstract ideas (including mild dysarthria or mild word-find problems)? Yes. EXPRESSION - SCORE: 6-HARDY SOCIAL INTERACTION: SOCIAL INTERACTION - STEP 1: Does the patient require a helper to interact with others in social and therapeutic situations? No. SOCIAL INTERACTION - STEP 2: Does the patient need extra time in social situations, OR does s/he interact with staff, other patien ts, and family members ONLY in structured environments, OR does s/he require medication for social in teraction? Yes, patient needs extra time SOCIAL INTERACTION - SCORE: 6-HARDY PROBLEM SOLVING: PROBLEM SOLVING - STEP 1: Does the patient need help from a person or device, or need extra time to solve complex problems such as managing a checking account or confronting interpersonal problems? No. PROBLEM SOLVING - STEP 2: Does the patient require extra time to make decisions or solve problems, OR does s/he have slight dif ficulty reading, initiating, or self-correcting in unfamiliar situations? Yes, patient needs extra ti me. PROBLEM SOLVING - SCORE: 6-HARDY MEMORY: MEMORY - STEP 1: Does the patient need help from a person or device, or need extra time to remember frequently encount ered people, daily routines, and executing requests? No. MEMORY - STEP 2: Does the patient have slight difficulty recognizing frequently encountered people, daily routines, or executing requests without the need for repetition or using self-initiated or environmental cues to remember? Yes. MEMORY - SCORE: 6-HARDY SIGNATURE PANEL: The following modified sections: Eating - Score, Grooming - Score, Bathing - Score, Dressing - Upper Body - Score, Dressing - Lower Body - Score, Toileting - Score, Bladder Management - Score, Bowel Man agement - Score, Transfers: Bed, Chair, Wheelchair - Score, Transfers: Toilet - Score, Transfers: Janine wer - Score, Transfers: Tub - Score, Locomotion: Walk - Score, Locomotion: Wheelchair - Score, Compre hension - Score, Expression - Score, Social Interaction - Score, Problem Solving - Score, Memory - Sc ore were [electronically] signed by Carlee Chavez C.N.A. on MonMay 29 2018 14:35:42 GMT-0600 (Cent[facility] Standard Time)
[2018-05-29] MEDS: ROPINIROLE HCL 0.25 MG TAB PO SCH (17:06)
[2018-05-29] MEDS: ATORVASTATIN 40 MG TAB PO SCH (20:12)
[2018-05-29] MEDS: MONTELUKAST 10 MG TAB PO SCH (20:12)
[2018-05-29] MEDS: LOSARTAN POTASSIUM 50 MG TABLET PO SCH (20:13)
[2018-05-29] MEDS: TRAZODONE 50 MG TABLET PO PRN (21:32)
[2018-05-30] MEDS: IPRATROPIUM BROM 0.5MG/2.5ML NEB SCH ×4 (02:00→19:38)
--- NOTE | 2018-05-30 02:32 | FAST ---
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 Leland Monroe M.D. ADMISSION DIAGNOSIS: - Cardiac 09 - Cardiac Disorders (09) CAD. EATING: Activity did not occur on this shift EATING - SCORE: 0-UNK GROOMING: Activity did not occur on this shift GROOMING - SCORE: 0-UNK BATHING: Activity did not occur on this shift BATHING - SCORE: 0-UNK DRESSING - UPPER BODY: Patient is not dressing in public clothing ARTICLES SCORE Total number of steps: 0 DRESSING - UPPER BODY - SCORE: 0-UNK DRESSING - LOWER BODY: Patient is not dressing in public clothing ARTICLES SCORE Total number of steps: 0 DRESSING - LOWER BODY - SCORE: 0-UNK TOILETING: TOILETING - STEP 1: Does the patient require the assistance of a person or device, or need extra time with toileting? Yes . TOILETING - STEP 2: Does the patient require the assistance of a helper? Yes. TOILETING - STEP 3: How much assistance does the patient require from the helper? Hands-on assistance from the helper TOILETING - STEP 4: Of the 3 tasks: 1) Adjusting clothing prior to use, 2) Cleansing of perineal area, 3) Adjusting clot michaela after use; How many tasks does the patient perform WITHOUT assistance of the helper? Three tasks with steadying assistance from the helper TOILETING - SCORE: 4-MIN BLADDER MANAGEMENT: BLADDER MANAGEMENT - STEP 1: Does the patient control the bladder completely and intentionally without equipment or devices or med ications, and is always continent? No. BLADDER MANAGEMENT - STEP 2: Does the patient require the assistance of a helper? No, patient only requires extra time BLADDER MANAGEMENT - SCORE: 6-HARDY BOWEL MANAGEMENT: Activity did not occur on this shift BOWEL MANAGEMENT - SCORE: 7-IND TRANSFERS: BED, CHAIR, WHEELCHAIR: TRANSFERS: BED, CHAIR, WHEELCHAIR - STEP 1: Does the patient require assistance of a person or device, or need extra time with bed, chair, or whe elchair transfers? Yes. TRANSFERS: BED, CHAIR, WHEELCHAIR - STEP 2: Does the patient require the assistance of a helper? Yes. TRANSFERS: BED, CHAIR, WHEELCHAIR - STEP 3: How much assistance does the patient require from the helper? Steadying/guiding assistance TRANSFERS: BED, CHAIR, WHEELCHAIR - SCORE: 4-MIN TRANSFERS: TOILET: TRANSFERS: TOILET - STEP 1: Does the patient require the assistance of a person or device, or need extra time with toilet transfe rs? Yes. TRANSFERS: TOILET - STEP 2: Does the patient require the assistance of a helper? Yes. TRANSFERS: TOILET - STEP 3: How much assistance does the patient require from the helper? Only supervision, cuing, coaxing, OR he lp to set out transfer equipment or to lock brakes and/or lift foot rests TRANSFERS: TOILET - SCORE: 5-SUP TRANSFERS: SHOWER: Activity did not occur on this shift TRANSFERS: SHOWER - SCORE: 0-UNK TRANSFERS: TUB: Activity did not occur on this shift TRANSFERS: TUB - SCORE: 0-UNK LOCOMOTION: WALK: Activity did not occur on this shift LOCOMOTION: WALK - SCORE: 0-UNK LOCOMOTION: WHEELCHAIR: Activity did not occur on this shift LOCOMOTION: WHEELCHAIR - SCORE: 0-UNK COMPREHENSION: COMPREHENSION: TYPE: Both COMPREHENSION - STEP 1: Does the patient require help from a person or device, or need extra time to understand complex and a bstract ideas (such as current events, finances, discharge planning, medical issues, relationships, e tc)? No. COMPREHENSION - STEP 2: Does the patient need extra time, require an assistive device (such as glasses for visual comprehensi on or a hearing aid for auditory comprehension) or does s/he have mild difficulty understanding compl ex and abstract information? Yes. COMPREHENSION - SCORE: 6-HARDY EXPRESSION EXPRESSION: TYPE: Both EXPRESSION - STEP 1: Does the patient require help from a person or device, or need extra time expressing complex and abst ract ideas (such as current events, finances, discharge planning, medical issues, relationships, etc) ? No. EXPRESSION - STEP 2: Does the patient need extra time, require an assistive device (such as augmentive communication syste m or a communication board), OR does s/he have mild difficulty expressing complex and abstract ideas (including mild dysarthria or mild word-find problems)? Yes. EXPRESSION - SCORE: 6-HARDY SOCIAL INTERACTION: SOCIAL INTERACTION - STEP 1: Does the patient require a helper to interact with others in social and therapeutic situations? No. SOCIAL INTERACTION - STEP 2: Does the patient need extra time in social situations, OR does s/he interact with staff, other patien ts, and family members ONLY in structured environments, OR does s/he require medication for social in teraction? Yes, patient requires medication for social interaction SOCIAL INTERACTION - SCORE: 6-HARDY PROBLEM SOLVING: PROBLEM SOLVING - STEP 1: Does the patient need help from a person or device, or need extra time to solve complex problems such as managing a checking account or confronting interpersonal problems? No. PROBLEM SOLVING - STEP 2: Does the patient require extra time to make decisions or solve problems, OR does s/he have slight dif ficulty reading, initiating, or self-correcting in unfamiliar situations? Yes, patient needs extra ti me. PROBLEM SOLVING - SCORE: 6-HARDY MEMORY: MEMORY - STEP 1: Does the patient need help from a person or device, or need extra time to remember frequently encount ered people, daily routines, and executing requests? No. MEMORY - STEP 2: Does the patient have slight difficulty recognizing frequently encountered people, daily routines, or executing requests without the need for repetition or using self-initiated or environmental cues to remember? Yes. MEMORY - SCORE: 6-HARDY SIGNATURE PANEL: The following modified sections: Eating - Score, Grooming - Score, Dressing - Upper Body - Score, Mario ssing - Lower Body - Score, Toileting - Score, Bladder Management - Score, Bowel Management - Score, Transfers: Bed, Chair, Wheelchair - Score, Transfers: Toilet - Score, Transfers: Shower - Score, Kent sfers: Tub - Score, Locomotion: Walk - Score, Locomotion: Wheelchair - Score, Comprehension - Score, Expression - Score, Social Interaction - Score, Problem Solving - Score, Memory - Score were [electro nically] signed by Andreea Snell CNA on MonMay 30 2018 02:28:16 GMT-0600 (Central Standard Time)
[2018-05-30] MEDS: PANTOPRAZOLE 40MG TABLET PO SCH (05:21)
[2018-05-30] MEDS: LEVOTHYROXINE SOD 0.1 MG TAB PO SCH (05:21)
[2018-05-30] MEDS: BENZONATATE 100 MG CAP PO PRN ×2 (06:25→21:43)
[2018-05-30] MEDS: HYDROCODONE/APAP 5/325 MG TAB PO PRN (06:31)
[2018-05-30] MEDS: INSULIN -REGULAR HUMAN 50 UNIT/0.5 ML ML SQ SCH ×4 (07:30→21:00)
[2018-05-30] MEDS: INSULIN GLARGINE 100 UNITS/ML SQ SCH ×2 (07:37→21:00)
[2018-05-30] MEDS: PROMOD 30 ML DOSE PO SCH ×2 (08:00→20:00)
[2018-05-30] MEDS: METOPROLOL XL 25 MG TAB PO SCH (08:00)
[2018-05-30] MEDS: CRANBERRY FRUIT EXTRACT 200 MG CAP PO SCH ×2 (08:18→21:44)
[2018-05-30] MEDS: DOCUSATE NA/SENNA CONC 1 TAB PO SCH ×2 (08:18→21:43)
[2018-05-30] MEDS: TRADJENTA 5 MG PO SCH (08:18)
[2018-05-30] MEDS: RIVAROXABAN 15 MG TABLET PO SCH ×2 (08:18→21:50)
[2018-05-30] MEDS: MAGNESIUM OXIDE 400 MG TAB PO SCH ×2 (08:18→21:44)
[2018-05-30] MEDS: GABAPENTIN 100 MG CAP PO SCH ×2 (08:18→21:44)
[2018-05-30] MEDS: GLUCERNA SHAKE 237 ML CAN PO SCH ×2 (08:19→22:11)
[2018-05-30] MEDS: TORSEMIDE 20 MG TAB PO SCH ×2 (08:19→17:00)
[2018-05-30] MEDS: MEDIHONEY 44 ML TOPICAL TUBE TOP SCH (08:32)
[2018-05-30] MEDS: FE SULF/FA/VIT B COMP & C TAB PO SCH (11:50)
[2018-05-30] MEDS: AMIODARONE HCL 200 MG TAB PO SCH (11:50)
[2018-05-30] MEDS: FERROUS SULFATE 325 MG TAB PO SCH (11:50)
--- NOTE | 2018-05-30 14:39 | FAST ---
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 Leland Monroe M.D. ADMISSION DIAGNOSIS: - Cardiac 09 - Cardiac Disorders () CAD. EATING: EATING - STEP 1: Does the patient require the assistance of a person or device, or need extra time when eating? Yes. EATING - STEP 2: Does the patient require the assistance of a helper? No, patient only requires an assistive device, O R s/he takes more than reasonable time to eat, OR there is a safety concern, OR s/he requires modifie d food consistency EATING - SCORE: 6-HARDY GROOMING: Comb/brush hair Oral care GROOMING - STEP 1: Does the patient require the assistance of a person or device, or need extra time when grooming? Yes. GROOMING - STEP 2: Does the patient require the assistance of a helper? No. The patient only requires an assistive devic e, OR takes more than reasonable time to groom, OR there is a concern for safety as the patient groom s GROOMING - SCORE: 6-HARDY BATHING: Activity did not occur on this shift BATHING - SCORE: 0-UNK DRESSING - UPPER BODY: Bra (three steps) T-shirt/pullover shirt (four steps) ARTICLES SCORE Total number of steps: 7 DRESSING - UPPER BODY - STEP 1: Does the patient require help from a person or device, or need extra time when dressing above the tomas st? Yes. DRESSING - UPPER BODY - STEP 2: Does the patient require the assistance of a helper? Yes. DRESSING - UPPER BODY - STEP 3: Does the helper touch the patient while dressing? No. DRESSING - UPPER BODY - SCORE: 5-SUP DRESSING - LOWER BODY: ARTICLES SCORE Total number of steps: 3 DRESSING - LOWER BODY - STEP 1: Does the patient require help from a person or device, or need extra time when dressing below the tomas st? Yes. DRESSING - LOWER BODY - STEP 2: Does the patient require the assistance of a helper? Yes. DRESSING - LOWER BODY - STEP 3: Does the helper touch the patient while dressing? Yes. DRESSING - LOWER BODY - STEP 4: How many of the total steps does the patient complete on his/her own? 3 DRESSING - LOWER BODY - SCORE: 4-MIN TOILETING: TOILETING - STEP 1: Does the patient require the assistance of a person or device, or need extra time with toileting? Yes . TOILETING - STEP 2: Does the patient require the assistance of a helper? Yes. TOILETING - STEP 3: How much assistance does the patient require from the helper? Only supervision TOILETING - SCORE: 5-SUP BLADDER MANAGEMENT: BLADDER MANAGEMENT - STEP 1: Does the patient control the bladder completely and intentionally without equipment or devices or med ications, and is always continent? Yes. BLADDER MANAGEMENT - SCORE: 7-IND BOWEL MANAGEMENT: BOWEL MANAGEMENT - STEP 1: Does the patient control bowels completely and intentionally without equipment devices or medications AND is always continent? Yes. BOWEL MANAGEMENT - SCORE: 7-IND TRANSFERS: BED, CHAIR, WHEELCHAIR: TRANSFERS: BED, CHAIR, WHEELCHAIR - STEP 1: Does the patient require assistance of a person or device, or need extra time with bed, chair, or whe elchair transfers? Yes. TRANSFERS: BED, CHAIR, WHEELCHAIR - STEP 2: Does the patient require the assistance of a helper? Yes. TRANSFERS: BED, CHAIR, WHEELCHAIR - STEP 3: How much assistance does the patient require from the helper? Only supervision TRANSFERS: BED, CHAIR, WHEELCHAIR - SCORE: 5-SUP TRANSFERS: TOILET: TRANSFERS: TOILET - STEP 1: Does the patient require the assistance of a person or device, or need extra time with toilet transfe rs? Yes. TRANSFERS: TOILET - STEP 2: Does the patient require the assistance of a helper? Yes. TRANSFERS: TOILET - STEP 3: How much assistance does the patient require from the helper? Only supervision, cuing, coaxing, OR he lp to set out transfer equipment or to lock brakes and/or lift foot rests TRANSFERS: TOILET - SCORE: 5-SUP TRANSFERS: SHOWER: Activity did not occur on this shift TRANSFERS: SHOWER - SCORE: 0-UNK TRANSFERS: TUB: Activity did not occur on this shift TRANSFERS: TUB - SCORE: 0-UNK LOCOMOTION: WALK: Activity did not occur on this shift LOCOMOTION: WALK - SCORE: 0-UNK LOCOMOTION: WHEELCHAIR: Activity did not occur on this shift LOCOMOTION: WHEELCHAIR - SCORE: 0-UNK COMPREHENSION: COMPREHENSION: TYPE: Both COMPREHENSION - STEP 1: Does the patient require help from a person or device, or need extra time to understand complex and a bstract ideas (such as current events, finances, discharge planning, medical issues, relationships, e tc)? No. COMPREHENSION - STEP 2: Does the patient need extra time, require an assistive device (such as glasses for visual comprehensi on or a hearing aid for auditory comprehension) or does s/he have mild difficulty understanding compl ex and abstract information? Yes. COMPREHENSION - SCORE: 6-HARDY EXPRESSION EXPRESSION: TYPE: Both EXPRESSION - STEP 1: Does the patient require help from a person or device, or need extra time expressing complex and abst ract ideas (such as current events, finances, discharge planning, medical issues, relationships, etc) ? No. EXPRESSION - STEP 2: Does the patient need extra time, require an assistive device (such as augmentive communication syste m or a communication board), OR does s/he have mild difficulty expressing complex and abstract ideas (including mild dysarthria or mild word-find problems)? No. EXPRESSION - SCORE: 7-IND SOCIAL INTERACTION: SOCIAL INTERACTION - STEP 1: Does the patient require a helper to interact with others in social and therapeutic situations? No. SOCIAL INTERACTION - STEP 2: Does the patient need extra time in social situations, OR does s/he interact with staff, other patien ts, and family members ONLY in structured environments, OR does s/he require medication for social in teraction? No. SOCIAL INTERACTION - SCORE: 7-IND PROBLEM SOLVING: PROBLEM SOLVING - STEP 1: Does the patient need help from a person or device, or need extra time to solve complex problems such as managing a checking account or confronting interpersonal problems? No. PROBLEM SOLVING - STEP 2: Does the patient require extra time to make decisions or solve problems, OR does s/he have slight dif ficulty reading, initiating, or self-correcting in unfamiliar situations? Yes, patient needs extra ti me. PROBLEM SOLVING - SCORE: 6-HARDY MEMORY: MEMORY - STEP 1: Does the patient need help from a person or device, or need extra time to remember frequently encount ered people, daily routines, and executing requests? No. MEMORY - STEP 2: Does the patient have slight difficulty recognizing frequently encountered people, daily routines, or executing requests without the need for repetition or using self-initiated or environmental cues to remember? Yes. MEMORY - SCORE: 6-HARDY SIGNATURE PANEL: The following modified sections: Eating - Score, Grooming - Score, Bathing - Score, Dressing - Upper Body - Score, Dressing - Lower Body - Score, Toileting - Score, Bladder Management - Score, Bowel Man agement - Score, Transfers: Bed, Chair, Wheelchair - Score, Transfers: Toilet - Score, Transfers: Janine wer - Score, Transfers: Tub - Score, Locomotion: Walk - Score, Locomotion: Wheelchair - Score, Compre hension - Score, Expression - Score, Social Interaction - Score, Problem Solving - Score, Memory - Sc ore were [electronically] signed by Mohsen Perez on MonMay 30 2018 14:38:02 GMT-0600 (Central Standard Time)
--- NOTE | 2018-05-30 15:25 | FAST ---
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 Leland Monroe M.D. ADMISSION DIAGNOSIS: - Cardiac 09 - Cardiac Disorders (09) CAD. EATING: Activity did not occur on this shift EATING - SCORE: 0-UNK GROOMING: Activity did not occur on this shift GROOMING - SCORE: 0-UNK BATHING: Activity did not occur on this shift BATHING - SCORE: 0-UNK DRESSING - UPPER BODY: Activity did not occur on this shift Patient is not dressing in public clothing ARTICLES SCORE Total number of steps: 0 DRESSING - UPPER BODY - SCORE: 0-UNK DRESSING - LOWER BODY: Activity did not occur on this shift Patient is not dressing in public clothing ARTICLES SCORE Total number of steps: 0 DRESSING - LOWER BODY - SCORE: 0-UNK TOILETING: Activity did not occur on this shift TOILETING - SCORE: 0-UNK BLADDER MANAGEMENT: Activity did not occur on this shift BLADDER MANAGEMENT - SCORE: 7-IND BOWEL MANAGEMENT: Activity did not occur on this shift BOWEL MANAGEMENT - SCORE: 7-IND TRANSFERS: BED, CHAIR, WHEELCHAIR: TRANSFERS: BED, CHAIR, WHEELCHAIR - STEP 1: Does the patient require assistance of a person or device, or need extra time with bed, chair, or whe elchair transfers? Yes. TRANSFERS: BED, CHAIR, WHEELCHAIR - STEP 2: Does the patient require the assistance of a helper? Yes. TRANSFERS: BED, CHAIR, WHEELCHAIR - STEP 3: How much assistance does the patient require from the helper? Only supervision TRANSFERS: BED, CHAIR, WHEELCHAIR - SCORE: 5-SUP TRANSFERS: TOILET: Activity did not occur on this shift TRANSFERS: TOILET - SCORE: 0-UNK TRANSFERS: SHOWER: Activity did not occur on this shift TRANSFERS: SHOWER - SCORE: 0-UNK TRANSFERS: TUB: Activity did not occur on this shift TRANSFERS: TUB - SCORE: 0-UNK LOCOMOTION: WALK: LOCOMOTION: WALK - STEP 1: Does the patient need help from a person or device, or need extra time to walk 150 feet? Yes. LOCOMOTION: WALK - STEP 2: How much assistance does the patient require to walk a minimum of 150 feet? Only supervision, cuing, or coaxing LOCOMOTION: WALK - SCORE: 5-SUP LOCOMOTION: WHEELCHAIR: LOCOMOTION: WHEELCHAIR - STEP 1: Does the patient need help to go 150 feet in a wheelchair? Yes. LOCOMOTION: WHEELCHAIR - STEP 2: How much assistance does the patient need from the helper? Only supervision, cuing, or coaxing LOCOMOTION: WHEELCHAIR - SCORE: 5-SUP LOCOMOTION: STAIRS: Activity did not occur on this shift LOCOMOTION: STAIRS - SCORE: 0-UNK COMPREHENSION: COMPREHENSION - SCORE: 0-UNK EXPRESSION EXPRESSION - SCORE: 0-UNK SOCIAL INTERACTION: SOCIAL INTERACTION - SCORE: 0-UNK PROBLEM SOLVING: PROBLEM SOLVING - SCORE: 0-UNK MEMORY: MEMORY - SCORE: 0-UNK SIGNATURE PANEL: The following modified sections: Transfers: Bed, Chair, Wheelchair - Score, Transfers: Toilet - Score , Locomotion: Walk - Score, Locomotion: Wheelchair - Score, Locomotion: Stairs - Score were [electron cynthia] signed by Jer Phelan PTA on MonMay 30 2018 15:24:45 GMT-0600 (Central Standard Time)
[2018-05-30] MEDS: ROPINIROLE HCL 0.25 MG TAB PO SCH (17:41)
--- NOTE | 2018-05-30 18:02 | R.PN ---
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 Pt denied any depression. Labs have been reviewed and are stable. Making good progress with physical and occupational therapy. She reports insomnia since her C-PAP was not reinstated post hospitalization. Will restart C-PAP for obstructive sleep apnea. Ambulated 500' with standby assistance using a rolling walker. Mildly low Hgb of 8.8. Glucose 83-214. VITAL SIGNS Temperature: 98.3 F SBP/DBP: 109/64 Pulse: 88 Resp: 18 MEDICATION ALLERGIES: Demerol Iodine and Iodide containing products ENVIRONMENTAL ALLERGIES: Shrimp - Substance Allergies None Known - Other Allergies None Known NURSING: - Shower allowing shower - Lab Results blood Sugar Check ACHS ACTIVITIES OOB only with supervision THERAPIES: - Occupational Therapy Evaluate and Treat. - Physical Therapy Evaluate and Treat. PHYSICAL EXAM - Gen Alert and awake Lying in bed No apparent distress Oriented to: person, time, and place - Skin No breakdown No abnormalities - Eyes No abnormalities - ENMT No abnormalities - Neck No abnormalities - CVS RRR - Chest Mildly decreased breath sounds bilaterally. - Resp Bilateral congestion. - Abd +bowel sounds - GI Soft Deferred - No abnormalities - Ext Mild to moderate edema in both lower extremities. - MSK 4+/5 weakness in both lower extremities. 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 Incentive spirometry is being used. ASSESSMENT: Pt. is a 67 yo Right-handed white female.On 04/27/2018 she was admitted to [facility] [place] with diagnosis CAD.Her impairment category is Cardiac 09 - Cardiac Disorders (09).Pre-morbidly, Pt. was independent/mod-I in Communication, Social Cognition, Self-Care, Locomotion, Sphincter Contro l, and Transfers Control; and she had good Sphincter Control.Currently, she has deficits of Balance, Locomotion, Endurance, Safety Awareness, Transfers Control, and Self-Care.Pt. is now [facility] to [facility] for acute in-patient rehabilitation in order to maximize patient's func tional independence in activities of daily living, strength, ROM, and mobility.- Rehab Goal Patient has realistic goal of being discharged at assistance level 6-Gordo to reside at Home with Fam iris/Relatives. MDM/PLAN: - Physical Therapy Gait dysfunction - to improve, our physical therapists will perform initial evaluation of pt's statu s upon admission and devise an individualized program for Gait Training, and Wheel Chair mobility Inability to transfer - to improve, our physical therapists will perform initial evaluation of pt's status upon admission and devise an individualized program for Bed mobility Need for home safety evaluation - to improve, our physical therapists will perform initial evaluatio n of pt's status upon admission and devise an individualized program for Home Evaluation Need in caregiver upon discharge - to improve, our physical therapists will perform initial evaluati on of pt's status upon admission and devise an individualized program for Caregiver Training Edema - to improve, our physical therapists will perform initial evaluation of pt's status upon admi ssion and devise an individualized program for Elevation Training, and Lymphedema Therapy New precaution - to improve, our physical therapists will perform initial evaluation of pt's status upon admission and devise an individualized program for Patient precaution education Poor balance - to improve, our physical therapists will perform initial evaluation of pt's status up on admission and devise an individualized program for Balance Training Poor endurance - to improve, our physical therapists will perform initial evaluation of pt's status upon admission and devise an individualized program for Endurance Training Weakness - to improve, our physical therapists will perform initial evaluation of pt's status upon a dmission and devise an individualized program for Aquatic Therapy, Neuromuscular Reeducation, and Str engthening Achieving independence - to improve, our physical therapists will perform initial evaluation of pt's status upon admission and devise an individualized program for Community Reintegration Activities - Occupational Therapy ADL deficits - to improve, our occupation therapists will perform initial evaluation of pt's status upon admission and devise an individualized program for Bathing, Bed mobility, Community Reintegratio n, Cooking, Dressing, Eating, Fine Motor Skills, Grooming, Homemaking, Kitchen Mobility, Laundry, Pat ient Education, Safety Awareness, Splinting - Positioning, Transfers(Toilet, Tub, Shower), and Wheel Chair Management Need for wound care physician - to improve, our occupation therapists will perform initial evaluation of pt's status upon admission and devise an individualized program for Caregiver Training Weakness - to improve, our occupation therapists will perform initial evaluation of pt's status upon admission and devise an individualized program for Aquatic Therapy, Balance, Endurance, UE ROM, and UE strengthening - Diet Type Continue Regular - Diet - Liquid Texture Continue Regular - Tube Feed Continue N/A - Lab Results blood Sugar Check ACHS - Diet - Solid Texture Continue Regular - Shower allowing shower FUNCTIONAL STATUS: UPDATED AT WEEKLY TEAM CONFERENCE - Bladder Same accident frequency: 7-Ind - No accidents in the past 7 days - Bowel Same accident frequency: 7-Ind - No accidents in the past 7 days - Walking Same score based on distance walked: 3(>=150ft) - Wheelchair Same score based on distance traveled: 0(N/A) FUNCTIONAL STATUS: - Self-Care A. Eating Ind B. Grooming Ind C. Bathing Martita D. Dressing - Upper Martita E. Dressing - Lower Martita F. Toileting Martita - Sphincter Control G: Bladder control Ind H: Bowel control Ind - Transfers Control I. Bed/Chair/Wheelchair modA J. Toilet modA K. Tub/Shower ADNO - Locomotion L. Walk/Wheelchair (C) Martita L. Walk/Wheelchair (W) Martita M. Stairs ADNO - Communication N. Comprehension (B) Ind O. Expression (B) Ind - Social Cognition P. Social Interaction Ind Q. Problem Solving Ind R. Memory Ind - Endurance Fair - Balance Fair - Safety Awareness Fair CURRENT FUNC. 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
[2018-05-30] MEDS: LOSARTAN POTASSIUM 50 MG TABLET PO SCH (21:00)
[2018-05-30] MEDS: ATORVASTATIN 40 MG TAB PO SCH (21:43)
[2018-05-30] MEDS: MONTELUKAST 10 MG TAB PO SCH (21:44)
[2018-05-30] MEDS: TRAMADOL HCL 50 MG TAB PO PRN (21:44)
[2018-05-30] MEDS: TRAZODONE 50 MG TABLET PO PRN (21:44)
[2018-05-31] MEDS: IPRATROPIUM BROM 0.5MG/2.5ML NEB SCH ×5 (02:00→20:50)
[2018-05-31] MEDS: PANTOPRAZOLE 40MG TABLET PO SCH (05:32)
[2018-05-31] MEDS: LEVOTHYROXINE SOD 0.1 MG TAB PO SCH (05:32)
[2018-05-31] MEDS: BENZONATATE 100 MG CAP PO PRN ×3 (05:33→22:47)
[2018-05-31] MEDS: INSULIN -REGULAR HUMAN 50 UNIT/0.5 ML ML SQ SCH ×4 (07:02→20:37)
[2018-05-31] MEDS: INSULIN GLARGINE 100 UNITS/ML SQ SCH ×2 (07:04→20:36)
[2018-05-31] MEDS: PROMOD 30 ML DOSE PO SCH ×2 (08:00→20:00)
[2018-05-31] MEDS: METOPROLOL XL 25 MG TAB PO SCH (08:00)
[2018-05-31] MEDS: MAGNESIUM OXIDE 400 MG TAB PO SCH ×2 (08:06→20:31)
[2018-05-31] MEDS: GABAPENTIN 100 MG CAP PO SCH ×2 (08:06→20:31)
[2018-05-31] MEDS: TRADJENTA 5 MG PO SCH (08:06)
[2018-05-31] MEDS: RIVAROXABAN 15 MG TABLET PO SCH ×2 (08:07→20:31)
[2018-05-31] MEDS: CRANBERRY FRUIT EXTRACT 200 MG CAP PO SCH ×2 (08:07→20:32)
[2018-05-31] MEDS: DOCUSATE NA/SENNA CONC 1 TAB PO SCH ×2 (08:07→20:32)
[2018-05-31] MEDS: HYDROCODONE/APAP 5/325 MG TAB PO PRN ×2 (08:08→11:49)
[2018-05-31] MEDS: GLUCERNA SHAKE 237 ML CAN PO SCH ×2 (08:08→20:00)
[2018-05-31] MEDS: TORSEMIDE 20 MG TAB PO SCH ×2 (08:09→16:16)
[2018-05-31] MEDS: MEDIHONEY 44 ML TOPICAL TUBE TOP SCH (08:50)
--- NOTE | 2018-05-31 09:54 | FAST ---
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 Leland Monroe M.D. ADMISSION DIAGNOSIS: - Cardiac 09 - Cardiac Disorders () CAD. EATING: EATING - STEP 1: Does the patient require the assistance of a person or device, or need extra time when eating? Yes. EATING - STEP 2: Does the patient require the assistance of a helper? No, patient only requires an assistive device, O R s/he takes more than reasonable time to eat, OR there is a safety concern, OR s/he requires modifie d food consistency EATING - SCORE: 6-HARDY GROOMING: Comb/brush hair Oral care Wash, rinse, and dry face Wash, rinse, and dry hands GROOMING - STEP 1: Does the patient require the assistance of a person or device, or need extra time when grooming? Yes. GROOMING - STEP 2: Does the patient require the assistance of a helper? No. The patient only requires an assistive devic e, OR takes more than reasonable time to groom, OR there is a concern for safety as the patient groom s GROOMING - SCORE: 6-HARDY BATHING: Activity did not occur on this shift BATHING - SCORE: 0-UNK DRESSING - UPPER BODY: Button down shirt or blouse - NOT tucked in (four steps) T-shirt/pullover shirt (four steps) ARTICLES SCORE Total number of steps: 8 DRESSING - UPPER BODY - STEP 1: Does the patient require help from a person or device, or need extra time when dressing above the tomas st? Yes. DRESSING - UPPER BODY - STEP 2: Does the patient require the assistance of a helper? Yes. DRESSING - UPPER BODY - STEP 3: Does the helper touch the patient while dressing? Yes. DRESSING - UPPER BODY - STEP 4: How many of the total steps does the patient complete on his/her own? 8 DRESSING - UPPER BODY - SCORE: 4-MIN DRESSING - LOWER BODY: ARTICLES SCORE Total number of steps: 3 DRESSING - LOWER BODY - STEP 1: Does the patient require help from a person or device, or need extra time when dressing below the tomas st? Yes. DRESSING - LOWER BODY - STEP 2: Does the patient require the assistance of a helper? Yes. DRESSING - LOWER BODY - STEP 3: Does the helper touch the patient while dressing? Yes. DRESSING - LOWER BODY - STEP 4: How many of the total steps does the patient complete on his/her own? 2 DRESSING - LOWER BODY - SCORE: 3-MOD TOILETING: TOILETING - STEP 1: Does the patient require the assistance of a person or device, or need extra time with toileting? Yes . TOILETING - STEP 2: Does the patient require the assistance of a helper? Yes. TOILETING - STEP 3: How much assistance does the patient require from the helper? Only supervision TOILETING - SCORE: 5-SUP BLADDER MANAGEMENT: BLADDER MANAGEMENT - STEP 1: Does the patient control the bladder completely and intentionally without equipment or devices or med ications, and is always continent? Yes. BLADDER MANAGEMENT - SCORE: 7-IND BOWEL MANAGEMENT: Activity did not occur on this shift BOWEL MANAGEMENT - SCORE: 7-IND TRANSFERS: BED, CHAIR, WHEELCHAIR: TRANSFERS: BED, CHAIR, WHEELCHAIR - STEP 1: Does the patient require assistance of a person or device, or need extra time with bed, chair, or whe elchair transfers? Yes. TRANSFERS: BED, CHAIR, WHEELCHAIR - STEP 2: Does the patient require the assistance of a helper? Yes. TRANSFERS: BED, CHAIR, WHEELCHAIR - STEP 3: How much assistance does the patient require from the helper? Only supervision TRANSFERS: BED, CHAIR, WHEELCHAIR - SCORE: 5-SUP TRANSFERS: TOILET: TRANSFERS: TOILET - STEP 1: Does the patient require the assistance of a person or device, or need extra time with toilet transfe rs? Yes. TRANSFERS: TOILET - STEP 2: Does the patient require the assistance of a helper? Yes. TRANSFERS: TOILET - STEP 3: How much assistance does the patient require from the helper? Only supervision, cuing, coaxing, OR he lp to set out transfer equipment or to lock brakes and/or lift foot rests TRANSFERS: TOILET - SCORE: 5-SUP TRANSFERS: SHOWER: Activity did not occur on this shift TRANSFERS: SHOWER - SCORE: 0-UNK TRANSFERS: TUB: Activity did not occur on this shift TRANSFERS: TUB - SCORE: 0-UNK LOCOMOTION: WALK: Activity did not occur on this shift LOCOMOTION: WALK - SCORE: 0-UNK LOCOMOTION: WHEELCHAIR: Activity did not occur on this shift LOCOMOTION: WHEELCHAIR - SCORE: 0-UNK COMPREHENSION: COMPREHENSION: TYPE: Both COMPREHENSION - STEP 1: Does the patient require help from a person or device, or need extra time to understand complex and a bstract ideas (such as current events, finances, discharge planning, medical issues, relationships, e tc)? No. COMPREHENSION - STEP 2: Does the patient need extra time, require an assistive device (such as glasses for visual comprehensi on or a hearing aid for auditory comprehension) or does s/he have mild difficulty understanding compl ex and abstract information? Yes. COMPREHENSION - SCORE: 6-HARDY EXPRESSION EXPRESSION: TYPE: Both EXPRESSION - STEP 1: Does the patient require help from a person or device, or need extra time expressing complex and abst ract ideas (such as current events, finances, discharge planning, medical issues, relationships, etc) ? No. EXPRESSION - STEP 2: Does the patient need extra time, require an assistive device (such as augmentive communication syste m or a communication board), OR does s/he have mild difficulty expressing complex and abstract ideas (including mild dysarthria or mild word-find problems)? Yes. EXPRESSION - SCORE: 6-HARDY SOCIAL INTERACTION: SOCIAL INTERACTION - STEP 1: Does the patient require a helper to interact with others in social and therapeutic situations? No. SOCIAL INTERACTION - STEP 2: Does the patient need extra time in social situations, OR does s/he interact with staff, other patien ts, and family members ONLY in structured environments, OR does s/he require medication for social in teraction? Yes, patient needs extra time SOCIAL INTERACTION - SCORE: 6-HARDY PROBLEM SOLVING: PROBLEM SOLVING - STEP 1: Does the patient need help from a person or device, or need extra time to solve complex problems such as managing a checking account or confronting interpersonal problems? No. PROBLEM SOLVING - STEP 2: Does the patient require extra time to make decisions or solve problems, OR does s/he have slight dif ficulty reading, initiating, or self-correcting in unfamiliar situations? Yes, patient needs extra ti me. PROBLEM SOLVING - SCORE: 6-HARDY MEMORY: MEMORY - STEP 1: Does the patient need help from a person or device, or need extra time to remember frequently encount ered people, daily routines, and executing requests? Yes. MEMORY - STEP 2: How often does the patient need help to remember frequently encountered people, daily routines, and e xecuting requests? Less than 10% of the time MEMORY - SCORE: 5-SUP SIGNATURE PANEL: The following modified sections: Eating - Score, Grooming - Score, Bathing - Score, Dressing - Upper Body - Score, Dressing - Lower Body - Score, Toileting - Score, Bladder Management - Score, Bowel Man agement - Score, Transfers: Bed, Chair, Wheelchair - Score, Transfers: Toilet - Score, Transfers: Janine wer - Score, Transfers: Tub - Score, Locomotion: Walk - Score, Comprehension - Score, Expression - Sc ore, Social Interaction - Score, Problem Solving - Score, Memory - Score, Locomotion: Wheelchair - Sc ore were [electronically] signed by Mohsen Perez on MonMay 31 2018 09:52:46 GMT-0600 (Central Standard Time)
[2018-05-31] MEDS: FERROUS SULFATE 325 MG TAB PO SCH (11:35)
[2018-05-31] MEDS: AMIODARONE HCL 200 MG TAB PO SCH (11:35)
[2018-05-31] MEDS: FE SULF/FA/VIT B COMP & C TAB PO SCH (11:35)
[2018-05-31 14:58] LABS: Absolute Lymphocytes (CBC) 1.9 K/uL (0.7-4.9); Absolute Monocytes 1.3 K/uL (0.1-1.3); Absolute Neutrophil 5.2 K/uL (1.8-8.0); Basophils % 0.5 % (0-1.3); Eosinophils % 5.4 % (0-4.4); Hematocrit 26.1 % (36.0-45.0); Lymphocytes % 21.4 % (15.3-44.8); MPV 6.5 fL (7.6-11.3); Monocytes % 14.2 % (3.3-12.3); RBC Red Blood Cell Count 3.19 M/uL (3.86-4.86)
--- NOTE | 2018-05-31 15:00 | FAST ---
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 Leland Monroe M.D. ADMISSION DIAGNOSIS: - Cardiac 09 - Cardiac Disorders (09) CAD. EATING: Activity did not occur on this shift EATING - SCORE: 0-UNK GROOMING: Activity did not occur on this shift GROOMING - SCORE: 0-UNK BATHING: Activity did not occur on this shift BATHING - SCORE: 0-UNK DRESSING - UPPER BODY: Activity did not occur on this shift Patient is not dressing in public clothing ARTICLES SCORE Total number of steps: 0 DRESSING - UPPER BODY - SCORE: 0-UNK DRESSING - LOWER BODY: Activity did not occur on this shift Patient is not dressing in public clothing ARTICLES SCORE Total number of steps: 0 DRESSING - LOWER BODY - SCORE: 0-UNK TOILETING: Activity did not occur on this shift TOILETING - SCORE: 0-UNK BLADDER MANAGEMENT: Activity did not occur on this shift BLADDER MANAGEMENT - SCORE: 7-IND BOWEL MANAGEMENT: Activity did not occur on this shift BOWEL MANAGEMENT - SCORE: 7-IND TRANSFERS: BED, CHAIR, WHEELCHAIR: TRANSFERS: BED, CHAIR, WHEELCHAIR - STEP 1: Does the patient require assistance of a person or device, or need extra time with bed, chair, or whe elchair transfers? Yes. TRANSFERS: BED, CHAIR, WHEELCHAIR - STEP 2: Does the patient require the assistance of a helper? Yes. TRANSFERS: BED, CHAIR, WHEELCHAIR - STEP 3: How much assistance does the patient require from the helper? Only supervision TRANSFERS: BED, CHAIR, WHEELCHAIR - SCORE: 5-SUP TRANSFERS: TOILET: Activity did not occur on this shift TRANSFERS: TOILET - SCORE: 0-UNK TRANSFERS: SHOWER: Activity did not occur on this shift TRANSFERS: SHOWER - SCORE: 0-UNK TRANSFERS: TUB: Activity did not occur on this shift TRANSFERS: TUB - SCORE: 0-UNK LOCOMOTION: WALK: LOCOMOTION: WALK - STEP 1: Does the patient need help from a person or device, or need extra time to walk 150 feet? Yes. LOCOMOTION: WALK - STEP 2: How much assistance does the patient require to walk a minimum of 150 feet? Only supervision, cuing, or coaxing LOCOMOTION: WALK - SCORE: 5-SUP LOCOMOTION: WHEELCHAIR: Activity did not occur on this shift LOCOMOTION: WHEELCHAIR - SCORE: 0-UNK LOCOMOTION: STAIRS: Activity did not occur on this shift LOCOMOTION: STAIRS - SCORE: 0-UNK COMPREHENSION: COMPREHENSION - SCORE: 0-UNK EXPRESSION EXPRESSION - SCORE: 0-UNK SOCIAL INTERACTION: SOCIAL INTERACTION - SCORE: 0-UNK PROBLEM SOLVING: PROBLEM SOLVING - SCORE: 0-UNK MEMORY: MEMORY - SCORE: 0-UNK SIGNATURE PANEL: The following modified sections: Transfers: Bed, Chair, Wheelchair - Score, Transfers: Toilet - Score , Locomotion: Walk - Score, Locomotion: Wheelchair - Score, Locomotion: Stairs - Score were [annemarie marie] signed by Rhett Serrano PT on MonMay 31 2018 14:59:50 GMT-0600 (Central Standard Time)
[2018-05-31 15:25] LABS: Albumin 3.1 g/dL (3.4-5.0); Magnesium 2.3 mg/dL (1.8-2.4); Potassium 3.8 mmol/L (3.5-5.1); Prealbumin 12.9 mg/dL (20-40)
[2018-05-31] MEDS: ROPINIROLE HCL 0.25 MG TAB PO SCH (17:03)
--- NOTE | 2018-05-31 18:25 | R.PN ---
ENCOUNTER DATE AND TIME: 05/31/2018 18:20 (TANK PUMPER PANELBOARD) NAME JYOTI COFFMAN DATE OF : 1950 DATE OF ADMISSION: 05/22/2018 16:02 (TANK PUMPER PANELBOARD) CADCHIEF COMPLAINT: Cardiac debility SUBJECTIVE: Pt denied any Shortness of Breath. Pt denied any depression. Labs have been reviewed and are stable. Making good progress with physical and occupational therapy. She reports insomnia since her C-PAP was not reinstated post hospitalization. Will restart C-PAP for obstructive sleep apnea. Ambulated 500' with standby assistance using a rolling walker. Mildly low Hgb of 8.5. Glucose 151-212. Prealbumin 12.9. Na 132, creatinine 1.23. VITAL SIGNS Temperature: 98.3 F SBP/DBP: 111/58 Pulse: 84 Resp: 16 MEDICATION ALLERGIES: Demerol Iodine and Iodide containing products ENVIRONMENTAL ALLERGIES: Shrimp - Substance Allergies None Known - Other Allergies None Known NURSING: - Shower allowing shower - Lab Results blood Sugar Check ACHS ACTIVITIES OOB only with supervision THERAPIES: - Occupational Therapy Evaluate and Treat. - Physical Therapy Evaluate and Treat. PHYSICAL EXAM - Gen Alert and awake Lying in bed No apparent distress Oriented to: person, time, and place - Skin No breakdown No abnormalities - Eyes No abnormalities - ENMT No abnormalities - Neck No abnormalities - CVS RRR - Chest Mildly decreased breath sounds bilaterally. - Resp Bilateral congestion. - Abd +bowel sounds - GI Soft Deferred - No abnormalities - Ext Mild to moderate edema in both lower extremities. - MSK 4+/5 weakness in both lower extremities. 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 Incentive spirometry is being used. ASSESSMENT: Pt. is a 67 yo Right-handed white female.On 04/27/2018 she was admitted to [facility] with diagnosis CAD.Her impairment category is Cardiac 09 - Cardiac Disorders (09).Pre-morbidly, Pt. was independent/mod-I in Communication, Social Cognition, Self-Care, Locomotion, Sphincter Contro l, and Transfers Control; and she had good Sphincter Control.Currently, she has deficits of Balance, Locomotion, Endurance, Safety Awareness, Transfers Control, and Self-Care.Pt. is now referred to [facility] for acute in-patient rehabilitation in order to maximize patient's func tional independence in activities of daily living, strength, ROM, and mobility.- Rehab Goal Patient has realistic goal of being discharged at assistance level 6-Gordo to reside at Home with Fam iris/Relatives. MDM/PLAN: - Physical Therapy Gait dysfunction - to improve, our physical therapists will perform initial evaluation of pt's statu s upon admission and devise an individualized program for Gait Training, and Wheel Chair mobility Inability to transfer - to improve, our physical therapists will perform initial evaluation of pt's status upon admission and devise an individualized program for Bed mobility Need for home safety evaluation - to improve, our physical therapists will perform initial evaluatio n of pt's status upon admission and devise an individualized program for Home Evaluation Need in caregiver upon discharge - to improve, our physical therapists will perform initial evaluati on of pt's status upon admission and devise an individualized program for Caregiver Training Edema - to improve, our physical therapists will perform initial evaluation of pt's status upon admi ssion and devise an individualized program for Elevation Training, and Lymphedema Therapy New precaution - to improve, our physical therapists will perform initial evaluation of pt's status upon admission and devise an individualized program for Patient precaution education Poor balance - to improve, our physical therapists will perform initial evaluation of pt's status up on admission and devise an individualized program for Balance Training Poor endurance - to improve, our physical therapists will perform initial evaluation of pt's status upon admission and devise an individualized program for Endurance Training Weakness - to improve, our physical therapists will perform initial evaluation of pt's status upon a dmission and devise an individualized program for Aquatic Therapy, Neuromuscular Reeducation, and Str engthening Achieving independence - to improve, our physical therapists will perform initial evaluation of pt's status upon admission and devise an individualized program for Community Reintegration Activities - Occupational Therapy ADL deficits - to improve, our occupation therapists will perform initial evaluation of pt's status upon admission and devise an individualized program for Bathing, Bed mobility, Community Reintegratio n, Cooking, Dressing, Eating, Fine Motor Skills, Grooming, Homemaking, Kitchen Mobility, Laundry, Pat ient Education, Safety Awareness, Splinting - Positioning, Transfers(Toilet, Tub, Shower), and Wheel Chair Management Need for assurance services manager health care - to improve, our occupation therapists will perform initial evaluation of pt's status upon admission and devise an individualized program for Caregiver Training Weakness - to improve, our occupation therapists will perform initial evaluation of pt's status upon admission and devise an individualized program for Aquatic Therapy, Balance, Endurance, UE ROM, and UE strengthening - Diet Type Continue Regular - Diet - Liquid Texture Continue Regular - Tube Feed Continue N/A - Lab Results blood Sugar Check ACHS - Diet - Solid Texture Continue Regular - Shower allowing shower FUNCTIONAL STATUS: UPDATED AT WEEKLY TEAM CONFERENCE - Bladder Same accident frequency: 7-Ind - No accidents in the past 7 days - Bowel Same accident frequency: 7-Ind - No accidents in the past 7 days - Walking Same score based on distance walked: 3(>=150ft) - Wheelchair Same score based on distance traveled: 0(N/A) FUNCTIONAL STATUS: - Self-Care A. Eating Ind B. Grooming Ind C. Bathing Martita D. Dressing - Upper Martita E. Dressing - Lower Martita F. Toileting Martita - Sphincter Control G: Bladder control Ind H: Bowel control Ind - Transfers Control I. Bed/Chair/Wheelchair modA J. Toilet modA K. Tub/Shower ADNO - Locomotion L. Walk/Wheelchair (C) Martita L. Walk/Wheelchair (W) Martita M. Stairs ADNO - Communication N. Comprehension (B) Ind O. Expression (B) Ind - Social Cognition P. Social Interaction Ind Q. Problem Solving Ind R. Memory Ind - Endurance Fair - Balance Fair - Safety Awareness Fair CURRENT [facility]. DEFICITS: Balance, Locomotion, Endurance, Safety Awareness, Transfers Control, and Self-Care SIGNATURE PANEL: (TANK PUMPER PANELBOARD)
[2018-05-31] MEDS: LOSARTAN POTASSIUM 50 MG TABLET PO SCH (20:31)
[2018-05-31] MEDS: ATORVASTATIN 40 MG TAB PO SCH (20:31)
[2018-05-31] MEDS: MONTELUKAST 10 MG TAB PO SCH (20:32)
[2018-05-31] MEDS: TRAZODONE 50 MG TABLET PO PRN (20:33)
[2018-06-01] MEDS: HYDROCODONE/APAP 5/325 MG TAB PO PRN ×4 (00:31→21:07)
[2018-06-01] MEDS: IPRATROPIUM BROM 0.5MG/2.5ML NEB SCH ×4 (02:15→19:35)
[2018-06-01] MEDS: PANTOPRAZOLE 40MG TABLET PO SCH (05:21)
[2018-06-01] MEDS: LEVOTHYROXINE SOD 0.1 MG TAB PO SCH (05:21)
[2018-06-01] MEDS: INSULIN -REGULAR HUMAN 50 UNIT/0.5 ML ML SQ SCH ×4 (07:30→21:00)
[2018-06-01] MEDS: GLUCERNA SHAKE 237 ML CAN PO SCH ×3 (08:00→21:09)
[2018-06-01] MEDS: PROMOD 30 ML DOSE PO SCH ×2 (08:00→20:00)
[2018-06-01] MEDS: MEDIHONEY 44 ML TOPICAL TUBE TOP SCH (08:00)
[2018-06-01] MEDS: TRADJENTA 5 MG PO SCH (08:34)
[2018-06-01] MEDS: DOCUSATE NA/SENNA CONC 1 TAB PO SCH ×2 (08:35→21:06)
[2018-06-01] MEDS: MAGNESIUM OXIDE 400 MG TAB PO SCH ×2 (08:35→21:06)
[2018-06-01] MEDS: GABAPENTIN 100 MG CAP PO SCH ×2 (08:35→21:05)
[2018-06-01] MEDS: CRANBERRY FRUIT EXTRACT 200 MG CAP PO SCH ×2 (08:35→21:05)
[2018-06-01] MEDS: RIVAROXABAN 15 MG TABLET PO SCH ×2 (08:35→21:06)
[2018-06-01] MEDS: INSULIN GLARGINE 100 UNITS/ML SQ SCH ×2 (08:36→21:09)
[2018-06-01] MEDS: METOPROLOL XL 25 MG TAB PO SCH (08:46)
[2018-06-01] MEDS: TORSEMIDE 20 MG TAB PO SCH ×2 (08:47→16:58)
[2018-06-01] MEDS: BENZONATATE 100 MG CAP PO PRN ×3 (08:51→21:20)
--- NOTE | 2018-06-01 09:25 | P.RH.PN ---
Estimated Length of Stay: 12 Expected Discharge Date: 06/02/18 Discharge Disposition Plan: Home Family Support: Yes Assisted Goal: Mobility, Transfers, Self Care Vital Signs: Last Vital Signs Temp 98.1 F 05/31/18 22:00 Pulse 98 H 06/01/18 08:46 Resp 18 05/31/18 22:00 BP 102/58 L 06/01/18 08:46 Pulse Ox 99 05/31/18 22:00 Laboratory: Laboratory Last Values WBC 8.9 K/uL (4.3-10.9) 05/31/18 14:45 RBC 3.19 M/uL (3.86-4.86) L 05/31/18 14:45 Hgb 8.5 g/dL (12.0-15.0) L 05/31/18 14:45 Hct 26.1 % (36.0-45.0) L 05/31/18 14:45 MCV 81.8 fL (80-100) 05/31/18 14:45 MCH 26.7 pg (27.0-35.0) L 05/31/18 14:45 MCHC 32.6 g/dL (32.0-36.0) 05/31/18 14:45 RDW 15.5 % (12.1-15.2) H 05/31/18 14:45 Plt Count 377 K/uL (152-406) 05/31/18 14:45 MPV 6.5 fL (7.6-11.3) L 05/31/18 14:45 Neutrophils % 58.5 % (41.7-73.7) 05/31/18 14:45 Lymphocytes % 21.4 % (15.3-44.8) 05/31/18 14:45 Monocytes % 14.2 % (3.3-12.3) H 05/31/18 14:45 Eosinophils % 5.4 % (0-4.4) H 05/31/18 14:45 Basophils % 0.5 % (0-1.3) 05/31/18 14:45 Absolute Neutrophils 5.2 K/uL (1.8-8.0) 05/31/18 14:45 Segmented Neutrophils 48 % (40-80) 05/23/18 06:27 Absolute Lymphocytes 1.9 K/uL (0.7-4.9) 05/31/18 14:45 Lymphocytes 26 % (15-42) 05/23/18 06:27 Monocytes 9 % (0-10) 05/23/18 06:27 Absolute Monocytes 1.3 K/uL (0.1-1.3) 05/31/18 14:45 Eosinophils 16 % (0-3) H 05/23/18 06:27 Absolute Eosinophils 0.5 K/uL (0-0.5) 05/31/18 14:45 Absolute Basophils 0.0 K/uL (0-0.5) 05/31/18 14:45 Atypical Lymphocytes 1 05/23/18 06:27 Morphology Comment Not seen (NOT SEEN) 05/23/18 06:27 Sodium 132 mmol/L (136-145) L 05/31/18 14:45 Potassium 3.8 mmol/L (3.5-5.1) 05/31/18 14:45 Chloride 95 mmol/L (98-107) L 05/31/18 14:45 Carbon Dioxide 31 mmol/L (21-32) 05/31/18 14:45 BUN 31 mg/dL (7-18) H 05/31/18 14:45 Creatinine 1.23 mg/dL (0.55-1.3) 05/31/18 14:45 Estimated GFR 44 mL/min (=/>90) L 05/31/18 14:45 Glucose 184 mg/dL (74-106) H 05/31/18 14:45 POC Glucose 167 mg/dl (65-120) H 05/31/18 20:36 Calcium 8.6 mg/dL (8.5-10.1) 05/31/18 14:45 Magnesium 2.3 mg/dL (1.8-2.4) D 05/31/18 14:45 Albumin 3.1 g/dL (3.4-5.0) L 05/31/18 14:45 Prealbumin 12.9 mg/dL (20-40) L 05/31/18 14:45 Urine Color Yellow 05/25/18 09:40 Urine Appearance Clear 05/25/18 09:40 Urine pH 7.0 (5.0-7.0) 05/25/18 09:40 Ur Specific [place] 1.010 (1.005-1.030) 05/25/18 09:40 Urine Ketones Negative (NEG) 05/25/18 09:40 Urine Blood Negative (NEG) 05/25/18 09:40 Urine Nitrite Negative (NEG) 05/25/18 09:40 Urine Bilirubin Negative (NEG) 05/25/18 09:40 Urine Urobilinogen 0.2 mg/dL (0.2-1.0) 05/25/18 09:40 Ur Leukocyte Esterase Trace (NEG) H 05/25/18 09:40 Urine RBC <5 /HPF (NONE SEEN) 05/25/18 09:40 Urine WBC <5 /HPF (<5) 05/25/18 09:40 Ur Squamous Epith Cells 5-10 /HPF (NONE SEEN) H 05/25/18 09:40 Urine Bacteria <20 /HPF (<20) 05/25/18 09:40 Urine Culture Reflexed Not needed 05/25/18 09:40 Urine Glucose Negative (NEG) 05/25/18 09:40 Urine Total Protein Negative (NEG) 05/25/18 09:40 Weight: 158 lb 7 oz Wound Present: Yes Closed Surgical Incision Present: Yes Negative Pressure Wound Therapy Present: No Physician Update: Labs have been reviewed. Her Hgb is mildly low at 8.5. She is on hemocyte plus. Will have PCP follow up Hgb after discharge. Sugars 167-212 and prealbumin 12.9. She did well with physical and occupational therapy. She is going home with [facility]. Pain Issues: Tramadol 50mg Q4H PRN Functional Improvement: Patient has met all short-term goals at this time, w/ the exception of stairs tx. and is working toward long-term goals. Patient has shown issues w/ BP and SaO2. Functional Improvement Occupational Therapy: Pt can benifit with further therapy to educate and train pt on proper breathing techniques. Cont to increase pt's UB strength/endurance while maintaining sternal precautions. cont to increase pt's safety and educating pt about energy conservation techniques for all UB/LB dressing tasks. Summary: Patient's care plan and salvage determiner goals have been reviewed and revised as necessary. Please see the Rehabilitation Signature page for all necessary signatures.
[2018-06-01] MEDS: FE SULF/FA/VIT B COMP & C TAB PO SCH (12:13)
[2018-06-01] MEDS: AMIODARONE HCL 200 MG TAB PO SCH (12:14)
[2018-06-01] MEDS: FERROUS SULFATE 325 MG TAB PO SCH (12:14)
--- NOTE | 2018-06-01 13:56 | FAST ---
SHIFT START DATE/TIME: 06/01/2018 07:00 (DEMONSTRATOR ELECTRIC GAS APPLIANCES) SHIFT END DATE/TIME: 06/01/2018 19:00 (DEMONSTRATOR ELECTRIC GAS APPLIANCES) NAME JYOTI COFFMAN DATE OF : 1950 DATE OF ADMISSION: 05/22/2018 16:02 (DEMONSTRATOR ELECTRIC GAS APPLIANCES) PHONE: AGE: 67 SSN# [id number] GENDER: Female ENCOUNTER PHYSICIAN: Dr. Leland Monroe M.D. ADMISSION DIAGNOSIS: - Cardiac 09 - Cardiac Disorders () CAD. EATING: EATING - STEP 1: Does the patient require the assistance of a person or device, or need extra time when eating? No. EATING - SCORE: 7-IND GROOMING: Wash, rinse, and dry face Wash, rinse, and dry hands GROOMING - STEP 1: Does the patient require the assistance of a person or device, or need extra time when grooming? No. GROOMING - SCORE: 7-IND BATHING: Activity did not occur on this shift BATHING - SCORE: 0-UNK DRESSING - UPPER BODY: Activity did not occur on this shift ARTICLES SCORE Total number of steps: 0 DRESSING - UPPER BODY - SCORE: 0-UNK DRESSING - LOWER BODY: Activity did not occur on this shift ARTICLES SCORE Total number of steps: 0 DRESSING - LOWER BODY - SCORE: 0-UNK TOILETING: TOILETING - STEP 1: Does the patient require the assistance of a person or device, or need extra time with toileting? Yes . TOILETING - STEP 2: Does the patient require the assistance of a helper? Yes. TOILETING - STEP 3: How much assistance does the patient require from the helper? Only supervision TOILETING - SCORE: 5-SUP BLADDER MANAGEMENT: BLADDER MANAGEMENT - STEP 1: Does the patient control the bladder completely and intentionally without equipment or devices or med ications, and is always continent? Yes. BLADDER MANAGEMENT - SCORE: 7-IND BLADDER MANAGEMENT - FREQUENCY OF ACCIDENTS: BLADDER MANAGEMENT(FA) - STEP 1: How many accidents has the patient had during the current shift? 0 BOWEL MANAGEMENT: BOWEL MANAGEMENT - STEP 1: Does the patient control bowels completely and intentionally without equipment devices or medications AND is always continent? Yes. BOWEL MANAGEMENT - SCORE: 7-IND BOWEL MANAGEMENT - FREQUENCY OF ACCIDENTS: BOWEL MANAGEMENT(FA) - STEP 1: How many accidents has the patient had during the current shift? 0 TRANSFERS: BED, CHAIR, WHEELCHAIR: TRANSFERS: BED, CHAIR, WHEELCHAIR - STEP 1: Does the patient require assistance of a person or device, or need extra time with bed, chair, or whe elchair transfers? Yes. TRANSFERS: BED, CHAIR, WHEELCHAIR - STEP 2: Does the patient require the assistance of a helper? Yes. TRANSFERS: BED, CHAIR, WHEELCHAIR - STEP 3: How much assistance does the patient require from the helper? Steadying/guiding assistance TRANSFERS: BED, CHAIR, WHEELCHAIR - SCORE: 4-MIN TRANSFERS: TOILET: TRANSFERS: TOILET - STEP 1: Does the patient require the assistance of a person or device, or need extra time with toilet transfe rs? Yes. TRANSFERS: TOILET - STEP 2: Does the patient require the assistance of a helper? Yes. TRANSFERS: TOILET - STEP 3: How much assistance does the patient require from the helper? Only supervision, cuing, coaxing, OR he lp to set out transfer equipment or to lock brakes and/or lift foot rests TRANSFERS: TOILET - SCORE: 5-SUP TRANSFERS: SHOWER: Activity did not occur on this shift TRANSFERS: SHOWER - SCORE: 0-UNK TRANSFERS: TUB: Activity did not occur on this shift TRANSFERS: TUB - SCORE: 0-UNK LOCOMOTION: WALK: Activity did not occur on this shift LOCOMOTION: WALK - SCORE: 0-UNK LOCOMOTION: WHEELCHAIR: Activity did not occur on this shift LOCOMOTION: WHEELCHAIR - SCORE: 0-UNK COMPREHENSION: COMPREHENSION - SCORE: 0-UNK EXPRESSION EXPRESSION - SCORE: 0-UNK SOCIAL INTERACTION: SOCIAL INTERACTION - SCORE: 0-UNK PROBLEM SOLVING: PROBLEM SOLVING - SCORE: 0-UNK MEMORY: MEMORY - SCORE: 0-UNK SIGNATURE PANEL: The following modified sections: Eating - Score, Grooming - Score, Bathing - Score, Dressing - Upper Body - Score, Dressing - Lower Body - Score, Toileting - Score, Bladder Management - Score, Bowel Man agement - Score, Transfers: Bed, Chair, Wheelchair - Score, Transfers: Toilet - Score, Transfers: Janine wer - Score, Transfers: Tub - Score, Locomotion: Walk - Score, Locomotion: Wheelchair - Score, Compre hension - Score, Expression - Score, Social Interaction - Score, Problem Solving - Score, Memory - Sc ore were [electronically] signed by Jazmyne Alexandre CNA on MonJun 01 2018 13:55:39 GMT-0600 (Cent[place] Standard Time)
--- NOTE | 2018-06-01 15:05 | FAST ---
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 Leland Monroe M.D. ADMISSION DIAGNOSIS: - Cardiac 09 - Cardiac Disorders (09) CAD. EATING: Activity did not occur on this shift EATING - SCORE: 0-UNK GROOMING: Activity did not occur on this shift GROOMING - SCORE: 0-UNK BATHING: Activity did not occur on this shift BATHING - SCORE: 0-UNK DRESSING - UPPER BODY: Activity did not occur on this shift Patient is not dressing in public clothing ARTICLES SCORE Total number of steps: 0 DRESSING - UPPER BODY - SCORE: 0-UNK DRESSING - LOWER BODY: Activity did not occur on this shift Patient is not dressing in public clothing ARTICLES SCORE Total number of steps: 0 DRESSING - LOWER BODY - SCORE: 0-UNK TOILETING: Activity did not occur on this shift TOILETING - SCORE: 0-UNK BLADDER MANAGEMENT: Activity did not occur on this shift BLADDER MANAGEMENT - SCORE: 7-IND BOWEL MANAGEMENT: Activity did not occur on this shift BOWEL MANAGEMENT - SCORE: 7-IND TRANSFERS: BED, CHAIR, WHEELCHAIR: TRANSFERS: BED, CHAIR, WHEELCHAIR - STEP 1: Does the patient require assistance of a person or device, or need extra time with bed, chair, or whe elchair transfers? Yes. TRANSFERS: BED, CHAIR, WHEELCHAIR - STEP 2: Does the patient require the assistance of a helper? Yes. TRANSFERS: BED, CHAIR, WHEELCHAIR - STEP 3: How much assistance does the patient require from the helper? Steadying/guiding assistance TRANSFERS: BED, CHAIR, WHEELCHAIR - SCORE: 4-MIN TRANSFERS: TOILET: Activity did not occur on this shift TRANSFERS: TOILET - SCORE: 0-UNK TRANSFERS: SHOWER: Activity did not occur on this shift TRANSFERS: SHOWER - SCORE: 0-UNK TRANSFERS: TUB: Activity did not occur on this shift TRANSFERS: TUB - SCORE: 0-UNK LOCOMOTION: WALK: LOCOMOTION: WALK - STEP 1: Does the patient need help from a person or device, or need extra time to walk 150 feet? No. LOCOMOTION: WALK - STEP 2: Does the patient need an assistive device (such as an orthosis, prosthesis, crutches, or walker) to g o 150 feet, OR does s/he take more than reasonable time, OR is there a concern for safety? Yes, the p atient needs an assistive device LOCOMOTION: WALK - SCORE: 6-HARDY LOCOMOTION: WHEELCHAIR: Activity did not occur on this shift LOCOMOTION: WHEELCHAIR - SCORE: 0-UNK LOCOMOTION: STAIRS: LOCOMOTION: STAIRS - STEP 1: Does the patient need help to go up and down 12 to 14 stairs? Yes. LOCOMOTION: STAIRS - STEP 2: How much assistance does the patient need from the helper to go a minimum of 12 to 14 stairs? Only guzman pervision, cuing, or coaxing LOCOMOTION: STAIRS - SCORE: 5-SUP COMPREHENSION: COMPREHENSION - SCORE: 0-UNK EXPRESSION EXPRESSION - SCORE: 0-UNK SOCIAL INTERACTION: SOCIAL INTERACTION - SCORE: 0-UNK PROBLEM SOLVING: PROBLEM SOLVING - SCORE: 0-UNK MEMORY: MEMORY - SCORE: 0-UNK SIGNATURE PANEL: The following modified sections: Transfers: Bed, Chair, Wheelchair - Score, Transfers: Toilet - Score , Locomotion: Walk - Score, Locomotion: Wheelchair - Score, Locomotion: Stairs - Score were [electron cynthia] signed by Rhett Serrano PT on MonJun 01 2018 15:05:08 GMT-0600 (Central Standard Time)
[2018-06-01] MEDS: ROPINIROLE HCL 0.25 MG TAB PO SCH (16:59)
[2018-06-01] MEDS: LOSARTAN POTASSIUM 50 MG TABLET PO SCH (21:00)
[2018-06-01] MEDS: ATORVASTATIN 40 MG TAB PO SCH (21:06)
[2018-06-01] MEDS: MONTELUKAST 10 MG TAB PO SCH (21:07)
[2018-06-01 21:36] VITALS: O2SAT 98
[2018-06-02] MEDS: IPRATROPIUM BROM 0.5MG/2.5ML NEB SCH ×2 (02:00→07:38)
--- NOTE | 2018-06-02 02:35 | FAST ---
SHIFT START DATE/TIME: 06/01/2018 19:00 (HAM SMOKER) SHIFT END DATE/TIME: 06/02/2018 07:00 (HAM SMOKER) NAME JYOTI COFFMAN DATE OF : 1950 DATE OF ADMISSION: 05/22/2018 16:02 (HAM SMOKER) PHONE: AGE: 67 SSN# [id number] GENDER: Female ENCOUNTER PHYSICIAN: Dr. Leland Monroe M.D. ADMISSION DIAGNOSIS: - Cardiac 09 - Cardiac Disorders () CAD. EATING: Activity did not occur on this shift EATING - SCORE: 0-UNK GROOMING: Activity did not occur on this shift GROOMING - SCORE: 0-UNK BATHING: Activity did not occur on this shift BATHING - SCORE: 0-UNK DRESSING - UPPER BODY: Patient is not dressing in public clothing ARTICLES SCORE Total number of steps: 0 DRESSING - UPPER BODY - SCORE: 0-UNK DRESSING - LOWER BODY: Patient is not dressing in public clothing ARTICLES SCORE Total number of steps: 0 DRESSING - LOWER BODY - SCORE: 0-UNK TOILETING: TOILETING - STEP 1: Does the patient require the assistance of a person or device, or need extra time with toileting? Yes . TOILETING - STEP 2: Does the patient require the assistance of a helper? Yes. TOILETING - STEP 3: How much assistance does the patient require from the helper? Only supervision TOILETING - SCORE: 5-SUP BLADDER MANAGEMENT: BLADDER MANAGEMENT - STEP 1: Does the patient control the bladder completely and intentionally without equipment or devices or med ications, and is always continent? No. BLADDER MANAGEMENT - STEP 2: Does the patient require the assistance of a helper? No, patient requires and independently uses an a ssistive device, such as a urinal, bedpan, bedside commode, catheter, absorbent pad, or collecting de vice BLADDER MANAGEMENT - SCORE: 6-HARDY BOWEL MANAGEMENT: Activity did not occur on this shift BOWEL MANAGEMENT - SCORE: 7-IND TRANSFERS: BED, CHAIR, WHEELCHAIR: TRANSFERS: BED, CHAIR, WHEELCHAIR - STEP 1: Does the patient require assistance of a person or device, or need extra time with bed, chair, or whe elchair transfers? Yes. TRANSFERS: BED, CHAIR, WHEELCHAIR - STEP 2: Does the patient require the assistance of a helper? Yes. TRANSFERS: BED, CHAIR, WHEELCHAIR - STEP 3: How much assistance does the patient require from the helper? Steadying/guiding assistance TRANSFERS: BED, CHAIR, WHEELCHAIR - SCORE: 4-MIN TRANSFERS: TOILET: TRANSFERS: TOILET - STEP 1: Does the patient require the assistance of a person or device, or need extra time with toilet transfe rs? Yes. TRANSFERS: TOILET - STEP 2: Does the patient require the assistance of a helper? Yes. TRANSFERS: TOILET - STEP 3: How much assistance does the patient require from the helper? Only supervision, cuing, coaxing, OR he lp to set out transfer equipment or to lock brakes and/or lift foot rests TRANSFERS: TOILET - SCORE: 5-SUP TRANSFERS: SHOWER: Activity did not occur on this shift TRANSFERS: SHOWER - SCORE: 0-UNK TRANSFERS: TUB: Activity did not occur on this shift TRANSFERS: TUB - SCORE: 0-UNK LOCOMOTION: WALK: Activity did not occur on this shift LOCOMOTION: WALK - SCORE: 0-UNK LOCOMOTION: WHEELCHAIR: Activity did not occur on this shift LOCOMOTION: WHEELCHAIR - SCORE: 0-UNK COMPREHENSION: COMPREHENSION: TYPE: Both COMPREHENSION - STEP 1: Does the patient require help from a person or device, or need extra time to understand complex and a bstract ideas (such as current events, finances, discharge planning, medical issues, relationships, e tc)? No. COMPREHENSION - STEP 2: Does the patient need extra time, require an assistive device (such as glasses for visual comprehensi on or a hearing aid for auditory comprehension) or does s/he have mild difficulty understanding compl ex and abstract information? Yes. COMPREHENSION - SCORE: 6-HARDY EXPRESSION EXPRESSION: TYPE: Both EXPRESSION - STEP 1: Does the patient require help from a person or device, or need extra time expressing complex and abst ract ideas (such as current events, finances, discharge planning, medical issues, relationships, etc) ? No. EXPRESSION - STEP 2: Does the patient need extra time, require an assistive device (such as augmentive communication syste m or a communication board), OR does s/he have mild difficulty expressing complex and abstract ideas (including mild dysarthria or mild word-find problems)? Yes. EXPRESSION - SCORE: 6-HARDY SOCIAL INTERACTION: SOCIAL INTERACTION - STEP 1: Does the patient require a helper to interact with others in social and therapeutic situations? No. SOCIAL INTERACTION - STEP 2: Does the patient need extra time in social situations, OR does s/he interact with staff, other patien ts, and family members ONLY in structured environments, OR does s/he require medication for social in teraction? Yes, patient needs extra time SOCIAL INTERACTION - SCORE: 6-HARDY PROBLEM SOLVING: PROBLEM SOLVING - STEP 1: Does the patient need help from a person or device, or need extra time to solve complex problems such as managing a checking account or confronting interpersonal problems? No. PROBLEM SOLVING - STEP 2: Does the patient require extra time to make decisions or solve problems, OR does s/he have slight dif ficulty reading, initiating, or self-correcting in unfamiliar situations? Yes, patient needs extra ti me. PROBLEM SOLVING - SCORE: 6-HARDY MEMORY: MEMORY - STEP 1: Does the patient need help from a person or device, or need extra time to remember frequently encount ered people, daily routines, and executing requests? No. MEMORY - STEP 2: Does the patient have slight difficulty recognizing frequently encountered people, daily routines, or executing requests without the need for repetition or using self-initiated or environmental cues to remember? Yes. MEMORY - SCORE: 6-HARDY
[2018-06-02 06:50] LABS: Absolute Neutrophil 3.5 K/uL (1.8-8.0); Eosinophils % 11.6 % (0-4.4); Hematocrit 25.5 % (36.0-45.0); Lymphocytes % 26.4 % (15.3-44.8); MPV 6.5 fL (7.6-11.3); Monocytes % 13.9 % (3.3-12.3); RBC Red Blood Cell Count 3.15 M/uL (3.86-4.86)
[2018-06-02] MEDS: INSULIN -REGULAR HUMAN 50 UNIT/0.5 ML ML SQ SCH (07:30)
[2018-06-02] MEDS: PANTOPRAZOLE 40MG TABLET PO SCH (07:36)
[2018-06-02] MEDS: LEVOTHYROXINE SOD 0.1 MG TAB PO SCH (07:36)
[2018-06-02 07:39] VITALS: TEMP 97.2
[2018-06-02] MEDS: MEDIHONEY 44 ML TOPICAL TUBE TOP SCH (08:00)
[2018-06-02] MEDS: GLUCERNA SHAKE 237 ML CAN PO SCH (08:00)
[2018-06-02] MEDS: PROMOD 30 ML DOSE PO SCH (08:00)
[2018-06-02] MEDS: CRANBERRY FRUIT EXTRACT 200 MG CAP PO SCH (08:34)
[2018-06-02] MEDS: TRADJENTA 5 MG PO SCH (08:34)
[2018-06-02] MEDS: MAGNESIUM OXIDE 400 MG TAB PO SCH (08:34)
[2018-06-02] MEDS: TORSEMIDE 20 MG TAB PO SCH (08:34)
[2018-06-02] MEDS: GABAPENTIN 100 MG CAP PO SCH (08:35)
[2018-06-02] MEDS: RIVAROXABAN 15 MG TABLET PO SCH (08:35)
[2018-06-02] MEDS: DOCUSATE NA/SENNA CONC 1 TAB PO SCH (08:35)
[2018-06-02] MEDS: INSULIN GLARGINE 100 UNITS/ML SQ SCH (08:36)
[2018-06-02] MEDS: METOPROLOL XL 25 MG TAB PO SCH (09:59)
[2018-06-02] MEDS: TRAMADOL HCL 50 MG TAB PO PRN (10:00)
[2018-06-02] MEDS: BENZONATATE 100 MG CAP PO PRN (10:00)
[2018-06-02 10:01] VITALS: BP 118/68
== END 2018-06-02 11:00 | disposition home health service (06) | DRG 303 ==
LOC: 5TH 16:01
PROVIDERS: ADMIT Psychiatry & Neurology Neurology with Special Qualifications in Child Neurology; ATTEND Psychiatry & Neurology Neurology with Special Qualifications in Child Neurology
DX: I25.10 Atherosclerotic heart disease of native coronary artery without angina pectoris (principal); E11.40 Type 2 diabetes mellitus with diabetic neuropathy, unspecified; M19.90 Unspecified osteoarthritis, unspecified site; J45.909 Unspecified asthma, uncomplicated; I48.91 Unspecified atrial fibrillation; I10 Essential (primary) hypertension; G47.33 Obstructive sleep apnea (adult) (pediatric)
CPT/HCPCS: 36415; 71045; 80048; 81001; 81003; 81015; 82040; 82962; 83735; 84134; 85025; 87077; 87086; 87088; 87186; 94640; 97110; 97112; 97116; 97162; 97167; 97530; 97542

== ENCOUNTER 2023-09-06 13:05 | Inpatient (IN) | payer OTHER ==
[2023-09-06] MEDS ORDERED: GLUCAGON 1 MG/VIAL IM PRN (14:21)
[2023-09-06] MEDS ORDERED: D10W 250 ML BAG IV PRN (14:21)
[2023-09-06] MEDS ORDERED: LEVALBUTEROL 1.25 MG/3 ML NEB NEB PRN (14:55)
--- NOTE | 2023-09-06 15:17 | RAD REPORT ---
EXAM DESCRIPTION: Krystal Single View09/06/2023 3:12 pm CLINICAL HISTORY: Shortness of breath COMPARISON: 2018 FINDINGS: Mild bilateral pulmonary opacities. The heart is moderately enlarged. Post surgical changes involve the chest. Pacemaker leads place IMPRESSION: These findings probably indicate mild CHF
--- NOTE | 2023-09-06 15:18 | RAD REPORT ---
EXAM DESCRIPTION: RAD - Abdomen 1 View (KUB) - 09/06/2023 3:12 pm CLINICAL HISTORY: Constipation FINDINGS: The bowel gas pattern is unremarkable. A moderate amount of stool is present throughout the colon. Vascular calcifications are present. Post surgical changes involve the lumbar spine. A neurostimulato r device in place
[2023-09-06] MEDS: INSULIN REGULAR (HUMAN) 100 UNIT/ML SQ SCH (16:30)
[2023-09-06] MEDS ORDERED: LEVALBUTEROL 1.25 MG/3 ML NEB NEB SCH (19:00)
[2023-09-06] MEDS ORDERED: NA CHLORIDE 0.9% 250 ML ONE (20:35)
[2023-09-06] MEDS: ERTAPENEM NA 0.5 GM in NA CHLORIDE 0.9% 100 ML IVPB SCH (20:38)
[2023-09-06] MEDS: FUROSEMIDE 20 MG/ 2ML VIAL IV SCH (20:41)
[2023-09-06] MEDS: APIXABAN 2.5 MG TABLET PO SCH (20:44)
[2023-09-06] MEDS: ROPINIROLE HCL 1 MG TAB PO SCH (20:44)
[2023-09-06] MEDS: FLUTICASONE 50MCG NASAL SPRAY NAS SCH (20:45)
[2023-09-06] MEDS: TRAMADOL HCL 50 MG TAB PO PRN (20:50)
[2023-09-06] MEDS ORDERED: ERTAPENEM SODIUM 1 GM VIAL IVPB SCH (21:00)
[2023-09-07 04:08] LABS: Absolute Basophils 0.1 K/uL (0-0.5); Absolute Eosinophils 0.5 K/uL (0-0.5); Absolute Lymphocytes (CBC) 1.1 K/uL (0.7-4.9); Absolute Neutrophil 5.6 K/uL (1.8-8.0); Basophils % 0.8 % (0-1.3); Eosinophils % 6.2 % (0-4.4); Hematocrit 26.2 % (36.0-45.0); Hemoglobin 8.2 g/dL (12.0-15.0); Lymphocytes % 13.6 % (15.3-44.8); MCH 24.1 pg (27.0-35.0); MCHC 31.2 g/dL (32.0-36.0); MCV 77.5 fL (80-100); MPV 7.2 fL (7.6-11.3); Monocytes % 12.2 % (3.3-12.3); Neutrophils % 67.2 % (41.7-73.7); Platelets 339 thou/uL (152-406); RBC Red Blood Cell Count 3.38 M/uL (3.86-4.86); Red Cell Distribution Width 19.3 % (12.1-15.2)
[2023-09-07 04:43] LABS: Albumin 2.7 g/dL (3.4-5.0); Anion Gap 8.4 mEq/L (5.0-15.0); Magnesium 2.7 mg/dL (1.6-2.4); Potassium 5.4 mEq/L (3.5-5.1); Prealbumin 14.2 mg/dL (20-40)
[2023-09-07] MEDS ORDERED: LEVOTHYROXINE SOD 0.05 MG TABLET PO SCH (06:30)
[2023-09-07] MEDS ORDERED: LEVOTHYROXINE SOD 0.1 MG TAB PO SCH (06:30)
[2023-09-07] MEDS: LEVOTHYROXINE SOD 0.075 MG TAB PO SCH (07:07)
[2023-09-07] MEDS: PANTOPRAZOLE 40MG TABLET PO SCH (07:07)
--- NOTE | 2023-09-07 07:08 | RAD REPORT ---
EXAM DESCRIPTION: US - Extrem Venous W Compress Romero - 09/07/2023 1:43 am CLINICAL HISTORY: swelling COMPARISON: No comparisons TECHNIQUE: Real-time sonographic evaluation of the lower extremity deep venous systems was performed using color Doppler, grayscale, and compression. FINDINGS: Bilateral lower extremities. Normal compressibility, flow augmentation, phasic flow and spontaneous flow is identified in both the left and right lower extremity deep venous systems. No intraluminal filling defects seen. Subcutaneous edema present throughout the lower extremities bilaterally. IMPRESSION: No DVT in either lower extremity.
--- NOTE | 2023-09-07 07:30 | HP ---
Date of Admission: 09/06/2023 Time Of Service: 1:30 p.m. Chief Complaint: "I've been in the hospital for about a week." History Of Present Illness: Ms. Vaughn is a 72-year-old patient with COPD, CHF, diabetes mellitus, h ypertension, hypothyroidism, ischemic coronary artery disease, who was seen at [facility], operated by [facility] on 08/30/2023 after she developed increasing shortness of breath with lower extremity edema, pa roxysmal nocturnal dyspnea, and orthopnea. Imaging identified bilateral pleural effusions. Furtherm ore, she also was recently hospitalized for small bowel obstruction, had surgery that required revisi on with wound VAC placement and lysis of adhesions. She had developed cellulitis at the site of infe ction and received IV antibiotics. She was treated for her CHF exacerbation with hypoxia and had lewis ging of the lower extremities which were negative for deep vein thrombosis. She did have elevated D- dimer, potentially related to lung issues. CT angiogram of her chest could not be performed due to d ecreased glomerular filtration rate. She did receive Lasix for her CHF exacerbation and acute renal insufficiency. She had thoracentesis for left pleural effusion, which removed 450 cc of bloody fluid and she did have improved breathing. She did require wound care including autolytic debridement and Santyl wound care from Wound Care Service. She did have management of the wound to the right side t horacentesis by Wound Care as well. She was managed by strict Is and Os, Lasix, and daily weights. Hospital Course: She did require supplemental oxygenation up to 4 L. She did have imaging of the bi lateral thoracentesis which was done, management of her acute anemia, diabetes, atrial fibrillation, renal insufficiency, urinary tract infection. This did require a Bettencourt and Invanz treatment. Prior to her hospitalization, she did function independently using a Rollator and did require assistance wi th sponge baths, which she was able to have at home from a friend. She ambulated at least 500 feet d aily in the house with room air. However, currently she has significant proximal or distal weakness requiring moderate assist for bed mobilization, transfers, and ambulation only about 13 feet with con tact guard assistance using a rolling walker. As she is functioning well below her baseline, she clancy s require aggressive inpatient rehabilitation to manage her comorbid conditions and she does therapy to help avoid rehab hospitalization. She will have longterm along with the social insurance specialist ev aluation and management, daily physician evaluation, and of course advised to have longterm. Past Medical History: Coronary artery disease, diastolic CHF, myocardial infarction, atrial fibrilla tion that is paroxysmal, hypertension, cholecystectomy, hysterectomy, cardiac stents, and 3 back surg eries, thyroidectomy, coronary artery bypass grafting, and thyroid cancer surgery. Allergies: IODINE, SHRIMP, MEPERIDINE. Current Medications: Tylenol 500 mg every 4 hours as needed, amiodarone 200 mg daily, Eliquis 2.5 mg twice daily, Drisdol 50,000 units weekly, Flonase 50 mcg nasal spray 2 sprays twice daily as schedul ed, Lasix 20 mg IV daily, Semglee insulin 24 units daily, NovoLog regular insulin sliding scale, also levothyroxine 0.15 mg daily, Singulair 10 mg daily, Protonix 40 mg daily, ropinirole 2 mg at bedtime , tramadol 50 mg every 6 hours as needed. Family History: Noncontributory. X-ray/imaging: Chest x-ray on 08/31 shows stable appearance of chest with vascular congestion. Ther e is blunting of bilateral costophrenic angles suggesting pleural effusions. A CT scan of the abdome n and pelvis on 08/30 shows resolution of previously described large dilated small bowel loops. Ther e was scattered free fluid throughout the abdomen and pelvis, increased in comparison to a previous s tudy. There was no free air. The body wall edema was significantly increased. There is adjacent co mpressive atelectasis. Stable 0.5 cm noncalcified pulmonary nodule in the right middle lobe. Review of Systems: Mild shortness of breath, mild pain in the abdominal area, mild stiffness. She did have small bowel movement and also mild edema, right greater than left lower extremity. She reports some myalgias, ar thralgias. Otherwise, she is sleeping well, beginning to do well with therapy, eating well. Says sh avelina does have good bowel movements and urination. Denies any significant rash. No headache. No other positives on systems review. Current Level Of Functioning: Set up assist for eating, supervision for oral hygiene, moderate dayna tance for toileting, dependent for showering, moderate assist for upper body dressing, dependent for lower body dressing and donning and doffing of shoes. For rolling [id number] and [id number], m oderate assistance. [id number], moderate assistance. From lying to sitting to sliding out of bed, moderate assistance. Transferring from bed to chair, moderate assistance. Toilet transfers, modera te assistance. Ambulation with a rolling walker, contact guard assistance, she covered 30 feet. Family History: Noncontributory. Physical Examination: Vital Signs: Blood pressure 134/61, pulse 60, respiratory rate 18, temperature 97.7, oxygen saturati on 96%. Weight 178 pounds, height 5 feet 2 inches, BMI 32.6. General: Ms. Vaughn is lying in bed in between therapy sessions. She is in no acute distress. HEENT: She is normocephalic, atraumatic. Sclerae anicteric. Abdomen: Moderately hard. There is dressing in place in the lower abdomen where surgery was done, i t shows good hemostasis. Very slight redness of the lower end of the dressing noted. Extremities: Otherwise, mild edema in the right more than left lower extremity. She has no focal de ficits. She has diffuse weakness, proximal more than distal in the lower end, more in the upper extr emities. Otherwise, symmetric reflex, stocking-glove loss, light touch temperature. Laboratory Studies: Glucose 139, white blood cells 8.0, hemoglobin 7.4, hematocrit 24.8, platelets 2 89. Chemistry: Sodium 133, potassium 4.9, BUN 62, creatinine 1.85, calcium 9.5, albumin 3.4. Rehabilitation And Medical Assessment And Plan: Ms. Vaughn is admitted to rehabilitation unit with i mpairment category 06, neurological condition. Her impairment group code is 03.8, neuromuscular diso rders. 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 Comorbid conditions are atrial fibrillation, renal insu fficiency, anemia, coronary artery bypass grafting, coronary artery disease, CHF, decreased physical functioning, decreased mobility, diabetes mellitus type 2. She had a thoracentesis, hypertension, hy pothyroidism, pleural effusion, restless legs syndrome, and hyponatremia along with elevated BUN and creatinine. Plan: She will have physical, occupational, and if need be speech therapy for 3.5 hours, 5 of 7 days . Otherwise, we will continue with fluid management including Lasix. She will have daily weights, I s and Os will be monitored, and medication regimen adjusted for fluid management as needed. She will have levothyroxine 0.15 mg daily for hypothyroidism, Singulair 10 mg daily for seasonal allergies, P rotonix 40 mg daily for GE reflux, Requip 2 mg at bedtime for restless legs syndrome, tramadol 50 mg every 6 hours as needed for pain, Xopenex 1.25 mg nebulizer for shortness of breath, Semglee insulin 24 units daily for diabetes mellitus. Also has glucose sliding scale. Lasix IV right now 20 mg twic e daily for fluid management, Eliquis 2.5 mg twice daily for DVT prophylaxis, amiodarone 200 mg daily for heart rate and blood pressure management, vitamin D3 50,000 units weekly for low vitamin D level , Flonase for improving airway function. Comorbidities That Are Impacting Rehabilitation: Currently, the CHF issues, which will be followed b y chest x-ray. Fluid management with Lasix, will have electrolytes followed regularly, daily weights , calf circumference, and may have LUIS hose and SCDs placed to mitigate leg swelling. Otherwise, she has risk of stroke and deep vein thrombosis medicated by the Eliquis. Rehab Specific Plan: Ms. Vaughn will have physical, occupational, and if need be speech therapy for 3.5 hours, 5 of 7 days to improve her ability to transfer from bed to toilet to chair to shower, to p erform showering and toileting, begin to ambulate, and goal, she was independent prior to having issu es at [facility], will be to ambulate independent with a rolling walker 250 feet, to be able to mobilize a wheelchair 250 feet, up and down 10 steps, work towards modified independence to independence. In addition, perform cognitive functioning independently, medication management, sa fety awareness, and scheduling physician followup. If need be, she will have additional help from se rvices including the Pulmonary Service and Renal Service as need be along with Wound Care for the abd omen and Surgical Service. Ms. Vaughn has good understanding of the process of admission to inpatient rehabilitation facility, h owever, she will benefit from physical, occupational, and if need be speech therapy. Again, Infectio us Disease, Pulmonary Service, and Wound Care Service will be consulted. She will also have 24 hours 7 days a week longterm, daily physician evaluation and management, and social insurance specialist evalua tion and management of her discharge planning, home equipment needs, and continue therapy. Barriers To Discharge: Currently, the CHF issues and requiring fluid removal from the thoracic regio n may have to be repeated and that will be through the Surgery Service if need be. At this point, tish quan seems stable, but will be followed chest x-rays on an interval basis. Length Of Stay: About 12 days. Disposition: Home with family and continuing therapy via Home Health. Prognosis: Fair. Rehabilitation Goals: 1.Become independent with lower and upper body dressing, toileting, donning and doffing of upper and lower body clothes and shoes. 2.Independently ambulate 250 feet with a rolling walker. 3.Independently propel a wheelchair 250 feet. 4.Independently go up and down 10 steps with bilateral handrails. 5.Independently perform all cognitive functioning. The above goals were reviewed with Ms. Vaughn and she is in agreement. By signing this document, I acknowledge I personally performed a full physical examination on Ms. Serena lima no later than 24 hours after admission to the inpatient rehabilitation facility and determined th at she is able to tolerate the above course of treatment at an intensive level for a reasonable perio d of time. A detailed individualized plan of care for her will be completed by hospital day 4 based on the preadmission screen, history and physical, and therapy evaluations. CHEPE Voice ID: [id number]
[2023-09-07] MEDS: INSULIN GLARGINE 100 UNIT/ML SQ SCH (08:00)
[2023-09-07] MEDS ORDERED: TRESIBA 24 UNIT SQ SCH (08:00)
[2023-09-07] MEDS: MONTELUKAST 10 MG TAB PO SCH (09:04)
[2023-09-07] MEDS: DOCUSATE NA/SENNA CONC 1 TAB PO SCH (09:04)
[2023-09-07] MEDS: AMIODARONE HCL 200 MG TAB PO SCH (09:05)
[2023-09-07] MEDS: ISOSORBIDE MONO SR 30 MG TAB PO SCH (10:12)
[2023-09-07] MEDS: FERROUS SULFATE 325 MG TAB PO SCH (12:05)
[2023-09-07] MEDS: FE SULF/FA/VIT B COMP & C TAB PO SCH (12:05)
[2023-09-07] MEDS: ROPINIROLE HCL 1 MG TAB PO SCH ×2 (15:00→15:23)
[2023-09-07] MEDS: COLLAGENASE 30 GM OINTMENT TOP SCH (15:25)
[2023-09-07] MEDS: FUROSEMIDE 20 MG/ 2ML VIAL IV SCH (19:59)
[2023-09-07] MEDS ORDERED: NEPRO SHAKE 237 ML CAN PO SCH (20:00)
[2023-09-07] MEDS ORDERED: ROPINIROLE HCL 1 MG TAB PO SCH (20:00)
[2023-09-07] MEDS: ENSURE HIGH PROTEIN 237 ML CAN PO SCH (20:15)
[2023-09-07] MEDS: JUVEN PACKET PO SCH (20:15)
--- NOTE | 2023-09-07 21:34 | P.CNS ---
Date of Consult: 09/07/23 Reason for Consult: CKD Requesting Physician: Leland Monroe Chief Complaint: Weakness History of Present Illness: 72 yo WF with CKD, CHF presented to the [facility] with moderate, persistent generalized weakness with associated dyspnea and edema. Abdominal distention. Allergies Iodine and Iodide Containing Produc Allergy (Verified 09/06/23 15:30) Anaphylaxis shrimp Allergy (Verified 09/06/23 15:30) Anaphylaxis meperidine [From Demerol] Adverse Reaction (Verified 09/06/23 15:30) Nausea/Vomiting Home medications list reviewed: Yes Home Medications: Amiodarone HCl [Cordarone*] 200 mg PO DAILY 09/06/23 Ergocalciferol (Vitamin D2) [Vitamin D2] 1 cap PO Q7D 09/06/23 Isosorbide Mononitrate [Isosorbide Mononitrate ER] 30 mg PO DAILY 09/06/23 Levothyroxine Sodium [Synthroid] 150 mcg PO AC 09/06/23 Montelukast [Singulair*] 10 mg PO DAILY 09/06/23 Omeprazole [Prilosec] 40 mg PO DAILY 09/06/23 Ropinirole HCl [Requip] 4 mg PO BID 09/06/23 - Past Medical/Surgical History Diabetic: Yes -: HTN -: DM II -: CKD -: Diastolic CHF -: back surgery -: hysterectomy -: cholecystectomy -: thyroidectomy - Family History Mother Medical History: Heart disease - Social History Alcohol use: No CD- Drugs: No Caffeine use: Yes Place of Residence: Home Review of Systems 10-point ROS is otherwise unremarkable General: Weakness, Malaise Respiratory: SOB with Excertion Cardiovascular: Edema Gastrointestinal: Distention Physical Examination Temp Pulse Resp BP Pulse Ox 97.6 F 60 18 126/58 L 95 09/07/23 21:25 09/07/23 21:25 09/07/23 21:25 09/07/23 21:25 09/07/23 21:25 General: Oriented x3, Cooperative HEENT: Atraumatic Neck: Supple Respiratory: Clear to auscultation bilaterally, Normal air movement Cardiovascular: Regular rate/rhythm, Edema Gastrointestinal: Soft and benign, Non-distended, Distended Musculoskeletal: No clubbing, No contractures Integumentary: No rashes, No cyanosis Neurological: Normal speech Laboratory Data (last 24 hrs) 09/07/23 09/07/23 03:21 03:21 WBC 8.40 Hgb 8.2 L Hct 26.2 L Plt Count 339 Sodium 131 L Potassium 5.4 H BUN 65 H Creatinine 1.71 H Glucose 107 H Magnesium 2.7 H Imagings Data: [id number] EXAM DESCRIPTION: RADChest Single View09/06/2023 3:12 pm CLINICAL HISTORY: Shortness of breath COMPARISON: 2018 FINDINGS: Mild bilateral pulmonary opacities. The heart is moderately enlarged. Post surgical changes involve the chest. Pacemaker leads place IMPRESSION: These findings probably indicate mild CHF [id number] EXAM DESCRIPTION: US - Extrem Venous W Compress Romero - 09/07/2023 1:43 am CLINICAL HISTORY: swelling COMPARISON: No comparisons TECHNIQUE: Real-time sonographic evaluation of the lower extremity deep venous systems was performed using color Doppler, grayscale, and compression. FINDINGS: Bilateral lower extremities. Normal compressibility, flow augmentation, phasic flow and spontaneous flow is identified in both the left and right lower extremity deep venous systems. No intraluminal filling defects seen. Subcutaneous edema present throughout the lower extremities bilaterally. IMPRESSION: No DVT in either lower extremity. [id number] EXAM DESCRIPTION: RAD - Abdomen 1 View (KUB) - 09/06/2023 3:12 pm CLINICAL HISTORY: Constipation FINDINGS: The bowel gas pattern is unremarkable. A moderate amount of stool is present throughout the colon. Vascular calcifications are present. Post surgical changes involve the lumbar spine. A neurostimulator device in place Conclusions/Impression: CKD III -No NSAIDs Hyponatremia -Continue Lasix Hyperkalemia -Continue Lasix Metabolic Alkalosis -Start Diamox HTN with CKD/ CHF -Continue Imdur Diastolic CHF, A/C Pleural Effusion -Check Echocardiogram -Increase Lasix 20mg IV q6h -Start Diamox 250mg daily DM II with CKD -Continue Lantus -RISS Hypoalbuminemia Moderate Malnutrition -Continue Sammy Anemia in chronic illness Microcytosis -Monitor H&H -Check iron and B12 CKD MBD -Continue Ergocalciferol Thank you kindly for the consultation
[2023-09-07] MEDS: LEVALBUTEROL 1.25 MG/3 ML NEB NEB SCH (21:45)
--- NOTE | 2023-09-08 01:27 | PN ---
Date of Progress Note: 09/07/2023 Time Of Service: 1:10 p.m. Subjective: Ms. Vaughn is in her room in between therapy sessions, feeling well about her therapy, a lthough there is some shortness of breath. She did have a chest x-ray and a KUB done. The chest x-r ay showed minimal CHF pattern. KUB showed moderate amount of retained stool with no obstructive lisy raphael, and there is no deep vein thrombosis identified on venous Doppler study. She has no new complai nts. Objective: No fevers, chills. Mild myalgias, arthralgias. No rash, headache, weight change. No ps ychiatric issues or gastrointestinal/genitourinary active issues. Physical Examination: Vital Signs: Blood pressure 126/58, pulse 60, respiratory rate 18, temperature 97.6, O2 saturation 9 6%. Weight 176 pounds, height 5 feet 2 inches, BMI 32. General: Ms. Vaughn is resting well. She has some proximal to distal weakness in the lower extremit ies and mild shortness of breath. No chest pain. No abdominal tenderness. No other positives on ex amination. Laboratory Studies: White blood cell count 8.4, hemoglobin slightly low at 8.2, platelets 339. Sodi um 131, potassium 5.4, chloride 95, BUN 65, creatinine 1.71. Glucose 107, ranging up to 246, and act ually a low of 74 glucose. Calcium 9.3, magnesium 2.7. Albumin also 2.7, prealbumin 14.2. Medications: Tylenol 500 mg every 4 hours as needed; Diamox 250 mg daily; amiodarone 200 mg daily; E liquis 2.5 mg twice daily; Santyl ointment applied to the skin breakdown area daily as needed; vitami n D 50,000 units weekly; Flonase 50 mcg twice daily; Lasix 20 mg IV every 6 hours; Semglee insulin 24 units daily, the patient is encouraged to eat a snack at nighttime; Imdur 30 mg daily; Sammy 1 packe t twice daily; Xopenex 1.25 mg nebulizer every 4 hours as needed; Synthroid 0.15 mg daily; Singulair 10 mg daily; Hemocyte Plus 1 tablet with breakfast; Ensure Enlive 237 mL twice daily; Protonix 40 mg daily; Requip 8 mg twice daily; Senokot S one tablet twice daily; Ultram 50 mg every 6 hours as neede d. Progress Made With Physical And Occupational Therapy Along With Speech Therapy: Today, with physical therapy, needed minimal assistance to completed bed mobility including turning and supine-sit transf er. Car transfer simulated with moderate assistance. The patient walked 20 feet with minimal assist ance with a rolling walker. Able to go up and down 5 steps, required maximum assistance. Wheelchair mobilization, 40 feet twice with minimum assistance. Today, speech therapy long-term goals were to improve short-term memory, executive functioning skills from a moderate assistance level to minimum a ssistance and possible independence to be discharged home. With occupational therapy, the patient's goal is to improve functional mobility; improve transfer safety; improve balance; improve generalized weakness; and performing bathing, dressing, toileting, and all activities of daily living with minim al assistance to be able to return home. Ms. Vaughn is beginning to make progress, although slow with physical, occupational, and speech thera py. Assessment: Ms. Vaughn is a 72-year-old patient with congestive heart failure myopathy; atrial fibri llation; anemia; coronary artery disease, status post bypass grafting; diastolic congestive heart ephraim lure; decreased physical functioning; decreased mobility; diabetes mellitus type 2; hypertension; hyp othyroidism; pleural effusions, status post thoracentesis; restless legs syndrome; hyponatremia; ____ ; and elevated creatinine. Plan: Continue with physical, occupational, and speech therapy for 3.5 hours, 5 of 7 days. She has fluid management with I's and O's being monitored. Lasix given. LUIS hose will be applied and SCDs t o help with lower extremity edema. Continue levothyroxine for hypothyroidism; Protonix for GE reflux ; Requip for restless legs syndrome; tramadol for pain management; Xopenex for shortness of breath; S emglee insulin with a nighttime snack to manage diabetes mellitus. Continue Eliquis 2.5 mg twice joan ly for DVT prophylaxis, vitamin D for low vitamin D level. Comorbidities That Are Impacting Rehabilitation: Mild shortness of breath. Some difficulty with ret ained stool is slightly impacting the patient's ability to do therapy very well, but she is neverthel ess doing well. Also risk of falls and bleeds will be present because of the Eliquis, which she needs for atrial fibrillation, so again fall precautions adhered to very stric tly. AUGUSTO/CLEMENCIA Voice ID: [id number] Report ID: [id number]
[2023-09-08 04:25] LABS: Albumin 2.5 g/dL (3.4-5.0); Albumin/Globulin Ratio 0.6 (1.1-1.8); Anion Gap 7.9 mEq/L (5.0-15.0); Bilirubin Total 0.5 mg/dL (0.2-1.0); Ferritin 128.1 ng/mL (8-388); Globulin 4.1 g/dL (2.3-3.5); Phosphorus 3.2 mg/dL (2.5-4.9); Potassium 4.9 mEq/L (3.5-5.1); Protein, Total 6.6 g/dL (6.4-8.2); Uric Acid 9.7 mg/dL (2.6-6.0)
[2023-09-08] MEDS: acetaZOLAMIDE 250 MG TAB PO SCH (06:45)
[2023-09-08] MEDS: LEVALBUTEROL 1.25 MG/3 ML NEB NEB SCH (13:00)
--- NOTE | 2023-09-08 13:17 | P.RH.PN ---
Estimated Length of Stay: 11 Expected Discharge Date: 09/14/23 Discharge Disposition Plan: Home Family Support: Yes [facility] Goal: Mobility, Transfers, Self Care Vital Signs: Last Vital Signs Temp 97.1 F 09/08/23 06:50 Pulse 60 09/08/23 06:50 Resp 18 09/08/23 06:50 BP 137/63 09/08/23 06:50 Pulse Ox 94 09/08/23 06:50 Laboratory: Laboratory Last Values WBC 8.40 thou/uL (4.3-10.9) 09/07/23 03:21 RBC 3.38 M/uL (3.86-4.86) L 09/07/23 03:21 Hgb 8.2 g/dL (12.0-15.0) L 09/07/23 03:21 Hct 26.2 % (36.0-45.0) L 09/07/23 03:21 MCV 77.5 fL (80-100) L 09/07/23 03:21 MCH 24.1 pg (27.0-35.0) L 09/07/23 03:21 MCHC 31.2 g/dL (32.0-36.0) L 09/07/23 03:21 RDW 19.3 % (12.1-15.2) H 09/07/23 03:21 Plt Count 339 thou/uL (152-406) 09/07/23 03:21 MPV 7.2 fL (7.6-11.3) L 09/07/23 03:21 Neutrophils % 67.2 % (41.7-73.7) 09/07/23 03:21 Lymphocytes % 13.6 % (15.3-44.8) L 09/07/23 03:21 Monocytes % 12.2 % (3.3-12.3) 09/07/23 03:21 Eosinophils % 6.2 % (0-4.4) H 09/07/23 03:21 Basophils % 0.8 % (0-1.3) 09/07/23 03:21 Absolute Neutrophils 5.6 K/uL (1.8-8.0) 09/07/23 03:21 Absolute Lymphocytes 1.1 K/uL (0.7-4.9) 09/07/23 03:21 Absolute Monocytes 1.0 K/uL (0.1-1.3) 09/07/23 03:21 Absolute Eosinophils 0.5 K/uL (0-0.5) 09/07/23 03:21 Absolute Basophils 0.1 K/uL (0-0.5) 09/07/23 03:21 Sodium 132 mEq/L (136-145) L 09/08/23 03:11 Potassium 4.9 mEq/L (3.5-5.1) 09/08/23 03:11 Chloride 96 mEq/L (98-107) L 09/08/23 03:11 Carbon Dioxide 33 mEq/L (21-32) H 09/08/23 03:11 Anion Gap 7.9 mEq/L (5.0-15.0) 09/08/23 03:11 BUN 57 mg/dL (7-18) H 09/08/23 03:11 Creatinine 1.53 mg/dL (0.55-1.02) H 09/08/23 03:11 Est GFR (CKD-EPI) 36 ml/min (=/>90) L 09/08/23 03:11 Glucose 96 mg/dL (74-106) 09/08/23 03:11 POC Glucose 125 mg/dL (65-120) H 09/08/23 10:54 Uric Acid 9.7 mg/dL (2.6-6.0) H 09/08/23 03:11 Calcium 9.0 mg/dL (8.5-10.1) 09/08/23 03:11 Phosphorus 3.2 mg/dL (2.5-4.9) 09/08/23 03:11 Magnesium 2.7 mg/dL (1.6-2.4) H 09/07/23 03:21 Iron 13.0 ug/dL (50-170) L 09/08/23 03:11 TIBC 316 ug/dL (250-460) 09/08/23 03:11 Transferrin 226 mg/dL (200-360) 09/08/23 03:11 Transferrin % Sat 4.1 % (20.0-50.0) L 09/08/23 03:11 Ferritin 128.1 ng/mL (8-388) 09/08/23 03:11 Total Bilirubin 0.5 mg/dL (0.2-1.0) 09/08/23 03:11 AST 18 U/L (15-37) 09/08/23 03:11 ALT 12 U/L (13-56) L 09/08/23 03:11 Alkaline Phosphatase 121 U/L (45-117) H 09/08/23 03:11 NT-Pro-B Natriuret Pep 8598 pg/mL (<125) H 09/08/23 03:11 Serum Total Protein 6.6 g/dL (6.4-8.2) 09/08/23 03:11 Albumin 2.5 g/dL (3.4-5.0) L 09/08/23 03:11 Globulin 4.1 g/dL (2.3-3.5) H 09/08/23 03:11 Albumin/Globulin Ratio 0.6 (1.1-1.8) L 09/08/23 03:11 Prealbumin 14.2 mg/dL (20-40) L 09/07/23 03:21 Vitamin B12 789 pg/mL (193-986) 09/08/23 03:11 Weight: 176 lb 3.2 oz Wound Present: No Closed Surgical Incision Present: Yes Negative Pressure Wound Therapy Present: Yes Physician Update: Labs reviewed, moderate anemia and malnutrition. She has the wound vac in place and may be removed for showering. SLUMS 19, works hard. Does well on room air 93% after wheelchair mobility. Min assistance 20' with RW, 40' with WC. Mod to max assist with lower body dressing and footware. Summary: Patient's care plan and care home goals have been reviewed and revised as necessary. Please see the Rehabilitation Signature page for all necessary signatures.
--- NOTE | 2023-09-08 14:30 | ECHO ---
HEIGHT: 5 ft 2 in WEIGHT: 176 lb 3.2 oz DATE OF STUDY: 09/08/[address]: Chinmay Jernigan DO 2-DIMENSIONAL: YES M.MODE: YES DOPPLER: YES COLOR FLOW: YES TDS: NO PORTABLE: YES DEFINITY: NO BUBBLE STUDY: NO DIAGNOSIS: DIASTOLIC CONGESTIVE HEART FAILURE/ DYSPNEA CARDIAC HISTORY: CATHERIZATION: NO SURGERY: YES PROSTHETIC VALVE: NO PACEMAKER: YES MEASUREMENTS (cm) DIASTOLIC (NORMALS) SYSTOLIC (NORMALS) IVSd 1.0 (0.6-1.2) LA Diam 4.0 (1.9-4.0) LVEF 54% LVIDd 4.3 (3.5-5.7) LVIDs 3.1 (2.0-3.5) %FS 28% LVPWd 1.1 (0.6-1.2) Ao Diam 2.8 (2.0-3.7) 2 DIMENSIONAL ASSESSMENT: RIGHT ATRIUM: NORMAL LEFT ATRIUM: ENLARGED RIGHT VENTRICLE: NORMAL LEFT VENTRICLE: NORMAL TRICUSPID VALVE: SEVERE TRICUSPID REGURGITATION MITRAL VALVE: MILD MITRAL REGURGITATION PULMONIC VALVE: MILD PULMONIC INSUFFICIENCY AORTIC VALVE: NORMAL PERICARDIAL EFFUSION: NONE AORTIC ROOT: NORMAL LEFT VENTRICULAR WALL MOTION: NORMAL. DOPPLER/COLOR FLOW: SEE BELOW. COMMENTS: 1. NORMAL LEFT VENTRICULAR EJECTION FRACTION 55-60% WITH NORMAL WALL MOTION. 2. MODERATE DIASTOLIC DYSFUNCTION 3. LEFT ATRIAL ENLARGEMENT 4. SEVERE TRICUSPID REGURGITATION 5. MILD MITRAL REGURGITATION TECHNOLOGIST: MOIRA CANTU
[2023-09-08] MEDS: FORMULATION-R RECTAL 57GM PR PRN (15:54)
[2023-09-08] MEDS: ISOSORBIDE MONO SR 30 MG TAB PO SCH (18:26)
[2023-09-08] MEDS: ROPINIROLE HCL 8 MG PO SCH (20:00)
--- NOTE | 2023-09-08 21:52 | P.PN ---
Date of Service: 09/08/23 Vital Signs Temp Pulse Resp BP Pulse Ox 97.2 F 64 16 119/57 L 99 09/08/23 20:04 09/08/23 20:04 09/08/23 20:04 09/08/23 20:04 09/08/23 20:04 Medications Acetaminophen (Acetaminophen 500 Mg Tab) 500 mg PO Q4H PRN PRN Reason: Pain scale 2-4 (Mild) Acetazolamide (Acetazolamide 250 Mg Tab) 250 mg PO BID* [facility] Amiodarone HCl (Amiodarone Hcl 200 Mg Tab) 200 mg PO DAILY [facility] Last Admin: 09/08/23 06:47 Dose: 200 mg Apixaban (Apixaban 2.5 Mg Tablet) 2.5 mg PO BID [facility] Last Admin: 09/08/23 06:47 Dose: 2.5 mg Collagenase (Collagenase 30 Gm Ointment) 1 appl TOP DAILY [facility] Last Admin: 09/08/23 08:00 Dose: Not Given Dextrose (D10w 250 Ml Bag) 125 ml IV PRN PRN; Protocol PRN Reason: HYPOGLYCEMIA Ergocalciferol (Drisdol (Vitamin D=Ergocalciferol) 32850 Unit Cap) 50,000 unit PO Q7D@0900 [facility] Fluticasone Propionate (Fluticasone 50mcg Nasal [place]) 2 sprays FRANCOIS BID [facility] Last Admin: 09/08/23 06:46 Dose: 2 sprays Furosemide (Furosemide 20 Mg/ 2ml Vial) 20 mg IV Q6H [facility] Last Admin: 09/08/23 13:34 Dose: 20 mg Glucagon (Glucagon 1 Mg/Vial) 1 mg IM 1X PRN; Protocol PRN Reason: HYPOGLYCEMIA Home Med (Home Med [Ropinirole Hcl 8 Mg Tab]) 1 ea PO BID [facility] Ertapenem 0.5 gm/ Sodium (Chloride) 100 mls @ 200 mls/hr IVPB 2100 [facility] Stop: 09/10/23 21:01 Last Admin: 09/07/23 20:03 Dose: 100 mls Insulin Glargine (Insulin Glargine 100 Unit/Ml) 24 unit SQ DAILY [facility] Last Admin: 09/08/23 11:36 Dose: 24 unit Insulin Human Regular (Insulin Regular (Human) 100 Unit/Ml) 0 unit SQ ACHS [facility]; Protocol Last Admin: 09/08/23 16:19 Dose: Not Given Isosorbide Mononitrate (Isosorbide Edmonson Sr 30 Mg Tab) 30 mg PO DAILY [facility] Last Admin: 09/08/23 18:26 Dose: Not Given L-Arginine/L-Glutamine/HMB (Sammy Packet) 1 pkt PO BID [facility] Last Admin: 09/08/23 06:49 Dose: 1 pkt Levalbuterol HCl (Levalbuterol 1.25 Mg/3 Ml Neb) 1.25 mg NEB [id number] [facility] Last Admin: 09/08/23 20:23 Dose: 1.25 mg Levothyroxine Sodium (Levothyroxine Sod 0.075 Mg Tab) 0.15 mg PO DAILYAC [facility] Last Admin: 09/08/23 06:45 Dose: 0.15 mg Montelukast Sodium (Montelukast 10 Mg Tab) 10 mg PO DAILY [facility] Last Admin: 09/08/23 06:45 Dose: 10 mg Multivitamins/Iron (Fe Sulf/Fa/Vit B Comp & C Tab) 1 tab PO DAILY WITH BREAKFAST [facility] Last Admin: 09/08/23 06:45 Dose: 1 tab Nutritional Formula (Ensure High Protein 237 Ml Can) 237 ml PO BID [facility] Last Admin: 09/08/23 06:48 Dose: Not Given Pantoprazole Sodium (Pantoprazole 40mg Tablet) 40 mg PO B [facility]; Protocol Last Admin: 09/08/23 06:46 Dose: 40 mg Phenyleph/Shark Oil/Min Oil/Petrol (Formulation-R Rectal 57gm) 1 appl ND BID PRN PRN Reason: HEMORRHOIDS Last Admin: 09/08/23 15:54 Dose: 1 appl Senna/Docusate Sodium (Docusate Na/Senna Conc 1 Tab) 1 tab PO BID [facility] Last Admin: 09/08/23 06:45 Dose: 1 tab Tramadol HCl (Tramadol Hcl 50 Mg Tab) 50 mg PO Q6H PRN PRN Reason: Pain scale 5-7 (Moderate) Last Admin: 09/08/23 13:43 Dose: 50 mg Lab Results (last 24 hrs) 09/08/23 19:32: POC Glucose 191 H 09/08/23 16:05: POC Glucose 158 H 09/08/23 10:54: POC Glucose 125 H 09/08/23 07:00: POC Glucose 72 09/08/23 03:11: Sodium 132 L, Potassium 4.9, Chloride 96 L, Carbon Dioxide 33 H, Anion Gap 7.9, BUN 57 H, Creatinine 1.53 H, Est GFR (CKD-EPI) 36 L, Glucose 96, Uric Acid 9.7 H, Calcium 9.0, Phosphorus 3.2, Iron 13.0 L, TIBC 316, Transferrin 226, Transferrin % Sat 4.1 L, Ferritin 128.1, Total Bilirubin 0.5, AST 18, ALT 12 L, Alkaline Phosphatase 121 H, NT-Pro-B Natriuret Pep 8598 H, Serum Total Protein 6.6, Albumin 2.5 L, Globulin 4.1 H, Albumin/Globulin Ratio 0.6 L, Amanda min B12 789 Assessment/ Plan: Nephrology No dyspnea No chest pain Fatigue and weakness Feeling better No acute events overnight Vitals, medications, blood work and imaging reviewed in the chart General: Oriented x3, Cooperative HEENT: Atraumatic Neck: Supple Respiratory: Clear to auscultation bilaterally, Normal air movement Cardiovascular: Regular rate/rhythm, Edema Gastrointestinal: Soft and benign, Non-distended, Distended Musculoskeletal: No clubbing, No contractures Integumentary: No rashes, No cyanosis Neurological: Normal speech Laboratory Data (last 24 hrs) 09/07/23 09/07/23 03:21 03:21 WBC 8.40 Hgb 8.2 L Hct 26.2 L Plt Count 339 Sodium 131 L Potassium 5.4 H BUN 65 H Creatinine 1.71 H Glucose 107 H Magnesium 2.7 H Imagings Data: [id number] EXAM DESCRIPTION: [facility] Single View09/06/2023 3:12 pm CLINICAL HISTORY: Shortness of breath COMPARISON: 2018 FINDINGS: Mild bilateral pulmonary opacities. The heart is moderately enlarged. Post surgical changes involve the chest. Pacemaker leads place IMPRESSION: These findings probably indicate mild CHF [id number] EXAM DESCRIPTION: US - Extrem Venous W Compress Romero - 09/07/2023 1:43 am CLINICAL HISTORY: swelling COMPARISON: No comparisons TECHNIQUE: Real-time sonographic evaluation of the lower extremity deep venous systems was performed using color Doppler, grayscale, and compression. FINDINGS: Bilateral lower extremities. Normal compressibility, flow augmentation, phasic flow and spontaneous flow is identified in both the left and right lower extremity deep venous systems. No in traluminal filling defects seen. Subcutaneous edema present throughout the lower extremities bilaterally. IMPRESSION: No DVT in either lower extremity. [id number] EXAM DESCRIPTION: RAD - Abdomen 1 View (KUB) - 09/06/2023 3:12 pm CLINICAL HISTORY: Constipation FINDINGS: The bowel gas pattern is unremarkable. A moderate amount of stool is present throughout the colon. Vascular calcifications are present. Post surgical changes involve the lumbar spine. A neurostimulator device in place [id number] LEFT VENTRICULAR WALL MOTION: NORMAL. DOPPLER/COLOR FLOW: SEE BELOW. COMMENTS: 1. NORMAL LEFT VENTRICULAR EJECTION FRACTION 55-60% WITH NORMAL WALL MOTION. 2. MODERATE DIASTOLIC DYSFUNCTION 3. LEFT ATRIAL ENLARGEMENT 4. SEVERE TRICUSPID REGURGITATION 5. MILD MITRAL REGURGITATION Conclusions/Impression: CKD III -No NSAIDs Hyponatremia -Continue Lasix Hyperkalemia -Continue Lasix Metabolic Alkalosis -Increase Diamox HTN with CKD/ CHF -Continue Imdur with holding parameters Diastolic CHF, A/C Pleural Effusion -Echocardiogram reviewed -Continue Lasix 20mg IV q6h -Increase Diamox 250mg BID DM II with CKD -Continue Lantus -RISS Hypoalbuminemia Moderate Malnutrition -Continue Sammy Anemia in chronic illness Iron Deficiency 4% -Monitor H&H -Start daily IV iron CKD MBD -Continue Ergocalciferol
[2023-09-09] MEDS: SOD FERRIC GLUC COMPLX/SUCROSE 125 MG in NA CHLORIDE 0.9% 100 ML IV SCH (05:22)
[2023-09-09] MEDS: acetaZOLAMIDE 250 MG TAB PO SCH (08:55)
[2023-09-09] MEDS ORDERED: NA CHLORIDE 0.9% 250 ML ONE (20:05)
[2023-09-09] MEDS: ACETAMINOPHEN 500 MG TAB PO PRN (20:36)
--- NOTE | 2023-09-09 21:43 | P.PN ---
Date of Service: 09/09/23 Vital Signs Temp Pulse Resp BP Pulse Ox 96.8 F 60 16 129/60 97 09/09/23 19:37 09/09/23 20:27 09/09/23 19:37 09/09/23 20:27 09/09/23 19:37 Medications Acetaminophen (Acetaminophen 500 Mg Tab) 500 mg PO Q4H PRN PRN Reason: Pain scale 2-4 (Mild) Last Admin: 09/09/23 20:36 Dose: 500 mg Acetazolamide (Acetazolamide 250 Mg Tab) 250 mg PO BID* [facility] Last Admin: 09/09/23 14:30 Dose: 250 mg Amiodarone HCl (Amiodarone Hcl 200 Mg Tab) 200 mg PO DAILY [facility] Last Admin: 09/09/23 07:50 Dose: 200 mg Apixaban (Apixaban 2.5 Mg Tablet) 2.5 mg PO BID [facility] Last Admin: 09/09/23 20:27 Dose: 2.5 mg Collagenase (Collagenase 30 Gm Ointment) 1 appl TOP DAILY [facility] Last Admin: 09/09/23 07:48 Dose: Not Given Dextrose (D10w 250 Ml Bag) 125 ml IV PRN PRN; Protocol PRN Reason: HYPOGLYCEMIA Ergocalciferol (Drisdol (Vitamin D=Ergocalciferol) 78410 Unit Cap) 50,000 unit PO Q7D@0900 [facility] Fluticasone Propionate (Fluticasone 50mcg Nasal [place]) 2 sprays FRANCOIS BID [facility] Last Admin: 09/09/23 20:28 Dose: 2 sprays Furosemide (Furosemide 20 Mg/ 2ml Vial) 20 mg IV Q6H [facility] Last Admin: 09/09/23 20:27 Dose: 20 mg Glucagon (Glucagon 1 Mg/Vial) 1 mg IM 1X PRN; Protocol PRN Reason: HYPOGLYCEMIA Home Med (Home Med [Ropinirole Hcl 8 Mg Tab]) 1 ea PO BID [facility] Last Admin: 09/09/23 20:36 Dose: 1 ea Ertapenem 0.5 gm/ Sodium (Chloride) 100 mls @ 200 mls/hr IVPB 2100 [facility] Stop: 09/10/23 21:01 Last Admin: 09/09/23 20:26 Dose: 100 mls Ferric Sodium Gluconate Complex 125 mg/ Sodium Chloride 110 mls @ 50 mls/hr IV Q24H [facility] Stop: 09/18/23 10:11 Insulin Glargine (Insulin Glargine 100 Unit/Ml) 24 unit SQ DAILY [facility] Last Admin: 09/09/23 08:55 Dose: 24 unit Insulin Human Regular (Insulin Regular (Human) 100 Unit/Ml) 0 unit SQ ACHS [facility]; Protocol Last Admin: 09/09/23 20:29 Dose: Not Given Isosorbide Mononitrate (Isosorbide [place] Sr 30 Mg Tab) 30 mg PO DAILY [facility] Last Admin: 09/09/23 08:55 Dose: 30 mg L-Arginine/L-Glutamine/HMB (Sammy Packet) 1 pkt PO BID [facility] Last Admin: 09/09/23 20:28 Dose: 1 pkt Levalbuterol HCl (Levalbuterol 1.25 Mg/3 Ml Neb) 1.25 mg NEB [id number] [facility] Last Admin: 09/09/23 20:41 Dose: 1.25 mg Levothyroxine Sodium (Levothyroxine Sod 0.075 Mg Tab) 0.15 mg PO DAILYAC [facility] Last Admin: 09/09/23 06:38 Dose: 0.15 mg Montelukast Sodium (Montelukast 10 Mg Tab) 10 mg PO DAILY [facility] Last Admin: 09/09/23 07:50 Dose: 10 mg Nutritional Formula (Ensure High Protein 237 Ml Can) 237 ml PO BID [facility] Last Admin: 09/09/23 20:28 Dose: 237 ml Pantoprazole Sodium (Pantoprazole 40mg Tablet) 40 mg PO ACB [facility]; Protocol Last Admin: 09/09/23 06:38 Dose: 40 mg Phenyleph/Shark Oil/Min Oil/Petrol (Formulation-R Rectal 57gm) 1 appl DE BID PRN PRN Reason: HEMORRHOIDS Last Admin: 09/08/23 15:54 Dose: 1 appl Senna/Docusate Sodium (Docusate Na/Senna Conc 1 Tab) 1 tab PO BID [facility] Last Admin: 09/09/23 20:27 Dose: 1 tab Tramadol HCl (Tramadol Hcl 50 Mg Tab) 50 mg PO Q6H PRN PRN Reason: Pain scale 5-7 (Moderate) Last Admin: 09/08/23 13:43 Dose: 50 mg Lab Results (last 24 hrs) 09/09/23 19:09: POC Glucose 105 09/09/23 16:03: POC Glucose 152 H 09/09/23 11:18: POC Glucose 128 H 09/09/23 06:26: POC Glucose 135 H Assessment/ Plan: Nephrology No dyspnea No chest pain Fatigue and weakness Feeling better No acute events overnight Vitals, medications, blood work and imaging reviewed in the chart General: Oriented x3, Cooperative HEENT: Atraumatic Neck: Supple Respiratory: Clear to auscultation bilaterally, Normal air movement Cardiovascular: Regular rate/rhythm, Edema Gastrointestinal: Soft and benign, Non-distended, Distended Musculoskeletal: No clubbing, No contractures Integumentary: No rashes, No cyanosis Neurological: Normal speech Laboratory Data (last 24 hrs) 09/07/23 09/07/23 03:21 03:21 WBC 8.40 Hgb 8.2 L Hct 26.2 L Plt Count 339 Sodium 131 L Potassium 5.4 H BUN 65 H Creatinine 1.71 H Glucose 107 H Magnesium 2.7 H Imagings Data: [id number] EXAM DESCRIPTION: [facility] Single View09/06/2023 3:12 pm CLINICAL HISTORY: Shortness of breath COMPARISON: 2018 FINDINGS: Mild bilateral pulmonary opacities. The heart is moderately enlarged. Post surgical changes involve the chest. Pacemaker leads place IMPRESSION: These findings probably indicate mild CHF [id number] EXAM DESCRIPTION: US - Extrem Venous W Compress Romero - 09/07/2023 1:43 am CLINICAL HISTORY: swelling COMPARISON: No comparisons TECHNIQUE: Real-time sonographic evaluation of the lower extremity deep venous systems was performed using color Doppler, grayscale, and compression. FINDINGS: Bilateral lower extremities. Normal compressibility, flow augmentation, phasic flow and spontaneous flow is identified in both the left and right lower extremity deep venous systems. No intraluminal filling defects seen. Subcutaneous edema present throughout the lower extremities bilaterally. IMPRESSION: No DVT in either lower extremity. [id number] EXAM DESCRIPTION: RAD - Abdomen 1 View (KUB) - 09/06/2023 3:12 pm CLINICAL HISTORY: Constipation FINDINGS: The bowel gas pattern is unremarkable. A moderate amount of stool is present throughout the colon. Vascular calcifications are present. Post surgical changes involve the lumbar spine. A neurostimulator device in place [id number] LEFT VENTRICULAR WALL MOTION: NORMAL. DOPPLER/COLOR FLOW: SEE BELOW. COMMENTS: 1. NORMAL LEFT VENTRICULAR EJECTION FRACTION 55-60% WITH NORMAL WALL MOTION. 2. MODERATE DIASTOLIC DYSFUNCTION 3. LEFT ATRIAL ENLARGEMENT 4. SEVERE TRICUSPID REGURGITATION 5. MILD MITRAL REGURGITATION Conclusions/Impression: CKD III -No NSAIDs Hyponatremia -Continue Lasix Hyperkalemia -Continue Lasix Metabolic Alkalosis -Continue Diamox HTN with CKD/ CHF -Continue Imdur with holding parameters Diastolic CHF, A/C Pleural Effusion -Echocardiogram reviewed -Continue Lasix 20mg IV q6h -Continue Diamox 250mg BID DM II with CKD -Continue Lantus -RISS Hypoalbuminemia Moderate Malnutrition -Continue Sammy Anemia in chronic illness Iron Deficiency 4% -Monitor H&H -Continue daily IV iron CKD MBD -Continue Ergocalciferol
[2023-09-10 05:38] LABS: Absolute Basophils 0.1 K/uL (0-0.5); Absolute Eosinophils 0.4 K/uL (0-0.5); Absolute Monocytes 0.8 K/uL (0.1-1.3); Absolute Neutrophil 3.8 K/uL (1.8-8.0); Basophils % 0.9 % (0-1.3); Eosinophils % 6.6 % (0-4.4); Hematocrit 24.3 % (36.0-45.0); Hemoglobin 7.7 g/dL (12.0-15.0); MCH 24.5 pg (27.0-35.0); MCHC 31.6 g/dL (32.0-36.0); MCV 77.5 fL (80-100); MPV 6.9 fL (7.6-11.3); Neutrophils % 63.5 % (41.7-73.7); Platelets 320 thou/uL (152-406); RBC Red Blood Cell Count 3.13 M/uL (3.86-4.86); Red Cell Distribution Width 18.9 % (12.1-15.2)
[2023-09-10 05:51] LABS: Anion Gap 7.3 mEq/L (5.0-15.0); Potassium 4.3 mEq/L (3.5-5.1)
[2023-09-10] MEDS ORDERED: SOD FERRIC GLUC COMPLX/SUCROSE 125 MG in NA CHLORIDE 0.9% 100 ML IV SCH ×3 (08:00→16:00)
[2023-09-10] MEDS: GLUCERNA SHAKE 237 ML CAN PO SCH (08:40)
[2023-09-10] MEDS: DRISDOL (VITAMIN D=ERGOCALCIFEROL) 50000 UNIT CAP PO SCH (08:50)
[2023-09-10] MEDS: BISACODYL 10 MG RECTAL SUPP PR PRN (14:34)
[2023-09-10] MEDS: SOD FERRIC GLUC COMPLX/SUCROSE 125 MG in NA CHLORIDE 0.9% 100 ML IV SCH (16:02)
[2023-09-10] MEDS: DOCUSATE NA/SENNA CONC 1 TAB PO SCH (19:47)
--- NOTE | 2023-09-10 21:40 | P.PN ---
Date of Service: 09/10/23 Vital Signs Temp Pulse Resp BP Pulse Ox 97.6 F 60 18 115/56 L 96 09/10/23 20:00 09/10/23 20:00 09/10/23 20:00 09/10/23 20:00 09/10/23 20:00 Medications Acetaminophen (Acetaminophen 500 Mg Tab) 500 mg PO Q4H PRN PRN Reason: Pain scale 2-4 (Mild) Last Admin: 09/10/23 19:47 Dose: 500 mg Acetazolamide (Acetazolamide 250 Mg Tab) 250 mg PO BID* [facility] Last Admin: 09/10/23 13:37 Dose: 250 mg Amiodarone HCl (Amiodarone Hcl 200 Mg Tab) 200 mg PO DAILY [facility] Last Admin: 09/10/23 07:49 Dose: 200 mg Apixaban (Apixaban 2.5 Mg Tablet) 2.5 mg PO BID [facility] Last Admin: 09/10/23 19:54 Dose: 2.5 mg Bisacodyl (Bisacodyl 10 Mg Rectal Supp) 10 mg [place] DAILY PRN PRN Reason: CONSTIPATION Last Admin: 09/10/23 14:34 Dose: 10 mg Collagenase (Collagenase 30 Gm Ointment) 1 appl TOP DAILY [facility] Last Admin: 09/10/23 07:50 Dose: Not Given Dextrose (D10w 250 Ml Bag) 125 ml IV PRN PRN; Protocol PRN Reason: HYPOGLYCEMIA Enteral Nutritional Formula (Glucerna Shake 237 Ml Can) 237 ml PO BID [facility] Last Admin: 09/10/23 19:49 Dose: 237 ml Ergocalciferol (Drisdol (Vitamin D=Ergocalciferol) 22254 Unit Cap) 50,000 unit PO Q7D@0900 [facility] Last Admin: 09/10/23 08:50 Dose: 50,000 unit Fluticasone Propionate (Fluticasone 50mcg Nasal [place]) 2 sprays FRANCOIS BID [facility] Last Admin: 09/10/23 19:48 Dose: 2 sprays Furosemide (Furosemide 20 Mg/ 2ml Vial) 20 mg IV Q6H [facility] Last Admin: 09/10/23 19:47 Dose: 20 mg Glucagon (Glucagon 1 Mg/Vial) 1 mg IM 1X PRN; Protocol PRN Reason: HYPOGLYCEMIA Home Med (Home Med [Ropinirole Hcl 8 Mg Tab]) 1 ea PO BID [facility] Last Admin: 09/10/23 19:46 Dose: 1 ea Ferric Sodium Gluconate Complex 125 mg/ Sodium Chloride 110 mls @ 50 mls/hr IV Q24H [facility] Stop: 09/18/23 18:11 Last Admin: 09/10/23 16:02 Dose: 110 mls Insulin Glargine (Insulin Glargine 100 Unit/Ml) 24 unit SQ DAILY [facility] Last Admin: 09/10/23 07:50 Dose: 24 unit Insulin Human Regular (Insulin Regular (Human) 100 Unit/Ml) 0 unit SQ ACHS [facility]; Protocol Last Admin: 09/10/23 19:58 Dose: Not Given Isosorbide Mononitrate (Isosorbide [place] Sr 30 Mg Tab) 30 mg PO DAILY [facility] Last Admin: 09/10/23 08:39 Dose: 30 mg L-Arginine/L-Glutamine/HMB (Sammy Packet) 1 pkt PO BID [facility] Last Admin: 09/10/23 19:49 Dose: 1 pkt Levalbuterol HCl (Levalbuterol 1.25 Mg/3 Ml Neb) 1.25 mg NEB [id number] [facility] Last Admin: 09/10/23 20:47 Dose: 1.25 mg Levothyroxine Sodium (Levothyroxine Sod 0.075 Mg Tab) 0.15 mg PO DAILYAC [facility] Last Admin: 09/10/23 05:22 Dose: 0.15 mg Montelukast Sodium (Montelukast 10 Mg Tab) 10 mg PO DAILY [facility] Last Admin: 09/10/23 07:48 Dose: 10 mg Pantoprazole Sodium (Pantoprazole 40mg Tablet) 40 mg PO ACB [facility]; Protocol Last Admin: 09/10/23 07:48 Dose: 40 mg Phenyleph/Shark Oil/Min Oil/Petrol (Formulation-R Rectal 57gm) 1 appl [place] BID PRN PRN Reason: HEMORRHOIDS Last Admin: 09/08/23 15:54 Dose: 1 appl Senna/Docusate Sodium (Docusate Na/Senna Conc 1 Tab) 2 tab PO BID [facility] Last Admin: 09/10/23 19:47 Dose: 2 tab Tramadol HCl (Tramadol Hcl 50 Mg Tab) 50 mg PO Q6H PRN PRN Reason: Pain scale 5-7 (Moderate) Last Admin: 09/08/23 13:43 Dose: 50 mg Lab Results (last 24 hrs) 09/10/23 19:57: POC Glucose 153 H 09/10/23 16:14: POC Glucose 146 H 09/10/23 11:10: POC Glucose 161 H 09/10/23 06:47: POC Glucose 124 H 09/10/23 05:14: Sodium 132 L, Potassium 4.3, Chloride 96 L, Carbon Dioxide 33 H, Anion Gap 7.3, BUN 64 H, Creatinine 1.63 H, Est GFR (CKD-EPI) 33 L, Glucose 139 H, Calcium 8.7 09/10/23 05:14: WBC 6.00, RBC 3.13 L, Hgb 7.7 L, Hct 24.3 L, MCV 77.5 L, MCH 24. 5 L, MCHC 31.6 L, RDW 18.9 H, Plt Count 320, MPV 6.9 L, Neutrophils % 63.5, Lymphocytes % 16.0, Monocytes % 13.0 H, Eosinophils % 6.6 H, Basophils % 0.9, Absolute Neutrophils 3.8, Absolute Lymphocytes 1.0, Absolute Monocytes 0.8, Absolute Eosinophils 0.4, Absolute Basophils 0.1 Assessment/ Plan: Nephrology No dyspnea No chest pain Fatigue and weakness Feeling better with good urine output No acute events overnight Vitals, medications, blood work and imaging reviewed in the chart General: Oriented x3, Cooperative HEENT: Atraumatic Neck: Supple Respiratory: Clear to auscultation bilaterally, Normal air movement Cardiovascular: Regular rate/rhythm, Edema Gastrointestinal: Soft and benign, Non-distended, Distended Musculoskeletal: No clubbing, No contractures Integumentary: No rashes, No cyanosis Neurological: Normal speech Laboratory Data (last 24 hrs) 09/07/23 09/07/23 03:21 03:21 WBC 8.40 Hgb 8.2 L Hct 26.2 L Plt Count 339 Sodium 131 L Potassium 5.4 H BUN 65 H Creatinine 1.71 H Glucose 107 H Magnesium 2.7 H Imagings Data: [id number] EXAM DESCRIPTION: Krystal Single View09/06/2023 3:12 pm CLINICAL HISTORY: Shortness of breath COMPARISON: 2018 FINDINGS: Mild bilateral pulmonary opacities. The heart is moderately enlarged. Post surgical changes involve the chest. Pacemaker leads place IMPRESSION: These findings probably indicate mild CHF [id number] EXAM DESCRIPTION: US - Extrem Venous W Compress Romero - 09/07/2023 1:43 am CLINICAL HISTORY: swelling COMPARISON: No comparisons TECHNIQUE: Real-time sonographic evaluation of the lower extremity deep venous systems was performed using color Doppler, grayscale, and compression. FINDINGS: Bilateral lower extremities. Normal compressibility, flow augmentation, phasic flow and spontaneous flow is identified in both the left and right lower extremity deep venous systems. No intraluminal filling defects seen. Subcutaneous edema present throughout the lower extremities bilaterally. IMPRESSION: No DVT in either lower extremity. [id number] EXAM DESCRIPTION: RAD - Abdomen 1 View (KUB) - 09/06/2023 3:12 pm CLINICAL HISTORY: Constipation FINDINGS: The bowel gas pattern is unremarkable. A moderate amount of stool is present throughout the colon. Vascular calcifications are present. Post surgical changes involve the lumbar spine. A neurostimulator device in place [id number] LEFT VENTRICULAR WALL MOTION: NORMAL. DOPPLER/COLOR FLOW: SEE BELOW. COMMENTS: 1. NORMAL LEFT VENTRICULAR EJECTION FRACTION 55-60% WITH NORMAL WALL MOTION. 2. MODERATE DIASTOLIC DYSFUNCTION 3. LEFT ATRIAL ENLARGEMENT 4. SEVERE TRICUSPID REGURGITATION 5. MILD MITRAL REGURGITATION Conclusions/Impression: CKD III -No NSAIDs Hyponatremia -Continue Lasix Hyperkalemia -Continue Lasix Metabolic Alkalosis -Continue Diamox HTN with CKD/ CHF -Continue Imdur with holding parameters Diastolic CHF, A/C Pleural Effusion -Echocardiogram reviewed -Continue Lasix 20mg IV q6h -Continue Diamox 250mg BID DM II with CKD -Continue Lantus -RISS Hypoalbuminemia Moderate Malnutrition -Continue Sammy Anemia in chronic illness Iron Deficiency 4% -Monitor H&H -Continue daily IV iron CKD MBD -Continue Ergocalciferol
--- NOTE | 2023-09-11 11:38 | RAD REPORT ---
EXAM DESCRIPTION: US - Abdomen Exam Limited - 09/11/2023 11:21 am CLINICAL HISTORY: Abdominal distention COMPARISON: None. FINDINGS: The examination was performed to assess for ascites A small to moderate amount of ascites is present within the abdomen IMPRESSION: Small to moderate amount ascites
--- NOTE | 2023-09-11 21:49 | P.PN ---
Date of Service: 09/11/23 Vital Signs Temp Pulse Resp BP Pulse Ox 96.4 F L 60 17 115/56 L 96 09/11/23 18:52 09/11/23 19:15 09/11/23 18:52 09/11/23 19:15 09/11/23 18:52 Medications Acetaminophen (Acetaminophen 500 Mg Tab) 500 mg PO Q4H PRN PRN Reason: Pain scale 2-4 (Mild) Last Admin: 09/10/23 19:47 Dose: 500 mg Acetazolamide (Acetazolamide 250 Mg Tab) 250 mg PO BID* [facility] Last Admin: 09/11/23 13:46 Dose: 250 mg Amiodarone HCl (Amiodarone Hcl 200 Mg Tab) 200 mg PO DAILY [facility] Last Admin: 09/11/23 07:38 Dose: 200 mg Apixaban (Apixaban 2.5 Mg Tablet) 2.5 mg PO BID [facility] Last Admin: 09/11/23 19:17 Dose: 2.5 mg Bisacodyl (Bisacodyl 10 Mg Rectal Supp) 10 mg [place] DAILY PRN PRN Reason: CONSTIPATION Last Admin: 09/10/23 14:34 Dose: 10 mg Collagenase (Collagenase 30 Gm Ointment) 1 appl TOP Q72H [facility] Dextrose (D10w 250 Ml Bag) 125 ml IV PRN PRN; Protocol PRN Reason: HYPOGLYCEMIA Enteral Nutritional Formula (Glucerna Shake 237 Ml Can) 237 ml PO BID [facility] Last Admin: 09/11/23 19:17 Dose: 237 ml Ergocalciferol (Drisdol (Vitamin D=Ergocalciferol) 86914 Unit Cap) 50,000 unit PO Q7D@0900 [facility] Last Admin: 09/10/23 08:50 Dose: 50,000 unit Fluticasone Propionate (Fluticasone 50mcg Nasal [place]) 2 sprays FRANCOIS BID [facility] Last Admin: 09/11/23 19:14 Dose: 2 sprays Furosemide (Furosemide 20 Mg/ 2ml Vial) 20 mg IV Q6H [facility] Last Admin: 09/11/23 19:15 Dose: 20 mg Glucagon (Glucagon 1 Mg/Vial) 1 mg IM 1X PRN; Protocol PRN Reason: HYPOGLYCEMIA Home Med (Home Med [Ropinirole Hcl 8 Mg Tab]) 1 ea PO BID [facility] Last Admin: 09/11/23 19:17 Dose: 1 ea Ferric Sodium Gluconate Complex 125 mg/ Sodium Chloride 110 mls @ 50 mls/hr IV Q24H [facility] Stop: 09/18/23 18:11 Last Admin: 09/11/23 16:48 Dose: 110 mls Insulin Glargine (Insulin Glargine 100 Unit/Ml) 24 unit SQ DAILY [facility] Last Admin: 09/11/23 08:33 Dose: 24 unit Insulin Human Regular (Insulin Regular (Human) 100 Unit/Ml) 0 unit SQ ACHS [facility]; Protocol Last Admin: 09/11/23 20:59 Dose: Not Given Isosorbide Mononitrate (Isosorbide [place] Sr 30 Mg Tab) 30 mg PO DAILY [facility] Last Admin: 09/11/23 08:31 Dose: 30 mg L-Arginine/L-Glutamine/HMB (Sammy Packet) 1 pkt PO BID [facility] Last Admin: 09/11/23 19:12 Dose: 1 pkt Levalbuterol HCl (Levalbuterol 1.25 Mg/3 Ml Neb) 1.25 mg NEB [id number] [facility] Last Admin: 09/11/23 21:43 Dose: Not Given Levothyroxine Sodium (Levothyroxine Sod 0.075 Mg Tab) 0.15 mg PO DAILYAC [facility] Last Admin: 09/11/23 05:07 Dose: 0.15 mg Montelukast Sodium (Montelukast 10 Mg Tab) 10 mg PO DAILY [facility] Last Admin: 09/11/23 07:38 Dose: 10 mg Pantoprazole Sodium (Pantoprazole 40mg Tablet) 40 mg PO ACB [facility]; Protocol Last Admin: 09/11/23 07:38 Dose: 40 mg Phenyleph/Shark Oil/Min Oil/Petrol (Formulation-R Rectal 57gm) 1 appl SC BID PRN PRN Reason: HEMORRHOIDS Last Admin: 09/08/23 15:54 Dose: 1 appl Senna/Docusate Sodium (Docusate Na/Senna Conc 1 Tab) 2 tab PO BID [facility] Last Admin: 09/11/23 07:34 Dose: Not Given Tramadol HCl (Tramadol Hcl 50 Mg Tab) 50 mg PO Q6H PRN PRN Reason: Pain scale 5-7 (Moderate) Last Admin: 09/11/23 09:43 Dose: 50 mg Lab Results (last 24 hrs) 09/11/23 19:27: POC Glucose 99 09/11/23 16:09: POC Glucose 105 09/11/23 11:34: POC Glucose 121 H 09/11/23 06:31: POC Glucose 137 H Assessment/ Plan: Nephrology No dyspnea No chest pain Fatigue and weakness Abdominal pain No acute events overnight Vitals, medications, blood work and imaging reviewed in the chart General: Oriented x3, Cooperative HEENT: Atraumatic Neck: Supple Respiratory: Clear to auscultation bilaterally, Normal air movement Cardiovascular: Regular rate/rhythm, Edema Gastrointestinal: Soft and benign, Non-distended, Distended Musculoskeletal: No clubbing, No contractures Integumentary: No rashes, No cyanosis Neurological: Normal speech Laboratory Data (last 24 hrs) 09/07/23 09/07/23 03:21 03:21 WBC 8.40 Hgb 8.2 L Hct 26.2 L Plt Count 339 Sodium 131 L Potassium 5.4 H BUN 65 H Creatinine 1.71 H Glucose 107 H Magnesium 2.7 H Imagings Data: [id number] EXAM DESCRIPTION: RADChest Single View09/06/2023 3:12 pm CLINICAL HISTORY: Shortness of breath COMPARISON: 2018 FINDINGS: Mild bilateral pulmonary opacities. The heart is moderately enlarged. Post surgical changes involve the chest. Pacemaker leads place IMPRESSION: These findings probably indicate mild CHF [id number] EXAM DESCRIPTION: US - Extrem Venous W Compress Romero - 09/07/2023 1:43 am CLINICAL HISTORY: swelling COMPARISON: No comparisons TECHNIQUE: Real-time sonographic evaluation of the lower extremity deep venous systems was performed using color Doppler, grayscale, and compression. FINDINGS: Bilateral lower extremities. Normal compressibility, flow augmentation, phasic flow and spontaneous flow is identified in both the left and right lower extremity deep venous systems. No intraluminal filling defects seen. Subcutaneous edema present throughout the lower extremities bilaterally. IMPRESSION: No DVT in either lower extremity. [id number] EXAM DESCRIPTION: RAD - Abdomen 1 View (KUB) - 09/06/2023 3:12 pm CLINICAL HISTORY: Constipation FINDINGS: The bowel gas pattern is unremarkable. A moderate amount of stool is present throughout the colon. Vascular calcifications are present. Post surgical changes involve the lumbar spine. A neurostimulator device in place [id number] LEFT VENTRICULAR WALL MOTION: NORMAL. DOPPLER/COLOR FLOW: SEE BELOW. COMMENTS: 1. NORMAL LEFT VENTRICULAR EJECTION FRACTION 55-60% WITH NORMAL WALL MOTION. 2. MODERATE DIASTOLIC DYSFUNCTION 3. LEFT ATRIAL ENLARGEMENT 4. SEVERE TRICUSPID REGURGITATION 5. MILD MITRAL REGURGITATION Conclusions/Impression: CKD III -No NSAIDs Hyponatremia -Continue Lasix Hyperkalemia -Continue Lasix Metabolic Alkalosis -Continue Diamox HTN with CKD/ CHF -Continue Imdur with holding parameters Diastolic CHF, A/C Pleural Effusion -Echocardiogram reviewed -Continue Lasix 20mg IV q6h -Continue Diamox 250mg BID DM II with CKD -Continue Lantus -RISS Hypoalbuminemia Moderate Malnutrition -Continue Sammy Anemia in chronic illness Iron Deficiency 4% -Monitor H&H -Continue daily IV iron CKD MBD -Continue Ergocalciferol
--- NOTE | 2023-09-12 00:23 | PN ---
Date of Progress Note: 09/11/2023 Time Of Service: 1 p.m. Subjective: Ms. Vaughn is resting comfortably. She is in no significant distress. She does have so me distention of the abdominal area and there is potential for ascites and as a result, she has had a bdominal ultrasound. The study showed igqza-vg-oalmkyvg amount of ascites. The patient is followed by the Renal Service and in consultation with Dr. Jernigan, the potential for an abdominocentesis will be considered. She does report some shortness of breath with ambulation and significant fatigue potentially related to the ascites. She has had thoracentesis and abdominocentesis previously prior to coming to rehab u [facility]. Objective: She has again mild shortness of breath, diffuse fatigue, weakness. Mild myalgias, arthra lgias, and efhw-il-mkhwmrhl proximal lower extremity edema and mild distal lower extremity edema bila terally. She does have in the abdominal region a fluid wave with mildly distended abdomen. Physical Examination: Vital Signs: Blood pressure 115/56, pulse 60, respiratory rate 17, temperature 97.0, oxygen saturati on 96%. General: Again, Ms. Vaughn is resting in bed, in no significant distress. Abdomen: She does have the descended abdomen. Extremities: Again, proximal edema in the lower extremities more than distal and some decreased alisa th sounds bilaterally. She has proximal weakness in upper and lower extremities and is making slow p rogress in terms of what she says with her therapy that is transferring, gait, and mobilizing the whe elchair. Laboratory Studies: White blood cell count 6.0, hemoglobin 7.7, platelets 320, blood sugars ranged f rom 99 to 121. Medications: Medications have been reviewed and remain unchanged. She is on diuretic per the Renal Service, Lasix 20 mg every 6 hours IV, and again medications unchanged. Medications do include Eliqu is 2.5 mg twice daily for DVT prophylaxis. Progress Made With Physical And Occupational Therapy: Today with physical therapy, she did multiple bga-fu-ywhkc transfers with contact guard to minimum assistance, eqmyt-zj-mvijp transfers done with m inimum assistance and she was short of breath and lethargic. She ambulated 5 to 7 feet 4 times with a rolling walker and minimal assistance. She mobilized a wheelchair 5 to 10 feet 8 times with contac t guard assistance. With occupational therapy, minimum assist for pfcyou-fe-uew transfers, sit-to-st and transfers and bed transfers contact guard assistance. She did require 3 L of oxygen via nasal ca nnula with 94% saturation, blood pressure 125/60. With speech, organizational thinking skills used t o name similar items with 80% accuracy and moderate assistance, 4 of 4 unrelated words recalled after 5 minutes, then 3 of 4 with 3 recall after another 5 minutes. Ms. 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 She does have moderate f luid in the abdomen and may have tapping of the fluid. She does have proximal lower extremity edema. Assessment: Ms. Vaughn is a 72-year-old patient in rehabilitation with CHF myopathy. She has ascite s, congestive heart failure, atrial fibrillation, anemia, diastolic congestive heart failure, decreas ed mobility, decreased physical functioning, debility, diabetes mellitus type 2, hypertension, hypoth yroidism, restless legs syndrome, hyponatremia. Plan: She will continue with physical, occupational, and speech therapy for 3.5 hours, 5 of 7 days. She is followed by the Renal Service and will continue Lasix. May have the fluid tapped from the ab domen. Continue with DVT prophylaxis. Continue with all comorbid condition medications as noted inc luding diuresis. Comorbidities That Are Impacting Rehabilitation: The ascites is contributing to some shortness of br eath and difficulty with progression. She is using incentive spirometry. She will likely have abdominocentesis done to remov e fluid. LB/MODL Voice ID: [id number] Report ID: [id number]
[2023-09-12 04:26] LABS: Absolute Basophils 0.1 K/uL (0-0.5); Absolute Eosinophils 0.6 K/uL (0-0.5); Absolute Lymphocytes (CBC) 0.9 K/uL (0.7-4.9); Absolute Monocytes 0.8 K/uL (0.1-1.3); Absolute Neutrophil 4.8 K/uL (1.8-8.0); Eosinophils % 8.4 % (0-4.4); Hematocrit 25.4 % (36.0-45.0); Lymphocytes % 12.6 % (15.3-44.8); MCH 24.3 pg (27.0-35.0); MCHC 31.5 g/dL (32.0-36.0); MCV 77.1 fL (80-100); MPV 6.9 fL (7.6-11.3); Monocytes % 10.8 % (3.3-12.3); Neutrophils % 67.2 % (41.7-73.7); Nucleated Red Blood Cells % 0.1 % (0-0); Platelets 335 thou/uL (152-406); Red Cell Distribution Width 19.1 % (12.1-15.2)
[2023-09-12 04:38] LABS: Anion Gap 8.8 mEq/L (5.0-15.0); Potassium 3.8 mEq/L (3.5-5.1)
[2023-09-12 11:46] VITALS: BMI 32.9
--- NOTE | 2023-09-12 19:10 | PN ---
Date of Progress Note: 09/12/2023 Time Of Service: 1:10 p.m. Subjective: Ms. Vaughn is sitting in a chair beside bed. Family is at bedside. She has legs elevat ed on the chair in front of her. She still has some aewy-xm-ugqochfs shortness of breath and edema p roximally in the lower extremity. She said she did not do as well today as she had done yesterday, m dorothy worried about fluid buildup both in the abdomen and in the chest region. An x-ray of her chest i s done, results are pending. As noted, she is also followed by the Renal Service. The question was posed whether or not there was enough fluid to have a paracentesis done. The patient per the Renal S ervice did not yet qualify for that. She does have diuretics on board, incentive spirometry. An abd ominal ultrasound was done yesterday. The study showed zhyge-ws-jihyqhow amount of ascites present. Objective: Mild shortness of breath. Oxygen on board via nasal cannula. No fevers, chills. Some s welling in the proximal lower extremity, tension noted. Otherwise, no fevers or chills. Mild myalgi as, arthralgias. No rash. No psychiatric issues. No other positives on a 10-point systems review. Physical Examination: Vital Signs: Blood pressure 120/60, pulse of 60, respiratory rate 16, temperature 97, oxygen saturat ion 96% to 97% on 2 L of oxygen via nasal cannula. General: Ms. Vaughn again is sitting in a chair beside bed. HEENT: She appears normocephalic, atraumatic. Sclerae anicteric. Oropharynx pink, moist. Neck: Supple. Decreased breath sounds bilaterally. Abdomen: Slightly distended with a fluid wave. Extremities: In the proximal lower extremity, qvll-sa-nluzpndh edema in lower extremity distally. V taylor mild edema noted. She has diffuse weakness proximally more than distally in the lower and upper extremities. Laboratory Studies: White blood cell count 7.2, hemoglobin 8.0, platelets 335. Sodium 134, potassiu m 3.8, chloride 99, carbon dioxide 30, BUN 73, creatinine 1.53, glucose ranged from 92 to 115, calciu m 9.0. Medications: Medications have been reviewed. She has collagenase to the area of skin breakdown. Ot herwise, her medications have been unchanged. Progress Made With Physical, Occupational, And Speech Therapy: Today with physical therapy, she ambu lated 20 feet twice, unable to walk more. She said she just could not do it. She propelled a wheelc hair 10 feet 5 times, was very fatigued and lethargic. Stairs, she completed 2 steps and then 3 step s with minimum assistance. With occupational therapy, minimum assistance agnugz-mu-mfn transfers, st and assist for edge of bed to wheelchair transfer, did complain of pain in bilateral lower extremit ies. With speech, she sequenced 3 words with 100% accuracy with minimum assistance. Sentence formul ation developed with 100% accuracy. Organizational thinking skills developed throughout convergent n aming task with 60% accuracy. Ms. Vaughn is making slow progress with physical and occupational therapy, better progress with speec h therapy. She does have significant edema in the proximal lower extremities and some ascites. Assessment: Ms. Vaughn is a 72-year-old patient in rehabilitation with CHF myopathy. She has modera te abdominal ascites, congestive heart failure, atrial fibrillation, proximal lower extremity edema, anemia, decreased mobility, decreased physical functioning, diabetes mellitus type 2, hypertension, h ypothyroidism, restless legs syndrome, hyponatremia. Plan: 1.Continue with physical, occupational, and speech therapy. 2.She has x-ray of the chest pending. She will continue with incentive spirometry. Continue breath ing treatments. Continue with Lasix currently 20 mg every 6 hours to decrease fluid buildup. Contin ue DVT prophylaxis. Continue with treatment for hypertension, diabetes mellitus, hypothyroidism, res tless legs syndrome. Comorbidities That Are Impacting Rehabilitation: The shortness of breath likely contributed to by mu ltiple factors including ascites. She has low prealbumin and protein content added to her diet. The patient is also to be monitored for salt intake to minimize the retention of fluid by minimizing exce ss salt intake. LB/MODL Voice ID: [id number] Report ID: [id number]
--- NOTE | 2023-09-12 20:03 | RAD REPORT ---
EXAM DESCRIPTION: RADChest Single View09/12/2023 3:14 pm CLINICAL HISTORY: Shortness of breath. Has hx of pleural effusion COMPARISON: Abdomen 1 View (KUB) dated 09/06/2023; Chest Single View dated 09/06/2023; Chest Single Vi ew dated 05/28/2018; Chest Single View dated 05/23/2018 TECHNIQUE: Portable AP view of the chest. FINDINGS: Stable cardiomegaly and small pleural effusions with central and basilar predominant mild fluffy opacities. No pneumothorax or sizable effusion. The cardiomediastinal contours are unchanged with sequelae of CABG and left chest wall pacer in place. . Spinal stimulator electrodes in place. IMPRESSION: Stable findings as above, suggesting central congestion/CHF.
--- NOTE | 2023-09-12 21:03 | P.PN ---
Date of Service: 09/12/23 Vital Signs Temp Pulse Resp BP Pulse Ox 96.8 F 60 16 124/60 94 09/12/23 19:38 09/12/23 19:38 09/12/23 19:38 09/12/23 19:38 09/12/23 19:38 Medications Acetaminophen (Acetaminophen 500 Mg Tab) 500 mg PO Q4H PRN PRN Reason: Pain scale 2-4 (Mild) Last Admin: 09/12/23 15:20 Dose: 500 mg Acetazolamide (Acetazolamide 250 Mg Tab) 500 mg PO Q24H [facility] Amiodarone HCl (Amiodarone Hcl 200 Mg Tab) 200 mg PO DAILY [facility] Last Admin: 09/12/23 07:16 Dose: 200 mg Apixaban (Apixaban 2.5 Mg Tablet) 2.5 mg PO BID [facility] Last Admin: 09/12/23 19:26 Dose: 2.5 mg Bisacodyl (Bisacodyl 10 Mg Rectal Supp) 10 mg [place] DAILY PRN PRN Reason: CONSTIPATION Last Admin: 09/10/23 14:34 Dose: 10 mg Bumetanide (Bumetanide 1 Mg Tablet) 2 mg PO TIDRESP [facility] Collagenase (Collagenase 30 Gm Ointment) 1 appl TOP Q72H [facility] Dextrose (D10w 250 Ml Bag) 125 ml IV PRN PRN; Protocol PRN Reason: HYPOGLYCEMIA Ergocalciferol (Drisdol (Vitamin D=Ergocalciferol) 98894 Unit Cap) 50,000 unit PO Q7D@0900 [facility] Last Admin: 09/10/23 08:50 Dose: 50,000 unit Fluticasone Propionate (Fluticasone 50mcg Nasal [place]) 2 sprays FRANCOIS BID [facility] Last Admin: 09/12/23 19:28 Dose: 2 sprays Furosemide (Furosemide 20 Mg/ 2ml Vial) 20 mg IV Q6H [facility] Stop: 09/13/23 06:00 Last Admin: 09/12/23 19:27 Dose: 20 mg Glucagon (Glucagon 1 Mg/Vial) 1 mg IM 1X PRN; Protocol PRN Reason: HYPOGLYCEMIA Home Med (Home Med [Ropinirole Hcl 8 Mg Tab]) 1 ea PO BID [facility] Last Admin: 09/12/23 19:26 Dose: 1 ea Ferric Sodium Gluconate Complex 125 mg/ Sodium Chloride 110 mls @ 50 mls/hr IV Q24H [facility] Stop: 09/18/23 18:11 Last Admin: 09/12/23 15:17 Dose: 110 mls Insulin Glargine (Insulin Glargine 100 Unit/Ml) 24 unit SQ DAILY [facility] Last Admin: 09/12/23 08:47 Dose: 24 unit Insulin Human Regular (Insulin Regular (Human) 100 Unit/Ml) 0 unit SQ ACHS [facility]; Protocol Last Admin: 09/12/23 20:21 Dose: Not Given L-Arginine/L-Glutamine/HMB (Sammy Packet) 1 pkt PO BID [facility] Last Admin: 09/12/23 19:28 Dose: 1 pkt Levalbuterol HCl (Levalbuterol 1.25 Mg/3 Ml Neb) 1.25 mg NEB [id number] [facility] Last Admin: 09/12/23 13:00 Dose: Not Given Levothyroxine Sodium (Levothyroxine Sod 0.075 Mg Tab) 0.15 mg PO DAILYAC [facility] Last Admin: 09/12/23 07:15 Dose: 0.15 mg Montelukast Sodium (Montelukast 10 Mg Tab) 10 mg PO DAILY [facility] Last Admin: 09/12/23 08:41 Dose: 10 mg Pantoprazole Sodium (Pantoprazole 40mg Tablet) 40 mg PO ACB [facility]; Protocol Last Admin: 09/12/23 07:15 Dose: 40 mg Phenyleph/Shark Oil/Min Oil/Petrol (Formulation-R Rectal 57gm) 1 appl [place] BID PRN PRN Reason: HEMORRHOIDS Last Admin: 09/08/23 15:54 Dose: 1 appl Senna/Docusate Sodium (Docusate Na/Senna Conc 1 Tab) 2 tab PO BID [facility] Last Admin: 09/12/23 19:26 Dose: 2 tab Spironolactone (Spironolactone 25 Mg Tablet) 25 mg PO BID [facility] Tramadol HCl (Tramadol Hcl 50 Mg Tab) 50 mg PO Q6H PRN PRN Reason: Pain scale 5-7 (Moderate) Last Admin: 09/12/23 17:12 Dose: 50 mg Lab Results (last 24 hrs) 09/12/23 20:20: POC Glucose 176 H 09/12/23 16:22: POC Glucose 118 09/12/23 11:58: POC Glucose 109 09/12/23 07:01: POC Glucose 92 09/12/23 03:46: Sodium 134 L, Potassium 3.8, Chloride 99, Carbon Dioxide 30, Anion Gap 8.8, BUN 73 H, Creatinine 1.53 H, Est GFR (CKD-EPI) 36 L, Glucose 115 H, Calcium 9.0 09/12/23 03:46: WBC 7.20, RBC 3.30 L, Hgb 8.0 L, Hct 25.4 L, MCV 77.1 L, MCH 24.3 L, MCHC 31.5 L, RDW 19.1 H, Plt Count 335, MPV 6.9 L, Neutrophils % 67.2, Lymphocytes % 12.6 L, Monocytes % 10.8, Eosinophils % 8.4 H, Basophils % 1.0, Absolute Neutrophils 4.8, Absolute Lymphocytes 0.9, Absolute Monocytes 0.8, Absolute Eosinophils 0.6 H, Absolute Basophils 0.1 Assessment/ Plan: Nephrology No dyspnea No chest pain Fatigue and weakness No acute events overnight Vitals, medications, blood work and imaging reviewed in the chart General: Oriented x3, Cooperative HEENT: Atraumatic Neck: Supple Respiratory: Clear to auscultation bilaterally, Normal air movement Cardiovascular: Regular rate/rhythm, Edema Gastrointestinal: Soft and benign, Non-distended, Distended Musculoskeletal: No clubbing, No contractures Integumentary: No rashes, No cyanosis Neurological: Normal speech Laboratory Data (last 24 hrs) 09/07/23 09/07/23 03:21 03:21 WBC 8.40 Hgb 8.2 L Hct 26.2 L Plt Count 339 Sodium 131 L Potassium 5.4 H BUN 65 H Creatinine 1.71 H Glucose 107 H Magnesium 2.7 H Imagings Data: [id number] EXAM DESCRIPTION: [facility] Single View09/06/2023 3:12 pm CLINICAL HISTORY: Shortness of breath COMPARISON: 2018 FINDINGS: Mild bilateral pulmonary opacities. The heart is moderately enlarged. Post surgical changes involve the chest. Pacemaker leads place IMPRESSION: These findings probably indicate mild CHF [id number] EXAM DESCRIPTION: US - Extrem Venous W Compress Romero - 09/07/2023 1:43 am CLINICAL HISTORY: swelling COMPARISON: No comparisons TECHNIQUE: Real-time sonographic evaluation of the lower extremity deep venous systems was performed using color Doppler, grayscale, and compression. FINDINGS: Bilateral lower extremities. Normal compressibility, flow augmentation, phasic flow and spontaneous flow is identified in both the left and right lower extremity deep venous systems. No intraluminal filling defects seen. Subcutaneous edema present throughout the lower extremities bilaterally. IMPRESSION: No DVT in either lower extremity. [id number] EXAM DESCRIPTION: RAD - Abdomen 1 View (KUB) - 09/06/2023 3:12 pm CLINICAL HISTORY: Constipation FINDINGS: The bowel gas pattern is unremarkable. A moderate amount of stool is present throughout the colon. Vascular calcifications are present. Post surgical changes involve the lumbar spine. A neurostimulator device in place [address] LEFT VENTRICULAR WALL MOTION: NORMAL. DOPPLER/COLOR FLOW: SEE BELOW. COMMENTS: 1. NORMAL LEFT VENTRICULAR EJECTION FRACTION 55-60% WITH NORMAL WALL MOTION. 2. MODERATE DIASTOLIC DYSFUNCTION 3. LEFT ATRIAL ENLARGEMENT 4. SEVERE TRICUSPID REGURGITATION 5. MILD MITRAL REGURGITATION Conclusions/Impression: CKD III -No NSAIDs Hyponatremia -Continue loop diuretic Hyperkalemia, resolved Metabolic Alkalosis -Continue Diamox HTN with CKD/ CHF -Discontinue Imdure -Start Spironolactone Diastolic CHF, A/C Severe TR Pleural Effusion -Echocardiogram reviewed -Change Lasix to Bumex -Change Diamox 500mg Daily -Start Spironolactone DM II with CKD -Continue Lantus -RISS Hypoalbuminemia Moderate Malnutrition -Continue Sammy Anemia in chronic illness Iron Deficiency 4% -Monitor H&H -Continue daily IV iron CKD MBD -Continue Ergocalciferol
[2023-09-13 01:19] LABS: Specific Gravity 1.015 (1.005-1.030); Sqamous Epithelial <5 /HPF (None Seen); Urine Bacteria None Seen /HPF (<20); Urine Bilirubin NEGATIVE (Negative); Urine Blood Negative (Negative); Urine Clarity Turbid (Clear); Urine Color Light-Yellow (Yellow); Urine Culture Reflex Order REFLEXED; Urine Glucose NEGATIVE (Negative); Urine Ketones NEGATIVE (Negative); Urine Micro Reflex YN NO BILL MICROSCOPIC; Urine Nitrite NEGATIVE (Negative); Urine Protein NEGATIVE (Negative); Urine RBC <5 /HPF (None Seen); Urine Urobilinogen Normal (Normal); Urine WBC >50 /HPF (<5); Urine Yeast (Budding) Occasional /HPF (None Seen)
[2023-09-13] MEDS: BUMETANIDE 1 MG TABLET PO SCH (06:37)
[2023-09-13] MEDS: SPIRONOLACTONE 25 MG TABLET PO SCH (08:41)
[2023-09-13] MEDS: LACTULOSE 20 GM/30 ML UCUP PO ONE (08:44)
[2023-09-13] MEDS: acetaZOLAMIDE 250 MG TAB PO SCH (12:25)
[2023-09-13] MEDS: COLLAGENASE 30 GM OINTMENT TOP SCH (15:22)
[2023-09-13 16:46] LABS: Anion Gap 7.7 mEq/L (5.0-15.0); Potassium 3.7 mEq/L (3.5-5.1)
--- NOTE | 2023-09-13 20:23 | P.PN ---
Date of Service: 09/13/23 Vital Signs Temp Pulse Resp BP Pulse Ox 96.5 F L 60 20 123/56 L 96 09/13/23 19:11 09/13/23 19:11 09/13/23 19:11 09/13/23 19:11 09/13/23 19:11 Medications Acetaminophen (Acetaminophen 500 Mg Tab) 500 mg PO Q4H PRN PRN Reason: Pain scale 2-4 (Mild) Last Admin: 09/12/23 15:20 Dose: 500 mg Acetazolamide (Acetazolamide 250 Mg Tab) 500 mg PO Q24H [facility] Last Admin: 09/13/23 12:25 Dose: 500 mg Amiodarone HCl (Amiodarone Hcl 200 Mg Tab) 200 mg PO DAILY [facility] Last Admin: 09/13/23 08:41 Dose: 200 mg Apixaban (Apixaban 2.5 Mg Tablet) 2.5 mg PO BID [facility] Last Admin: 09/13/23 19:12 Dose: 2.5 mg Bisacodyl (Bisacodyl 10 Mg Rectal Supp) 10 mg [place] DAILY PRN PRN Reason: CONSTIPATION Last Admin: 09/10/23 14:34 Dose: 10 mg Bumetanide (Bumetanide 1 Mg Tablet) 2 mg PO TIDRESP [facility] Last Admin: 09/13/23 12:57 Dose: 2 mg Collagenase (Collagenase 30 Gm Ointment) 1 appl TOP Q72H [facility] Last Admin: 09/13/23 15:22 Dose: 1 appl Dextrose (D10w 250 Ml Bag) 125 ml IV PRN PRN; Protocol PRN Reason: HYPOGLYCEMIA Ergocalciferol (Drisdol (Vitamin D=Ergocalciferol) 87646 Unit Cap) 50,000 unit PO Q7D@0900 [facility] Last Admin: 09/10/23 08:50 Dose: 50,000 unit Fluticasone Propionate (Fluticasone 50mcg Nasal [place]) 2 sprays FRANCOIS BID [facility] Last Admin: 09/13/23 19:13 Dose: 2 sprays Glucagon (Glucagon 1 Mg/Vial) 1 mg IM 1X PRN; Protocol PRN Reason: HYPOGLYCEMIA Home Med (Home Med [Ropinirole Hcl 8 Mg Tab]) 1 ea PO BID [facility] Last Admin: 09/13/23 19:11 Dose: 1 ea Ferric Sodium Gluconate Complex 125 mg/ Sodium Chloride 110 mls @ 50 mls/hr IV Q24H [facility] Stop: 09/18/23 18:11 Last Admin: 09/13/23 15:23 Dose: 110 mls Insulin Glargine (Insulin Glargine 100 Unit/Ml) 24 unit SQ DAILY [facility] Last Admin: 09/13/23 08:43 Dose: 24 unit Insulin Human Regular (Insulin Regular (Human) 100 Unit/Ml) 0 unit SQ ACHS [facility]; Protocol Last Admin: 09/13/23 19:13 Dose: Not Given L-Arginine/L-Glutamine/HMB (Sammy Packet) 1 pkt PO BID [facility] Last Admin: 09/13/23 19:13 Dose: 1 pkt Levalbuterol HCl (Levalbuterol 1.25 Mg/3 Ml Neb) 1.25 mg NEB [id number] [facility] Last Admin: 09/13/23 14:28 Dose: 1.25 mg Levothyroxine Sodium (Levothyroxine Sod 0.075 Mg Tab) 0.15 mg PO DAILYAC [facility] Last Admin: 09/13/23 06:22 Dose: 0.15 mg Montelukast Sodium (Montelukast 10 Mg Tab) 10 mg PO DAILY [facility] Last Admin: 09/13/23 08:41 Dose: 10 mg Pantoprazole Sodium (Pantoprazole 40mg Tablet) 40 mg PO ACB [facility]; Protocol Last Admin: 09/13/23 07:09 Dose: 40 mg Phenyleph/Shark Oil/Min Oil/Petrol (Formulation-R Rectal 57gm) 1 appl [place] BID PRN PRN Reason: HEMORRHOIDS Last Admin: 09/08/23 15:54 Dose: 1 appl Senna/Docusate Sodium (Docusate Na/Senna Conc 1 Tab) 2 tab PO BID [facility] Last Admin: 09/13/23 19:12 Dose: 2 tab Spironolactone (Spironolactone 25 Mg Tablet) 25 mg PO BID [facility] Last Admin: 09/13/23 19:11 Dose: 25 mg Tramadol HCl (Tramadol Hcl 50 Mg Tab) 50 mg PO Q6H PRN PRN Reason: Pain scale 5-7 (Moderate) Last Admin: 09/13/23 10:08 Dose: 50 mg Lab Results (last 24 hrs) 09/13/23 18:11: POC Glucose 115 09/13/23 16:20: POC Glucose 209 H 09/13/23 16:16: Sodium 134 L, Potassium 3.7, Chloride 99, Carbon Dioxide 31, Anion Gap 7.7, BUN 84 H, Creatinine 1.63 H, Est GFR (CKD-EPI) 33 L, Glucose 125 H, Calcium 9.0 09/13/23 11:02: POC Glucose 96 09/13/23 07:10: POC Glucose 80 09/13/23 06:40: POC Glucose 58 L 09/13/23 01:01: Urine Color Light-yellow, Urine Clarity Turbid H, Urine pH 6.0, Ur Specific [place] 1.015, Glucose (UA)(Auto) Negative, Urine Ketones Negative, Urine Blood Negative, Urine Nitrite Negative, Urine Bilirubin Negative, Urine Urobilinogen Normal, Ur Leukocyte Esterase 500 H, Urine RBC <5, Urine WBC >50 H, Ur Squamous Epith Cells <5, U Non-Squamous Epi Cells <5, Urine Bacteria None seen, Hyaline Casts 0-5, Urine Yeast (Budding) Occasional H, Urine Culture Reflexed Reflexed, Urine Total Protein Negative 09/12/23 20:20: POC Glucose 176 H Assessment/ Plan: Nephrology No dyspnea No chest pain Fatigue and weakness Constipation No acute events overnight Vitals, medications, blood work and imaging reviewed in the chart General: Oriented x3, Cooperative HEENT: Atraumatic Neck: Supple Respiratory: Clear to auscultation bilaterally, Normal air movement Cardiovascular: Regular rate/rhythm, Edema Gastrointestinal: Soft and benign, Non-distended, Distended Musculoskeletal: No clubbing, No contractures Integumentary: No rashes, No cyanosis Neurological: Normal speech Laboratory Data (last 24 hrs) 09/07/23 09/07/23 03:21 03:21 WBC 8.40 Hgb 8.2 L Hct 26.2 L Plt Count 339 Sodium 131 L Potassium 5.4 H BUN 65 H Creatinine 1.71 H Glucose 107 H Magnesium 2.7 H Imagings Data: [id number] EXAM DESCRIPTION: [facility] Single View09/06/2023 3:12 pm CLINICAL HISTORY: Shortness of breath COMPARISON: 2018 FINDINGS: Mild bilateral pulmonary opacities. The heart is moderately enlarged. Post surgical changes involve the chest. Pacemaker leads place IMPRESSION: These findings probably indicate mild CHF [id number] EXAM DESCRIPTION: US - Extrem Venous W Compress Romero - 09/07/2023 1:43 am CLINICAL HISTORY: swelling COMPARISON: No comparisons TECHNIQUE: Real-time sonographic evaluation of the lower extremity deep venous systems was performed using color Doppler, grayscale, and compression. FINDINGS: Bilateral lower extremities. Normal compressibility, flow augmentation, phasic flow and spontaneous flow is identified in both the left and right lower extremity deep venous systems. No intraluminal filling defects seen. Subcutaneous edema present throughout the lower extremities bilaterally. IMPRESSION: No DVT in either lower extremity. [id number] EXAM DESCRIPTION: RAD - Abdomen 1 View (KUB) - 09/06/2023 3:12 pm CLINICAL HISTORY: Constipation FINDINGS: The bowel gas pattern is unremarkable. A moderate amount of stool is present throughout the colon. Vascular calcifications are present. Post surgical changes involve the lumbar spine. A neurostimulator device in place [id number] LEFT VENTRICULAR WALL MOTION: NORMAL. DOPPLER/COLOR FLOW: SEE BELOW. COMMENTS: 1. NORMAL LEFT VENTRICULAR EJECTION FRACTION 55-60% WITH NORMAL WALL MOTION. 2. MODERATE DIASTOLIC DYSFUNCTION 3. LEFT ATRIAL ENLARGEMENT 4. SEVERE TRICUSPID REGURGITATION 5. MILD MITRAL REGURGITATION Conclusions/Impression: CKD III -No NSAIDs Hyponatremia -Continue loop diuretic Hyperkalemia, resolved Metabolic Alkalosis -Continue Diamox HTN with CKD/ CHF -ContinueSpironolactone Diastolic CHF, A/C Severe TR Pleural Effusion -Echocardiogram reviewed -Continue Bumex TID -Continue Diamox 500mg Daily -Continue Spironolactone DM II with CKD -Continue Lantus -RISS Hypoalbuminemia Moderate Malnutrition -Continue Sammy Anemia in chronic illness Iron Deficiency 4% -Monitor H&H -Continue daily IV iron CKD MBD -Continue Ergocalciferol
--- NOTE | 2023-09-13 23:47 | PN ---
Time Of Service: 1:50 p.m. Subjective: Ms. Vaughn is resting in bed. She did report some pain in the right ear and otoscope wa s used and in the right air, she had significant cerumen plugging most of the canal. The anterior po rtion has a slight area of opening. Otherwise, there is no evidence of an infection. There is no dr sheldon noted and no redness along the ear canal. Again, some pain in the right ear. Otherwise, the swelling in bilateral proximal more than distal lower extremities present. Some abdominal distention . She does have a wound VAC back in place. The wound care service did indicate that should be mario nued, but it is noted that there is no drainage. There are to help with wound healing in the lower a bdominal region. Physical Examination: Vital Signs: Blood pressure 123/56, pulse 60, respiratory rate 20, temperature 97.5, oxygen saturati on 97%. General: Ms. Vaughn is resting comfortably in a chair beside the bed with the legs elevated. HEENT: She is normocephalic, atraumatic. Sclerae anicteric. Oropharynx pink, moist. Neck: Supple. Chest: Clear. Abdomen: Shows some distention with fluid wave. Extremities: Lower extremity proximally, she has mild to moderate edema more proximally and mild rosa ma in the lower extremities distally. She has diffuse weakness more proximal than distal in the lowe r and upper extremities. Laboratory Studies: Yesterday, white blood cell count 7.2, hemoglobin 8.0, platelets 335. Sodium 13 4, potassium 3.7, chloride 99, carbon dioxide 31, BUN 84, creatinine 1.63, glucose ranged from 80-209 , calcium 9.0. She is followed by the renal service for her renal insufficiency. Today, urinalysis showed turbid clarity, 500 esterase, greater than 5 white blood cells, occasional budding yeast, no b acteria seen. Red blood cells less than 5. X-ray/imaging: No new x-rays or imaging. Medications: She is now on collagenase for wound care in the lower abdominal region. She has all ot her medications continued except she now has Aldactone 25 mg twice daily added to her regimen. Progress Made With Physical, Occupational, And Speech Therapy: Today with physical therapy, she was able to perform multiple [id number] transfers with contact guard to minimal assistance. Moderate a ssistance for bilateral lower extremity help and trunk help. Maximum assistance for scooting. She d id wheelchair mobilization of 90 feet with contact guard assistance. She needs rest breaks every 10- 15 feet. Gait, she ambulated 20 feet and 30 feet with minimal assistance using a rolling walker. Sh avelina did refuse to walk further. With occupational therapy, she did [id number] transfer with at leas t 1 point with independence and contact guard assistance with speech, needed maximum cues to particip ate due to fatigue. She is oriented to temporal concept. Recall 3 of 3 unrelated pictures after 5 m inutes and 3 of 4 after another 5 minutes. Ms. Vaughn is making slow overall progress with her recovery from her CHF myopathy. It is likely she will need more time to recover and may require senior care. In addition, she has significant lo wer extremity more proximal than distal edema and ascites and is on wound VAC, so senior care chai l be the likely option after discharge. Assessment: She is a 72-year-old with congestive heart failure myopathy and making slow progress wit h physical, occupational, and speech therapy. She has edema in the proximal and distal lower extremi ties. She has ascites. She has decrease in physical functioning, decreased mobility, diabetes melli tus, hypertension, hypothyroidism, restless legs syndrome, hyponatremia. Plan: 1.She will continue with physical, occupational and speech therapy, 3.5 hours, 5 of 7 days. 2.Continue all of her medications including the multiple diuretics and she is also followed by the r enal service. Comorbidities That Are Impacting Rehabilitation: Significant edema in the extremities and abdominal region with the wound VAC, making it difficult for her to thrive and be able to recover quickly. She will likely again need to be dischar ged to senior care. LB/MODL Voice ID: [id number] Report ID: [id number]
[2023-09-14 06:56] VITALS: BP 125/57; TEMP 96.8
[2023-09-14 08:14] LABS: Absolute Basophils 0.1 K/uL (0-0.5); Absolute Eosinophils 0.3 K/uL (0-0.5); Absolute Lymphocytes (CBC) 0.8 K/uL (0.7-4.9); Absolute Monocytes 0.7 K/uL (0.1-1.3); Absolute Neutrophil 4.7 K/uL (1.8-8.0); Basophils % 0.8 % (0-1.3); Eosinophils % 5.1 % (0-4.4); Hematocrit 26.7 % (36.0-45.0); Hemoglobin 8.4 g/dL (12.0-15.0); Lymphocytes % 12.8 % (15.3-44.8); MCH 24.6 pg (27.0-35.0); MCHC 31.5 g/dL (32.0-36.0); MCV 78.1 fL (80-100); MPV 6.9 fL (7.6-11.3); Monocytes % 10.2 % (3.3-12.3); Neutrophils % 71.1 % (41.7-73.7); Nucleated Red Blood Cells % 0.1 % (0-0); Platelets 350 thou/uL (152-406); RBC Red Blood Cell Count 3.41 M/uL (3.86-4.86); Red Cell Distribution Width 18.9 % (12.1-15.2)
[2023-09-14 08:25] LABS: Albumin 2.8 g/dL (3.4-5.0); Albumin/Globulin Ratio 0.7 (1.1-1.8); Anion Gap 8.6 mEq/L (5.0-15.0); Bilirubin Total 0.4 mg/dL (0.2-1.0); Globulin 4.1 g/dL (2.3-3.5); Magnesium 2.4 mg/dL (1.6-2.4); Phosphorus 4.5 mg/dL (2.5-4.9); Potassium 3.6 mEq/L (3.5-5.1); Prealbumin 17.1 mg/dL (20-40); Protein, Total 6.9 g/dL (6.4-8.2); Uric Acid 9.5 mg/dL (2.6-6.0)
[2023-09-14 09:34] LABS: Blood Morphology Comment NOT SEEN (NOT SEEN); Differential Total Cells Count 100; Eosinophils 5 % (0-3); Lymphocytes 22 % (15-42); Metamyelocytes 2 % (0-0); Monocytes 4 % (0-10); Platelet Estimate ADEQ; Segmented Neutrophils 65 % (40-80)
[2023-09-14 09:38] VITALS: O2SAT 99
[2023-09-14] MEDS: POTASSIUM CL SA 10 MEQ TAB PO ONE (10:25)
--- NOTE | 2023-09-14 10:54 | P.PN ---
Date of Service: 09/14/23 Vital Signs Temp Pulse Resp BP Pulse Ox 96.8 F 60 17 125/57 L 94 09/14/23 06:38 09/14/23 08:30 09/14/23 06:38 09/14/23 08:30 09/14/23 06:38 Medications Acetaminophen (Acetaminophen 500 Mg Tab) 500 mg PO Q4H PRN PRN Reason: Pain scale 2-4 (Mild) Last Admin: 09/12/23 15:20 Dose: 500 mg Acetazolamide (Acetazolamide 250 Mg Tab) 500 mg PO Q24H [facility] Last Admin: 09/13/23 12:25 Dose: 500 mg Amiodarone HCl (Amiodarone Hcl 200 Mg Tab) 200 mg PO DAILY [facility] Last Admin: 09/14/23 06:48 Dose: 200 mg Apixaban (Apixaban 2.5 Mg Tablet) 2.5 mg PO BID [facility] Last Admin: 09/14/23 08:31 Dose: 2.5 mg Bisacodyl (Bisacodyl 10 Mg Rectal Supp) 10 mg CO DAILY PRN PRN Reason: CONSTIPATION Last Admin: 09/10/23 14:34 Dose: 10 mg Bumetanide (Bumetanide 1 Mg Tablet) 2 mg PO TIDRESP [facility] Last Admin: 09/14/23 06:58 Dose: 2 mg Collagenase (Collagenase 30 Gm Ointment) 1 appl TOP Q72H [facility] Last Admin: 09/13/23 15:22 Dose: 1 appl Dextrose (D10w 250 Ml Bag) 125 ml IV PRN PRN; Protocol PRN Reason: HYPOGLYCEMIA Ergocalciferol (Drisdol (Vitamin D=Ergocalciferol) 05654 Unit Cap) 50,000 unit PO Q7D@0900 [facility] Last Admin: 09/10/23 08:50 Dose: 50,000 unit Fluticasone Propionate (Fluticasone 50mcg Nasal Winner) 2 sprays FRANCOIS BID [facility] Last Admin: 09/14/23 08:32 Dose: 2 sprays Glucagon (Glucagon 1 Mg/Vial) 1 mg IM 1X PRN; Protocol PRN Reason: HYPOGLYCEMIA Home Med (Home Med [Ropinirole Hcl 8 Mg Tab]) 1 ea PO BID [facility] Last Admin: 09/14/23 08:33 Dose: 1 ea Ferric Sodium Gluconate Complex 125 mg/ Sodium Chloride 110 mls @ 50 mls/hr IV Q24H [facility] Stop: 09/18/23 18:11 Last Admin: 09/13/23 15:23 Dose: 110 mls Insulin Glargine (Insulin Glargine 100 Unit/Ml) 24 unit SQ DAILY [facility] Last Admin: 09/14/23 08:55 Dose: 24 unit Insulin Human Regular (Insulin Regular (Human) 100 Unit/Ml) 0 unit SQ ACHS [facility]; Protocol Last Admin: 09/14/23 06:54 Dose: Not Given L-Arginine/L-Glutamine/HMB (Sammy Packet) 1 pkt PO BID [facility] Last Admin: 09/14/23 08:00 Dose: Not Given Levalbuterol HCl (Levalbuterol 1.25 Mg/3 Ml Neb) 1.25 mg NEB [id number] [facility] Last Admin: 09/14/23 07:39 Dose: 1.25 mg Levothyroxine Sodium (Levothyroxine Sod 0.075 Mg Tab) 0.15 mg PO DAILYAC [facility] Last Admin: 09/14/23 06:49 Dose: 0.15 mg Montelukast Sodium (Montelukast 10 Mg Tab) 10 mg PO DAILY [facility] Last Admin: 09/14/23 06:49 Dose: 10 mg Pantoprazole Sodium (Pantoprazole 40mg Tablet) 40 mg PO ACB [facility]; Protocol Last Admin: 09/14/23 06:48 Dose: 40 mg Phenyleph/Shark Oil/Min Oil/Petrol (Formulation-R Rectal 57gm) 1 appl CO BID PRN PRN Reason: HEMORRHOIDS Last Admin: 09/08/23 15:54 Dose: 1 appl Senna/Docusate Sodium (Docusate Na/Senna Conc 1 Tab) 2 tab PO BID [facility] Last Admin: 09/14/23 08:31 Dose: 2 tab Spironolactone (Spironolactone 25 Mg Tablet) 25 mg PO BID [facility] Last Admin: 09/14/23 08:30 Dose: 25 mg Tramadol HCl (Tramadol Hcl 50 Mg Tab) 50 mg PO Q6H PRN PRN Reason: Pain scale 5-7 (Moderate) Last Admin: 09/13/23 10:08 Dose: 50 mg Lab Results (last 24 hrs) 09/14/23 07:42: Sodium 133 L, Potassium 3.6, Chloride 98, Carbon Dioxide 30, Anion Gap 8.6, BUN 89 H, Creatinine 1.62 H, Est GFR (CKD-EPI) 34 L, Glucose 69 L, Uric Acid 9.5 H, Calcium 9.4, Phosphorus 4.5, Magnesium 2.4, Total Bilirubin 0.4, AST 28, ALT 18, Alkaline Phosphatase 124 H, NT-Pro-B Natriuret Pep 6683 H, Serum Total Protein 6.9, Albumin 2.8 L, Globulin 4.1 H, Albumin/Globulin Ratio 0.7 L, Prealbumin 17.1 L 09/14/23 07:42: WBC 6.60, RBC 3.41 L, Hgb 8.4 L, Hct 26.7 L, MCV 78.1 L, MCH 24.6 L, MCHC 31.5 L, RDW 18.9 H, Plt Count 350, MPV 6.9 L, Neutrophils % 71.1, Lymphocytes % 12.8 L, Monocytes % 10.2, Eosinophils % 5.1 H, Basophils % 0.8, Absolute Neutrophils 4.7, Segmented Neutrophils 65, Absolute Lymphocytes 0.8, Lymphocytes 22, Monocytes 4, Absolute Monocytes 0.7, Eosinophils 5 H, Absolute Eosinophils 0.3, Basophils 2 H, Absolute Basophils 0.1, Metamyelocytes 2 H, Platelet Estimate Adeq, Morphology Comment Not seen 09/14/23 06:30: POC Glucose 71 09/13/23 18:11: POC Glucose 115 09/13/23 16:20: POC Glucose 209 H 09/13/23 16:16: Sodium 134 L, Potassium 3.7, Chloride 99, Carbon Dioxide 31, Anion Gap 7.7, BUN 84 H, Creatinine 1.63 H, Est GFR (CKD-EPI) 33 L, Glucose 125 H, Calcium 9.0 09/13/23 11:02: POC Glucose 96 Microbiology Results 09/13/23 01:01 Catheterized Urine [place] Count - Preliminary BETWEEN 10,000 & 100,000 CFU/ML 09/13/23 01:01 Catheterized Urine - Preliminary MIXED EMILIE. Assessment/ Plan: Nephrology No dyspnea No chest pain Fatigue and weakness +BM Persistent edema of the hips and abdomen No acute events overnight Vitals, medications, blood work and imaging reviewed in the chart General: Oriented x3, Cooperative HEENT: Atraumatic Neck: Supple Respiratory: Clear to auscultation bilaterally, Normal air movement Cardiovascular: Regular rate/rhythm, Edema Gastrointestinal: Soft and benign, Non-distended, Distended Musculoskeletal: No clubbing, No contractures Integumentary: No rashes, No cyanosis Neurological: Normal speech Laboratory Data (last 24 hrs) 09/07/23 09/07/23 03:21 03:21 WBC 8.40 Hgb 8.2 L Hct 26.2 L Plt Count 339 Sodium 131 L Potassium 5.4 H BUN 65 H Creatinine 1.71 H Glucose 107 H Magnesium 2.7 H Imagings Data: [id number] EXAM DESCRIPTION: RADChest Single View09/06/2023 3:12 pm CLINICAL HISTORY: Shortness of breath COMPARISON: 2018 FINDINGS: Mild bilateral pulmonary opacities. The heart is moderately enlarged. Post surgical changes involve the chest. Pacemaker leads place IMPRESSION: These findings probably indicate mild CHF [id number] EXAM DESCRIPTION: US - Extrem Venous W Compress Romero - 09/07/2023 1:43 am CLINICAL HISTORY: swelling COMPARISON: No comparisons TECHNIQUE: Real-time sonographic evaluation of the lower extremity deep venous systems was performed using color Doppler, grayscale, and compression. FINDINGS: Bilateral lower extremities. Normal compressibility, flow augmentation, phasic flow and spontaneous flow is identified in both the left and right lower extremity deep venous systems. No intraluminal filling defects seen. Subcutaneous edema present throughout the lower extremities bilaterally. IMPRESSION: No DVT in either lower extremity. [id number] EXAM DESCRIPTION: RAD - Abdomen 1 View (KUB) - 09/06/2023 3:12 pm CLINICAL HISTORY: Constipation FINDINGS: The bowel gas pattern is unremarkable. A moderate amount of stool is present throughout the colon. Vascular calcifications are present. Post surgical changes involve the lumbar spine. A neurostimulator device in place [id number] LEFT VENTRICULAR WALL MOTION: NORMAL. DOPPLER/COLOR FLOW: SEE BELOW. COMMENTS: 1. NORMAL LEFT VENTRICULAR EJECTION FRACTION 55-60% WITH NORMAL WALL MOTION. 2. MODERATE DIASTOLIC DYSFUNCTION 3. LEFT ATRIAL ENLARGEMENT 4. SEVERE TRICUSPID REGURGITATION 5. MILD MITRAL REGURGITATION Conclusions/Impression: CKD III -No NSAIDs Hyponatremia -Continue loop diuretic Hyperkalemia, resolved Metabolic Alkalosis -Continue Diamox HTN with CKD/ CHF -Continue Spironolactone Diastolic CHF, A/C Severe TR Pleural Effusion -Echocardiogram reviewed -Continue Bumex TID -Continue Diamox 500mg Daily -Continue Spironolactone DM II with CKD -Continue Lantus -RISS Hypoalbuminemia Moderate Malnutrition -Continue Sammy Anemia in chronic illness Iron Deficiency 4% -Monitor H&H -Continue daily IV iron CKD MBD -Continue Ergocalciferol
== END 2023-09-14 12:45 | DRG 91 ==
LOC: 5TH 13:05
PROVIDERS: ADMIT Psychiatry & Neurology Neurology with Special Qualifications in Child Neurology; ATTEND Psychiatry & Neurology Neurology with Special Qualifications in Child Neurology
DX: G72.89 Other specified myopathies (principal); I50.33 Acute on chronic diastolic (congestive) heart failure; E87.1 Hypo-osmolality and hyponatremia; N39.0 Urinary tract infection, site not specified; I13.0 Hypertensive heart and chronic kidney disease with heart failure and stage 1 through stage 4 chronic kidney disease, or unspecified chronic kidney disease; E87.3 Alkalosis; R18.8 Other ascites; E87.5 Hyperkalemia; N18.30 Chronic kidney disease, stage 3 unspecified; I48.0 Paroxysmal atrial fibrillation; J44.9 Chronic obstructive pulmonary disease, unspecified; E88.09 Other disorders of plasma-protein metabolism, not elsewhere classified; E11.9 Type 2 diabetes mellitus without complications; E03.9 Hypothyroidism, unspecified; I25.10 Atherosclerotic heart disease of native coronary artery without angina pectoris; G25.81 Restless legs syndrome; R14.0 Abdominal distension (gaseous); E11.22 Type 2 diabetes mellitus with diabetic chronic kidney disease; D63.8 Anemia in other chronic diseases classified elsewhere; I25.2 Old myocardial infarction; Z95.1 Presence of aortocoronary bypass graft
CPT/HCPCS: 36415; 71045; 74018; 76705; 80048; 80053; 81001; 82040; 82607; 82728; 82947; 83540; 83735; 83880; 84100; 84134; 84466; 84550; 85025; 87086; 87088; 92523; 93306; 93970; 94010; 94640; 97110; 97116; 97129; 97163; 97165; 97530; 97542; J1335; J1815; J1940; J2916; J3590; J7050; J7614